=== PATIENT | male | born 1950 | race Caucasian/White ===

== ENCOUNTER → 2018-01-23 | Outpatient (CLI) | payer MEDICARE ==
--- NOTE | 2018-01-23 09:46 | XR ---
EXAMINATION TYPE: XR chest 2V DATE OF EXAM: 01/23/2018 COMPARISON: 06/23/2015 INDICATION: Asbestos exposure TECHNIQUE: Frontal and lateral views of the chest are obtained. FINDINGS: The heart size is normal. The pulmonary vasculature is normal. The lungs are clear. Right shoulder staple is evident. No suspicious pleural calcifications are evident. No pulmonary fibrosis is evident. IMPRESSION: 1. No acute pulmonary process.
== END | disposition home or self-care (01) ==
LOC: RADXRMAIN 07:56
PROVIDERS: ATTEND Family Medicine
DX: Z77.090 Contact with and (suspected) exposure to asbestos (principal)
CPT/HCPCS: 71046

== ENCOUNTER → 2019-09-15 | Outpatient (CLI) | payer MEDICARE ==
--- NOTE | 2019-09-15 16:24 | MR ---
EXAMINATION TYPE: MR brain wo/w con DATE OF EXAM: 09/15/2019 COMPARISON: NONE HISTORY: Tremors TECHNIQUE: Multiplanar, multisequence images of the brain and brainstem is performed without and with IV contras t, utilizing 13 mL intravenous Gadavist . FINDINGS: Diffusion weighted images demonstrate no evidence of a recent infarct or other diffusion ab normality. There is no worrisome extra-axial fluid collection. Mild ventricular and sulcal prominenc e. Occasional focus of T2 hyperintensity seen throughout the white matter bilaterally. Estimated 5-8 scattered lesions. Lesion is nonspecific in appearance. Basis of product of proximal vessel ischemic change in patient this age. Midline structures demonstrate normal morphology. The craniocervical junction appears within normal limits. Post contrast images demonstrate no abnormal enhancement. The dural venous sinuses appear pa tent. The visualized sinuses are clear and the globes are intact. IMPRESSION: Mild diffuse age-related cerebral atrophy and mild to minimal chronic small vessel ischem ic change. No suspicious enhancement or enhancing masses identified.
== END | disposition home or self-care (01) ==
LOC: RADMRIMAIN 14:11
PROVIDERS: ATTEND Family Medicine
DX: G31.1 Senile degeneration of brain, not elsewhere classified (principal); I67.82 Cerebral ischemia
CPT/HCPCS: 70553; A9585

== ENCOUNTER 2019-10-01 07:10 | Day surgery (SDC) | payer MEDICARE ==
[2019-09-26 14:05] VITALS: BMI 43.8
[~2019-10-01 07:10] MED LIST: LACTATED RINGERS 1,000 ML IV SCH
[2019-10-01] MEDS ORDERED: IV FLUID CONTINUATION 1,000 ML IV ONE (07:26)
[2019-10-01 07:37] VITALS: TEMP 98.3
[2019-10-01 07:52] LABS: Glucose,Whole Blood 121 mg/dL (75-99)
[2019-10-01] MEDS ORDERED: PROPOFOL 10 MG/ML 20 ML VIAL IV ONE (07:57)
--- NOTE | 2019-10-01 07:59 | P.GSHP ---
History of Present Illness H&P Date: 10/01/19 CHIEF COMPLAINT: Colon screen HISTORY OF PRESENT ILLNESS: The patient is a 69-year-old male who presents for colon screen. Lower endoscopy was offered for further evaluation and management. PAST MEDICAL HISTORY: Please see list. PAST SURGICAL HISTORY: Please see list. MEDICATIONS: Please see list. ALLERGIES: Please see list. SOCIAL HISTORY: No illicit drug use FAMILY HISTORY: No reports of Crohn disease or ulcerative colitis. REVIEW OF ORGAN SYSTEMS: CONSTITUTIONAL: No reports of fevers or chills. PHYSICAL EXAM: VITAL SIGNS: Stable GENERAL: Well-developed pleasant in no acute distress. HEENT: No scleral icterus. Extraocular movements grossly intact. Moist buccal mucosa. NECK: Supple without lymphadenopathy. CHEST: Unlabored respirations. Equal bilateral excursions. CARDIOVASCULAR: Regular rate and rhythm. Distal 2+ pulses. ABDOMEN: Soft, nontender, nondistended. MUSCULOSKELETAL: No clubbing, cyanosis, or edema. ASSESSMENT: 1. Colon screen. PLAN: 1. Recommend proceeding with a lower endoscopy Past Medical History Past Medical History: Asthma, Cancer, Diabetes Mellitus, GERD/Reflux, Hyperlipidemia, Hypertension, Prostate Disorder Additional Past Medical History / Comment(s): squamous cell cancer behind rt ear History of Any Multi-Drug Resistant Organisms: None Reported Past Surgical History: Heart Catheterization, Hernia Repair Additional Past Surgical History / Comment(s): rt shoulder x2 , lt knee torn meniscus, torn achilles lt Past Anesthesia/Blood Transfusion Reactions: Previous Problems w/ Anesthesia Additional Past Anesthesia/Blood Transfusion Reaction / Comment(s): during shoulder surgery "froze chest", during achilles surgery placed on abdomen had difficulty breathing Smoking Status: Never smoker - Past Family History Sister(s) Family Medical History: Cancer Additional Family Medical History / Comment(s): 1 sister cancer nose. 1 sister liver cancer Medications and Allergies Home Medications Medication Instructions Recorded Confirmed Type Albuterol Sulfate [Ventolin HFA] 1 - 2 puff INHALATION Q6H PRN 09/26/19 10/01/19 History Budesonide/Formoterol Fumarate 2 puff INHALATION DAILY 09/26/19 10/01/19 History [Symbicort 160-4.5 Mcg Inhaler] Cholecalciferol [Vitamin D3 (25 1,000 unit PO DAILY 09/26/19 10/01/19 History Mcg = 1000 Iu)] DULoxetine HCL [Cymbalta] 60 mg PO BID 09/26/19 10/01/19 History Diphenox-Atrop 2.5-0.025 mg 1 tab PO DAILY PRN 09/26/19 10/01/19 History [Lomotil] Enalapril [Vasotec] 10 mg PO BID 09/26/19 10/01/19 History HYDROcodone/APAP 5-325MG [[place] 1 tab PO TID 09/26/19 10/01/19 History 5-325] Hydrochlorothiazide 25 mg PO DAILY 09/26/19 10/01/19 History Pravastatin Sodium [Pravachol] 40 mg PO HS 09/26/19 10/01/19 History Sildenafil Citrate [Viagra] 25 mg PO ONCE PRN 09/26/19 10/01/19 History Tamsulosin [Flomax] 0.4 mg PO DAILY 09/26/19 10/01/19 History metFORMIN HCL [Glucophage] 500 mg PO DAILY 09/26/19 10/01/19 History Allergies Allergy/AdvReac Type Severity Reaction Status Date / Time No Known Allergies Allergy Verified 09/26/19 13:49 Surgical - Exam Vital Signs Temp Pulse Resp BP Pulse Ox 98.3 F 87 14 158/96 96 10/01/19 07:36 10/01/19 07:36 10/01/19 07:36 10/01/19 07:36 10/01/19 07:36 Results - Labs Abnormal Lab Results - Last 24 Hours (Table) 10/01/19 Range/Units 07:49 POC Glucose (mg/dL) 121 H (75-99) mg/dL
--- NOTE | 2019-10-01 08:28 | P.PCN ---
Date of Procedure: 10/01/19 Description of Procedure: PREOPERATIVE DIAGNOSIS: Family history colon cancer Colonoscopy screening POSTOPERATIVE DIAGNOSIS: Family history colon cancer Colonoscopy screening Multiple tubular adenomas throughout the colon. Diverticulosis, sigmoid colon OPERATION: Colonoscopy to the ileocecal valve and appendiceal orifice. Colonoscopy with cold forceps biopsies SURGEON: Beata Keating MD. ANESTHESIA: MAC. INDICATIONS: The patient is an 69-year-old male who presents with family history of colon cancer. Last colonoscopy 7 years ago. Benefits and risks were described and informed consent was obtained. DESCRIPTION OF PROCEDURE: The patient had undergone Suprep. He had been brought into the operating room and laid in the left lateral decubitus position. After adequate intravenous sedation, the rectum was examined with 2% lidocaine jelly. No external hemorrhoids were encountered. The prostatic fossa was unremarkable.The rectal tone was within normal limits. No lesions were palpated in the rectal vault. An Olympus colonoscope was advanced until the ileocecal valve and appendiceal kendall fice were clearly viewed. The prep was fair with residual liquid stool. Sigmoid diverticulosis was encountered. Multiple colonic polyps were found and removed using cold forceps biopsy. No evidence of focal colitis was found. Retroflexion of the scope demonstrated grade 1 internal hemorrhoids without active bleeding or inflammation. The colon was desufflated. The patient had tolerated the procedure well. Withdrawal time was over 6 minutes. FINDINGS: Aronchick preparation quality scale 2 (1-5) Internal hemorrhoids, grade 1 No external hemorrhoids, grade 4. No arteriovenous malformations. Sigmoid diverticulosis Removal of 5 polyps: - Cold forceps biopsy at 20 cm from the anal verge, 4 mm polyp. - Cold forceps biopsy at 25 cm from the anal verge, 5 mm polyp. - Cold forceps biopsy at distal transverse colon, 4 mm polyp. - Cold forceps biopsy at mid transverse colon 2, 3 x 2 mm polyps. No focal colitis. RECOMMENDATIONS: Given severity of tubular adenomas, recommend repeat colonoscopy 3 years, 2021. Plan - Discharge Summary Discharge Rx Participant: No New Discharge Prescriptions: No Action Cholecalciferol [Vitamin D3 (25 Mcg = 1000 Iu)] 1,000 unit PO DAILY Sildenafil Citrate [Viagra] 25 mg PO ONCE PRN PRN Reason: erectile dysfunction Diphenox-Atrop 2.5-0.025 mg [Lomotil] 1 tab PO DAILY PRN PRN Reason: Diarrhea Albuterol Sulfate [Ventolin HFA] 1 - 2 puff INHALATION Q6H PRN PRN Reason: Dyspnea Tamsulosin [Flomax] 0.4 mg PO DAILY Pravastatin Sodium [Pravachol] 40 mg PO HS Enalapril [Vasotec] 10 mg PO BID Budesonide/Formoterol Fumarate [Symbicort 160-4.5 Mcg Inhaler] 2 puff INHALATION DAILY Hydrochlorothiazide 25 mg PO DAILY HYDROcodone/APAP 5-325MG [[place] 5-325] 1 tab PO TID DULoxetine HCL [Cymbalta] 60 mg PO BID metFORMIN HCL [Glucophage] 500 mg PO DAILY Discharge Medication List Albuterol Sulfate [Ventolin HFA] 1 - 2 puff INHALATION Q6H PRN 09/26/19 [History] Budesonide/Formoterol Fumarate [Symbicort 160-4.5 Mcg Inhaler] 2 puff INHALATION DAILY 09/26/19 [History] Cholecalciferol [Vitamin D3 (25 Mcg = 1000 Iu)] 1,000 unit PO DAILY 09/26/19 [History] DULoxetine HCL [Cymbalta] 60 mg PO BID 09/26/19 [History] Diphenox-Atrop 2.5-0.025 mg [Lomotil] 1 tab PO DAILY PRN 09/26/19 [History] Enalapril [Vasotec] 10 mg PO BID 09/26/19 [History] HYDROcodone/APAP 5-325MG [[place] 5-325] 1 tab PO TID 09/26/19 [History] Hydrochlorothiazide 25 mg PO DAILY 09/26/19 [History] Pravastatin Sodium [Pravachol] 40 mg PO HS 09/26/19 [History] Sildenafil Citrate [Viagra] 25 mg PO ONCE PRN 09/26/19 [History] Tamsulosin [Flomax] 0.4 mg PO DAILY 09/26/19 [History] metFORMIN HCL [Glucophage] 500 mg PO DAILY 09/26/19 [History] Follow up Appointment(s)/Referral(s): Beata Keating MD [STAFF PHYSICIAN] - As Needed Patient Instructions/Handouts: Colorectal Polyps (IP), Diverticulosis Diet (GEN), Diverticulosis (DC) Activity/Diet/Wound Care/Special Instructions: Repeat colonoscopy in 3 years, 2021 Discharge Disposition: HOME SELF-CARE
[2019-10-01 08:30] VITALS: RESP 16
[2019-10-01 08:47] VITALS: BP 127/74; PULSE 73
== END 2019-10-01 08:59 | disposition home or self-care (01) ==
LOC: ORWHC2ENDO 07:10
PROVIDERS: ATTEND Surgery Plastic and Reconstructive Surgery
DX: Z12.11 Encounter for screening for malignant neoplasm of colon (principal); K57.30 Diverticulosis of large intestine without perforation or abscess without bleeding; Z80.0 Family history of malignant neoplasm of digestive organs; D12.3 Benign neoplasm of transverse colon; E11.9 Type 2 diabetes mellitus without complications; E78.5 Hyperlipidemia, unspecified; I10 Essential (primary) hypertension; J45.909 Unspecified asthma, uncomplicated; K21.9 Gastro-esophageal reflux disease without esophagitis; Z79.84 Long term (current) use of oral hypoglycemic drugs; Z79.899 Other long term (current) drug therapy; K64.8 Other hemorrhoids; Z79.51 Long term (current) use of inhaled steroids
CPT/HCPCS: 88305; 45380; J2704

== ENCOUNTER → 2020-01-29 | Outpatient (CLI) | payer MEDICARE ==
[2020-01-29 08:31] LABS: Basophils # (A) 0.1 k/uL (0-0.2); Basophils % (A) 1 %; Eosinophils # (A) 0.1 k/uL (0-0.7); Eosinophils % (A) 2 %; HGB 16.3 gm/dL (13.0-17.5); Lymphocytes # (A) 1.9 k/uL (1.0-4.8); Lymphocytes % (A) 23 %; MCH 28.5 pg (25.0-35.0); MCHC 31.9 g/dL (31.0-37.0); MCV 89.4 fL (80.0-100.0); Mean Platelet Volume 6.8; Monocytes # (A) 0.4 k/uL (0-1.0); Monocytes % (A) 5 %; Neutrophils # (A) 5.4 k/uL (1.3-7.7); Neutrophils % (A) 68 %; Platelet Count 179 k/uL (150-450); RBC 5.71 m/uL (4.30-5.90); RDW 13.1 % (11.5-15.5)
[2020-01-29 16:50] LABS: Hemoglobin A1C 5.8 % (4.0-6.0)
[2020-01-29 17:13] LABS: ALT <8 U/L (10-49); AST 21 U/L (14-35); African American GFR (CKD) 89.9 (60.0-200.0); Alkaline Phosphatase 73 U/L (41-126); Calcium 9.7 mg/dL (8.7-10.3); Carbon Dioxide 32.3 mmol/L (21.6-31.8); Chloride 100 mmol/L (96-109); Cholesterol 154 mg/dL (0-200); Globulin 2.1 g/dL (1.6-3.3); Glucose 127 mg/dL (70-110); LDL Cholesterol,Calculated 90.2 mg/dL (0.0-131.0); Non-African American GFR(CKD) 77.5 (60.0-200.0); Sodium 141 mmol/L (135-145); Total Bilirubin 0.5 mg/dL (0.3-1.2); Total Protein 6.5 g/dL (6.2-8.2)
== END | disposition home or self-care (01) ==
LOC: LABWHC1 08:05
PROVIDERS: ATTEND Family Medicine
DX: E11.51 Type 2 diabetes mellitus with diabetic peripheral angiopathy without gangrene (principal)
CPT/HCPCS: 36415; 80053; 80061; 83036; 85025

== ENCOUNTER → 2020-05-25 | Outpatient (CLI) | payer MEDICARE | END | disposition home or self-care (01) | LOC: LABWHC1 09:23 | PROVIDERS: ATTEND Psychiatry & Neurology Neurology | DX: D51.0 Vitamin B12 deficiency anemia due to intrinsic factor deficiency (principal) | CPT/HCPCS: 36415; 82607; 84207 ==

== ENCOUNTER → 2020-12-10 | Outpatient (CLI) | payer MEDICARE ==
--- NOTE | 2020-12-10 11:47 | MR ---
EXAMINATION TYPE: MR cervical spine wo con DATE OF EXAM: 12/10/2020 COMPARISON: None HISTORY: Neck pain, imbalance, myelopathy TECHNIQUE: Multiplanar, multisequence images of the cervical spine were acquired. C2-C3: No evidence for degenerative disc disease. No disc bulge/herniation or protrusion. No Canal stenosis. Foramina are patent bilaterally. C3-C4: Posterior extension of endplate disc complex causes anterior mass effect on the thecal sac and possibly contacting the anterior cervical cord, only mild spinal stenosis, uncovertebral joint hyper trophy results in right-sided foraminal encroachment greater than left. C4-C5: Posterior extension endplate disc complex causes mild anterior mass effect on the thecal sac, no significant stenosis, there is foraminal encroachment on the right greater than left due to uncove rtebral joint hypertrophy and facet arthropathy. C5-C6: There is some mild right-sided foraminal encroachment due to uncovertebral joint hypertrophy a nd facet arthropathy. Minimal posterior disc bulge causes only slight anterior mass effect on the the yenny sac, no significant central stenosis. C6-C7: There is some uncovertebral joint hypertrophy resulting in some right-sided foraminal encroach ment, posterior central disc protrusion causes only slight anterior mass effect on the thecal sac. C7-T1: No evidence for degenerative disc disease. No disc bulge/herniation or protrusion. No Canal stenosis. Foramina are patent bilaterally. Cervical segments are intact. There is near anatomic alignment, minimal retrolisthesis grade 1 C3-4. There is multilevel spondylosis, some endplate discogenic marrow signal changes noted, loss of disc height and signal is greatest at C3-4 but also present to lesser extent C6-7. Cervical spinal cord i s of normal signal. Craniovertebral junction relationships are within normal limits. IMPRESSION: Multilevel degenerative disc disease. Multilevel foraminal encroachment.
== END | disposition home or self-care (01) ==
LOC: RADMRIMAIN 10:20
PROVIDERS: ATTEND Psychiatry & Neurology Neurology
DX: M50.30 Other cervical disc degeneration, unspecified cervical region (principal)
CPT/HCPCS: 72141

== ENCOUNTER → 2021-04-11 | Outpatient (CLI) | payer MEDICARE ==
[~2021-04-11] MED LIST changes: -LACTATED RINGERS 1,000 ML IV SCH; +REGADENOSON 0.4 MG/5 ML SYRINGE IV PRN
--- NOTE | 2021-04-11 13:50 | P.STRESS ---
- Stress Test Note Stress Test Results/Findings: Exam Performed: NM stress lexiscan cardiolite Exam Date: 04/11/21 Reason for Exam: HTN Height: 5 ft 7 in Weight: 122 kg Protocol: LEXISCAN CARDIOLITE Stage: NA Duration of Exercise: NA Resting Heart Rate: 75 Resting Blood Pressure: 133/57 Maximum Achieved Heart Rate: 91 Maximum Achieved Blood Pressure: 169/53 85% PMHR: 129 100% PMHR: 152 METS: NA Technologist Comment: Stress Test Results/Findings: This is a 70-year-old gentleman with history of hypertension, diabetes, hypercholesterolemia and also asthma being evaluated for cardiac status and the symptoms of chest pain and shortness of breath. Stress data alert, baseline EKG showed a sinus rhythm with evidence of right bundle-branch block pattern. A standard dose of Lexiscan was infused. Blood pressure at rest is 133/57 with pulse rate is 75. Patient remained in sinus rhythm with a peak blood pressure 169/53, during and after infusion. EKGs continued to show right bundle-branch block without any significant change from the baseline. Final impression #1. Nondiagnostic Lexiscan stress test #2. Report on the nuclear portion of the test to be provided with the radiologist.
--- NOTE | 2021-04-12 13:26 | NM ---
EXAMINATION TYPE: NM stress lexiscan cardiolite DATE OF EXAM: 04/11/2021 COMPARISON: NONE HISTORY: Essential hypertension TECHNIQUE: After the intravenous administration of 10.3 mCi Tc 99m Sestamibi - Cardiolite resting SP ECT images acquired 45 minutes post injection. The patient received 0.4mg Lexiscan, 24.1 mCi Tc 99m Sestamibi - Stress images obtained [address] injection FINDINGS: Review of stress and rest SPECT images demonstrates no distinct perfusion abnormality. Gated analysi s shows normal wall motion with an estimated left ventricular ejection fraction of 70 %. IMPRESSION: No scintigraphic evidence for reversible ischemia.
== END | disposition home or self-care (01) ==
LOC: RADNMMAIN 08:08
PROVIDERS: ATTEND Family Medicine
DX: I10 Essential (primary) hypertension (principal); E78.00 Pure hypercholesterolemia, unspecified; J45.909 Unspecified asthma, uncomplicated; E11.9 Type 2 diabetes mellitus without complications
CPT/HCPCS: 93017; 78452; A9500; J2785

== ENCOUNTER 2023-01-08 11:36 | Day surgery (SDC) | payer MEDICARE ==
[2023-01-03 15:30] VITALS: BMI 38.7
[~2023-01-08 11:36] MED LIST changes: +ACETAMINOPHEN TAB 500 MG TAB PO PRN; +GABAPENTIN 300 MG CAP PO PRN; +HYDROmorphone 0.5 MG/0.5 ML SYRINGE IVP PRN; +LIDOCAINE 1% (10MG/ML) FOR IV START INTRADERMA PRN; +MELOXICAM 7.5 MG TAB PO PRN; +ONDANSETRON 4 MG/2 ML VIAL IVP PRN; -REGADENOSON 0.4 MG/5 ML SYRINGE IV PRN; +TRANEXAMIC ACID IN NACL,ISO-OS 1,000 MG in SALINE 1 100ML.BAG IVPB PRN
[2023-01-08] MEDS ORDERED: DEXAMETHASONE SOD PHOSPHATE 4 MG/ML 1 ML VIAL IVP ONE (12:13)
[2023-01-08 12:17] LABS: Glucose,Whole Blood 115 mg/dL (70-110)
[2023-01-08] MEDS: LACTATED RINGERS 1,000 ML IV SCH (12:26)
[2023-01-08] MEDS ORDERED: MIDAZOLAM 2 MG/2 ML VIAL IVP ONE (12:30)
--- NOTE | 2023-01-08 12:47 | P.ANPRN ---
Procedure Note - Anesthesia - Nerve Block Performed Left Interscalene Single Time Out Performed: Yes (1230) Date of Procedure: 01/08/23 Procedure Start Time: 12:30 Procedure Stop Time: 12:37 Location of Patient: PreOp Indication: Acute Post-Operative Pain, Requested by Surgeon Sedation Type: Sedate with meaningful contact maintained Preparation: Sterile Prep Position: Sitting Catheter: None Needle Types: Pajunk Needle Gauge: Other (see comment) (22) Ultrasound used to visualize needle placement: Yes Ultrasound used to observe medication spread: Yes Injectate: 0.5% Ropivacaine (see comment for volume) (21 mL of block solution containing 20 mL of 0.5% preservative free bupivacaine mixed with and 4 mg of dexamethasone) Blood Aspirated: No Pain Paresthesia on Injection Noted: No Resistance on Injection: Normal Image Stored and Saved: Yes Events: Uneventful and Well Tolerated
[2023-01-08] MEDS ORDERED: D5W PMX ONE (13:34)
[2023-01-08] MEDS ORDERED: TRANEXAMIC ACID IN NACL,ISO-OS 1,000 MG/100 ML BAG ONE (13:34)
[2023-01-08] MEDS ORDERED: DEXAMETHASONE SOD PHOSPHATE 4 MG/ML 1 ML VIAL ONE (13:34)
[2023-01-08] MEDS ORDERED: LIDOCAINE 2% INJ 20 MG/ML (2 ML VIAL) ONE (13:34)
[2023-01-08] MEDS ORDERED: GLYCOPYRROLATE 0.2 MG/ML 2 ML VIAL ONE (13:34)
[2023-01-08] MEDS ORDERED: PHENYLEPHRINE-0.9% NACL SYG 1,000 MCG/10 ML SYRINGE ONE (13:34)
[2023-01-08] MEDS ORDERED: SUCCINYLCHOLINE CHLORIDE 200 MG/10 ML VIAL IV ONE (13:34)
[2023-01-08] MEDS ORDERED: CALCIUM CHLORIDE 100 MG/ML 10 ML SYRINGE ONE (13:34)
[2023-01-08] MEDS ORDERED: VASOPRESSIN 20 UNIT/ML 1 ML VIAL ONE (13:34)
[2023-01-08] MEDS ORDERED: CLINDAMYCIN 600 MG/50 ML ONE (13:34)
[2023-01-08] MEDS ORDERED: ROCURONIUM 10 MG/ML (5 ML VIAL) IV ONE (13:34)
[2023-01-08] MEDS ORDERED: ePHEDrine 50 MG/ML 1 ML VIAL ONE (13:34)
[2023-01-08] MEDS ORDERED: PROPOFOL 10 MG/ML 20 ML VIAL IV ONE (13:34)
[2023-01-08] MEDS ORDERED: MIDAZOLAM 2 MG/2 ML VIAL ONE (13:34)
[2023-01-08] MEDS ORDERED: ROPIVACAINE 5 MG/ML 30 ML VIAL ONE (13:34)
[2023-01-08] MEDS ORDERED: fentaNYL (PF) 50 MCG/ML 2 ML AMP ONE (13:34)
[2023-01-08] MEDS ORDERED: NEOSTIGMINE 1 MG/ML 10 ML VIAL ONE (13:34)
[2023-01-08] MEDS ORDERED: LACTATED RINGERS 1,000 ML IV ONE ×2 (16:05→16:12)
[2023-01-08] MEDS ORDERED: ceFAZolin 1,000 MG in SODIUM CHLORIDE 0.9% 1,000 ML IRRIGATION ONE (16:12)
[2023-01-08] MEDS ORDERED: HYDROmorphone 0.5 MG/0.5 ML SYRINGE IVP PRN ×2 (16:34)
[2023-01-08] MEDS ORDERED: TEMAZEPAM 15 MG CAP PO PRN (16:34)
[2023-01-08] MEDS ORDERED: SENNOSIDES-DOCUSATE SODIUM 1 EACH TAB PO PRN (16:34)
[2023-01-08] MEDS ORDERED: hydrOXYzine pamoate 25 MG CAP PO PRN (16:34)
[2023-01-08] MEDS ORDERED: diphenhydrAMINE 25 MG CAP PO PRN (16:34)
[2023-01-08 16:44] LABS: Glucose,Whole Blood 144 mg/dL (70-110)
[2023-01-08] MEDS ORDERED: ONDANSETRON 4 MG/2 ML VIAL IVP ONE (17:03)
--- NOTE | 2023-01-08 17:19 | XR ---
EXAMINATION TYPE: XR shoulder limited LT DATE OF EXAM: 01/08/2023 COMPARISON: NONE HISTORY: Postop TECHNIQUE: Single view FINDINGS: There is left shoulder prosthesis. Components appear in anatomic position. IMPRESSION: No complicating process seen.
[2023-01-08 19:59] LABS: Glucose,Whole Blood 206 mg/dL (70-110)
[2023-01-08] MEDS ORDERED: [UNRECOGNIZED DRUG - OTHER] TOPICAL PRN (21:35)
[2023-01-08] MEDS ORDERED: DEXTROSE 50% SYRINGE 50 ML IVP PRN ×2 (21:36)
[2023-01-08] MEDS ORDERED: DIPHENOX-ATROP 2.5-0.025 MG 1 EACH TAB PO PRN (22:00)
[2023-01-08] MEDS: DULoxetine HCL 60 MG CAPSULE.DR PO SCH (22:58)
[2023-01-08] MEDS: CARBIDOPA-LEVODOPA 25-100 MG 1 EACH TAB PO SCH (22:58)
[2023-01-08] MEDS: INSULIN ASPART (NovoLOG) 100 UNIT/ML VIAL SQ SCH (23:03)
[2023-01-08] MEDS: HYDROcodone/APAP 10-325MG 1 EACH TAB PO PRN (23:08)
[2023-01-09] MEDS: LACTATED RINGERS 1,000 ML IV SCH (06:04)
[2023-01-09 06:06] LABS: Glucose,Whole Blood 135 mg/dL (70-110)
[2023-01-09] MEDS: HYDROcodone/APAP 10-325MG 1 EACH TAB PO PRN ×2 (06:53→16:54)
[2023-01-09] MEDS: SYMBICORT 160-4.5 MCG INHALER INHALATION SCH ×2 (07:58→20:41)
[2023-01-09] MEDS: CARBIDOPA-LEVODOPA 25-100 MG 1 EACH TAB PO SCH ×3 (08:53→21:48)
[2023-01-09] MEDS: TAMSULOSIN 0.4 MG CAP.ER.24H PO SCH (08:53)
[2023-01-09] MEDS: DULoxetine HCL 60 MG CAPSULE.DR PO SCH ×2 (08:53→21:49)
[2023-01-09] MEDS: HYDROmorphone 0.5 MG/0.5 ML SYRINGE IVP PRN ×3 (09:15→18:55)
[2023-01-09 09:33] LABS: HCT 41.3 % (39.6-50.0); HGB 13.3 g/dL (13.0-17.0); MCH 28.7 pg (27.0-32.0); MCHC 32.2 g/dL (32.0-37.0); Mean Platelet Volume 10.6 fL (9.5-12.2); NRBC Per 100 WBC 0 /100 WBCS (0.0-0.0); Platelet Count 200 X 10*3/uL (140-440); RBC 4.64 X 10*6/uL (4.40-5.60); RDW 13.7 % (11.5-14.5); WBC 21.98 X 10*3/uL (4.50-10.00)
[2023-01-09 11:07] LABS: Basophils # (A) 0.03 X 10*3/uL (0.00-0.10); Basophils % (A) 0.1 %; Eosinophils # (A) 0 X 10*3/uL (0.04-0.35); Eosinophils % (A) 0 %; Immature Grans, Automated 0.8 %; Lymphocytes % (A) 3.2 %; Monocytes # (A) 0.86 X 10*3/uL (0.20-1.00); Monocytes % (A) 3.9 %; Neutrophils # (A) 20.21 X 10*3/uL (1.80-7.70); RBC Morphology NORMAL
[2023-01-09] MEDS: ALBUTEROL HFA INHALER INHALATION PRN ×3 (11:45→20:41)
[2023-01-09 13:25] LABS: Glucose,Whole Blood 164 mg/dL (70-110)
--- NOTE | 2023-01-09 13:51 | P.PN ---
Subjective Progress Note Date: 01/09/23 This is a 72-year-old male who is status post left reverse total shoulder arthroplasty. This is postoperative day #1and patient is seen and evaluated at bedside today. Patient states that he continues to be in quite a bit of pain, but otherwise denies any new complaints. Objective - Vital Signs Vital signs: Vital Signs Temp 98.4 F 01/09/23 13:17 Pulse 108 H 01/09/23 13:17 Resp 16 01/09/23 13:17 BP 159/63 01/09/23 13:17 Pulse Ox 91 L 01/09/23 13:17 FiO2 Intake & Output 01/08/23 01/09/23 01/09/23 18:59 06:59 18:59 Intake Total 2831 240 Output Total 400 Balance 2431 240 Weight 114.1 kg Intake: IV 2351 Oral 480 240 Output: Urine 200 Estimated Blood Loss 200 Other: Voiding Method Toilet # Voids 0 1 - Exam Vital signs are stable. Patient is in no acute distress and is alert and oriented 3. Sling intact to left upper extremity. Dressing is clean, dry, and intact. Patient has full motion of the left hand and wrist. Sensation intact. Neurovascular status and circulatory status are intact. - Labs CBC & Chem 7: 01/09/23 06:06 Labs: Abnormal Lab Results - Last 24 Hours (Table) 01/08/23 01/08/23 01/09/23 Range/Units 16:42 19:57 06:04 WBC (4.50-10.00) X 10*3/uL Immature Gran # (0.00-0.04) X 10*3/uL Neutrophils # (1.80-7.70) X 10*3/uL Lymphocytes # (0.90-5.00) X 10*3/uL Eosinophils # (0.04-0.35) X 10*3/uL POC Glucose (mg/dL) 144 H 206 H 135 H (70-110) mg/dL Hemoglobin A1c (0.0-6.0) % 01/09/23 01/09/23 01/09/23 Range/Units 06:06 06:06 13:23 WBC 21.98 H (4.50-10.00) X 10*3/uL Immature Gran # 0.18 H (0.00-0.04) X 10*3/uL Neutrophils # 20.21 H (1.80-7.70) X 10*3/uL Lymphocytes # 0.70 L (0.90-5.00) X 10*3/uL Eosinophils # 0 L (0.04-0.35) X 10*3/uL POC Glucose (mg/dL) 164 H (70-110) mg/dL Hemoglobin A1c 6.1 H (0.0-6.0) % Assessment and Plan (1) S/p reverse total shoulder arthroplasty Current Visit: Yes Status: Acute Code(s): Z96.619 - PRESENCE OF UNSPECIFIED ARTIFICIAL SHOULDER JOINT SNOMED Code(s): 735151660 (2) Osteoarthritis of left shoulder Current Visit: Yes Status: Acute Code(s): M19.012 - PRIMARY OSTEOARTHRITIS, LEFT SHOULDER SNOMED Code(s): 958368764687924 Plan: Maintain sling to left upper extremity. Continue pain control. Maintain Prevena wound vac. Anticipate discharge home tomorrow.
[2023-01-09] MEDS ORDERED: KETOROLAC 15 MG/ML 1 ML VIAL IVP PRN (13:52)
[2023-01-09] MEDS: INSULIN ASPART (NovoLOG) 100 UNIT/ML VIAL SQ SCH ×3 (13:53→22:32)
--- NOTE | 2023-01-09 14:29 | P.CONS ---
History of Present Illness - Reason for Consult Consult date: 01/09/23 Medical management - History of Present Illness History of present illness; patient is a 72-year-old gentleman with past medical history significant for left shoulder osteoarthritis, hypertension, hyperlipidemia presented to the hospital for elective procedure with orthopedic. Patient was being seen outpatient by orthopedics for his left shoulder pain. Patient was complaining of stiffness and pain in left shoulder. Patient also complaining of numbness and tingling in the hand and fingers on the left is at rest. Patient underwent physical therapy and steroid injections but was of no benefit. After discussing with orthopedics patient was scheduled for left total shoulder arthroplasty. Postoperatively the medicine team was consulted for medical management REVIEW OF SYSTEMS: CONSTITUTIONAL: No fever, no malaise, no fatigue. HEENT: No recent visual problems or hearing problems. Denied any sore throat. CARDIOVASCULAR: No chest pain, orthopnea, PND, no palpitations, no syncope. PULMONARY: No shortness of breath, no cough, no hemoptysis. GASTROINTESTINAL: No diarrhea, no nausea, no vomiting, no abdominal pain. NEUROLOGICAL: No headaches, no weakness, no numbness. HEMATOLOGICAL: Denies any bleeding or petechiae. GENITOURINARY: Denies any burning micturition, frequency, or urgency. MUSCULOSKELETAL/RHEUMATOLOGICAL: Left shoulder pain ENDOCRINE: Denies any polyuria or polydipsia. The rest of the 14-point review of systems is negative. PHYSICAL EXAMINATION: GENERAL: The patient is alert and oriented x3, not in any acute distress. Well developed, well nourished. HEENT: Pupils are round and equally reacting to light. EOMI. No scleral icterus. No conjunctival pallor. Normocephalic, atraumatic. No pharyngeal erythema. No thyromegaly. CARDIOVASCULAR: S1 and S2 present. No murmurs, rubs, or gallops. PULMONARY: Chest is clear to auscultation, no wheezing or crackles. ABDOMEN: Soft, nontender, nondistended, normoactive bowel sounds. No palpable organomegaly. MUSCULOSKELETAL: Left shoulder bandage seen EXTREMITIES: No cyanosis, clubbing, or pedal edema. NEUROLOGICAL: Gross neurological examination did not reveal any focal deficits. SKIN: No rashes. Assessment and plan Left shoulder osteoarthritis status post left total shoulder arthroplasty Hypertension Hyperlipidemia Plan; Monitor vital signs Monitor CBC Monitor CMP Continue pain management per orthopedics PT and OT evaluation Resume home meds, at this time hold enalapril and HCTZ at blood pressure is normotensive, they can be resumed at a later time depending on blood pressure DVT prophylaxis: Past Medical History Past Medical History: Asthma, Cancer, Diabetes Mellitus, GERD/Reflux, Hearing Disorder / Deafness, Hyperlipidemia, Hypertension, Memory Impairment, Neurologic Disorder, Skin Disorder Additional Past Medical History / Comment(s): Hx skin cancer behind ear, removed. Parkinson's, with some memory impairment and confusion at times. Back issues. Psoriasis. Frequent urination. Hard of hearing, has hearing aids but does not use them. History of Any Multi-Drug Resistant Organisms: None Reported Past Surgical History: Hernia Repair, Orthopedic Surgery Additional Past Surgical History / Comment(s): Radiaoactive frequency pain pr ocedures on back, right shoulder surgery X2, belly button and left testicle hernia repairs, left knee arthroscopy, torn achilles tendon surgery left ankle X2. Past Anesthesia/Blood Transfusion Reactions: No Reported Reaction, Motion Sickness Past Psychological History: PTSD Additional Psychological History / Comment(s): Nightmares. Smoking Status: Former smoker Past Alcohol Use History: None Reported Additional Past Alcohol Use History / Comment(s): Smoked a pipe off and on, quit 40-50 yrs ago. Past Drug Use History: None Reported - Past Family History Sister(s) Family Medical History: Cancer Additional Family Medical History / Comment(s): Melanoma. Medications and Allergies Home Medications Medication Instructions Recorded Confirmed Type Albuterol Sulfate [Ventolin HFA] 1 - 2 puff INHALATION Q6H PRN 09/26/19 01/03/23 History Budesonide/Formoterol Fumarate 2 puff INHALATION BID 09/26/19 01/03/23 History [Symbicort 160-4.5 Mcg Inhaler] DULoxetine HCL [Cymbalta] 60 mg PO BID 09/26/19 01/03/23 History Diphenox-Atrop 2.5-0.025 mg 1 tab PO QID PRN 09/26/19 01/03/23 History [Lomotil] Enalapril [Vasotec] 10 mg PO BID 09/26/19 01/03/23 History Pravastatin Sodium [Pravachol] 40 mg PO HS 09/26/19 01/03/23 History hydroCHLOROthiazide 25 mg PO DAILY 09/26/19 01/03/23 History metFORMIN HCL [Glucophage] 500 mg PO DAILY 09/26/19 01/03/23 History Carbidopa-Levodopa 25-100 mg 3 each PO TID 01/03/23 01/03/23 History [Sinemet 25-100] HYDROcodone/APAP 7.5-325MG [[place] 1 tab PO BID 01/03/23 01/03/23 History 7.5-325] Metoprolol Tartrate 25 mg PO HS 01/03/23 01/03/23 History Psoriasis Cream 1 applic TOPICAL DIRECTED PRN 01/03/23 01/03/23 History Tamsulosin HCl [Flomax] 0.4 mg PO DAILY 01/03/23 01/03/23 History HYDROcodone/APAP 10-325MG [[place] 1 tab PO Q6HR PRN #28 tab 01/08/23 Rx 10-325] Ondansetron Odt [Zofran Odt] 4 mg PO Q8HR PRN #14 tab 01/08/23 Rx Sennosides-Docusate Sodium 1 tab PO BID #60 tablet 01/08/23 Rx [Senokot-S] Allergies Allergy/AdvReac Type Severity Reaction Status Date / Time No Known Allergies Allergy Verified 01/08/23 12:05 Physical Exam Vitals: Vital Signs Temp Pulse Pulse Resp BP Pulse Ox 01/09/23 08:39 99 18 01/09/23 07:58 94 L 01/09/23 06:53 98.4 F 99 18 107/64 92 L 01/09/23 02:00 98.8 F 100 18 109/68 92 L 01/08/23 20:44 98 113/67 92 L 01/08/23 20:00 18 01/08/23 19:45 98.1 F 89 18 93/62 94 L 01/08/23 19:29 88 93/61 94 L 01/08/23 19:14 86 89/58 94 L 01/08/23 19:00 89 79/55 93 L 01/08/23 18:44 89 82/51 94 L 01/08/23 18:29 87 88/57 89 L 01/08/23 18:15 87 72/41 89 L 01/08/23 18:01 94 72/41 93 L 01/08/23 17:45 98.1 F 92 20 88/56 92 L 01/08/23 17:15 95 16 96/55 92 L 01/08/23 17:00 95 15 103/53 91 L 01/08/23 16:45 85 17 97/76 93 L 01/08/23 16:31 97.4 F L 77 16 103/53 92 L 01/08/23 12:43 78 16 108/64 94 L 01/08/23 11:53 97.1 F L 88 16 141/70 97 Intake and Output 01/08/23 01/09/23 01/09/23 22:59 06:59 14:59 Intake Total 1781 240 Output Total 200 Balance 1581 240 Intake: IV 1301 Oral 480 240 Output: Estimated Blood Loss 200 Other: Voiding Method Toilet # Voids 0 1 Weight 114.1 kg Results CBC & Chem 7: 01/09/23 06:06 Labs: Abnormal Lab Results - Last 24 Hours (Table) 01/08/23 01/08/23 01/08/23 Range/Units 12:12 16:42 19:57 WBC (4.50-10.00) X 10*3/uL POC Glucose (mg/dL) 115 H 144 H 206 H (70-110) mg/dL Hemoglobin A1c (0.0-6.0) % 01/09/23 01/09/23 01/09/23 Range/Units 06:04 06:06 06:06 WBC 21.98 H (4.50-10.00) X 10*3/uL POC Glucose (mg/dL) 135 H (70-110) mg/dL Hemoglobin A1c 6.1 H (0.0-6.0) %
[2023-01-09 16:38] LABS: Glucose,Whole Blood 152 mg/dL (70-110)
[2023-01-09 20:37] LABS: Glucose,Whole Blood 123 mg/dL (70-110)
[2023-01-09] MEDS ORDERED: PRAVASTATIN SODIUM 40 MG TAB PO SCH (21:00)
[2023-01-09] MEDS ORDERED: METOPROLOL TARTRATE 25 MG TAB PO SCH (21:00)
[2023-01-09] MEDS ORDERED: NON FORMULARY DRUG (Enalapril 10 MG Tab) PO SCH (21:00)
[2023-01-10] MEDS: LACTATED RINGERS 1,000 ML IV SCH (00:57)
[2023-01-10] MEDS: HYDROcodone/APAP 10-325MG 1 EACH TAB PO PRN ×3 (01:47→13:52)
[2023-01-10 06:09] LABS: Glucose,Whole Blood 120 mg/dL (70-110)
[2023-01-10] MEDS: INSULIN ASPART (NovoLOG) 100 UNIT/ML VIAL SQ SCH ×2 (06:10→11:22)
[2023-01-10 07:37] VITALS: BP 98/63; PULSE 70; RESP 16; TEMP 98.7
[2023-01-10] MEDS: ALBUTEROL HFA INHALER INHALATION PRN (08:02)
[2023-01-10] MEDS: SYMBICORT 160-4.5 MCG INHALER INHALATION SCH (08:02)
[2023-01-10] MEDS: CARBIDOPA-LEVODOPA 25-100 MG 1 EACH TAB PO SCH (08:19)
[2023-01-10] MEDS: TAMSULOSIN 0.4 MG CAP.ER.24H PO SCH (08:19)
[2023-01-10] MEDS: DULoxetine HCL 60 MG CAPSULE.DR PO SCH (08:19)
[2023-01-10] MEDS ORDERED: metFORMIN 500 MG TAB PO SCH (09:00)
[2023-01-10] MEDS ORDERED: hydroCHLOROthiazide 25 MG TAB PO SCH (09:00)
[2023-01-10 11:10] LABS: Glucose,Whole Blood 102 mg/dL (70-110)
--- NOTE | 2023-01-10 11:25 | P.DS ---
Providers Date of admission: 01/08/2023 Expected date of discharge: 01/10/23 Attending physician: Brooke Shin DO Consults: 01/08/23 16:34 Consult Physician Routine Consulting Provider: Sarthak Wilcox Consult Reason/Comments: Medical management Do you want consulting provider notified?: Yes Primary care physician: Kwame Gray Alex - Discharge Diagnosis(es) (1) Osteoarthritis of left shoulder Current Visit: Yes Status: Acute (2) S/p reverse total shoulder arthroplasty Current Visit: Yes Status: Acute Hospital Course: This is a 72-year-old male who has history of severe degenerative arthritis of the left shoulder and presented to discuss surgical options. After discussion and consideration the patient elects to proceed with total reverse shoulder arthroplasty. The pt is seen preoperatively by their family physician and cleared for surgery. The patient is admitted to [facility] on 01/08/2023 for reverse total left shoulder arthroplasty. He is doing well postoperatively. Vital signs and hemoglobin are stable. The pt is able to get up out of bed independently and is ambulating without assistance. Pain is well controlled. Patient is discharged to home on postoperative day #2 in good condition. Please see med rec for accurate list of home medications. Patient Condition at Discharge: Stable Plan - Discharge Summary Discharge Rx Participant: No New Discharge Prescriptions: New HYDROcodone/APAP 10-325MG [[place] 10-325] 1 tab PO Q6HR PRN #28 tab PRN Reason: Pain Sennosides-Docusate Sodium [Senokot-S] 1 tab PO BID #60 tablet Ondansetron Odt [Zofran Odt] 4 mg PO Q8HR PRN #14 tab PRN Reason: Nausea No Action Diphenox-Atrop 2.5-0.025 mg [Lomotil] 1 tab PO QID PRN PRN Reason: Diarrhea Albuterol Sulfate [Ventolin HFA] 1 - 2 puff INHALATION Q6H PRN PRN Reason: Dyspnea Pravastatin Sodium [Pravachol] 40 mg PO HS Enalapril [Vasotec] 10 mg PO BID Budesonide/Formoterol Fumarate [Symbicort 160-4.5 Mcg Inhaler] 2 puff INHALATION BID hydroCHLOROthiazide 25 mg PO DAILY DULoxetine HCL [Cymbalta] 60 mg PO BID metFORMIN HCL [Glucophage] 500 mg PO DAILY Metoprolol Tartrate 25 mg PO HS Tamsulosin HCl [Flomax] 0.4 mg PO DAILY Psoriasis Cream 1 applic TOPICAL DIRECTED PRN PRN Reason: Psoriasis Carbidopa-Levodopa 25-100 mg [Sinemet 25-100] 3 each PO TID HYDROcodone/APAP 7.5-325MG [[place] 7.5-325] 1 tab PO BID Discharge Medication List Albuterol Sulfate [Ventolin HFA] 1 - 2 puff INHALATION Q6H PRN 09/26/19 [History] Budesonide/Formoterol Fumarate [Symbicort 160-4.5 Mcg Inhaler] 2 puff INHALATION BID 09/26/19 [History] DULoxetine HCL [Cymbalta] 60 mg PO BID 09/26/19 [History] Diphenox-Atrop 2.5-0.025 mg [Lomotil] 1 tab PO QID PRN 09/26/19 [History] Enalapril [Vasotec] 10 mg PO BID 09/26/19 [History] Pravastatin Sodium [Pravachol] 40 mg PO HS 09/26/19 [History] hydroCHLOROthiazide 25 mg PO DAILY 09/26/19 [History] metFORMIN HCL [Glucophage] 500 mg PO DAILY 09/26/19 [History] Carbidopa-Levodopa 25-100 mg [Sinemet 25-100] 3 each PO TID 01/03/23 [History] HYDROcodone/APAP 7.5-325MG [[place] 7.5-325] 1 tab PO BID 01/03/23 [History] Metoprolol Tartrate 25 mg PO HS 01/03/23 [History] Psoriasis Cream 1 applic TOPICAL DIRECTED PRN 01/03/23 [History] Tamsulosin HCl [Flomax] 0.4 mg PO DAILY 01/03/23 [History] HYDROcodone/APAP 10-325MG [[place] 10-325] 1 tab PO Q6HR PRN #28 tab 01/08/23 [Rx] Ondansetron Odt [Zofran Odt] 4 mg PO Q8HR PRN #14 tab 01/08/23 [Rx] Sennosides-Docusate Sodium [Senokot-S] 1 tab PO BID #60 tablet 01/08/23 [Rx] Follow up Appointment(s)/Referral(s): Alessandra Cosme, NPC [Nurse Practitioner] - 1 Week Activity/Diet/Wound Care/Special Instructions: Keep Prevena wound vac on for 1 week. To be removed in office in 1 week. Sling to left arm. May remove for sleeping if arm is supported. May move elbow, wrist, and hand as tolerated. No motion of the shoulder at this time. Follow up in the office in 1 week. The patient receives prescriptions for his chronic pain through his primary care physician, Dr. Kwame Johnson. He was prescribed [place] 10/325 by our office for a one-time prescription. Please contact Dr. Johnson for any further pain management issues. Call [facility] with any questions or concerns, . No physical therapy until follow up and told by Dr. Shin. Discharge Disposition: HOME SELF-CARE
--- NOTE | 2023-01-10 15:13 | P.PN ---
Subjective Progress Note Date: 01/10/23 patient is a 72-year-old gentleman with past medical history significant for left shoulder osteoarthritis, hypertension, hyperlipidemia presented to the hospital for elective procedure with orthopedic. Patient was being seen outpatient by orthopedics for his left shoulder pain. Patient was complaining of stiffness and pain in left shoulder. Patient also complaining of numbness and tingling in the hand and fingers on the left is at rest. Patient underwent physical therapy and steroid injections but was of no benefit. After discussing with orthopedics patient was scheduled for left total shoulder arthroplasty. Postoperatively the medicine team was consulted for medical management 01/10. Patient seen and examined. States left shoulder pain has improved. Patient very keen to go home today REVIEW OF SYSTEMS: CONSTITUTIONAL: No fever, no malaise,. CARDIOVASCULAR: No chest pain, no palpitations, no syncope. PULMONARY: No shortness of breath, no cough, GASTROINTESTINAL: No diarrhea, no nausea, no vomiting, no abdominal pain. NEUROLOGICAL: No headaches, no weakness, PHYSICAL EXAMINATION: GENERAL: The patient is alert and oriented x3, not in any acute distress. Well developed, well nourished. HEENT: Pupils are round and equally reacting to light. EOMI. No scleral icterus. No conjunctival pallor. Normocephalic, atraumatic. No pharyngeal erythema. No thyromegaly. CARDIOVASCULAR: S1 and S2 present. No murmurs, rubs, or gallops. PULMONARY: Chest is clear to auscultation, no wheezing or crackles. ABDOMEN: Soft, nontender, nondistended, normoactive bowel sounds. No palpable organomegaly. MUSCULOSKELETAL: Left shoulder bandage seen EXTREMITIES: No cyanosis, clubbing, or pedal edema. NEUROLOGICAL: Gross neurological examination did not reveal any focal deficits. SKIN: No rashes. Assessment and plan Left shoulder osteoarthritis status post left total shoulder arthroplasty Hypertension Hyperlipidemia Plan Monitor vital signs Monitor CBC Monitor CMP Continue home meds continue pain management medically stable for discharge from medicine perspective Objective - Vital Signs Vital signs: Vital Signs Temp 98.7 F 01/10/23 07:10 Pulse 70 01/10/23 07:10 Resp 16 01/10/23 07:10 BP 98/63 01/10/23 07:10 Pulse Ox 94 L 01/10/23 08:03 FiO2 21 01/10/23 08:03 Intake & Output 01/09/23 01/10/23 01/10/23 18:59 06:59 18:59 Other: Voiding Method Toilet Toilet # Voids 2 - Labs CBC & Chem 7: 01/09/23 06:06 Labs: Abnormal Lab Results - Last 24 Hours (Table) 01/09/23 01/09/23 01/10/23 Range/Units 16:36 20:34 06:07 POC Glucose (mg/dL) 152 H 123 H 120 H (70-110) mg/dL
--- NOTE | 2023-01-11 19:25 | P.OP ---
Date of Procedure: 01/08/23 Preoperative Diagnosis: left glenohumeral arthritis Postoperative Diagnosis: same Procedure(s) Performed: left reverse total shoulder arthroplasty Implants: Arthrex [employer] Revers - 24mm 20deg full augment baseplate, 30mm post, 40mm nonlocking, 20mm, 20mm, 36mm locking screws - 39mm +4 Glenosphere - 12 humeral stem, 39mm, +2 suture cup, 39mm +6 poly Anesthesia: regional Surgeon: Brooke Shin Paint Process Engineer #1: Fatou Larios Estimated Blood Loss (ml): 200 Condition: stable Disposition: PACU Indications for Procedure: Noel has had long standing OA of his shoulder. He has failed conservative management with oral medicine and injections. We had a long discussion about his treatment options and he would like to proceed with surgical intervention and replacement. Description of Procedure: The patient, operative extremity, and procedure were identified in the preop holding area. The patient, operative extremity, and procedure were confirmed. Anesthesia provided a regional block. The patient was then brought back to the OR and was moved the the table. General anesthesia was induced and the patient positioned in the beach chair position. The arm was prepped and draped in normal sterile fashion. A time out was perfor med. An oblique incision was made just lateral to the coracoid over the deltopectoral interval. Dissection was carried down to the fascia and the interval was identified and split bluntly. The cephalic vein was mobilized medially. The subacromial space was developed and about 5mm of the pectoralis insertion was released. The clavipectoral fascia was identified and split just lateral to the conjoined tendon. A cobell retractor was placed under the conjoined tendon and the deltoid muscle. The biceps tendon was identified in the groove. It was released from the groove and cut. A tenodesis was performed with 0 vycril with the soft tissue just above the pec insertion. The rotator interval was developed following the biceps tendon. The subscapularis tendon was identified and divided at an angle under tension. The three sisters were identified and cauterized. The humeral head was then dislocated. The capsule was released from the humeral head and neck with the Immunovaccinekour suction handle retracting the axillary nerve. The canal finder was inserted from just posterior to the bicepital groove. Serial reamers were instroduced. Osteophytes were removed from the neck to reveal the surgical neck. The cutting jig was assembled. I then made the humeral cut through the surgical neck with a saw. The humeral head was removed and replaced with a metal protector disc. The subscuparis tendon was from the anterior capsule. This was then excised. The remaining stump of the biceps was followed to the labrum. The labrum was removed with electrocautery. The guidewire insertion device was then calibrated per the patient specific plan. It was placed on the glenoid face and the guide wire inserted. Placement was confirmed visually. The wire was followed by a central reamer for the post. I then used the angled reamer on the face of the glenoid until a flat surface and bleeding bone was noted. The base plate was selected and malleted into place. The inferior locking screw was inserted and the remaining locking screws followed. The glenosphere was then inserted overtop. The central screw was tightened with the torque screwdriver. Attention was then turned to the humerus. The disc was removed. I used serial broaches to reach the appropriate fit. The reamer was used overtop. The trial suture cup and neutral cup were placed. The joint was reduced with good stability and range of motion. The trials were removed and the wound irrigated with irrecept. The final stem was impacted into place. The +6 cup was trialed and found to be a good fit. The final poly was impacted into place and the shoulder was reduced. Final tested showed a stable joint with good range of motion. The wound was irrigated with pulse lavage. The wound was then closed in a layered fashion with 3.0 vycril and 4.0 monocryl and skin glue. A provena was placed. Patient tolerated the procedure well and was brought to pacu in stable condition. Fatou's skilled assistance was necessary throughout the case to retract neurovascular structures and aid in reduction of the joint.
== END 2023-01-10 14:15 | disposition home or self-care (01) ==
LOC: OR 11:36 → 4SSUR 16:31 → OR 01-10 14:15
PROVIDERS: ATTEND Orthopaedic Surgery Hand Surgery
DX: M19.012 Primary osteoarthritis, left shoulder (principal); G89.18 Other acute postprocedural pain; E11.9 Type 2 diabetes mellitus without complications; E78.5 Hyperlipidemia, unspecified; I10 Essential (primary) hypertension; G20 Parkinson's disease; J45.909 Unspecified asthma, uncomplicated; Z79.51 Long term (current) use of inhaled steroids; Z79.84 Long term (current) use of oral hypoglycemic drugs; Z85.828 Personal history of other malignant neoplasm of skin; Z87.891 Personal history of nicotine dependence; Z96.612 Presence of left artificial shoulder joint
CPT/HCPCS: 94640 ×4; 94760 ×2; 64415; 76942; 85025; 88300; 83036; 73020; 23472; C1776; J2250; J0330; J1100; J2710; J0690 ×3; J2405; J3010; J2795; J1885; J2370; J2704; J1170; J2001

== ENCOUNTER 2023-03-07 07:55 | Day surgery (SDC) | payer MEDICARE ==
[2023-03-07 08:37] VITALS: TEMP 97
[2023-03-07] MEDS ORDERED: LACTATED RINGERS 1,000 ML IV ONE (08:37)
[2023-03-07 08:38] LABS: Glucose,Whole Blood 126 mg/dL (70-110)
--- NOTE | 2023-03-07 08:57 | P.GSHP ---
History of Present Illness H&P Date: 03/07/23 CHIEF COMPLAINT: Colon screen HISTORY OF PRESENT ILLNESS: The patient is a 72-year-old male who presents for colon screen. Lower endoscopy was offered for further evaluation and management. PAST MEDICAL HISTORY: Please see list. PAST SURGICAL HISTORY: Please see list. MEDICATIONS: Please see list. ALLERGIES: Please see list. SOCIAL HISTORY: No illicit drug use FAMILY HISTORY: No reports of Crohn disease or ulcerative colitis. REVIEW OF ORGAN SYSTEMS: CONSTITUTIONAL: No reports of fevers or chills. PHYSICAL EXAM: VITAL SIGNS: Stable GENERAL: Well-developed pleasant in no acute distress. HEENT: No scleral icterus. Extraocular movements grossly intact. Moist buccal mucosa. NECK: Supple without lymphadenopathy. CHEST: Unlabored respirations. Equal bilateral excursions. CARDIOVASCULAR: Regular rate and rhythm. Distal 2+ pulses. ABDOMEN: Soft, nontender, nondistended. MUSCULOSKELETAL: No clubbing, cyanosis, or edema. ASSESSMENT: 1. Colon screen. PLAN: 1. Recommend proceeding with a lower endoscopy Past Medical History Past Medical History: Asthma, Diabetes Mellitus, GERD/Reflux, Hypertension, Neurologic Disorder, Prostate Disorder, Skin Disorder Additional Past Medical History / Comment(s): PSORIASIS. NIDM. PARKINSON History of Any Multi-Drug Resistant Organisms: None Reported Past Surgical History: Orthopedic Surgery Additional Past Surgical History / Comment(s): LEFT SHOULDER 01/08/23. RIGHT SHOULDER X 2. UMB HERNIA. LEFT KNEE ARTHROSPY. LEFT SHOULDER ARTHROPLASTY. ACHILLES TENDON REPAIR X 2. Past Anesthesia/Blood Transfusion Reactions: No Reported Reaction Past Psychological History: Anxiety, Depression Smoking Status: Former smoker Past Alcohol Use History: None Reported Additional Past Alcohol Use History / Comment(s): PIPE IN PAST. Past Drug Use History: None Reported Medications and Allergies Home Medications Medication Instructions Recorded Confirmed Type Albuterol Sulfate [Ventolin HFA] 1 - 2 puff INHALATION Q6H PRN 09/26/19 03/07/23 History Budesonide/Formoterol Fumarate 2 puff INHALATION BID 09/26/19 03/07/23 History [Symbicort 160-4.5 Mcg Inhaler] DULoxetine HCL [Cymbalta] 60 mg PO BID 09/26/19 03/07/23 History Diphenox-Atrop 2.5-0.025 mg 1 tab PO QID PRN 09/26/19 03/07/23 History [Lomotil] Enalapril [Vasotec] 10 mg PO BID 09/26/19 03/07/23 History Pravastatin Sodium [Pravachol] 40 mg PO HS 09/26/19 03/07/23 History hydroCHLOROthiazide 25 mg PO QAM 09/26/19 03/07/23 History metFORMIN HCL [Glucophage] 500 mg PO QAM 09/26/19 03/07/23 History Carbidopa-Levodopa 25-100 mg 3 each PO TID 01/03/23 03/07/23 History [Sinemet 25-100] HYDROcodone/APAP 7.5-325MG [[place] 2 tab PO BID 01/03/23 03/07/23 History 7.5-325] Metoprolol Tartrate 25 mg PO PC-LUNCH 01/03/23 03/07/23 History Psoriasis Cream 1 applic TOPICAL DIRECTED PRN 01/03/23 03/07/23 History Tamsulosin HCl [Flomax] 0.8 mg PO HS 01/03/23 03/07/23 History Betamethasone Valerate [Luxiq 0.1%] 1 applic TOPICAL DAILY PRN 03/05/23 03/07/23 History Mometasone Furoate [Elocon Cream 1 applic TOPICAL DAILY PRN 03/05/23 03/07/23 History 0.1%] Allergies Allergy/AdvReac Type Severity Reaction Status Date / Time No Known Allergies Allergy Verified 03/07/23 08:24 Surgical - Exam Vital Signs Temp Pulse Resp BP Pulse Ox 97.0 F L 86 16 145/76 98 03/07/23 08:30 03/07/23 08:30 03/07/23 08:30 03/07/23 08:30 03/07/23 08:30 Results - Labs Abnormal Lab Results - Last 24 Hours (Table) 03/07/23 Range/Units 08:33 POC Glucose (mg/dL) 126 H (70-110) mg/dL
[2023-03-07] MEDS ORDERED: PROPOFOL 10 MG/ML 20 ML VIAL IV ONE (09:02)
[2023-03-07 09:44] VITALS: BP 133/76; PULSE 78; RESP 16
--- NOTE | 2023-03-07 10:05 | P.PCN ---
Date of Procedure: 03/07/23 Description of Procedure: PREOPERATIVE DIAGNOSIS: Personal history of colon polyps Colonoscopy screening POSTOPERATIVE DIAGNOSIS: Tubular adenoma ascending colon Tubular adenoma hepatic flexure Sigmoid diverticulosis Internal hemorrhoids, grade 2 OPERATION: Colonoscopy to the ileocecal valve and appendiceal orifice, cecum Colonoscopy with cold forceps biopsy SURGEON: Beata Keating MD. ANESTHESIA: MAC. INDICATIONS: The patient is an 72-year-old male who presents personal history of colon po lyps. Last colonoscopy 5 years. Benefits and risks were described and informed consent was obtained. DESCRIPTION OF PROCEDURE: The patient had undergone Sutab prep. The patient had been brought into the operating room and laid in the left lateral decubitus position. After adequate intravenous sedation, the rectum was examined with 2% lidocaine jelly. The prostate was unremarkable. External hemorrhoids were encountered. The rectal tone was within normal limits. No lesions were palpated in the rectal vault. An Olympus colonoscope was advanced until the cecum, ileocecal valve and appendicea l orifice were clearly viewed. The prep was good. Sigmoid diverticulosis was encountered. Colonic polyps were found and removed. No evidence of focal colitis was found. Retroflexion of the scope demonstrated grade 2 internal hemorrhoids without active bleeding or inflammation. The colon was desufflated. The patient had tolerated the procedure well. Withdrawal time was over 6 minutes. FINDINGS: Aronchick preparation quality scale 2 (1-5) Internal hemorrhoids, grade 2 External hemorrhoids, grade 2. No arteriovenous malformations. Sigmoid diverticulosis Removal of 2 polyps: - Cold forceps biopsy ascending colon, 4 mm polyp. - Cold forceps biopsy hepatic flexure, 5 mm polyp. No focal colitis. RECOMMENDATIONS: Repeat colonoscopy in 3 years, 2025 Plan - Discharge Summary Discharge Rx Participant: No New Discharge Prescriptions: Continue Diphenox-Atrop 2.5-0.025 mg [Lomotil] 1 tab PO QID PRN PRN Reason: Diarrhea Albuterol Sulfate [Ventolin HFA] 1 - 2 puff INHALATION Q6H PRN PRN Reason: Dyspnea Pravastatin Sodium [Pravachol] 40 mg PO HS Enalapril [Vasotec] 10 mg PO BID Budesonide/Formoterol Fumarate [Symbicort 160-4.5 Mcg Inhaler] 2 puff INHALATION BID hydroCHLOROthiazide 25 mg PO QAM DULoxetine HCL [Cymbalta] 60 mg PO BID metFORMIN HCL [Glucophage] 500 mg PO QAM Metoprolol Tartrate 25 mg PO PC-LUNCH Mometasone Furoate [Elocon Cream 0.1%] 1 applic TOPICAL DAILY PRN PRN Reason: PSORIASIS Tamsulosin HCl [Flomax] 0.8 mg PO HS Psoriasis Cream 1 applic TOPICAL DIRECTED PRN PRN Reason: Psoriasis Carbidopa-Levodopa 25-100 mg [Sinemet 25-100 mg] 3 each PO TID HYDROcodone/APAP 7.5-325MG [[place] 7.5-325] 2 tab PO BID Betamethasone Valerate [Luxiq 0.1%] 1 applic TOPICAL DAILY PRN PRN Reason: PSORIASIS Discharge Medication List Albuterol Sulfate [Ventolin HFA] 1 - 2 puff INHALATION Q6H PRN 09/26/19 [History] Budesonide/Formoterol Fumarate [Symbicort 160-4.5 Mcg Inhaler] 2 puff INHALATION BID 09/26/19 [History] DULoxetine HCL [Cymbalta] 60 mg PO BID 09/26/19 [History] Diphenox-Atrop 2.5-0.025 mg [Lomotil] 1 tab PO QID PRN 09/26/19 [History] Enalapril [Vasotec] 10 mg PO BID 09/26/19 [History] Pravastatin Sodium [Pravachol] 40 mg PO HS 09/26/19 [History] hydroCHLOROthiazide 25 mg PO QAM 09/26/19 [History] metFORMIN HCL [Glucophage] 500 mg PO QAM 09/26/19 [History] Carbidopa-Levodopa 25-100 mg [Sinemet 25-100 mg] 3 each PO TID 01/03/23 [History] HYDROcodone/APAP 7.5-325MG [[place] 7.5-325] 2 tab PO BID 01/03/23 [History] Metoprolol Tartrate 25 mg PO PC-LUNCH 01/03/23 [History] Psoriasis Cream 1 applic TOPICAL DIRECTED PRN 01/03/23 [History] Tamsulosin HCl [Flomax] 0.8 mg PO HS 01/03/23 [History] Betamethasone Valerate [Luxiq 0.1%] 1 applic TOPICAL DAILY PRN 03/05/23 [History] Mometasone Furoate [Elocon Cream 0.1%] 1 applic TOPICAL DAILY PRN 03/05/23 [History] Follow up Appointment(s)/Referral(s): Beata Keating MD [STAFF PHYSICIAN] - As Needed Patient Instructions/Handouts: *Surgery [facility] - (Anesthesia) Discharge Instructions Outpatient Surgery, Moderate Sedation (ED) Activity/Diet/Wound Care/Special Instructions: Repeat colonoscopy 3 years, 2025 Discharge Disposition: HOME SELF-CARE
== END 2023-03-07 10:35 | disposition home or self-care (01) ==
LOC: ORWHC2ENDO 07:55
PROVIDERS: ATTEND Surgery Plastic and Reconstructive Surgery
DX: Z12.11 Encounter for screening for malignant neoplasm of colon (principal); K57.30 Diverticulosis of large intestine without perforation or abscess without bleeding; K64.1 Second degree hemorrhoids; I10 Essential (primary) hypertension; J45.909 Unspecified asthma, uncomplicated; E11.9 Type 2 diabetes mellitus without complications; F41.8 Other specified anxiety disorders; K21.9 Gastro-esophageal reflux disease without esophagitis; L40.9 Psoriasis, unspecified; G20 Parkinson's disease; Z86.010 Personal history of colon polyps; Z79.51 Long term (current) use of inhaled steroids; Z79.899 Other long term (current) drug therapy; Z79.84 Long term (current) use of oral hypoglycemic drugs
CPT/HCPCS: 88305; 45380; J2704

== ENCOUNTER → 2023-04-05 | Outpatient (CLI) | payer MEDICARE ==
[2023-04-05 16:24] LABS: ALT <5 U/L (10-49); AST 14 U/L (14-35); Albumin 4.6 d/dL (3.8-4.9); Albumin/Globulin Ratio 2.19 Ratio (1.60-3.17); Alkaline Phosphatase 63 U/L (41-126); Blood Urea Nitrogen 19.8 mg/dL (9.0-27.0); Carbon Dioxide 26.6 mmol/L (21.6-31.8); Chloride 98 mmol/L (96-109); Chol/HDL Ratio 3.35 Ratio; Globulin 2.1 d/dL (1.6-3.3); Glucose 123 mg/dL (70-110); LDL Cholesterol,Calculated 71.3 mg/dL (0.0-131.0); Potassium 3.9 mmol/L (3.5-5.5); Sodium 139 mmol/L (135-145); T4, Free (Free Thyroxine) 1.38 ng/dL (0.80-1.80); Total Bilirubin 0.7 mg/dL (0.3-1.2); Total Protein 6.7 d/dL (6.2-8.2)
[2023-04-05 16:36] LABS: Basophils # (A) 0.04 X 10*3/uL (0.00-0.10); Basophils % (A) 0.5 %; Eosinophils # (A) 0.15 X 10*3/uL (0.04-0.35); Eosinophils % (A) 1.8 %; HCT 46.7 % (39.6-50.0); HGB 14.5 d/dL (12.0-15.0); Lymphocytes # (A) 1.83 X 10*3/uL (0.90-5.00); Lymphocytes % (A) 21.6 %; MCH 27.7 pg (27.0-32.0); MCV 89.3 FL (80.0-97.0); Mean Platelet Volume 10.8 FL (9.5-12.2); Monocytes # (A) 0.57 X 10*3/uL (0.20-1.00); Monocytes % (A) 6.7 %; NRBC Per 100 WBC 0 X 10*3/uL (0.00-0.01); Neutrophils # (A) 5.85 X 10*3/uL (1.80-7.70); Neutrophils % (A) 69.2 %; Platelet Count 201 X 10*3/uL (140-440); RBC 5.23 X 10*6/uL (4.40-5.60); RDW 13.6 % (11.5-14.5); WBC 8.46 X 10*3/uL (4.50-10.00)
== END | disposition home or self-care (01) ==
LOC: LABWHC1 09:41
PROVIDERS: ATTEND Family Medicine
DX: Z12.5 Encounter for screening for malignant neoplasm of prostate (principal); E11.9 Type 2 diabetes mellitus without complications; E29.1 Testicular hypofunction
CPT/HCPCS: 36415; 80053; 80061; 83036; 84153; 84403; 84439; 84443; 85025

== ENCOUNTER → 2023-06-13 | Outpatient (CLI) | payer MEDICARE ==
[2023-06-13 15:22] LABS: HCT 44.7 % (39.6-50.0); HGB 14.3 d/dL (13.0-17.0); MCH 28.1 pg (27.0-32.0); Mean Platelet Volume 10.5 FL (9.5-12.2); NRBC Per 100 WBC 0 X 10*3/uL (0.00-0.01); Platelet Count 194 X 10*3/uL (140-440); RBC 5.08 X 10*6/uL (4.40-5.60); RDW 13.6 % (11.5-14.5); WBC 8.48 X 10*3/uL (4.50-10.00)
[2023-06-13 15:23] LABS: Basophils # (A) 0.05 X 10*3/uL (0.00-0.10); Basophils % (A) 0.6 %; Eosinophils # (A) 0.31 X 10*3/uL (0.04-0.35); Eosinophils % (A) 3.7 %; Lymphocytes % (A) 21.2 %; Monocytes # (A) 0.49 X 10*3/uL (0.20-1.00); Monocytes % (A) 5.8 %; Neutrophils # (A) 5.79 X 10*3/uL (1.80-7.70); Neutrophils % (A) 68.2 %
[2023-06-13 15:40] LABS: ALT 6 U/L (10-49); AST 16 U/L (14-35); Albumin 4.4 d/dL (3.8-4.9); Albumin/Globulin Ratio 2.32 Ratio (1.60-3.17); Alkaline Phosphatase 66 U/L (41-126); Blood Urea Nitrogen 24.6 mg/dL (9.0-27.0); Calcium 9.7 mg/dL (8.7-10.3); Carbon Dioxide 25.2 mmol/L (21.6-31.8); Chloride 100 mmol/L (96-109); Chol/HDL Ratio 3.42 Ratio; Globulin 1.9 d/dL (1.6-3.3); Glucose 131 mg/dL (70-110); LDL Cholesterol,Calculated 78.8 mg/dL (0.0-131.0); Potassium 3.9 mmol/L (3.5-5.5); Sodium 139 mmol/L (135-145); T4, Free (Free Thyroxine) 1.38 ng/dL (0.80-1.80); Total Bilirubin 0.6 mg/dL (0.3-1.2); Total Protein 6.3 d/dL (6.2-8.2); VLDL Calculation 17.38 mg/dL (5.00-40.00)
== END | disposition home or self-care (01) ==
LOC: LABWHC1 10:17
DX: E11.51 Type 2 diabetes mellitus with diabetic peripheral angiopathy without gangrene (principal); E29.1 Testicular hypofunction
CPT/HCPCS: 36415; 80053; 80061; 83036; 84402; 84403; 84439; 84443; 85025

== ENCOUNTER → 2023-09-03 | Outpatient (CLI) | payer MEDICARE ==
--- NOTE | 2023-09-03 21:49 | MR ---
EXAMINATION TYPE: MR cervical spine wo con DATE OF EXAM: 09/03/2023 COMPARISON: HISTORY: Cervical pain, myelopathy CONTRAST: Performed utilizing mL intravenous gadolinium contrast. TECHNIQUE: Multiplanar multiecho imaging on a 3.0 Tamiko magnet is performed through the cervical spin e. FINDINGS: The craniovertebral junction is normal. Vertebral body alignment is normal. C7-T1: No focal disc herniation or significant disc bulge is evident. No spinal canal stenosis or n eural foraminal stenosis is present. T1 vertebral body hemangioma may be present. C6-7: Broad-based disc bulge is present. This may be slightly greater to the right paracentral region . This has mild anterior thecal sac compression. Some cord contact may be present. Cord flattening ma y be present along the right paracentral region. AP spinal canal stenosis is not evident. Moderate ri ght foraminal stenosis is present from uncovertebral joint hypertrophy C5-6: No focal disc herniation is evident. Minimal disc bulge may be present. Uncovertebral joint hyp ertrophy is moderate right foraminal stenosis.. C4-5: Broad-based disc bulge has mild anterior thecal sac compression. No cord contact is evident. No spinal canal stenosis is present. Moderate to severe bilateral foraminal stenosis is present from un covertebral joint hypertrophy.. C3-4: Broad-based disc bulge with mild anterior thecal sac compression. Some cord contact may be pres ent. No AP spinal canal stenosis present. No cord deformity is evident. Right foraminal stenosis is p resent. C2-3: No focal disc herniation or significant disc bulge is evident. No spinal canal stenosis or constantin ral foraminal stenosis is present. IMPRESSION: 1. Multilevel broad-based disc bulging with anterior thecal sac compression discussed above. Some cor d contact may be present C3-4. 2. The disc bulge at C6-7, greater to the right paracentral region, may have anterior thecal sac cont act and some mild cord flattening 3. Foraminal stenosis appears to be greatest at the C4-5 level bilaterally.
== END | disposition home or self-care (01) ==
LOC: RADMRIMAIN 06:51
PROVIDERS: ATTEND Psychiatry & Neurology Neurology
DX: M50.023 Cervical disc disorder at C6-C7 level with myelopathy (principal); M99.71 Connective tissue and disc stenosis of intervertebral foramina of cervical region
CPT/HCPCS: 72141

== ENCOUNTER → 2023-10-11 | Outpatient (CLI) | payer MEDICARE ==
[2023-10-11 15:22] LABS: BUN/Creat Ratio 28.44 Ratio (12.00-20.00); Blood Urea Nitrogen 25.6 mg/dL (9.0-27.0); Carbon Dioxide 24.7 mmol/L (21.6-31.8); Chloride 106 mmol/L (96-109); Glucose 125 mg/dL (70-110); Potassium 4.1 mmol/L (3.5-5.5); Sodium 143 mmol/L (135-145)
[2023-10-11 15:23] LABS: ALT <5 U/L (10-49); AST 15 U/L (14-35); Albumin 4.4 g/dL (3.8-4.9); Alkaline Phosphatase 65 U/L (41-126); Calcium 10.2 mg/dL (8.7-10.3); Globulin 2.1 g/dL (1.6-3.3); Total Bilirubin 0.6 mg/dL (0.3-1.2); Total Protein 6.5 g/dL (6.2-8.2)
== END | disposition home or self-care (01) ==
LOC: LABWHC1 09:35
PROVIDERS: ATTEND Family Medicine
DX: E11.51 Type 2 diabetes mellitus with diabetic peripheral angiopathy without gangrene (principal)
CPT/HCPCS: 36415; 80053; 83036

== ENCOUNTER → 2023-10-13 | Outpatient (CLI) | payer MEDICARE ==
--- NOTE | 2023-10-13 18:32 | MR ---
EXAMINATION TYPE: MR lumbar spine wo con DATE OF EXAM: 10/13/2023 10:12 AM CLINICAL INDICATION:Male, 73 years old with history of M48.062 SPINAL STENOSIS, LUMBAR REGION; PHH, L ow back pain that radiates down right leg, legs give out after walking short distances COMPARISON: None TECHNIQUE: Multi planar, multi sequence imaging was performed utilizing: T1-weighted, T2-weighted, a nd turbo inversion recovery imaging of the lumbar spine. IV Contrast: cc . (None if empty) FINDINGS: Alignment: The lumbar vertebral bodies have preserved heights and straightened alignment. Cord: The conus medullaris and the distal spinal cord appear unremarkable with regards to their signa l intensity and morphology. Bones/Discs: Multilevel disc degeneration changes with osteophyte formation, disc space narrowing, Sc hmorl's nodes, and facet joint arthropathy. Reactive bony edema seen at the adjoining endplates of L4 and L5 and L5-S1 secondary to severe degeneration. Multilevel disc desiccation is present. T12-L1: No evidence of significant spinal canal stenosis or neural foraminal stenosis. L1-L2: No evidence of significant spinal canal stenosis or neural foraminal stenosis. L2-L3: Disc bulge and facet joint arthropathy result in mild spinal canal and mild bilateral neural f oraminal stenosis. L3-L4: Disc bulge and facet joint arthropathy result in moderate spinal canal and moderate to severe bilateral neural foraminal stenosis. L4-L5: Disc bulge/osteophyte and facet joint arthropathy result in severe spinal canal and severe rig ht and moderate left neural foraminal stenosis. L5-S1: The disc is rounded posterior morphology without significant spinal canal stenosis. Facet join t arthropathy with severe left and moderate right neural foraminal stenosis. No significant spinal canal or neural foraminal stenosis in the remainder of the visualized levels. Other findings: None. IMPRESSION: 1. L4-L5 severe spinal canal stenosis secondary to disc bulge/osteophyte and facet joint arthropathy . 2. Moderate to severe degeneration changes with neural foraminal stenosis worse at L4-L5 since the r ight with severe, L5-S1 on the left with severe, and L3-L4 with moderate to severe bilateral.
== END | disposition home or self-care (01) ==
LOC: RADMRIMAIN 10-12 05:49
PROVIDERS: ATTEND Psychiatry & Neurology Neurology
DX: M48.062 Spinal stenosis, lumbar region with neurogenic claudication (principal); M25.78 Osteophyte, vertebrae; M47.816 Spondylosis without myelopathy or radiculopathy, lumbar region; M99.73 Connective tissue and disc stenosis of intervertebral foramina of lumbar region
CPT/HCPCS: 72148

== ENCOUNTER → 2023-12-10 | Outpatient (CLI) | payer MEDICARE ==
[2023-12-10 13:39] VITALS: BP 142/76; PULSE 100; RESP 15; TEMP 98.7
--- NOTE | 2023-12-10 14:09 | P.PAINPG ---
PQRS Measure Charge Sheet Comment: HISTORY OF PRESENT ILLNESS: A 73 yr old male as a referral from Dr Noriega presents today w severe and chronic LBP x 1 yr secondary to stenosis, spondylosis and facet arthropathy without myelopathy for evaluation. Pt states pain level is provoked at 7 /10 in intensity, constant, localized in the lumbar spine, predominantly axial, achy in character w occasional shooting pain towards the mid back and BLEs. Pain is provoked by standing/ sitting/ walking for periods > 15 min. Pain is alleviated by PT x 6 wks in Aug- Sep 2023, medications ([place] from Dr Johnson), topical, manual massage, repositioning and rest. Oswestry axial pain score at 36. PMH: OA, Asthma, NIDDM II, GERD, HTN, Parkinson's Disease, BPH, Psoriasis, MDD/ Anxiety PSH: L Shoulder Arthroplasty (2022), R Shoulder Repair x2, Umbilical Hernia Repair, L Knee Arthroscopy, Achilles Tendon Repair x2 SH: Former tobacco user, No ETOH use, No illicit drug use FH: Non contributory All: See list Meds: See list REVIEW OF ORGAN SYSTEMS: CONSTITUTIONAL: No fevers or chills. No recent weight loss. NEUROLOGICAL: + numbness and tingling along the distal extremities. No seizure disorders or headaches. MUSCULOSKELETAL: + pain PSYCHIATRIC: Denies current depression or suicidal thoughts. Physical Examinations : Constitutional : Cooperative , not in acute distress . Neurologic : Cranial nerve II to XII intact. No focal neurological deficits. Psychiatric : alert & oriented x 3. Matching mood & appropriate affect. Judgment & insight intact. Musculoskeletal : Cervical Spine Motor strength in the deltoid and biceps: Normal right side. Normal Left side Motor strength biceps and the wrist extensors: Normal right side . Normal left side Motor strength in the triceps muscle: Normal right side. Normal left side Deep tendon reflexes: Normal at the biceps. Normal at Brachioradialis. Normal at triceps Vertebral body tenderness to deep palpation over Cervical facet loading test: positive bilaterally Spurling test: positive bilaterally Neck distraction test: positive bilaterally Yobany sign: positive bilaterally Lumbar spine Motor strength lower extremities ,thigh and legs 5/5 Right side , 5/5 Left side Deep tendon reflexes : Normal Knee Jerk. Normal Ankle Jerk Vertebral body tenderness over L5 Medina Test positive Lumbar facet Loading Test: positive Right / positive Left Range of motion of the lumbar spine Flexion 30 degrees, extension 10 degrees Straight Leg Raise test: Left/ Right positive at < 30 degrees Amanda test: positive right / positive left. Severe tenderness over the Sacroiliac joint on the Right / Left sides Gaenslen test: positive bilaterally Seated flexion test: positive bilaterally. Sacral spine : Severe tenderness over the Sacroiliac joint: right side / left side Range of motion: Flexion of the lumbar spine <60 degrees Range of motion: Extension of the lumbar spine <20 degrees Gaenslen's Test positive Amanda test: positive right side / left side Thigh Thrust Test Sacral Thrust Test Imaging: MRI noncontrast of the lumbar spine from 10/13/2023 reviewed Assessment/ Plan : Lumbar stenosis, lumbar DDD Recommendation of RICHARD L5-S1 #1. PT script provided M51.36 May need a series of injections for optimal pain relief. Risks, benefits of procedure discussed and patient verbalized understanding. Admits to anti- coagulant use or medical history of diabetes. Protocol for discontinuation/ continuation of medications robin procedure discussed. All questions answered. I have spent greater than 30 minutes on patient care today. Dr Car was available by phone for the evaluation of this patient. The time was used to review the medical records including relevant urine studies and Prescription history (MAPs), review of the available imaging, evaluation and examination of the patient, coordination of care with the medical staff and if applicable referring physicians, as well as creation of the medical record Home Medications: Ambulatory Orders Albuterol Sulfate [Ventolin HFA] 1 - 2 puff INHALATION Q6H PRN 09/26/19 Budesonide/Formoterol Fumarate [Symbicort 160-4.5 Mcg Inhaler] 2 puff INHALATION BID 09/26/19 DULoxetine HCL [Cymbalta] 60 mg PO BID 09/26/19 Diphenox-Atrop 2.5-0.025 mg [Lomotil] 1 tab PO QID PRN 09/26/19 Enalapril [Vasotec] 10 mg PO BID 09/26/19 Pravastatin Sodium [Pravachol] 40 mg PO HS 09/26/19 hydroCHLOROthiazide 25 mg PO QAM 09/26/19 metFORMIN HCL [Glucophage] 500 mg PO QAM 09/26/19 Carbidopa-Levodopa 25-100 mg [Sinemet 25-100 mg] 3 each PO TID 01/03/23 HYDROcodone/APAP 7.5-325MG [[place] 7.5-325] 2 tab PO BID 01/03/23 Metoprolol Tartrate 25 mg PO PC-LUNCH 01/03/23 Psoriasis Cream 1 applic TOPICAL DIRECTED PRN 01/03/23 Tamsulosin HCl [Flomax] 0.8 mg PO HS 01/03/23 Betamethasone Valerate [Luxiq 0.1%] 1 applic TOPICAL DAILY PRN 03/05/23 Mometasone Furoate [Elocon Cream 0.1%] 1 applic TOPICAL DAILY PRN 03/05/23 Controlled Substance Measures - Controlled Substance Measures Is patient prescribed a controlled substance at discharge?: No
== END ==
LOC: PNWHC3 12:32
PROVIDERS: ATTEND Specialist
DX: M48.061 Spinal stenosis, lumbar region without neurogenic claudication (principal); M51.36 Other intervertebral disc degeneration, lumbar region
CPT/HCPCS: 99211

== ENCOUNTER 2023-12-18 05:52 | Day surgery (SDC) | payer MEDICARE ==
[2023-12-18] MEDS ORDERED: LACTATED RINGERS 1,000 ML IV SCH (06:18)
[2023-12-18 06:41] LABS: Glucose,Whole Blood 104 mg/dL (70-110)
[2023-12-18 06:48] VITALS: RESP 16; TEMP 97.2
[2023-12-18] MEDS ORDERED: IOPAMIDOL M200 10 ML VIAL ONE (07:06)
[2023-12-18] MEDS ORDERED: methylPREDNISolone ACETATE 40 MG/ML 1 ML VIAL ONE (07:06)
--- NOTE | 2023-12-18 07:14 | P.PCN ---
Date of Procedure: 12/18/23 Procedure(s) Performed: PREOPERATIVE DIAGNOSIS: 1- Lumbar Degenerative Disc Diseases 2-lumbar spinal stenosis POSTOPERATIVE DIAGNOSIS: 1-lumbar degenerative disc disease. 2-lumbar spinal stenosis. PROCEDURE 1. Lumbar epidural steroid injection under fluoroscopic guidance at the L5-S1 level. (Fluoroscopy imaging was available in radiology department) 2. Lumbar epidurogram. ANESTHESIA: Lidocaine 1% 3 and then only. EBL: Minimal PROCEDURE INDICATION: The patient with low back pain and radiculitis symptoms unresponsive to conservative treatment. Fluoroscopy was used to optimize visualization of the needle placement and to maximize safety. PROCEDURE DESCRIPTION / TECHNIQUE: The patient was seen and identified in the preoperative area. Risks, benefits, complications including but not limited to infections ,bleeding ,allergic reaction to the medications ,nerve damage and not complete pain releife , and alternatives were discussed with the patient. The patient agreed to proceed with the procedure and signed the consent, and vital signs were stable. Patient was taken to the OR and time out was completed. The patient was placed in the prone position on procedure table and a pillow was placed under the abdomen to reduce lumbar lordosis. The lumbosacral area was prepped and draped in the usual sterile fashion.ere closely monitored during the procedure. Vital signs was monitered during the entire procedure. Using anterior-posterior fluoroscopy, the L5-S1 interlaminar space was i dentified and the skin over this site was marked and then infiltrated with 1% lidocaine subcutaneously. Subsequently, a 20-gauge Tuohy epidural needle was inserted and advanced toward the epidural space using the ``Loss of resistance technique and guided by AP and lateral fluoroscopy. The correct needle position in the epidural space was verified with the injection of 2 mL of the water soluble contrast dye Isovue 200 contrast and observing an excellent epidurogram with the epidural spread of the dye, after negative aspiration for blood and CSF and in the absence of paresthesias. Again after negative aspiration, a 6 ml mixture containing 40 mg of Depo-medrol ( Preservetive Free ), and 2 ml of preservative free Normal Saline, and 2 ml of preservative free lidocaine 1% solution was injected and a washout of epidurogram was seen. Needle was withdrawn intact, skin was cleansed, and bandages were applied. COMPLICATIONS: None DISPOSITION / PLANS: The patient was placed in a supine position and transferred to the recovery area in a stable condition for observation. There was no evidence of lower extremity motor or sensory deficit after the procedure. Patient was discharged from the recovery room after meeting discharge criteria. Home discharge instructions were given to the patient by the staff. The patient was reexamined prior to discharge. The patient will schedule a follow up in the clinic in 2-4 weeks.
[2023-12-18 07:57] VITALS: BP 158/77; PULSE 64
--- NOTE | 2023-12-18 08:31 | FL ---
Fluoroscopy History: Lumbar Epid Inj LESI WITH PAIN SERVICS FL TIME 9 SECS, DAP 0.0616
== END 2023-12-18 07:50 | disposition home or self-care (01) ==
LOC: ORPAIN 05:52
PROVIDERS: ATTEND Specialist
DX: M48.061 Spinal stenosis, lumbar region without neurogenic claudication (principal); M51.36 Other intervertebral disc degeneration, lumbar region; M51.16 Intervertebral disc disorders with radiculopathy, lumbar region
CPT/HCPCS: 62323; J1030; Q9966

== ENCOUNTER → 2024-01-02 | Outpatient (CLI) | payer MEDICARE ==
[2024-01-02 13:24] VITALS: BP 155/77; PULSE 88; RESP 15; TEMP 97.5
--- NOTE | 2024-01-03 10:53 | P.PAINPG ---
PQRS Measure Charge Sheet Comment: HISTORY OF PRESENT ILLNESS: A 73 yr old male w at side presents today w severe and chronic LBP x 1 yr secondary to stenosis, spondylosis and facet arthropathy without myelopathy for evaluation s/p RICHARD L5-S1 #1. Pt states he experienced 80% pain relief x 5 d s/p procedure. Pt states pain level is provoked at 5 /10 in intensity, constant, localized in the lumbar spine, predominantly axial, achy in character w occasional shooting pain towards the mid back and BLEs. Pain is provoked by standing/ sitting/ walking for periods > 15 min. Pain is alleviated by PT x 6 wks which he is currently in, medications, topical, manual massage, repositioning and rest. Oswestry axial pain score at 36. Interventional procedures include RICHARD L5-S1 (Dec 2023) Medications include [place] from Dr Johnson REVIEW OF ORGAN SYSTEMS: CONSTITUTIONAL: No fevers or chills. No recent weight loss. NEUROLOGICAL: + numbness and tingling along the distal extremities. No seizure disorders or headaches. MUSCULOSKELETAL: + pain PSYCHIATRIC: Denies current depression or suicidal thoughts. Physical Examinations : Constitutional : Cooperative , not in acute distress . Neurologic : Cranial nerve II to XII intact. No focal neurological deficits. Psychiatric : alert & oriented x 3. Matching mood & appropriate affect. Judgment & insight intact. Musculoskeletal : Cervical Spine Motor strength in the deltoid and biceps: Normal right side. Normal Left side Motor strength biceps and the wrist extensors: Normal right side . Normal left side Motor strength in the triceps muscle: Normal right side. Normal left side Deep tendon reflexes: Normal at the biceps. Normal at Brachioradialis. Normal at triceps Vertebral body tenderness to deep palpation over Cervical facet loading test: positive bilaterally Spurling test: positive bilaterally Neck distraction test: positive bilaterally Yobany sign: positive bilaterally Lumbar spine Motor strength lower extremities ,thigh and legs 5/5 Right side , 5/5 Left side Deep tendon reflexes : Normal Knee Jerk. Normal Ankle Jerk Vertebral body tenderness Medina Test positive Lumbar facet Loading Test: positive Right / positive Left L4-L5, L5-S1 Range of motion of the lumbar spine Flexion 30 degrees, extension 10 degrees Straight Leg Raise test: Left/ Right positive at < 30 degrees Amanda test: positive right / positive left. Severe tenderness over the Sacroiliac joint on the Right / Left sides Gaenslen test: positive bilaterally Seated flexion test: positive bilaterally. Sacral spine : Severe tenderness over the Sacroiliac joint: right side / left side Range of motion: Flexion of the lumbar spine <60 degrees Range of motion: Extension of the lumbar spine <20 degrees Gaenslen's Test positive Amanda test: positive right side / left side Thigh Thrust Test Sacral Thrust Test Imaging: MRI noncontrast of the lumbar spine from 10/13/2023 reviewed Assessment/ Plan : Lumbar stenosis, lumbar DDD Recommendation of BL MBB L4-L5, L5-S1 #1. May need a series of injections, up until RFA, for optimal pain relief. Risks, benefits of procedure discussed and patient verbalized understanding. Admits to anti- coagulant use or medical history of diabetes. Minimal anesthesia including Versed and Fentanyl if clinically indicated. Protocol for discontinuation/ continuation of medications robin procedure discussed. All questions answered. I have spent greater than 30 minutes on patient care today. Dr Car was available by phone for the evaluation of this patient. The time was used to review the medical records including relevant urine studies and Prescription history (MAPs), review of the available imaging, evaluation and examination of the patient, coordination of care with the medical staff and if applicable referring physicians, as well as creation of the medical record PQRS Narrative: Hx Alcohol Use (MH) No Home Medications: Ambulatory Orders Albuterol Sulfate [Ventolin HFA] 1 - 2 puff INHALATION Q6H PRN 09/26/19 Budesonide/Formoterol Fumarate [Symbicort 160-4.5 Mcg Inhaler] 2 puff INHALATION BID 09/26/19 DULoxetine HCL [Cymbalta] 60 mg PO BID 09/26/19 Diphenox-Atrop 2.5-0.025 mg [Lomotil] 1 tab PO QID PRN 09/26/19 Enalapril [Vasotec] 10 mg PO BID 09/26/19 Pravastatin Sodium [Pravachol] 40 mg PO HS 09/26/19 metFORMIN HCL [Glucophage] 500 mg PO QAM 09/26/19 Carbidopa-Levodopa 25-100 mg [Sinemet 25-100 mg] 3 each PO TID 01/03/23 HYDROcodone/APAP 7.5-325MG [[place] 7.5-325] 1 tab PO BID 01/03/23 Metoprolol Tartrate 25 mg PO DAILY 01/03/23 Tamsulosin HCl [Flomax] 0.4 mg PO BID 01/03/23 Betamethasone Valerate [Luxiq 0.1%] 1 applic TOPICAL DAILY PRN 03/05/23 Mometasone Furoate [Elocon Cream 0.1%] 1 applic TOPICAL DAILY PRN 03/05/23 Controlled Substance Measures - Controlled Substance Measures Is patient prescribed a controlled substance at discharge?: No
== END | disposition home or self-care (01) ==
LOC: PNWHC3 12:47
PROVIDERS: ATTEND Specialist
DX: M51.37 Other intervertebral disc degeneration, lumbosacral region (principal); M48.061 Spinal stenosis, lumbar region without neurogenic claudication
CPT/HCPCS: 99211

== ENCOUNTER → 2024-01-09 | Outpatient (CLI) | payer MEDICARE ==
[2024-01-09 16:25] LABS: Basophils # (A) 0.04 X 10*3/uL (0.00-0.10); Basophils % (A) 0.6 %; Eosinophils % (A) 1.6 %; HCT 48.4 % (39.6-50.0); HGB 14.8 g/dL (13.0-17.0); Lymphocytes % (A) 24.9 %; MCH 27.7 pg (27.0-32.0); MCHC 30.6 g/dL (32.0-37.0); MCV 90.5 FL (80.0-97.0); Monocytes # (A) 0.38 X 10*3/uL (0.20-1.00); Monocytes % (A) 5.9 %; NRBC Per 100 WBC 0 X 10*3/uL (0.00-0.01); Neutrophils # (A) 4.29 X 10*3/uL (1.80-7.70); Neutrophils % (A) 66.8 %; Platelet Count 163 X 10*3/uL (140-440); RBC 5.35 X 10*6/uL (4.40-5.60); RDW 14.2 % (11.5-14.5); WBC 6.42 X 10*3/uL (4.50-10.00)
[2024-01-09 16:45] LABS: ALT 10 U/L (10-49); AST 14 U/L (14-35); Albumin 4.4 g/dL (3.8-4.9); Alkaline Phosphatase 77 U/L (41-126); BUN/Creat Ratio 19.22 Ratio (12.00-20.00); Blood Urea Nitrogen 17.3 mg/dL (9.0-27.0); Calcium 10.2 mg/dL (8.7-10.3); Carbon Dioxide 28.6 mmol/L (21.6-31.8); Chloride 104 mmol/L (96-109); Chol/HDL Ratio 2.46 Ratio; Globulin 2.1 g/dL (1.6-3.3); Glucose 111 mg/dL (70-110); LDL Cholesterol,Calculated 62.8 mg/dL (0.0-131.0); Sodium 144 mmol/L (135-145); Total Bilirubin 0.7 mg/dL (0.3-1.2); Total Protein 6.5 g/dL (6.2-8.2)
== END | disposition home or self-care (01) ==
LOC: LABWHC1 08:44
PROVIDERS: ATTEND Family Medicine
DX: E78.5 Hyperlipidemia, unspecified (principal); E11.51 Type 2 diabetes mellitus with diabetic peripheral angiopathy without gangrene
CPT/HCPCS: 36415; 80053; 80061; 83036; 84443; 85025

== ENCOUNTER → 2024-01-30 | Outpatient (CLI) | payer MEDICARE ==
--- NOTE | 2024-01-30 19:58 | MR ---
EXAMINATION TYPE: MR brain wo con DATE OF EXAM: 01/30/2024 7:47 PM CLINICAL INDICATION:Male, 73 years old with history of Balance issues, falling, confusion COMPARISON: MRI brain 09/15/2019. TECHNIQUE: Multi planar, multi sequence imaging was performed through the brain including: T1, T2, In version recovery, Diffusion weighted imaging, and gradient echo imaging. No gadolinium was given. FINDINGS: The stewart-white junctions, ventricular system, and cisterns appear unremarkable. Scattered foci of hi gh T2 signal intensity are seen within the periventricular white matter. Mild generalized parenchymal volume loss. Midline structures show no abnormality. Diffusion-weighted imaging shows no evidence of restricted diffusion. The susceptibility weighted images do not reveal any evidence for micro-hemorr iveth. The bone marrow signal is within normal limits. Paranasal sinuses and mastoid air cells: Right mastoid effusion. Visualized orbits: Orbital contents are intact. IMPRESSION: 1. No evidence of intracranial mass or acute/subacute infarct. 2. Nonspecific white matter changes, likely secondary to small vessel ischemic disease. 3. Small right mastoid effusion.
== END | disposition home or self-care (01) ==
LOC: RADMRIMAIN 18:48
PROVIDERS: ATTEND Neurological Surgery
DX: R26.89 Other abnormalities of gait and mobility (principal)
CPT/HCPCS: 70551

== ENCOUNTER 2024-02-01 05:40 | Day surgery (SDC) | payer MEDICARE ==
[2024-02-01] MEDS: LACTATED RINGERS 1,000 ML IV ONE (06:10)
[2024-02-01] MEDS ORDERED: LACTATED RINGERS 1,000 ML IV SCH (06:16)
[2024-02-01 06:39] LABS: Glucose,Whole Blood 126 mg/dL (70-110)
[2024-02-01 06:56] VITALS: TEMP 96.9
[2024-02-01] MEDS ORDERED: fentaNYL (PF) 50 MCG/ML 2 ML AMP ONE (07:09)
[2024-02-01] MEDS ORDERED: MIDAZOLAM 2 MG/2 ML VIAL ONE (07:09)
[2024-02-01] MEDS ORDERED: ROPIVACAINE 5MG/ML 20ML VIAL ONE (07:14)
[2024-02-01] MEDS: IV FLUID CONTINUATION 1,000 ML IV ONE (07:32)
--- NOTE | 2024-02-01 07:32 | P.PCN ---
Date of Procedure: 02/01/24 Surgeon: Dane Badillo Pathology: none sent Condition: stable Disposition: PACU Description of Procedure: PREOPERATIVE DIAGNOSIS : 1- Lumbar spondylosis with Facet Arthropathy without myelopathy . 2- Lumber degenerative disc disease POSTOPERATIVE DIAGNOSIS: 1- Lumbar spondylosis with Facet Arthropathy without myelopathy . 2- Lumber degenerative disc disease PROCEDURE: Diagnostic bilateral L4 -5 , and L5-S1 medial branch block under fluoroscopy Physician: Dane Badillo MD ANESTHESIA: Local with 1% lidocaine;and IV moderate conscious sedation by the anesthesia department EBL: Negligible COMPLICATION: None. PROCEDURE INDICATION: Chronic low back pain secondary to Facet arthropathy unresponsive to conservative treatment. PROCEDURE DESCRIPTION: the patient was seen and identified in the preop holding area , risks and benefits and possible complications of the procedure and alternatives were discussed with the patient, and the patient agreed to proceed with the procedure and signed the consent. IV was started and vital signs monitored during the procedure and fluoroscopy was used to maximize the benefit and accuracy of the needle placement, sedation was given to decrease patient anxiety, patient was taken to the procedure room and placed in prone position vital signs monitored. The patient was brought into the procedure room and placed in prone position. Skin was prepped with Chloraprep and draped in a sterile manner. Lidocaine 1% was used to numb the skin up at the target points that were chosen as follows: at the L5-S1 level which corresponds to the dorsal ramus of L5 the target points were at the superior medial aspect of the sacral ala on each side of the spine on the AP view of fluoroscopy, and for the L3 and L4 medial branches the target points were the connection between the transverse process and the superior articular process of L4 and L5 respectively on the oblique views of fluoroscopy. I used 22-gauge 3-1/2 inch Quincke spinal needles for this procedure and after contacting bone at the target points mentioned above I injected 1 mL of Ropivacaine 0.5% PF in each needle . Patient tolerated procedure well. At the end of the procedure the needles removed and a bandage applied after the skin was cleaned the cleaning solution. patient was then taken to the recovery room in stable condition and monitored in the recovery room for 20-30 minutes and discharged home in stable condition after discharge criteria met . A copy of the needle placement picture was saved to the C-arm machine.
[2024-02-01 07:41] VITALS: RESP 16
--- NOTE | 2024-02-01 08:20 | FL ---
Fluoroscopy INDICATION: Pain FINDINGS: Fluoroscopy time: 11.2 seconds. Total dose area product (DAP) in uGy*m?, mGy*cm? (or similar): 0.59786 Images obtained: 5. IMPRESSION: 1. Documentation of fluoroscopy.
[2024-02-01 08:28] VITALS: BP 139/74; PULSE 62
== END 2024-02-01 08:05 | disposition home or self-care (01) ==
LOC: ORPAIN 05:40
PROVIDERS: ATTEND Anesthesiology
DX: M47.816 Spondylosis without myelopathy or radiculopathy, lumbar region (principal); M51.36 Other intervertebral disc degeneration, lumbar region; G89.29 Other chronic pain; E11.9 Type 2 diabetes mellitus without complications
CPT/HCPCS: 64493; 64494 ×2; 99152; J2250; J3010; J2795

== ENCOUNTER → 2024-02-14 | Outpatient (CLI) | payer MEDICARE ==
[2024-02-14 13:51] VITALS: RESP 16
--- NOTE | 2024-02-14 14:05 | P.PAINPG ---
Subjective Progress Note Date: 02/14/24 Principal diagnosis: lumbar back pain Mr. Ortiz is a 73-year-old pleasant male came to the [facility] pain clinic for postprocedure evaluation of bilateral L4-L5, and L5-S1 medial branch block #1 patient had more than 80% pain relief for 5 days duration after the procedure. As per the patient is still helping.. Patient has ongoing pain for many years. Patient describes pain is aching, throbbing, constant type of pain. Pain is radiating tobilateral lower extremity sometimes. Patient rated pain levels are 5 out of 10 in severity. With the help of medications, intervention procedures pain levels are 4-5 out of 10 in severity.as per patient is pain levels where is from 4-10 out of 10 in severity. Activities making pain worse. Medications, resting, intervention procedures helping in relieving patient's pain. Patient pain some days better than others. Overall activities decreased secondary to pain. Because of the pain sometimes patient is feeling lack of sleep, interest, and energy. Denied any side effects with the medications. Denied any bowel or bladder problems at this time. Patient denies any suicidal or homicidal ideations intent or plan. Patient denies any auditory or visual hallucinations. Patient denied any red flag symptoms related to pain. Objective - Exam General: Well-developed, well-nourished, no acute distress HEENT: Normocephalic, and atraumatic Neck: Supple, no neck swelling Psychiatric: Appropriate mood, and affect VETERINARY RECEPTIONIST: No focal neurological deficits Musculoskeletal: Upper extremity: Normal strength, and range of motion. Sensation grossly intact Lower extremity: Normal strength, and decreased range of motion secondary to pain Lumbar spine: Paravertebral tenderness: positive, multiple lumbar trigger point positive Lumbar facet load test : positive Sacroiliac joint tenderness: Positive - Constitutional Constitutional Comment(s): 12 point review of symptoms negative except as mentioned in the history of present illness Assessment and Plan Assessment: lumbar spondylosis without myelopathy Lumbar radiculopathy Lumbar myofascial pain syndrome Plan: #1 Diagnoses, prognosis, and multiple treatment options including but not limited to physical therapy, interventional therapy, adjunct medication therapy, narcotic medication, and surgical options were discussed with the patient. And all questions were answered to the patient's satisfaction. #2 treatment plan agreement : Patient was thoroughly discussed regarding the treatment options, alternatives, and importance of exercises as tolerated. Patient clearly understood. #3 Patient was counseled on importance of regular exercise. Including walt chi, aerobic exercises as tolerated. Which helps for chronic pain, and overall well- being. #4 investigations: MAPS- reviewed , urine drug test- none #5 diagnostic tests: none #6 consultation continue home exercise program # 7 interventional procedures:bilateral lumbar L4-L5, and L5-S1 medial branch block #2. Procedure, complications, alternatives discussed with the patient. #8 medications none #9 morphine milligrams equivalents dose ( MME) per day: 0 from the pain clinic # 10 TENS unit's, and percussion massage device #11 disposition: scheduled to follow up with pain clinic in 8 weeks duration. Time with Patient: Less than 30 PQRS Measure Charge Sheet Measure #130: Documentation of Current Meds in Medical Chart: Patient's medications documented in chart Measure #226: Tobacco Use: Screen & Cessation Intervention: Pt screened for tobacco use AND intervention given Measure #111: Pneumonia Vaccination: Pneumococcal vaccine administered or previously received Measure #47: Advance Care Plan: Advance care planning discussed & documented, plan or surrogate given Measure #412: Opioid Treatment Agreement: No documentation of signed opioid treatment agreement Measure #408: Opioid Therapy Follow-up Evaluation: Patient had NO f/u eval minimum every 3 months during opioid therapy Measure #317: Preventitive Care & Scrn High Bld Press & F/U: Pre-hypertensive or hypertensive BP documented, pt will f/u with PCP Measure #128: Body Mass Index (BMI) Screening & Follow-up: BMI documented ABOVE normal parameters - f/u documented Measure #131: Pain Assessment & Follow-up: Pain positive & plan documented Measure #431: Unhealthy Alcohol Use Preventative Care & Scrn: Patient not identified as an unhealthy alcohol user - Pain Location Bilateral Lower Back Pharmacological Interventions: Block PQRS Narrative: Hx Alcohol Use (MH) No Home Medications: Ambulatory Orders Albuterol Sulfate [Ventolin HFA] 1 - 2 puff INHALATION Q6H PRN 09/26/19 Budesonide/Formoterol Fumarate [Symbicort 160-4.5 Mcg Inhaler] 2 puff INHALATION BID 09/26/19 DULoxetine HCL [Cymbalta] 60 mg PO BID 09/26/19 Diphenox-Atrop 2.5-0.025 mg [Lomotil] 1 tab PO QID PRN 09/26/19 Enalapril [Vasotec] 10 mg PO BID 09/26/19 Pravastatin Sodium [Pravachol] 40 mg PO HS 09/26/19 metFORMIN HCL [Glucophage] 500 mg PO QAM 09/26/19 Carbidopa-Levodopa 25-100 mg [Sinemet 25-100 mg] 3 each PO TID 01/03/23 HYDROcodone/APAP 7.5-325MG [[place] 7.5-325] 1 tab PO BID 01/03/23 Metoprolol Tartrate 25 mg PO DAILY 01/03/23 Tamsulosin HCl [Flomax] 0.4 mg PO BID 01/03/23 Betamethasone Valerate [Luxiq 0.1%] 1 applic TOPICAL DAILY PRN 03/05/23 Mometasone Furoate [Elocon Cream 0.1%] 1 applic TOPICAL DAILY PRN 03/05/23 Dutasteride 0.5 mg PO DAILY 02/01/24 Controlled Substance Measures - Controlled Substance Measures Is patient prescribed a controlled substance at discharge?: No
[2024-02-14 14:35] VITALS: BP 121/75; PULSE 65; TEMP 98
== END ==
LOC: PNWHC3 13:22
DX: M47.26 Other spondylosis with radiculopathy, lumbar region (principal); M79.18 Myalgia, other site; G89.18 Other acute postprocedural pain; G89.29 Other chronic pain; Z71.82 Exercise counseling
CPT/HCPCS: 99211

== ENCOUNTER → 2024-02-29 | Outpatient (CLI) | payer MEDICARE ==
[2024-02-29 15:36] LABS: Appearance,Urine Clear (Clear); Bilirubin,Urine Negative (Negative); Blood,Urine Negative (Negative); Color,Urine Yellow; Glucose,Urine (UA) Negative (Negative); Ketones,Urine Negative (Negative); Leukocyte Esterase,Urine Negative (Negative); Nitrite,Urine Negative (Negative); PH, Urine 5.5 (5.0-8.0); Protein,Urine Trace (Negative); Specific Gravity,Urine 1.021 (1.001-1.035)
[2024-02-29 18:29] LABS: Basophils # (A) 0.05 X 10*3/uL (0.00-0.10); Basophils % (A) 0.7 %; Eosinophils # (A) 0.18 X 10*3/uL (0.04-0.35); Eosinophils % (A) 2.5 %; HCT 44.4 % (39.6-50.0); HGB 13.8 g/dL (13.0-17.0); Lymphocytes # (A) 1.41 X 10*3/uL (0.90-5.00); Lymphocytes % (A) 19.5 %; MCHC 31.1 g/dL (32.0-37.0); MCV 90.2 FL (80.0-97.0); Mean Platelet Volume 10.3 FL (9.5-12.2); Monocytes # (A) 0.41 X 10*3/uL (0.20-1.00); Monocytes % (A) 5.7 %; NRBC Per 100 WBC 0 X 10*3/uL (0.00-0.01); Neutrophils # (A) 5.14 X 10*3/uL (1.80-7.70); Platelet Count 200 X 10*3/uL (140-440); RBC 4.92 X 10*6/uL (4.40-5.60); WBC 7.23 X 10*3/uL (4.50-10.00)
[2024-02-29 18:51] LABS: Erythrocyte Sedimentation Rate 9 mm/Hr (0-20)
[2024-02-29 19:55] LABS: ALT <5 U/L (10-49); AST 15 U/L (14-35); Albumin 4.3 g/dL (3.8-4.9); Albumin/Globulin Ratio 2.39 Ratio (1.60-3.17); Alkaline Phosphatase 71 U/L (41-126); BUN/Creat Ratio 19.11 Ratio (12.00-20.00); Blood Urea Nitrogen 17.2 mg/dL (9.0-27.0); Calcium 9.6 mg/dL (8.7-10.3); Carbon Dioxide 25.6 mmol/L (21.6-31.8); Chloride 102 mmol/L (96-109); Globulin 1.8 g/dL (1.6-3.3); Glucose 185 mg/dL (70-110); Sodium 141 mmol/L (135-145); Total Bilirubin 0.6 mg/dL (0.3-1.2); Total Protein 6.1 g/dL (6.2-8.2)
== END | disposition home or self-care (01) ==
LOC: LABWHC1 13:53
PROVIDERS: ATTEND Psychiatry & Neurology Neurology
DX: G20.A1 Parkinson's disease without dyskinesia, without mention of fluctuations (principal); R41.3 Other amnesia
CPT/HCPCS: 36415; 80053; 81003; 82607; 84207; 85025; 85652; 86140

== ENCOUNTER 2024-03-13 10:05 | Emergency (ER) | payer OTHER, MEDICARE ==
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
[2024-03-13 11:22] LABS: Basophils # (A) 0.1 k/uL (0-0.2); Basophils % (A) 1 %; Eosinophils # (A) 0.1 k/uL (0-0.7); Eosinophils % (A) 1 %; HCT 42.9 % (39.0-53.0); HGB 13.4 gm/dL (13.0-17.5); Lymphocytes % (A) 16 %; MCH 28.2 pg (25.0-35.0); MCHC 31.2 g/dL (31.0-37.0); MCV 90.3 fL (80.0-100.0); Mean Platelet Volume 7.6; Monocytes # (A) 0.4 k/uL (0-1.0); Monocytes % (A) 6 %; Neutrophils # (A) 4.8 k/uL (1.3-7.7); Neutrophils % (A) 75 %; Platelet Count 171 k/uL (150-450); RBC 4.74 m/uL (4.30-5.90); RDW 15.1 % (11.5-15.5); WBC 6.4 k/uL (3.8-10.6)
[2024-03-13 11:42] LABS: ALT 6 U/L (4-49); AST 19 U/L (17-59); African American GFR (CKD) >90 (>60 ml/min/1.73 sqM); Albumin 3.7 g/dL (3.5-5.0); Alkaline Phosphatase 60 U/L (38-126); Anion Gap 6 mmol/L; Blood Urea Nitrogen 24 mg/dL (9-20); Calcium 9.2 mg/dL (8.4-10.2); Carbon Dioxide 26 mmol/L (22-30); Chloride 104 mmol/L (98-107); Glucose 102 mg/dL (74-99); Non-African American GFR(CKD) >90 (>60 ml/min/1.73 sqM); Potassium 4.2 mmol/L (3.5-5.1); Sodium 136 mmol/L (137-145); Total Bilirubin 0.9 mg/dL (0.2-1.3); Total Protein 5.9 g/dL (6.3-8.2)
[2024-03-13 11:43] LABS: Partial Thromboplastin Time 26.8 sec (22.0-30.0); Prothrombin Time 10.9 sec (10.0-12.5)
--- NOTE | 2024-03-13 12:02 | CT ---
EXAMINATION TYPE: CT brain jon wo con DATE OF EXAM: 03/13/2024 COMPARISON: HISTORY: fall/ parkinsons CT DLP: 1682.7 mGycm, Automated exposure control for dose reduction was used. CONTRAST: Patient injected with mL of . CT of the brain is performed utilizing 3 mm thick sections through the posterior fossa and 3 mm thick sections through the remaining calvarium. Study is performed within 24 hours of arrival to the hospital. No abnormal hyperdensity is present to suggest an acute intracranial hemorrhage. No mass lesion is evident. No acute infarcts are evident. Ventricles and sulci are appropriate for the patient age. Small retention cyst within the anterior right sphenoid sinus Paranasal sinuses and mastoid air cells within the [id number] are clear. Right septal deviation is present IMPRESSIONS: 1. No acute intracranial process. Follow-up MRI can be performed as clinically indicated. CT cervical spine. COMPARISON: None CT of the cervical spine is performed in the axial plane at 2 mm thick sections. Reconstructed image s in the coronal, and sagittal plane are reviewed on the computer. No acute fractures are evident. There may be some mild side bending towards the right. Views narrowing of disc height is present. Vertebral body heights are preserved. No spinal canal stenosis is evident. There is some endplate spurring in the right paracentral and right lateral direction at C3-4 could worrell ve some foraminal stenosis. No neural foraminal stenosis is otherwise evident. IMPRESSION: 1. Degenerative disc changes throughout the cervical spine. 2. Correlate for right C3 radicular symptoms with foraminal stenosis at C3-4
[2024-03-13 12:18] VITALS: TEMP 98.3
[2024-03-13 14:01] VITALS: BP 168/89; PULSE 82; RESP 18
== END 2024-03-13 13:36 | disposition home or self-care (01) ==
LOC: EC 10:05
DX: R41.82 Altered mental status, unspecified (principal); Z87.891 Personal history of nicotine dependence; V40.5XXA Car driver injured in collision with pedestrian or animal in traffic accident, initial encounter; Y92.410 Unspecified street and highway as the place of occurrence of the external cause
CPT/HCPCS: 36415; 70450; 72125; 80053; 84484; 85025; 85610; 85730; 93005; 99285

== ENCOUNTER → 2024-03-24 | Outpatient (CLI) | payer MEDICARE ==
[2024-03-24 13:14] VITALS: BP 148/65; PULSE 62; RESP 16
--- NOTE | 2024-03-24 15:06 | P.PAINPG ---
PQRS Measure Charge Sheet Comment: HISTORY OF PRESENT ILLNESS: A 73 yr old male w at side presents today w severe and chronic LBP x 1 yr secondary to stenosis, spondylosis and facet arthropathy without myelopathy for evaluation s/p RICHARD L5-S1 #2. Pt states he experienced 100 % pain relief x 6 hrs s/p procedure. Pt states pain level is provoked at 6 /10 in intensity, constant, localized in the lumbar spine, predominantly axial, achy in character w occasional shooting pain towards the mid back and BLEs. Pain is provoked by standing/ sitting/ walking for periods > 15 min. Pain is alleviated by PT x 6 wks which he is currently in, medications, topical, manual massage, repositioning and rest. Oswestry axial pain score at 35. Interventional procedures include RICHARD L5-S1 (Dec 2023), BL MBB L3-L5 x2 Medications include High[place] from Dr Johnson REVIEW OF ORGAN SYSTEMS: CONSTITUTIONAL: No fevers or chills. No recent weight loss. NEUROLOGICAL: + numbness and tingling along the distal extremities. No seizure disorders or headaches. MUSCULOSKELETAL: + pain PSYCHIATRIC: Denies current depression or suicidal thoughts. Physical Examinations : Constitutional : Cooperative , not in acute distress . Neurologic : Cranial nerve II to XII intact. No focal neurological deficits. Psychiatric : alert & oriented x 3. Matching mood & appropriate affect. Judgment & insight intact. Musculoskeletal : Cervical Spine Motor strength in the deltoid and biceps: Normal right side. Normal Left side Motor strength biceps and the wrist extensors: Normal right side . Normal left side Motor strength in the triceps muscle: Normal right side. Normal left side Deep tendon reflexes: Normal at the biceps. Normal at Brachioradialis. Normal at triceps Vertebral body tenderness to deep palpation over Cervical facet loading test: positive bilaterally Spurling test: positive bilaterally Neck distraction test: positive bilaterally Yobany sign: positive bilaterally Lumbar spine Motor strength lower extremities ,thigh and legs 5/5 Right side , 5/5 Left side Deep tendon reflexes : Normal Knee Jerk. Normal Ankle Jerk Vertebral body tenderness Medina Test positive Lumbar facet Loading Test: positive Right / positive Left L4-L5, L5-S1 Range of motion of the lumbar spine Flexion 30 degrees, extension 10 degrees Straight Leg Raise test: Left/ Right positive at < 30 degrees Amanda test: positive right / positive left. Severe tenderness over the Sacroiliac joint on the Right / Left sides Gaenslen test: positive bilaterally Seated flexion test: positive bilaterally. Sacral spine : Severe tenderness over the Sacroiliac joint: right side / left side Range of motion: Flexion of the lumbar spine <60 degrees Range of motion: Extension of the lumbar spine <20 degrees Gaenslen's Test positive Amanda test: positive right side / left side Thigh Thrust Test Sacral Thrust Test Imaging: MRI noncontrast of the lumbar spine from 10/13/2023 reviewed Assessment/ Plan : Lumbar stenosis, lumbar DDD Recommendation of BL RFA L4-L5, L5-S1. Pt exhibited optimal pain relief w prior BL MBB procedures. Risks, benefits of procedure discussed and patient verbalized understanding. Admits to anti- coagulant use or medical history of diabetes. Minimal anesthesia including Versed and Fentanyl if clinically indicated. Protocol for discontinuation/ continuation of medications robin proce dure discussed. All questions answered. I have spent greater than 30 minutes on patient care today. Dr Car was available by phone for the evaluation of this patient. The time was used to review the medical records including relevant urine studies and Prescription history (MAPs), review of the available imaging, evaluation and examination of the patient, coordination of care with the medical staff and if applicable referring physicians, as well as creation of the medical record PQRS Narrative: Hx Alcohol Use (MH) No Home Medications: Ambulatory Orders Albuterol Sulfate [Ventolin HFA] 1 - 2 puff INHALATION Q6H PRN 09/26/19 Budesonide/Formoterol Fumarate [Symbicort 160-4.5 Mcg Inhaler] 2 puff INHALATION BID 09/26/19 DULoxetine HCL [Cymbalta] 60 mg PO BID 09/26/19 Diphenox-Atrop 2.5-0.025 mg [Lomotil] 1 tab PO QID PRN 09/26/19 Enalapril [Vasotec] 10 mg PO BID 09/26/19 Pravastatin Sodium [Pravachol] 40 mg PO HS 09/26/19 metFORMIN HCL [Glucophage] 500 mg PO QAM 09/26/19 Carbidopa-Levodopa 25-100 mg [Sinemet 25-100 mg] 3 each PO TID 01/03/23 HYDROcodone/APAP 7.5-325MG [[place]land 7.5-325] 1 tab PO BID 03/22/23 Metoprolol Tartrate 25 mg PO DAILY 01/03/23 Tamsulosin HCl [Flomax] 0.4 mg PO BID 01/03/23 Betamethasone Valerate [Luxiq 0.1%] 1 applic TOPICAL DAILY PRN 03/05/23 Mometasone Furoate [Elocon Cream 0.1%] 1 applic TOPICAL DAILY PRN 03/05/23 Dutasteride 0.5 mg PO DAILY 02/01/24 Controlled Substance Measures - Controlled Substance Measures Is patient prescribed a controlled substance at discharge?: No
== END ==
LOC: PNWHC3 12:32
PROVIDERS: ATTEND Specialist
DX: M51.37 Other intervertebral disc degeneration, lumbosacral region (principal); M48.061 Spinal stenosis, lumbar region without neurogenic claudication
CPT/HCPCS: 99211

== ENCOUNTER → 2024-03-27 | Outpatient (CLI) | payer MEDICARE | END | disposition home or self-care (01) | LOC: LABWHC1 11:42 | PROVIDERS: ATTEND Psychiatry & Neurology Neurology | DX: E53.9 Vitamin B deficiency, unspecified (principal) | CPT/HCPCS: 36415; 82607; 82746; 84207 ==

== ENCOUNTER → 2024-04-02 | Outpatient (CLI) | payer MEDICARE ==
[2024-04-02 10:12] LABS: Basophils # (A) 0.04 X 10*3/uL (0.00-0.10); Basophils % (A) 0.6 %; Eosinophils # (A) 0.14 X 10*3/uL (0.04-0.35); HCT 45.9 % (39.6-50.0); HGB 14.4 g/dL (13.0-17.0); Lymphocytes # (A) 1.65 X 10*3/uL (0.90-5.00); Lymphocytes % (A) 23.3 %; MCHC 31.4 g/dL (32.0-37.0); MCV 92.4 FL (80.0-97.0); Mean Platelet Volume 10.8 FL (9.5-12.2); Monocytes # (A) 0.47 X 10*3/uL (0.20-1.00); Monocytes % (A) 6.6 %; NRBC Per 100 WBC 0 X 10*3/uL (0.00-0.01); Neutrophils # (A) 4.75 X 10*3/uL (1.80-7.70); Neutrophils % (A) 67.2 %; Platelet Count 177 X 10*3/uL (140-440); RBC 4.97 X 10*6/uL (4.40-5.60); RDW 14.7 % (11.5-14.5); WBC 7.07 X 10*3/uL (4.50-10.00)
[2024-04-02 10:30] LABS: Microalbumin Creatinine Ratio <12 mg/g Cr (0-30)
[2024-04-02 10:31] LABS: ALT 7 U/L (10-49); AST 17 U/L (14-35); Albumin 4.5 g/dL (3.8-4.9); Albumin/Globulin Ratio 2.37 Ratio (1.60-3.17); Alkaline Phosphatase 65 U/L (41-126); BUN/Creat Ratio 22.88 Ratio (12.00-20.00); Blood Urea Nitrogen 18.3 mg/dL (9.0-27.0); Calcium 10.1 mg/dL (8.7-10.3); Carbon Dioxide 26.2 mmol/L (21.6-31.8); Chloride 103 mmol/L (96-109); Chol/HDL Ratio 2.48 Ratio; Globulin 1.9 g/dL (1.6-3.3); Glucose 118 mg/dL (70-110); LDL Cholesterol,Calculated 71.9 mg/dL (0.0-131.0); Potassium 4.3 mmol/L (3.5-5.5); Prostate Specific Antigen 0.32 ng/mL (0.000-6.500); Sodium 140 mmol/L (135-145); Total Bilirubin 0.7 mg/dL (0.3-1.2); Total Protein 6.4 g/dL (6.2-8.2)
== END | disposition home or self-care (01) ==
LOC: LABWHC1 07:07
PROVIDERS: ATTEND Family Medicine
DX: Z12.5 Encounter for screening for malignant neoplasm of prostate (principal); E11.65 Type 2 diabetes mellitus with hyperglycemia
CPT/HCPCS: 36415; 80053; 80061; 82043; 82570; 83036; 84153; 85025

== ENCOUNTER → 2024-05-29 | Outpatient (CLI) | payer MEDICARE ==
--- NOTE | 2024-07-01 11:22 | XR ---
Patient Noel Ortiz ID [id number] Order # EXAMINATION TYPE: XR lumbar spine 2 or 3V DATE OF EXAM: 05/29/2024 COMPARISON: No comparison available on downtime PACS. HISTORY: Outpatient fusion TECHNIQUE: 3 view lumbar spine FINDINGS: Scoliosis is present with convexity to the left centered at L3-4. Pedicle screws have been placed L4-S1. Disc spaces are present L4-5 and L5-S1. There may be a grade 1 spondylolisthesis of L5 anteriorly on S1. Other may be some diffuse disc space narrowing through the remaining upper lumbar spine. Vertebral chelly dy heights are preserved. L1-L3 pedicles are intact. IMPRESSION: 1. Postsurgical changes L4-S1. 2. A grade 1 spondylolisthesis of L5 anteriorly on S1 is not excluded.
== END | disposition home or self-care (01) ==
LOC: RADXRMAIN 11:19
PROVIDERS: ATTEND Neurological Surgery
DX: M43.16 Spondylolisthesis, lumbar region (principal); M43.26 Fusion of spine, lumbar region
CPT/HCPCS: 72100

== ENCOUNTER 2024-06-26 16:47 | Inpatient (IN) | payer MEDICARE ==
--- NOTE | 2024-06-26 17:27 | ED ---
General Adult HPI - General Chief complaint: Fall Stated complaint: fall Time Seen by Provider: 06/26/24 16:55 Source: patient, RN notes reviewed, old records reviewed Mode of arrival: EMS - History of Present Illness Initial comments: This is a 73-year-old male with a past medical history significant for lower back surgery this year, he just recently was treated for urinary tract infection had a catheter removed a few days ago. Patient also has a history of Parkinson. Patient states on Sunday he fell hit his head and ever since then he has been much weaker in the legs and has fallen at least 6-7 more times and hit his head at least 3 more times. Patient denies any headache now patient denies numbness weakness. Patient has any neck pain. Patient [place] any chest pain difficulty breathing shortness of breath. Patient has any fever chills or cough. Patient denies any abdominal pain patient has nausea vomiting diarrhea. Patient denies any dysuria hematuria urinary frequency. - Related Data Home Medications Medication Instructions Recorded Confirmed Albuterol Sulfate [Ventolin HFA] 1 - 2 puff INHALATION Q6H PRN 09/26/19 03/07/24 Budesonide/Formoterol Fumarate 2 puff INHALATION BID 09/26/19 03/07/24 [Symbicort 160-4.5 Mcg Inhaler] DULoxetine HCL [Cymbalta] 60 mg PO BID 09/26/19 03/07/24 Diphenox-Atrop 2.5-0.025 mg 1 tab PO QID PRN 09/26/19 03/07/24 [Lomotil] Enalapril [Vasotec] 10 mg PO BID 09/26/19 03/07/24 Pravastatin Sodium [Pravachol] 40 mg PO HS 09/26/19 03/07/24 metFORMIN HCL [Glucophage] 500 mg PO QAM 09/26/19 03/07/24 Carbidopa-Levodopa 25-100 mg 3 each PO TID 01/03/23 03/07/24 [Sinemet 25-100 mg] HYDROcodone/APAP 7.5-325MG [Prentiss 1 tab PO BID 01/03/23 03/07/24 7.5-325] Metoprolol Tartrate 25 mg PO DAILY 01/03/23 03/07/24 Tamsulosin HCl [Flomax] 0.4 mg PO BID 01/03/23 03/07/24 Betamethasone Valerate [Luxiq 0.1%] 1 applic TOPICAL DAILY PRN 03/05/23 03/07/24 Mometasone Furoate [Elocon Cream 1 applic TOPICAL DAILY PRN 03/05/23 03/07/24 0.1%] Dutasteride 0.5 mg PO DAILY 02/01/24 03/07/24 Allergies Allergy/AdvReac Type Severity Reaction Status Date / Time No Known Allergies Allergy Verified 06/26/24 17:02 Review of Systems ROS Statement: Those systems with pertinent positive or pertinent negative responses have been documented in the HPI. ROS Other: All systems not noted in ROS Statement are negative. Past Medical History Past Medical History: Asthma, Diabetes Mellitus, GERD/Reflux, Hyperlipidemia, Hypertension, Neurologic Disorder, Prostate Disorder, Skin Disorder Additional Past Medical History / Comment(s): PSORIASIS,NIDDM,PARKINSONS, BPH, increased confusion recently History of Any Multi-Drug Resistant Organisms: None Reported Past Surgical History: Hernia Repair, Orthopedic Surgery Additional Past Surgical History / Comment(s): LEFT SHOULDER 01/08/23. RIGHT SHOULDER X 2., LT. INGUINAL HERNIA, UMB HERNIA. LEFT KNEE ARTHROSCOPY. LEFT SHOULDER ARTHROPLASTY. ACHILLES TENDON REPAIR X 2, Radio Frequency treatments on back Past Anesthesia/Blood Transfusion Reactions: No Reported Reaction Past Psychological History: Anxiety, Depression Smoking Status: Former smoker General Exam - General Exam Comments Initial Comments: GENERAL: Patient is well-developed and well-nourished. Patient is nontoxic and well- hydrated and is in no acute distress. ENT: Neck is soft and supple. No significant lymphadenopathy is noted. Oropharynx is clear. Moist mucous membranes. Neck has full range of motion without eliciting any pain. EYES: The sclera were anicteric and conjunctiva were pink and moist. Extraocular movements were intact and pupils were equal round and reactive to light. Eyelids were unremarkable. PULMONARY: Unlabored respirations. Good breath sounds bilaterally. No audible rales rhonchi or wheezing was noted. CARDIOVASCULAR: There is a regular rate and rhythm without any murmurs gallops or rubs. ABDOMEN: Soft and nontender with normal bowel sounds. SKIN: Skin is clear with no lesions or rashes and otherwise unremarkable. NEUROLOGIC: Patient is alert and oriented x3. Cranial nerves II through XII are grossly intact. Motor and sensory are also intact. Normal speech, volume and content. Symmetrical smile. Patient's leg strength tested in bed seems to be normal MUSCULOSKELETAL: Normal extremities with adequate strength and full range of motion. LYMPHATICS: No significant lymphadenopathy is noted PSYCHIATRIC: Normal psychiatric evaluation. Course Vital Signs 06/26/24 06/26/24 16:51 18:42 Temperature 98.2 F Pulse Rate 70 74 Respiratory 18 18 Rate Blood Pressure 113/75 113/67 O2 Sat by Pulse 97 97 Oximetry Medical Decision Making - Medical Decision Making EKG was interpreted by myself. EKG shows a sinus rhythm with occasional PAC at a rate of 64 bpm [place] interval 240 QRS is 136 QT interval is 428 QTc is 438. Patient's EKG shows no ST segment elevation or depression. Patient does have a right bundle branch block. Was pt. sent in by a medical professional or institution ([facility], [employer], urgent care, hospital, or fdc...) When possible be specific @ -No Did you speak to anyone other than the patient for history (EMS, parent, family, police, friend...)? What history was obtained from this source @ -Patient's gives quite a bit of history Did you review nursing and triage notes (agree or disagree)? Why? @ -I reviewed and agree with nursing and triage notes Were old charts reviewed (outside hosp., previous admission, EMS record, old EKG, old radiological studies, urgent care reports/EKG's, fdc records)? Report findings @ -No old charts were reviewed Differential Diagnosis? @ -Differential Weakness: Hypoglycemia, shock, sepsis, hyponatremia, anemia, infection, ND, ETOH, adverse medicine reaction, overdose, stroke, this is not meant to be an all-inclusive list. EKG interpreted by me (3pts min.). @ -As above X-rays interpreted by me (1pt min.). @ -None done CT interpreted by me (1pt min.). @ -CT of the brain and C-spine showed no acute abnormality U/S interpreted by me (1pt. min.). @ -None done What testing was considered but not performed or refused? (CT, X-rays, U/S, labs)? Why? @ -None What meds were considered but not given or refused? Why? @ -None Did you discuss the management of the patient with other professionals (lisset farooq i.e. , PA, [employer], lab, RT, psych nurse, social security assessor, corporate driver, teacher, chief digital officer, senior case manager)? Give summary @ -I spoke with [facility] hospitalist they agreed to admit the patient admit the patient I consult cardiology Was smoking cessation discussed for >3mins.? @ -No Was critical care preformed (if so, how long)? @ -No Were there social determinants of health that impacted care today? How? (Homelessness, low income, unemployed, alcoholism, drug addiction, transportation, low edu. Level, literacy, decrease access to med. care, senior care, rehab)? @ -No Was there de-escalation of care discussed even if they declined (Discuss DNR or withdrawal of care, Hospice)? DNR status @ -No What co-morbidities impacted this encounter? (DM, HTN, Smoking, COPD, CAD, Cancer, CVA, ARF, Chemo, Hep., AIDS, mental health diagnosis, sleep apnea, morbid obesity)? @ -None Was patient admitted / discharged? Hospital course, mention meds given and route, prescriptions, significant lab abnormalities, going to OR and other pertinent info. @ -Patient was asymptomatic while lying in bed but he had difficulty standing stable he so patient will be admitted for multiple falls Undiagnosed new problem with uncertain prognosis? @ -No Drug Therapy requiring intensive monitoring for toxicity (Heparin, Nitro, Insulin, Cardizem)? @ -No Were any procedures done? @ -No Diagnosis/symptom? @ -Multiple falls Acute, or Chronic, or Acute on Chronic? @ -Acute Uncomplicated (without systemic symptoms) or Complicated (systemic symptoms)? @ -Comp Side effects of treatment? @ -No Exacerbation, Progression, or Severe Exacerbation? @ -No Poses a threat to life or bodily function? How? (Chest pain, USA, ND, pneumonia, PE, COPD, DKA, ARF, appy, cholecystitis, CVA, Diverticulitis, Homicidal, Suicidal, threat to staff... and all critical care pts) @ -Yes I am concerned that the patient will fall and cause an intracranial hemorrhage or hip fracture. Diagnosis/symptom? @ -Leg weakness Acute, or Chronic, or Acute on Chronic? @ -Acute Uncomplicated (without systemic symptoms) or Complicated (systemic symptoms)? @ -Complicated Side effects of treatment? @ -None Exacerbation, Progression, or Severe Exacerbation] @ -No Poses a threat to life or bodily function? @ -No - Lab Data Result diagrams: 06/26/24 17:52 06/26/24 17:52 Lab Results 06/26/24 06/26/24 06/26/24 Range/Units 17:52 17:52 17:52 WBC 9.8 (3.8-10.6) k/uL RBC 4.00 L (4.30-5.90) m/uL Hgb 11.9 L (13.0-17.5) gm/dL Hct 35.9 L (39.0-53.0) % MCV 89.5 (80.0-100.0) fL MCH 29.7 (25.0-35.0) pg MCHC 33.2 (31.0-37.0) g/dL RDW 14.5 (11.5-15.5) % Plt Count 201 (150-450) k/uL MPV 8.0 Neutrophils % 81 % Lymphocytes % 11 % Monocytes % 5 % Eosinophils % 1 % Basophils % 0 % Neutrophils # 8.0 H (1.3-7.7) k/uL Lymphocytes # 1.1 (1.0-4.8) k/uL Monocytes # 0.5 (0-1.0) k/uL Eosinophils # 0.1 (0-0.7) k/uL Basophils # 0.0 (0-0.2) k/uL PT 10.9 (10.0-12.5) sec INR 1.0 (<1.2) APTT 26.0 (22.0-30.0) sec Sodium 137 (137-145) mmol/L Potassium 4.8 (3.5-5.1) mmol/L Chloride 103 (98-107) mmol/L Carbon Dioxide 30 (22-30) mmol/L Anion Gap 4 mmol/L BUN 34 H (9-20) mg/dL Creatinine 0.68 (0.66-1.25) mg/dL Est GFR (CKD-EPI)AfAm >90 (>60 ml/min/1.73 sqM) Est GFR (CKD-EPI)NonAf >90 (>60 ml/min/1.73 sqM) Glucose 119 H (74-99) mg/dL Plasma Lactic Acid Parker (0.7-2.0) mmol/L Calcium 9.4 (8.4-10.2) mg/dL Magnesium 2.2 (1.6-2.3) mg/dL Total Bilirubin 0.7 (0.2-1.3) mg/dL AST 45 (17-59) U/L ALT 7 (4-49) U/L Alkaline Phosphatase 65 (38-126) U/L Troponin I (0.000-0.034) ng/mL Total Protein 5.8 L (6.3-8.2) g/dL Albumin 3.6 (3.5-5.0) g/dL Urine Color Urine Appearance (Clear) Urine pH (5.0-8.0) Ur Specific [place] (1.001-1.035) Urine Protein (Negative) Urine Glucose (UA) (Negative) Urine Ketones (Negative) Urine Blood (Negative) Urine Nitrite (Negative) Urine Bilirubin (Negative) Urine Urobilinogen (<2.0) mg/dL Ur Leukocyte Esterase (Negative) 06/26/24 06/26/24 06/26/24 Range/Units 17:52 17:52 18:11 WBC (3.8-10.6) k/uL RBC (4.30-5.90) m/uL Hgb (13.0-17.5) gm/dL Hct (39.0-53.0) % MCV (80.0-100.0) fL MCH (25.0-35.0) pg MCHC (31.0-37.0) g/dL RDW (11.5-15.5) % Plt Count (150-450) k/uL MPV Neutrophils % % Lymphocytes % % Monocytes % % Eosinophils % % Basophils % % Neutrophils # (1.3-7.7) k/uL Lymphocytes # (1.0-4.8) k/uL Monocytes # (0-1.0) k/uL Eosinophils # (0-0.7) k/uL Basophils # (0-0.2) k/uL PT (10.0-12.5) sec INR (<1.2) APTT (22.0-30.0) sec Sodium (137-145) mmol/L Potassium (3.5-5.1) mmol/L Chloride (98-107) mmol/L Carbon Dioxide (22-30) mmol/L Anion Gap mmol/L BUN (9-20) mg/dL Creatinine (0.66-1.25) mg/dL Est GFR (CKD-EPI)AfAm (>60 ml/min/1.73 sqM) Est GFR (CKD-EPI)NonAf (>60 ml/min/1.73 sqM) Glucose (74-99) mg/dL Plasma Lactic Acid Parker 0.9 (0.7-2.0) mmol/L Calcium (8.4-10.2) mg/dL Magnesium (1.6-2.3) mg/dL Total Bilirubin (0.2-1.3) mg/dL AST (17-59) U/L ALT (4-49) U/L Alkaline Phosphatase (38-126) U/L Troponin I <0.012 (0.000-0.034) ng/mL Total Protein (6.3-8.2) g/dL Albumin (3.5-5.0) g/dL Urine Color Yellow Urine Appearance Clear (Clear) Urine pH 6.0 (5.0-8.0) Ur Specific [place] 1.028 (1.001-1.035) Urine Protein Trace H (Negative) Urine Glucose (UA) Negative (Negative) Urine Ketones Trace H (Negative) Urine Blood Negative (Negative) Urine Nitrite Negative (Negative) Urine Bilirubin Negative (Negative) Urine Urobilinogen 3.0 (<2.0) mg/dL Ur Leukocyte Esterase Negative (Negative) Disposition Clinical Impression: Fall, Leg weakness Disposition: ADMITTED IP TO THIS HOSP Referrals: Kwame Johnson MD [Primary Care Provider] - 1-2 days Time of Disposition: 19:33
[2024-06-26 18:09] LABS: Basophils % (A) 0 %; Eosinophils # (A) 0.1 k/uL (0-0.7); Eosinophils % (A) 1 %; HCT 35.9 % (39.0-53.0); HGB 11.9 gm/dL (13.0-17.5); Lymphocytes # (A) 1.1 k/uL (1.0-4.8); Lymphocytes % (A) 11 %; MCH 29.7 pg (25.0-35.0); MCHC 33.2 g/dL (31.0-37.0); MCV 89.5 fL (80.0-100.0); Monocytes # (A) 0.5 k/uL (0-1.0); Monocytes % (A) 5 %; Neutrophils % (A) 81 %; Platelet Count 201 k/uL (150-450); RDW 14.5 % (11.5-15.5); WBC 9.8 k/uL (3.8-10.6)
[2024-06-26 18:22] LABS: Prothrombin Time 10.9 sec (10.0-12.5)
[2024-06-26 18:24] LABS: ALT 7 U/L (4-49); AST 45 U/L (17-59); African American GFR (CKD) >90 (>60 ml/min/1.73 sqM); Albumin 3.6 g/dL (3.5-5.0); Alkaline Phosphatase 65 U/L (38-126); Anion Gap 4 mmol/L; Blood Urea Nitrogen 34 mg/dL (9-20); Calcium 9.4 mg/dL (8.4-10.2); Carbon Dioxide 30 mmol/L (22-30); Chloride 103 mmol/L (98-107); Glucose 119 mg/dL (74-99); Magnesium 2.2 mg/dL (1.6-2.3); Non-African American GFR(CKD) >90 (>60 ml/min/1.73 sqM); Potassium 4.8 mmol/L (3.5-5.1); Sodium 137 mmol/L (137-145); Total Bilirubin 0.7 mg/dL (0.2-1.3); Total Protein 5.8 g/dL (6.3-8.2)
--- NOTE | 2024-06-26 18:29 | CT ---
EXAMINATION TYPE: CT brain cspine wo con CT DLP: 1422.9 mGycm, Automated exposure control for dose reduction was used. DATE OF EXAM: 06/26/2024 6:20 PM COMPARISON: 03/13/2024 CLINICAL INDICATION: Male, 73 years old with history of Trauma; Frequent falls. Pt fell 7 times in t he last 4 days. Pt did fall and hit his head on the cement floor 3 days ago. TECHNIQUE: Brain: Multiple axial CT images of the brain were obtained without IV contrast. Cspine: Axial CT images from the skull base to the inferior aspect of T2 we obtained without intraven ous contrast. Coronal and sagittal reformatted images were also reviewed. . FINDINGS: Brain: Extra-axial spaces: No abnormal extra-axial fluid collections. Ventricular system: Within normal limits Cerebral parenchyma: No acute intraparenchymal hemorrhage or mass effect. The stewart-white junction is well differentiated. Cerebellum: Unremarkable. Mass effect: No evidence of midline shift. Intracranial vasculature: Atherosclerotic calcifications of the intracranial vessels. Soft tissues: Normal. Calvarium/osseous structures: No depressed skull fracture. Paranasal sinuses and mastoid air cells: Clear. Visualized orbits: Orbital contents are intact. Cervical spine: Fracture: None. Osseous structures: Multilevel degenerative disc disease changes with endplate spurring and disc oste ophyte complex's. Vertebral alignment: Within normal limits. Spinal canal/Neural Foramina: No evidence of significant spinal canal narrowing. No evidence for sign ificant neural foraminal stenosis. Neck soft tissues: Prevertebral soft tissues are within normal limits. Other: The airway is patlent. Atherosclerosis of the carotid bifurcations. IMPRESSION: 1. No acute intracranial process. 2. No evidence of cervical spine fracture. 3. Moderate multilevel degenerative disc disease.
--- NOTE | 2024-06-26 19:00 | XR ---
EXAMINATION TYPE: XR chest 2V DATE OF EXAM: 06/26/2024 COMPARISON: 01/23/2018 HISTORY: Shortness of breath TECHNIQUE: Frontal and lateral views of the chest are obtained. FINDINGS: Scattered senescent parenchymal changes noted. No evidence for infiltrate. No evidence for atelectasis. Heart size is stable. Mediastinal structures are stable and grossly unremarkable. No evidence for hilar prominence. Degenerative changes dorsal spine. IMPRESSION: 1. No evidence for acute pulmonary disease.
[2024-06-26 19:02] LABS: Appearance,Urine Clear (Clear); Bilirubin,Urine Negative (Negative); Blood,Urine Negative (Negative); Color,Urine Yellow; Glucose,Urine (UA) Negative (Negative); Ketones,Urine Trace (Negative); Leukocyte Esterase,Urine Negative (Negative); Nitrite,Urine Negative (Negative); Protein,Urine Trace (Negative); Specific Gravity,Urine 1.028 (1.001-1.035)
[2024-06-26] MEDS: SODIUM CHLORIDE 0.9% 1,000 ML IV ONE (20:37)
[2024-06-27] MEDS: CARBIDOPA-LEVODOPA 25-100 MG 1 EACH TAB PO SCH ×2 (10:05→15:15)
[2024-06-27] MEDS: CARBIDOPA-LEVODOPA 25-100 MG 1 EACH TAB PO STA (11:25)
[2024-06-27] MEDS: CYANOCOBALAMIN 500 MCG TAB PO SCH (11:25)
--- NOTE | 2024-06-27 12:40 | P.CNNES ---
History of Present Illness Consult date: 06/27/24 Requesting physician: Salvador Riley Reason for Consult: weakness, multiple falls History of Present Illness: This is a 73-year-old gentleman with history of Parkinson disease, lumbosacral fusion in April 2024, recent diagnosis of dementia the emergency department because of worsening visual hallucination, confusion generalized weakness and falls. Is at bedside who provides a history. According to the patient has history of Parkinson disease and he was doing doing well but he had a recent lumbosacral fusion in April 28, 2024 at [facility]. She stated after the surgery patient had severe visual hallucination confusion. She also stated the patient had 2 episodes of stiffening of his extremities predominantly uppers with confusion and was unresponsive and had his eyes closed and was evaluated there at the outside hospital and it was notified that those were not seizures complete was provoked due to urinary tract infection. Per the surgery patient had generalized weakness and required a walker which she did not require walker prior to the surgery so he resulted in getting inpatient rehab for 2 weeks then he had rehab at home and eventually his strength improved drastically and did not require walker. But he continued to have visual hallucination. And in the last 3 days his visual hallucination as worsened and him having falls with head trauma and felt he is again weak walking. He states that he does not have any history of seizures is being diagnosed. He had 2 EEGs prior to the recent surgery in the past by his neurologist as an outpatient Dr. Lawrence and no seizures. Patient followed up with his neurologist Dr. Lawrence this Sunday and he notified his that his condition is due once Parkinson's. According to the patient did have some subtle confusion prior to the recent surgery and some visual hallucination but not to this extent. Patient is on Sinemet 44272, 2 tablets 3 times daily and he has been on it October 2023 and he has been doing well. Some of the workup during this hospital visit consisted of: White Blood cell is within normal limits Serum glucose is 119, plasma lactic acid vein is 0.9, calcium, magnesium AST ALT as well as sodium are within normal limits Creatinine is within normal limits Urinalysis is negative for any underlying urinary tract infection CT of the head is reported as no acute intracranial process. I personally reviewed the CT and agree with the report CT cervical spine is reported as no evidence cervical spine fracture. Moderate multilevel degenerative disc disease. Review of Systems The positive and negative as per HPI. Past Medical History Past Medical History: Asthma, Diabetes Mellitus, GERD/Reflux, Hyperlipidemia, Hypertension, Neurologic Disorder, Prostate Disorder, Skin Disorder Additional Past Medical History / Comment(s): PSORIASIS,NIDDM,PARKINSONS, BPH, increased confusion recently History of Any Multi-Drug Resistant Organisms: None Reported Past Surgical History: Hernia Repair, Orthopedic Surgery Additional Past Surgical History / Comment(s): LEFT SHOULDER 01/08/23. RIGHT SHOULDER X 2., LT. INGUINAL HERNIA, UMB HERNIA. LEFT KNEE ARTHROSCOPY. LEFT SHOULDER ARTHROPLASTY. ACHILLES TENDON REPAIR X 2, Radio Frequency treatments on back Past Anesthesia/Blood Transfusion Reactions: No Reported Reaction Past Psychological History: Anxiety, Depression Smoking Status: Former smoker Past Alcohol Use History: None Reported Additional Past Alcohol Use History / Comment(s): PIPE IN PAST x 1 yr. Past Drug Use History: None Reported Medications and Allergies Home Medications Medication Instructions Recorded Confirmed Type Albuterol Sulfate [Ventolin HFA] 2 puff INHALATION RT-Q6H PRN 09/26/19 06/27/24 History DULoxetine HCL [Cymbalta] 60 mg PO BID 09/26/19 06/27/24 History Diphenox-Atrop 2.5-0.025 mg 2 tab PO QID PRN 09/26/19 06/27/24 History [Lomotil] Enalapril [Vasotec] 10 mg PO BID 09/26/19 06/27/24 History Pravastatin Sodium [Pravachol] 40 mg PO HS 09/26/19 06/27/24 History metFORMIN HCL [Glucophage] 500 mg PO DAILY 09/26/19 06/27/24 History Carbidopa-Levodopa 25-100 mg 1 tab PO TID 01/03/23 06/27/24 History [Sinemet 25-100 mg] HYDROcodone/APAP 7.5-325MG [[place] 1 tab PO BID PRN 01/03/23 06/26/24 History 7.5-325] Metoprolol Tartrate 25 mg PO DAILY 01/03/23 06/27/24 History Tamsulosin HCl [Flomax] 0.4 mg PO BID 01/03/23 06/26/24 History Mometasone Furoate [Elocon Cream 1 applic TOPICAL BID PRN 03/05/23 06/27/24 History 0.1%] Dutasteride 0.5 mg PO DAILY 02/01/24 06/26/24 History Albuterol Nebulized [Ventolin 2.5 mg INHALATION RT-QID PRN 06/26/24 06/27/24 History Nebulized] Cyanocobalamin (Vitamin B-12) 5,000 mcg PO DAILY 06/26/24 06/26/24 History [Vitamin B-12] Melatonin/L-Theanine 10/100 Mg 3 tab PO HS 06/26/24 06/26/24 History Super B Complex With Vitamin C 1 tab PO DAILY 06/26/24 06/26/24 History Thiamine [Vitamin B-1] 100 mg PO DAILY 06/26/24 06/26/24 History Vitamin C/Biotin [Hair, Skin and 1 tab PO DAILY 06/26/24 06/26/24 History Nails Chew] cefaDROXiL [Duricef] 500 mg PO Q12HR 06/26/24 06/26/24 History diphenhydrAMINE [Benadryl] 25 mg PO HS PRN 06/26/24 06/26/24 History methocarbamoL [Robaxin-750] 750 mg PO Q8H PRN 06/26/24 06/26/24 History oxyCODONE-APAP 10-325MG [Percocet 1 tab PO Q4H PRN 06/26/24 06/26/24 History 10-325 mg] Fluticasone Propion/Salmeterol 1 puff INHALATION RT-BID 06/27/24 06/27/24 History [Advair 250-50 Diskus] Allergies Allergy/AdvReac Type Severity Reaction Status Date / Time No Known Allergies Allergy Verified 06/26/24 20:30 Physical Examination - Vital Signs Vital Signs: Vital Signs Temp Pulse Pulse Resp BP BP Pulse Ox 06/27/24 02:10 98.0 F 69 18 112/66 97 06/26/24 22:20 71 18 119/67 97 06/26/24 21:20 75 18 104/78 95 06/26/24 20:10 98.2 F 71 18 117/65 96 06/26/24 18:42 74 18 113/67 97 06/26/24 16:51 98.2 F 70 18 113/75 97 Intake and Output 06/26/24 06/27/24 06/27/24 22:59 06:59 14:59 Intake Total 120 570 Output Total 400 300 Balance -280 270 Intake: Intake, IV Titration 450 Amount Sodium Chloride 0.9% 1, 450 000 ml @ 75 mls/hr IV . [id number] ONE Rx#:[id number] Oral 120 120 Output: Urine 400 300 Other: # Bowel Movements 1 1 Weight 100.698 kg GENERAL: The patient is lying in bed and is not in acute distress. NEUROLOGICAL: Higher mental function: The patient is awake, alert, oriented to self, place and time. Patient correctly named his 's name and his 2 children's name. He correctly stated the current state as well as the capital [facility]. He is able to name objects correctly such as pen watch glasses. Upon examining patient's stated that he is doing much better today compared to yesterday. Patient is following commands. No aphasia and no neglect. Cranial nerves: The pupils are round, equal and reactive to light and accommodation. Visual amado are full to confrontation throughout. Extraocular movement is intact no nystagmus is noted. Facial sensation is normal to touch throughout. The facial strength is normal throughout. Hearing is mild to moderately decreased to hand rub. Tongue is midline and moved [id number] without any difficulty. No dysarthria is noted. Shoulder shrug is normal bilaterally. Motor: Gait was attempted with assistance of nurse but patient is unsteady and tremulous. The strength is appears 5 over 5 throughout but is tremolous (he did not get his night Sinemet and today did not get full dose). Normal tone and bulk. Cerebellum: Normal finger to nose heel to chin bilaterally. Sensation: Sensation is normal to touch throughout. Reflexes (right/left): 2+ in uppers. Lowers are 1+. Plantars are downgoing bilaterally. Results - Laboratory Findings CBC and BMP: 06/26/24 17:52 06/26/24 17:52 Abnormal Lab Findings: Abnormal Labs 06/26/24 06/26/24 06/26/24 17:52 17:52 18:11 RBC 4.00 L Hgb 11.9 L Hct 35.9 L Neutrophils # 8.0 H BUN 34 H Glucose 119 H Total Protein 5.8 L Urine Protein Trace H Urine Ketones Trace H Assessment and Plan Assessment: This is a 73-year-old gentleman with history of Parkinson disease who had a recent lumbosacral fusion in April 2024 at outside facility surgery had severe visual hallucination with confusion and generalized weakness. Also during the outside hospital visit he had 2 episodes of stiffening and according to was told that the episodes were not seizures and were more provoked due to acute UTI. His condition has improved strength arnold but stated that the visual hallucination continued and in last 3 days he had worsening of visual hallucination with generalized weakness confusion. He was evaluated by his outpatient neurologist Dr. Lawrence this past Sunday and he notified patient and her that his condition is likely due to his progressive Parkinson's. Worsening visual hallucination, confusion with generalized weakness: I do agree its likely due to his progressive Parkinson but I think it was triggered by recent surgery inducing delirium--a he is doing much better History of Parkinson's and had minimal/mild dementia with visual hallucination prior to the recent surgery in the past Recent lumbosacral fusion in April 2024 over at [facility] ([place], [place]) Low normal vitamin B12 of 364 in March 2024 History of Vitamin B6 deficiency Plan: I resumed his home dose of sentiment 68993 3 tablets 3 times daily and he has been on that same dose since October 2023 and he has been doing well I ordered a routine EEG. EEG is normal but patient continues to have stiffening of extremities I would recommend a repeat EEG and consider outpatient EEG by his neurologist or long-term EEG to capture seizures. I ordered CT lumbar spine Patient has low normal vitamin B12 in March 2024 and he is on vitamin B12 sup plement I started the patient on pyridoxine for his vitamin B6 deficiency 50 mg daily. He had a recent TSH, folate so no need to repeat those tests. Recommend the patient to follow low up with his neurologist within 3 weeks. Will defer the rest of medical management to primary team. The plan is discussed with patient, his who is at bedside and his nurse. Thank you for the consultation. Dr. Guardado will resume neurology service tomorrow A.M. Time with Patient: Greater than 30
--- NOTE | 2024-06-27 14:12 | CT ---
EXAMINATION TYPE: CT lumbar spine wo con CT DLP: 1689.6 mGycm, Automated exposure control for dose reduction was used. DATE OF EXAM: 06/27/2024 1:59 PM COMPARISON: 05/29/2024.. CLINICAL INDICATION: Male, 73 years old with history of low back pain with falls, recent surgery; PHH , Low back pain, falls, recent surgery. TECHNIQUE: Multiple axial images were obtained from the midportion of T11 through the sacroiliac bradley nts. Soft tissue and bone windows in coronal and sagittal planes were obtained and reviewed. Contrast used: mL of , (None, if empty). Oral contrast used: (None, if empty). FINDINGS: Alignment: There are 5 lumbar type vertebral bodies within normal alignment. Bone: Postsurgical changes to the spine with hardware at L4-L5 and S1. Discectomy at L4-5 and L5-S1. Hardware appears intact. Multilevel degeneration changes throughout the spine with osteophyte formati on disc space. No evidence for fracture. No organizing fluid collections in the surgical bed. Laminec hermelidno changes are seen in the lower spine. Discs: T12-L1: No spinal canal or neural foraminal stenosis is identified. L1-L2: No spinal canal or neural foraminal stenosis is identified. L2-L3: No spinal canal or neural foraminal stenosis is identified. L3-L4: No spinal canal or neural foraminal stenosis is identified. L4-L5: Streak artifact limits evaluation at this level there is mild to moderate right bilateral neur al foraminal stenosis. The spinal canal appears patent. L5-S1: Streak artifact at this level with limits evaluation. There is moderate to severe bilateral ne ural foraminal stenosis. Other: None IMPRESSION: 1. No evidence for spinal fracture. 2. Postsurgical changes with hardware intact. 3. Degeneration changes of the spine with limited evaluation L4-L5 and L5-S1 due to streak artifact. Moderate to severe bilateral neural foraminal stenosis worse at L5-S1. 4. No evidence of fracture or organizing fluid collection.
[2024-06-27] MEDS: PYRIDOXINE 50 MG TAB PO SCH (15:15)
[2024-06-27] MEDS ORDERED: DIPHENOX-ATROP 2.5-0.025 MG 1 EACH TAB PO PRN (21:33)
[2024-06-27] MEDS ORDERED: ALBUTEROL NEBULIZED 2.5 MG/3 ML INHALATION PRN (21:33)
[2024-06-27] MEDS ORDERED: DEXTROSE 50% SYRINGE 50 ML IVP PRN ×2 (21:39)
[2024-06-27 21:56] LABS: Glucose,Whole Blood 173 mg/dL (70-110)
[2024-06-27] MEDS ORDERED: TRIAMCINOLONE 0.1% CREAM 80 GM TUBE TOPICAL PRN (22:00)
[2024-06-27] MEDS: THEANINE PO SCH (22:08)
[2024-06-27] MEDS: MELATONIN PO SCH (22:08)
[2024-06-27] MEDS: DULoxetine HCL 60 MG CAPSULE.DR PO SCH (22:13)
[2024-06-27] MEDS: INSULIN ASPART (NovoLOG) 100 UNIT/ML VIAL SQ SCH (22:13)
[2024-06-27] MEDS: PRAVASTATIN SODIUM 40 MG TAB PO SCH (22:13)
[2024-06-27] MEDS: TAMSULOSIN 0.4 MG CAP.ER.24H PO SCH (22:13)
[2024-06-27] MEDS: NYSTATIN 100,000 UNIT/GM POWD 15 GM TOPICAL SCH (23:31)
--- NOTE | 2024-06-27 23:31 | EEG ---
ELECTROENCEPHALOGRAM REPORT CLINICAL HISTORY: This is a 73-year-old gentleman with history of Parkinson disease with confusion and visual hallucination. The video EEG is obtained to evaluate for seizure epileptiform activity. RELEVANT MEDICATIONS: 1. Cymbalta. 2. Robaxin. EEG TYPE: This is a routine 21-channel EEG with video using the 10/20 electrode placement system. DESCRIPTION: Wakefulness and drowsiness are obtained. During awake state, the posterior- dominant rhythm consists of [id number]-up-[id number] voltage of 7.5 to 8 Hz activity. There is no physiological stage 2 sleep architecture. There is no focal slowing. INTERICTAL AND ICTAL: There is a sharply contoured activity over the left more than right central and bilateral temporal intermixed with that is 6 Hz activity lasting probably 10 to 12 seconds, but intermixed with significant myogenic artifact and there is no evolution and this does not appear as seizure. There is no clear epileptiform discharge or seizure on the EEG. ACTIVATION PROCEDURE: Photic stimulation did not evoke a posterior driving response. There is no abnormality during the photic stimulation. Hyperventilation is not performed. CLINICAL INTERPRETATION: This is an abnormal routine EEG. The background slowing is suggestive of mild encephalopathy. There is no focal slowing, clear epileptiform discharge, or seizure on the EEG. There is sharply contoured activity more on the left more than the right central and bilateral temporal which can increase risk of focal cortical irritability. Clinical correlation is recommended. LEIGH / KATLINN: [id number] / MTDD
[2024-06-28] MEDS: CEPHALEXIN 250 MG CAP PO SCH (00:31)
[2024-06-28 05:50] LABS: Glucose,Whole Blood 136 mg/dL (70-110)
--- NOTE | 2024-06-28 08:13 | CT ---
EXAMINATION TYPE: CT brain wo con CT DLP: 1019.90 mGycm, Automated exposure control for dose reduction was used. DATE OF EXAM: 06/28/2024 7:59 AM COMPARISON: 06/26/2024. CLINICAL INDICATION: Male, 73 years old with history of Increased confusion, Increased confusion TECHNIQUE: Brain: Axial CT images of the brain were obtained with coronal and sagittal reformats created and rev iewed. Contrast used: None. Oral contrast used: None. FINDINGS: Brain: Extra-axial spaces: No abnormal extra-axial fluid collections. Ventricular system: Dilatation in proportion to cerebral atrophy. Cerebral parenchyma: Cerebral atrophy. No acute intraparenchymal hemorrhage or mass effect. The stewart -white junction is well differentiated. Scattered hypoattenuating areas are seen within the white mat ter. Cerebellum: Unremarkable. Mass effect: No evidence of midline shift. Intracranial vasculature: Atherosclerotic calcifications of the intracranial vessels. Soft tissues: Normal. Calvarium/osseous structures: No depressed skull fracture. Paranasal sinuses and mastoid air cells: Mild scattered paranasal sinus disease. Visualized orbits: Orbital contents are intact. IMPRESSION: 1. No acute intracranial process. 2. Nonspecific white matter changes, likely secondary to chronic small vessel ischemic disease.
[2024-06-28] MEDS: SYMBICORT 80-4.5 MCG INHALER INHALATION SCH (08:14)
[2024-06-28] MEDS: FOLIC ACID-VIT B COMPLEX-VIT C 1 CAP PO SCH (08:28)
[2024-06-28] MEDS: FINASTERIDE 5 MG TAB PO SCH (08:28)
[2024-06-28] MEDS: THIAMINE 100 MG TAB PO SCH (08:28)
[2024-06-28] MEDS: METOPROLOL TARTRATE 25 MG TAB PO SCH (08:29)
[2024-06-28 09:32] LABS: Basophils # (A) 0.03 X 10*3/uL (0.00-0.10); Basophils % (A) 0.3 %; Eosinophils # (A) 0.01 X 10*3/uL (0.04-0.35); Eosinophils % (A) 0.1 %; HCT 37.3 % (39.6-50.0); Lymphocytes % (A) 6.2 %; MCH 28.7 pg (27.0-32.0); MCHC 32.2 g/dL (32.0-37.0); MCV 89.2 FL (80.0-97.0); Mean Platelet Volume 10.7 FL (9.5-12.2); Monocytes # (A) 0.53 X 10*3/uL (0.20-1.00); Monocytes % (A) 4.7 %; NRBC Per 100 WBC 0 X 10*3/uL (0.00-0.01); Neutrophils # (A) 10.04 X 10*3/uL (1.80-7.70); Neutrophils % (A) 88.3 %; Platelet Count 223 X 10*3/uL (140-440); RBC 4.18 X 10*6/uL (4.40-5.60); RDW 14.4 % (11.5-14.5); WBC 11.36 X 10*3/uL (4.50-10.00)
[2024-06-28 10:35] LABS: BUN/Creat Ratio 31.71 Ratio (12.00-20.00); Blood Urea Nitrogen 22.2 mg/dL (9.0-27.0); Calcium 9.6 mg/dL (8.7-10.3); Carbon Dioxide 24.9 mmol/L (21.6-31.8); Chloride 102 mmol/L (96-109); Glucose 155 mg/dL (70-110); Potassium 3.7 mmol/L (3.5-5.5); Sodium 139 mmol/L (135-145)
[2024-06-28 11:57] LABS: Glucose,Whole Blood 151 mg/dL (70-110)
[2024-06-28] MEDS: SODIUM CHLORIDE 0.45% 1,000 ML IV SCH (13:22)
--- NOTE | 2024-06-28 14:39 | P.HPIM ---
History of Present Illness H&P Date: 06/27/24 Chief Complaint: Recurrent falls 73-year-old male with a past medical history significant for lower back surgery this year, he just recently was treated for urinary tract infection had a catheter removed a few days ago. Patient also has a history of Parkinson. Patient states on Sunday he fell hit his head and ever since then he has been much weaker in the legs and has fallen at least 6-7 more times and hit his head at least 3 more times. Patient denies any headache now patient denies numbness weakness. Patient has any neck pain. Patient [place] any chest pain difficulty breathing shortness of breath. Patient has any fever chills or cough. Patient denies any abdominal pain patient has nausea vomiting diarrhea. Patient denies any dysuria hematuria urinary frequency. White Blood cell is within normal limits Serum glucose is 119, plasma lactic acid vein is 0.9, calcium, magnesium AST ALT as well as sodium are within normal limits Creatinine is within normal limits Urinalysis is negative for any underlying urinary tract infection CT of the head is reported as no acute intracranial process. I personally reviewed the CT and agree with the report CT cervical spine is reported as no evidence cervical spine fracture. Moderate multilevel degenerative disc disease. Review of Systems REVIEW OF SYSTEMS: CONSTITUTIONAL: No fever, no malaise, no fatigue. HEENT: No recent visual problems or hearing problems. Denied any sore throat. CARDIOVASCULAR: No chest pain, orthopnea, PND, no palpitations, no syncope. PULMONARY: No shortness of breath, no cough, no hemoptysis. GASTROINTESTINAL: No diarrhea, no nausea, no vomiting, no abdominal pain. NEUROLOGICAL: No headaches, no weakness, no numbness. HEMATOLOGICAL: Denies any bleeding or petechiae. GENITOURINARY: Denies any burning micturition, frequency, or urgency. MUSCULOSKELETAL/RHEUMATOLOGICAL: Denies any joint pain, swelling, or any muscle pain. ENDOCRINE: Denies any polyuria or polydipsia. The rest of the 14-point review of systems is negative. Past Medical History Past Medical History: Asthma, Diabetes Mellitus, GERD/Reflux, Hyperlipidemia, Hypertension, Neurologic Disorder, Prostate Disorder, Skin Disorder Additional Past Medical History / Comment(s): PSORIASIS,NIDDM,PARKINSONS, BPH, increased confusion recently History of Any Multi-Drug Resistant Organisms: None Reported Past Surgical History: Hernia Repair, Orthopedic Surgery Additional Past Surgical History / Comment(s): LEFT SHOULDER 01/08/23. RIGHT SHOULDER X 2., LT. INGUINAL HERNIA, UMB HERNIA. LEFT KNEE ARTHROSCOPY. LEFT SHOULDER ARTHROPLASTY. ACHILLES TENDON REPAIR X 2, Radio Frequency treatments on back Past Anesthesia/Blood Transfusion Reactions: No Reported Reaction Past Psychological History: Anxiety, Depression Smoking Status: Former smoker Past Alcohol Use History: None Reported Additional Past Alcohol Use History / Comment(s): PIPE IN PAST x 1 yr. Past Drug Use History: None Reported Medications and Allergies Home Medications Medication Instructions Recorded Confirmed Type Albuterol Sulfate [Ventolin HFA] 2 puff INHALATION RT-Q6H PRN 09/26/19 06/27/24 History DULoxetine HCL [Cymbalta] 60 mg PO BID 09/26/19 06/27/24 History Diphenox-Atrop 2.5-0.025 mg 2 tab PO QID PRN 09/26/19 06/27/24 History [Lomotil] Enalapril [Vasotec] 10 mg PO BID 09/26/19 06/27/24 History Pravastatin Sodium [Pravachol] 40 mg PO HS 09/26/19 06/27/24 History metFORMIN HCL [Glucophage] 500 mg PO DAILY 09/26/19 06/27/24 History Carbidopa-Levodopa 25-100 mg 1 tab PO TID 01/03/23 06/27/24 History [Sinemet 25-100 mg] HYDROcodone/APAP 7.5-325MG [[place] 1 tab PO BID PRN 01/03/23 06/26/24 History 7.5-325] Metoprolol Tartrate 25 mg PO DAILY 01/03/23 06/27/24 History Tamsulosin HCl [Flomax] 0.4 mg PO BID 01/03/23 06/26/24 History Mometasone Furoate [Elocon Cream 1 applic TOPICAL BID PRN 03/05/23 06/27/24 History 0.1%] Dutasteride 0.5 mg PO DAILY 02/01/24 06/26/24 History Albuterol Nebulized [Ventolin 2.5 mg INHALATION RT-QID PRN 06/26/24 06/27/24 History Nebulized] Cyanocobalamin (Vitamin B-12) 5,000 mcg PO DAILY 06/26/24 06/26/24 History [Vitamin B-12] Melatonin/L-Theanine 10/100 Mg 3 tab PO HS 06/26/24 06/26/24 History Super B Complex With Vitamin C 1 tab PO DAILY 06/26/24 06/26/24 History Thiamine [Vitamin B-1] 100 mg PO DAILY 06/26/24 06/26/24 History Vitamin C/Biotin [Hair, Skin and 1 tab PO DAILY 06/26/24 06/26/24 History Nails Chew] cefaDROXiL [Duricef] 500 mg PO Q12HR 06/26/24 06/26/24 History diphenhydrAMINE [Benadryl] 25 mg PO HS PRN 06/26/24 06/26/24 History methocarbamoL [Robaxin-750] 750 mg PO Q8H PRN 06/26/24 06/26/24 History oxyCODONE-APAP 10-325MG [Percocet 1 tab PO Q4H PRN 06/26/24 06/26/24 History 10-325 mg] Fluticasone Propion/Salmeterol 1 puff INHALATION RT-BID 06/27/24 06/27/24 History [Advair 250-50 Diskus] Allergies Allergy/AdvReac Type Severity Reaction Status Date / Time No Known Allergies Allergy Verified 06/26/24 20:30 Physical Exam Vitals: Vital Signs Temp Pulse Pulse Resp BP BP Pulse Ox 06/27/24 02:10 98.0 F 69 18 112/66 97 06/26/24 22:20 71 18 119/67 97 06/26/24 21:20 75 18 104/78 95 06/26/24 20:10 98.2 F 71 18 117/65 96 06/26/24 18:42 74 18 113/67 97 06/26/24 16:51 98.2 F 70 18 113/75 97 Intake and Output 06/26/24 06/27/24 06/27/24 22:59 06:59 14:59 Intake Total 120 570 Output Total 400 300 Balance -280 270 Intake: Intake, IV Titration 450 Amount Sodium Chloride 0.9% 1, 450 000 ml @ 75 mls/hr IV . [id number] ONE Rx#:[id number] Oral 120 120 Output: Urine 400 300 Other: # Bowel Movements 1 1 Weight 100.698 kg GENERAL: Patient is well-developed and well-nourished. Patient is nontoxic and well-hydrated and is in no acute distress. ENT: Neck is soft and supple. No significant lymphadenopathy is noted. Oropharynx is clear. Moist mucous membranes. Neck has full range of motion without eliciting any pain. EYES: The sclera were anicteric and conjunctiva were pink and moist. Extraocular movements were intact and pupils were equal round and reactive to light. Eyelids were unremarkable. PULMONARY: Unlabored respirations. Good breath sounds bilaterally. No audible rales rhonchi or wheezing was noted. CARDIOVASCULAR: There is a regular rate and rhythm without any murmurs gallops or rubs. ABDOMEN: Soft and nontender with normal bowel sounds. SKIN: Skin is clear with no lesions or rashes and otherwise unremarkable. NEUROLOGIC: Patient is alert and oriented x3. Cranial nerves II through XII are grossly intact. Motor and sensory are also intact. Normal speech, volume and content. Symmetrical smile. Patient's leg strength tested in bed seems to be normal MUSCULOSKELETAL: Normal extremities with adequate strength and full range of motion. PSYCHIATRIC: Normal psychiatric evaluation. Results CBC & Chem 7: 06/28/24 02:35 06/28/24 02:35 Labs: Abnormal Lab Results - Last 24 Hours (Table) 06/26/24 06/26/24 06/26/24 Range/Units 17:52 17:52 18:11 RBC 4.00 L (4.30-5.90) m/uL Hgb 11.9 L (13.0-17.5) gm/dL Hct 35.9 L (39.0-53.0) % Neutrophils # 8.0 H (1.3-7.7) k/uL BUN 34 H (9-20) mg/dL Glucose 119 H (74-99) mg/dL Total Protein 5.8 L (6.3-8.2) g/dL Urine Protein Trace H (Negative) Urine Ketones Trace H (Negative) Assessment and Plan Assessment: 1. Altered mental status; family reporting worsening visual loss hallucinations, confusion and generalized weakness -Patient has been evaluated by neurology and symptom complex is deemed related to progressive Parkinson's disease triggered by recent surgery induced delirium -- Patient to continue with current dose of Sinemet 25-103 tablets 3 times a day -EEG has been ordered -- CT of the lumbar spine is ordered and pending -Neurology recommending to obtain vitamin B12, B6 and folic acid level 2. Vitamin B6 deficiency; patient has been placed on pyridoxine 50 mg daily 3. Multiple falls; likely related to progressive Parkinson's disease; PT/OT consulted 4. Hypertension; patient takes enalapril 10 mg twice daily which has been placed on hold due to softer blood pressures; patient remains on metoprolol 25 mg daily 5. Hyperlipidemia; pravastatin 40 mg nightly 6. Asthma/COPD; not in exacerbation; continue with home inhaler therapy; Singulair 10 mg daily 7. Chronic back pain; patient takes Cymbalta and Robaxin 8. Diabetes mellitus type 2; monitor Accu-Cheks before every meal and at bedtime with insulin sliding scale DVT prophylaxis; SCDs CODE STATUS; full code
--- NOTE | 2024-06-28 14:44 | P.PN ---
Subjective Progress Note Date: 06/28/24 73-year-old male with a past medical history significant for lower back surgery this year, he just recently was treated for urinary tract infection had a catheter removed a few days ago. Patient also has a history of Parkinson. Patient states on Sunday he fell hit his head and ever since then he has been much weaker in the legs and has fallen at least 6-7 more times and hit his head at least 3 more times. Patient denies any headache now patient denies numbness weakness. Patient has any neck pain. Patient Nuys any chest pain difficulty breathing shortness of breath. Patient has any fever chills or cough. Patient denies any abdominal pain patient has nausea vomiting diarrhea. Patient denies any dysuria hematuria urinary frequency. White Blood cell is within normal limits Serum glucose is 119, plasma lactic acid vein is 0.9, calcium, magnesium AST ALT as well as sodium are within normal limits Creatinine is within normal limits Urinalysis is negative for any underlying urinary tract infection CT of the head is reported as no acute intracranial process. I personally reviewed the CT and agree with the report CT cervical spine is reported as no evidence cervical spine fracture. Moderate multilevel degenerative disc disease. Objective - Vital Signs Vital signs: Vital Signs Temp 99.0 F 06/28/24 06:55 Pulse 80 06/28/24 06:55 Resp 19 06/28/24 08:00 BP 127/76 06/28/24 06:55 Pulse Ox 95 06/28/24 06:55 FiO2 Intake & Output 06/27/24 06/28/24 06/28/24 18:59 06:59 18:59 Output Total 200 Balance -200 Output: Urine 200 Other: Voiding Method External Catheter External Catheter # Voids 1 - Exam GENERAL: Patient is well-developed and well-nourished. Patient is nontoxic and well-hydrated and is in no acute distress. ENT: Neck is soft and supple. No significant lymphadenopathy is noted. Oropharynx is clear. Moist mucous membranes. Neck has full range of motion without eliciting any pain. EYES: The sclera were anicteric and conjunctiva were pink and moist. Extraocular movements were intact and pupils were equal round and reactive to light. Eyelids were unremarkable. PULMONARY: Unlabored respirations. Good breath sounds bilaterally. No audible rales rhonchi or wheezing was noted. CARDIOVASCULAR: There is a regular rate and rhythm without any murmurs gallops or rubs. ABDOMEN: Soft and nontender with normal bowel sounds. SKIN: Skin is clear with no lesions or rashes and otherwise unremarkable. NEUROLOGIC: Patient is alert and oriented x3. Cranial nerves II through XII are grossly intact. Motor and sensory are also intact. Normal speech, volume and content. Symmetrical smile. Patient's leg strength tested in bed seems to be normal MUSCULOSKELETAL: Normal extremities with adequate strength and full range of motion. PSYCHIATRIC: Normal psychiatric evaluation. - Labs CBC & Chem 7: 06/28/24 02:35 06/28/24 02:35 Labs: Abnormal Lab Results - Last 24 Hours (Table) 06/27/24 06/28/24 06/28/24 Range/Units 21:55 02:35 02:35 WBC 11.36 H (4.50-10.00) X 10*3/uL RBC 4.18 L (4.40-5.60) X 10*6/uL Hgb 12.0 L (13.0-17.0) g/dL Hct 37.3 L (39.6-50.0) % Immature Gran # 0.05 H (0.00-0.04) X 10*3/uL Neutrophils # 10.04 H (1.80-7.70) X 10*3/uL Lymphocytes # 0.70 L (0.90-5.00) X 10*3/uL Eosinophils # 0.01 L (0.04-0.35) X 10*3/uL Anion Gap 12.10 H (4.00-12.00) mmol/L BUN/Creatinine Ratio 31.71 H (12.00-20.00) Ratio Glucose 155 H (70-110) mg/dL POC Glucose (mg/dL) 173 H (70-110) mg/dL 06/28/24 Range/Units 05:48 WBC (4.50-10.00) X 10*3/uL RBC (4.40-5.60) X 10*6/uL Hgb (13.0-17.0) g/dL Hct (39.6-50.0) % Immature Gran # (0.00-0.04) X 10*3/uL Neutrophils # (1.80-7.70) X 10*3/uL Lymphocytes # (0.90-5.00) X 10*3/uL Eosinophils # (0.04-0.35) X 10*3/uL Anion Gap (4.00-12.00) mmol/L BUN/Creatinine Ratio (12.00-20.00) Ratio Glucose (70-110) mg/dL POC Glucose (mg/dL) 136 H (70-110) mg/dL Assessment and Plan Assessment: 1. Altered mental status; family reporting worsening visual loss hallucinations, confusion and generalized weakness -Patient has been evaluated by neurology and symptom complex is deemed related to progressive Parkinson's disease triggered by recent surgery induced delirium -- Patient to continue with current dose of Sinemet 25-103 tablets 3 times a day -EEG has been ordered -- CT of the lumbar spine is ordered and pending -Neurology recommending to obtain vitamin B12, B6 and folic acid level 2. Vitamin B6 deficiency; patient has been placed on pyridoxine 50 mg daily 3. Multiple falls; likely related to progressive Parkinson's disease; PT/OT consulted 4. Hypertension; patient takes enalapril 10 mg twice daily which has been placed on hold due to softer blood pressures; patient remains on metoprolol 25 mg daily 5. Hyperlipidemia; pravastatin 40 mg nightly 6. Asthma/COPD; not in exacerbation; continue with home inhaler therapy; Singulair 10 mg daily 7. Chronic back pain; patient takes Cymbalta and Robaxin 8. Diabetes mellitus type 2; monitor Accu-Cheks before every meal and at bedtime with insulin sliding scale DVT prophylaxis; SCDs CODE STATUS; full code
[2024-06-28 16:35] LABS: Amorphous Sediment,Urine Moderate /hpf; Appearance,Urine Turbid (Clear); Bilirubin,Urine Negative (Negative); Blood,Urine Negative (Negative); Calcium Oxalate Crystals,Urine Rare /hpf; Color,Urine Yellow; Glucose,Urine (UA) Negative (Negative); Ketones,Urine 1+ (Negative); Leukocyte Esterase,Urine Negative (Negative); Mucus,Urine Occasional /hpf; Nitrite,Urine Negative (Negative); PH, Urine 5.5 (5.0-8.0); Protein,Urine Trace (Negative); RBC,Urine 3 /hpf (0-5); Specific Gravity,Urine 1.034 (1.001-1.035); Squamous Epithelial Cell,Urine 1 /hpf (0-4); WBC,Urine 2 /hpf (0-5)
[2024-06-28 17:23] LABS: Glucose,Whole Blood 124 mg/dL (70-110)
--- NOTE | 2024-06-28 17:49 | P.PN ---
Subjective Progress Note Date: 06/28/24 Patient initially seen by Dr. Geronimo Diaz. Please refer to his note for details. Patient is a 73-year-old male with history of Parkinson's disease, who had a recent surgery of lumbar sacral fusion on 04/28/2024 and ever since he has been having visual hallucinations, confusion and weakness. His symptoms have got worse in the last 3 days. Routine EEG is negative for seizures. I spoke to patient's , who was present by the bedside. She mentions that patient has been having hallucinations for about 1 year. It would occur "now and then", but since his lumbar surgery, it has been more frequent. Lately it has got worse, occurring almost every hour. Patient's mentions that prior to his back surgery, he used to walk without any assistive device. He was able to vacuum and take the trash out like normal. After his back surgery, he required help with walking, and was discharged to the inpatient rehab with a walker. He has been doing very well, and last 06/23/2024, he was able to jump off the chair and walk. Just for 3 days prior to arrival, he fell 7 times. Therefore he was brought to the hospital. He did not pass out, but he did hit his head couple times. He did not pass out. Patient denies any headache. No abdominal pain. He has developed some fever, and threw up last night. Patient follows up with Dr. Lawrence. He was recommended melatonin for difficulty sleeping, but is not helping. His neurologist feels that his Parkinson's may have got worse after he had anesthesia for the surgery. Patient's states that he had a bad UTI after his surgery. He was catheterized for about 2-1/2 months, which was just taken off last Sunday. He had 2 UA, which both have been negative. Some of the workup during this hospital visit consisted of: White Blood cell is within normal limits Serum glucose is 119, plasma lactic acid vein is 0.9, calcium, magnesium AST ALT as well as sodium are within normal limits Creatinine is within normal limits Urinalysis is negative for any underlying urinary tract infection CT of the head is reported as no acute intracranial process. I personally reviewed the CT and agree with the report CT cervical spine is reported as no evidence cervical spine fracture. Moderate multilevel degenerative disc disease. Objective - Vital Signs Vital signs: Vital Signs Temp 99.3 F 06/28/24 14:16 Pulse 79 06/28/24 14:16 Resp 16 06/28/24 14:16 BP 124/78 06/28/24 14:16 Pulse Ox 96 06/28/24 14:16 FiO2 Intake & Output 06/27/24 06/28/24 06/28/24 18:59 06:59 18:59 Output Total 200 197 Balance -200 -197 Output: Urine 200 Post Void Residual 197 Other: Voiding Method External Catheter External Catheter # Voids 1 0 # Bowel Movements 1 - Exam On examination patient is an alert and awake, in no distress. He appears slightly delirious, face is slightly flushed, and his skin is warm. Patient states he is 66 years old. He knows his date of 1950. He states current month is . Then he said current year is "pain in the butt". He states that he is in [place] in [place]. He believes Mr. Trujillo is the pres ident. Speech and language functions are normal. Attention span, concentration and fund of knowledge are quite limited. His pupils are equal, round and reacting, visual amado are full, face is symmetric. Muscle strength is normal in the arms and legs. Tone is moderately increased. Patient is slightly tremulous. He appears delirious. - Labs CBC & Chem 7: 06/28/24 02:35 06/28/24 02:35 Labs: Abnormal Lab Results - Last 24 Hours (Table) 06/27/24 06/28/24 06/28/24 Range/Units 21:55 02:35 02:35 WBC 11.36 H (4.50-10.00) X 10*3/uL RBC 4.18 L (4.40-5.60) X 10*6/uL Hgb 12.0 L (13.0-17.0) g/dL Hct 37.3 L (39.6-50.0) % Immature Gran # 0.05 H (0.00-0.04) X 10*3/uL Neutrophils # 10.04 H (1.80-7.70) X 10*3/uL Lymphocytes # 0.70 L (0.90-5.00) X 10*3/uL Eosinophils # 0.01 L (0.04-0.35) X 10*3/uL Anion Gap 12.10 H (4.00-12.00) mmol/L BUN/Creatinine Ratio 31.71 H (12.00-20.00) Ratio Glucose 155 H (70-110) mg/dL POC Glucose (mg/dL) 173 H (70-110) mg/dL 06/28/24 06/28/24 Range/Units 05:48 11:55 WBC (4.50-10.00) X 10*3/uL RBC (4.40-5.60) X 10*6/uL Hgb (13.0-17.0) g/dL Hct (39.6-50.0) % Immature Gran # (0.00-0.04) X 10*3/uL Neutrophils # (1.80-7.70) X 10*3/uL Lymphocytes # (0.90-5.00) X 10*3/uL Eosinophils # (0.04-0.35) X 10*3/uL Anion Gap (4.00-12.00) mmol/L BUN/Creatinine Ratio (12.00-20.00) Ratio Glucose (70-110) mg/dL POC Glucose (mg/dL) 136 H 151 H (70-110) mg/dL Assessment and Plan Assessment: * Altered mental status, likely due to delirium. Patient has low-grade fever. * Longstanding history of hallucinations for last 1 year, progressively getting worse, particularly since his recent back surgery. * Parkinson's disease, follows up with Dr. Lawrence. 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 Patient's states that he keeps on moving his legs all night long. * Status post lumbosacral surgery on 04/28/2024. * Low normal vitamin B12 of 364 in March 2024 * History of Vitamin B6 deficiency Plan: Continue home dose of sentiment 14565, 3 tablets 3 times daily and he has been on that same dose since October 2023 and he has been doing well. I am not sure if his hallucinations are related to his Sinemet. Recommended he can talk to his primary neurologist regarding considering Nuplazid to help with hallucinations. Patient has developed low-grade fever. Need to rule out any infectious process. Consider blood cultures, if patient spikes. UA is negative. Chest x-ray negative on 06/26/2024. May need ID consult, if patient continues to have low- grade fever. EEG is reported as normal. CT of the lumbar spine revealed no evidence for spinal fracture. Postsurgical changes with hardware intact. Degenerative changes of the spine with limited evaluation L4-L5 and L5-S1 due to streak artifact. Moderate to severe bilateral neural foraminal stenosis, worse at L5-S1. Repeat CT head performed today showed no acute process. I personally reviewed CT head, agree with the findings. Patient has low normal vitamin B12 in March 2024 and he is on vitamin B12 s upplement Dr. Diaz started the patient on pyridoxine for his vitamin B6 deficiency 50 mg daily. He had a recent TSH, folate so no need to repeat those tests. Recommend the patient to follow low up with his neurologist within 3 weeks. Will defer the rest of medical management to primary team.
[2024-06-28] MEDS: ACETAMINOPHEN TAB 325 MG TAB PO PRN (17:51)
[2024-06-28 20:32] LABS: Glucose,Whole Blood 110 mg/dL (70-110)
[2024-06-29 06:05] LABS: Glucose,Whole Blood 109 mg/dL (70-110)
[2024-06-29 09:28] LABS: BUN/Creat Ratio 27.57 Ratio (12.00-20.00); Blood Urea Nitrogen 19.3 mg/dL (9.0-27.0); Calcium 9.2 mg/dL (8.7-10.3); Carbon Dioxide 22.6 mmol/L (21.6-31.8); Chloride 104 mmol/L (96-109); Glucose 116 mg/dL (70-110); Potassium 3.9 mmol/L (3.5-5.5); Sodium 138 mmol/L (135-145)
[2024-06-29 11:21] LABS: Basophils % (A) 0 %; Eosinophils # (A) 0.1 k/uL (0-0.7); Eosinophils % (A) 1 %; HCT 37.7 % (39.0-53.0); Hypochromasia Slight; Lymphocytes # (A) 1.1 k/uL (1.0-4.8); Lymphocytes % (A) 14 %; MCH 28.8 pg (25.0-35.0); MCHC 31.9 g/dL (31.0-37.0); MCV 90.2 fL (80.0-100.0); Mean Platelet Volume 7.4; Monocytes # (A) 0.4 k/uL (0-1.0); Monocytes % (A) 5 %; Neutrophils # (A) 6.5 k/uL (1.3-7.7); Neutrophils % (A) 78 %; Platelet Count 222 k/uL (150-450); RBC 4.19 m/uL (4.30-5.90); RDW 14.3 % (11.5-15.5); WBC 8.2 k/uL (3.8-10.6)
[2024-06-29 11:44] LABS: Glucose,Whole Blood 112 mg/dL (70-110)
--- NOTE | 2024-06-29 12:57 | P.PN ---
Subjective Progress Note Date: 06/29/24 73-year-old male with a past medical history significant for lower back surgery this year, he just recently was treated for urinary tract infection had a catheter removed a few days ago. Patient also has a history of Parkinson. Patient states on Sunday he fell hit his head and ever since then he has been much weaker in the legs and has fallen at least 6-7 more times and hit his head at least 3 more times. Patient denies any headache now patient denies numbness weakness. Patient has any neck pain. Patient Nuys any chest pain difficulty breathing shortness of breath. Patient has any fever chills or cough. Patient denies any abdominal pain patient has nausea vomiting diarrhea. Patient denies any dysuria hematuria urinary frequency. White Blood cell is within normal limits Serum glucose is 119, plasma lactic acid vein is 0.9, calcium, magnesium AST ALT as well as sodium are within normal limits Creatinine is within normal limits Urinalysis is negative for any underlying urinary tract infection CT of the head is reported as no acute intracranial process. I personally reviewed the CT and agree with the report CT cervical spine is reported as no evidence cervical spine fracture. Moderate multilevel degenerative disc disease. 06/29/2024 Patient is seen and evaluated in room with nursing staff at bedside; nursing reporting episode of some stiffening both lower extremities and some jerking movements of both arms; all spontaneously; neurology has been notified Vital signs are reviewed and remained stable Lab review shows a WBC of 8.2, hemoglobin of 12 and platelet count of 222, sodium 138, potassium 3.9, BUNs/creatinine of 19.3/0.7; blood cultures and p rocalcitonin ordered and pending Patient has been reevaluated by neuro and recommended ID evaluation given episodes of low-grade temperature --Hold off on any antibiotic therapy; will consult ID Objective - Vital Signs Vital signs: Vital Signs Temp 99.2 F 06/29/24 07:00 Pulse 80 06/29/24 07:00 Resp 18 06/29/24 07:00 BP 145/87 06/29/24 07:00 Pulse Ox 96 06/29/24 07:00 FiO2 Intake & Output 06/28/24 06/29/24 06/29/24 18:59 06:59 18:59 Intake Total 118 Output Total 847 400 Balance -847 -400 118 Intake: Oral 118 Output: Urine 500 400 Post Void Residual 347 Other: Voiding Method External Catheter External Catheter # Voids 0 # Bowel Movements 1 2 - Exam GENERAL: Patient is well-developed and well-nourished. Patient is nontoxic and well-hydrated and is in no acute distress. ENT: Neck is soft and supple. No significant lymphadenopathy is noted. Oropharynx is clear. Moist mucous membranes. Neck has full range of motion without eliciting any pain. EYES: The sclera were anicteric and conjunctiva were pink and moist. Extraocular movements were intact and pupils were equal round and reactive to light. Eyelids were unremarkable. PULMONARY: Unlabored respirations. Good breath sounds bilaterally. No audible rales rhonchi or wheezing was noted. CARDIOVASCULAR: There is a regular rate and rhythm without any murmurs gallops or rubs. ABDOMEN: Soft and nontender with normal bowel sounds. SKIN: Skin is clear with no lesions or rashes and otherwise unremarkable. NEUROLOGIC: Patient is alert and oriented x3. Cranial nerves II through XII are grossly intact. Motor and sensory are also intact. Normal speech, volume and content. Symmetrical smile. Patient's leg strength tested in bed seems to be normal MUSCULOSKELETAL: Normal extremities with adequate strength and full range of motion. PSYCHIATRIC: Normal psychiatric evaluation. - Labs CBC & Chem 7: 06/29/24 11:03 06/29/24 03:25 Labs: Abnormal Lab Results - Last 24 Hours (Table) 06/28/24 06/28/24 06/28/24 Range/Units 11:55 16:00 17:17 BUN/Creatinine Ratio (12.00-20.00) Ratio Glucose (70-110) mg/dL POC Glucose (mg/dL) 151 H 124 H (70-110) mg/dL Urine Protein Trace H (Negative) Urine Ketones 1+ H (Negative) Calcium Oxalate Crystal Rare H (None) /hpf Amorphous Sediment Moderate H (None) /hpf Urine Mucus Occasional H (None) /hpf 06/29/24 Range/Units 03:25 BUN/Creatinine Ratio 27.57 H (12.00-20.00) Ratio Glucose 116 H (70-110) mg/dL POC Glucose (mg/dL) (70-110) mg/dL Urine Protein (Negative) Urine Ketones (Negative) Calcium Oxalate Crystal (None) /hpf Amorphous Sediment (None) /hpf Urine Mucus (None) /hpf Assessment and Plan Assessment: 1. Altered mental status; family reporting worsening visual loss hallucinations, confusion and generalized weakness -Patient has been evaluated by neurology and symptom complex is deemed related to progressive Parkinson's disease triggered by recent surgery induced delirium -- Patient to continue with current dose of Sinemet 25-103 tablets 3 times a day -EEG has been ordered -- CT of the lumbar spine is ordered and pending -Neurology recommending to obtain vitamin B12, B6 and folic acid level 2. Vitamin B6 deficiency; patient has been placed on pyridoxine 50 mg daily 3. Multiple falls; likely related to progressive Parkinson's disease; PT/OT consulted 4. Hypertension; patient takes enalapril 10 mg twice daily which has been p laced on hold due to softer blood pressures; patient remains on metoprolol 25 mg daily 5. Hyperlipidemia; pravastatin 40 mg nightly 6. Asthma/COPD; not in exacerbation; continue with home inhaler therapy; Singulair 10 mg daily 7. Chronic back pain; patient takes Cymbalta and Robaxin 8. Diabetes mellitus type 2; monitor Accu-Cheks before every meal and at bedtime with insulin sliding scale DVT prophylaxis; SCDs CODE STATUS; full code
[2024-06-29 17:16] LABS: Glucose,Whole Blood 160 mg/dL (70-110)
[2024-06-29 20:25] LABS: Glucose,Whole Blood 134 mg/dL (70-110)
[2024-06-30 05:19] LABS: Glucose,Whole Blood 112 mg/dL (70-110)
--- NOTE | 2024-06-30 08:14 | P.CONS ---
History of Present Illness - Reason for Consult Consult date: 06/29/24 AMS, low-grade fever Requesting physician: Tobi Pittman - Chief Complaint Weakness and fall X few days - History of Present Illness Patient is a 73-year-old male with a past medical history significant for hypertension hyperlipidemia prostate disorder diabetes mellitus in this patient who recently did have lumbar spine surgery done at [facility] patient subsequently did have a prolonged hospital stay subsequently at rehab patient has been brought to the hospital 3 days ago after apparently patient fell 80s had and ever since then the patient has been weak in the leg and the patient apparently did have multiple falls before his hospital presentation patient on presentation to the hospital has been afebrile he has been running low-grade fever of 99.3 F but not persistently patient is not tachycardic hypotensive or hypoxic and no need for supplemental oxygen patient did have a normal white count except a white count of 11.36 on 06/28/2024 that has prompted this consultation creatinine has been normal electrolytes normal liver enzymes are normal UA 10 2 has been negative patient did have a chest x- ray no evidence for acute pulmonary disease patient did have a lumbar CT no evidence for spine fracture postsurgical changes with hardware intact no evidence for organizing fluid collection, patient at the time of evaluation is awake but not specifically he denies any headache or URI symptoms no chest pain shortness of breath cough no vomiting choking with food abdominal pain or diarrhea has been reported Review of Systems Positive point and negatives has been mentioned in the HPI, complete review of systems was performed and all other systems are negative Past Medical History Past Medical History: Asthma, Diabetes Mellitus, GERD/Reflux, Hyperlipidemia, Hypertension, Neurologic Disorder, Prostate Disorder, Skin Disorder Additional Past Medical History / Comment(s): PSORIASIS,NIDDM,PARKINSONS, BPH, increased confusion recently History of Any Multi-Drug Resistant Organisms: None Reported Past Surgical History: Hernia Repair, Orthopedic Surgery Additional Past Surgical History / Comment(s): LEFT SHOULDER 01/08/23. RIGHT SHOULDER X 2., LT. INGUINAL HERNIA, UMB HERNIA. LEFT KNEE ARTHROSCOPY. LEFT SHOULDER ARTHROPLASTY. ACHILLES TENDON REPAIR X 2, Radio Frequency treatments on back Past Anesthesia/Blood Transfusion Reactions: No Reported Reaction Past Psychological History: Anxiety, Depression Smoking Status: Former smoker Past Alcohol Use History: None Reported Additional Past Alcohol Use History / Comment(s): PIPE IN PAST x 1 yr. Past Drug Use History: None Reported Medications and Allergies Home Medications Medication Instructions Recorded Confirmed Type Albuterol Sulfate [Ventolin HFA] 2 puff INHALATION RT-Q6H PRN 09/26/19 06/27/24 History DULoxetine HCL [Cymbalta] 60 mg PO BID 09/26/19 06/27/24 History Diphenox-Atrop 2.5-0.025 mg 2 tab PO QID PRN 09/26/19 06/27/24 History [Lomotil] Enalapril [Vasotec] 10 mg PO BID 09/26/19 06/27/24 History Pravastatin Sodium [Pravachol] 40 mg PO HS 09/26/19 06/27/24 History metFORMIN HCL [Glucophage] 500 mg PO DAILY 09/26/19 06/27/24 History Carbidopa-Levodopa 25-100 mg 1 tab PO TID 01/03/23 06/27/24 History [Sinemet 25-100 mg] HYDROcodone/APAP 7.5-325MG [[place] 1 tab PO BID PRN 01/03/23 06/26/24 History 7.5-325] Metoprolol Tartrate 25 mg PO DAILY 01/03/23 06/27/24 History Tamsulosin HCl [Flomax] 0.4 mg PO BID 01/03/23 06/26/24 History Mometasone Furoate [Elocon Cream 1 applic TOPICAL BID PRN 03/05/23 06/27/24 History 0.1%] Dutasteride 0.5 mg PO DAILY 02/01/24 06/26/24 History Albuterol Nebulized [Ventolin 2.5 mg INHALATION RT-QID PRN 06/26/24 06/27/24 History Nebulized] Cyanocobalamin (Vitamin B-12) 5,000 mcg PO DAILY 06/26/24 06/26/24 History [Vitamin B-12] Melatonin/L-Theanine 10/100 Mg 3 tab PO HS 06/26/24 06/26/24 History Super B Complex With Vitamin C 1 tab PO DAILY 06/26/24 06/26/24 History Thiamine [Vitamin B-1] 100 mg PO DAILY 06/26/24 06/26/24 History Vitamin C/Biotin [Hair, Skin and 1 tab PO DAILY 06/26/24 06/26/24 History Nails Chew] cefaDROXiL [Duricef] 500 mg PO Q12HR 06/26/24 06/26/24 History diphenhydrAMINE [Benadryl] 25 mg PO HS PRN 06/26/24 06/26/24 History methocarbamoL [Robaxin-750] 750 mg PO Q8H PRN 06/26/24 06/26/24 History oxyCODONE-APAP 10-325MG [Percocet 1 tab PO Q4H PRN 06/26/24 06/26/24 History 10-325 mg] Fluticasone Propion/Salmeterol 1 puff INHALATION RT-BID 06/27/24 06/27/24 History [Advair 250-50 Diskus] Allergies Allergy/AdvReac Type Severity Reaction Status Date / Time No Known Allergies Allergy Verified 06/26/24 20:30 Physical Exam Vitals: Vital Signs Temp Pulse Resp BP Pulse Ox 06/29/24 14:24 99.5 F 88 18 136/82 96 06/29/24 07:00 99.2 F 80 18 145/87 96 06/29/24 01:58 99.1 F 86 18 154/76 96 06/28/24 20:43 82 06/28/24 18:53 98.6 F 82 16 138/72 96 Intake and Output 06/28/24 06/29/24 06/29/24 22:59 06:59 14:59 Intake Total 118 Output Total 650 400 800 Balance -650 -400 -682 Intake: Oral 118 Output: Urine 500 400 800 Post Void Residual 150 Other: Voiding Method External Catheter External Catheter # Bowel Movements 1 2 1 GENERAL DESCRIPTION: Elderly male lying in bed, no distress. No tachypnea or accessory muscle of respiration use. HEENT: Shows Pallor , no scleral icterus. Oral mucous membrane is dry. No pharyngeal erythema or thrush NECK: Trachea central, no thyromegaly. LUNGS: Unlabored breathing. Clear to auscultation anteriorly. No wheeze or crackle. HEART: S1, S2, regular rate and rhythm. No loud murmur ABDOMEN: Soft, no tenderness , guarding or rigidity, no organomegaly EXTREMITIES: No edema of feet. SKIN: No rash, no masses palpable. NEUROLOGICAL: The patient is lethargic but arousable, mood and affect normal. Results CBC & Chem 7: 06/29/24 11:03 06/29/24 03:25 Labs: Abnormal Lab Results - Last 24 Hours (Table) 06/28/24 06/28/24 06/29/24 Range/Units 16:00 17:17 03:25 RBC (4.30-5.90) m/uL Hgb (13.0-17.5) gm/dL Hct (39.0-53.0) % BUN/Creatinine Ratio 27.57 H (12.00-20.00) Ratio Glucose 116 H (70-110) mg/dL POC Glucose (mg/dL) 124 H (70-110) mg/dL Urine Protein Trace H (Negative) Urine Ketones 1+ H (Negative) Calcium Oxalate Crystal Rare H (None) /hpf Amorphous Sediment Moderate H (None) /hpf Urine Mucus Occasional H (None) /hpf 06/29/24 06/29/24 Range/Units 11:03 11:41 RBC 4.19 L (4.30-5.90) m/uL Hgb 12.0 L (13.0-17.5) gm/dL Hct 37.7 L (39.0-53.0) % BUN/Creatinine Ratio (12.00-20.00) Ratio Glucose (70-110) mg/dL POC Glucose (mg/dL) 112 H (70-110) mg/dL Urine Protein (Negative) Urine Ketones (Negative) Calcium Oxalate Crystal (None) /hpf Amorphous Sediment (None) /hpf Urine Mucus (None) /hpf Assessment and Plan (1) Leukocytosis Current Visit: Yes Status: Acute Code(s): D72.829 - ELEVATED WHITE BLOOD CELL COUNT, UNSPECIFIED SNOMED Code(s): 980712968 (2) Fever Current Visit: Yes Status: Acute Code(s): R50.9 - FEVER, UNSPECIFIED SNOMED Code(s): 869093771 Plan: 1patient did have a low-grade fever and only 1 elevated white count with a subsequent normalized and this patient presented to the hospital with weakness and fall currently did not have any active focus of infection, initial workup including UA chest x-ray negative for any pneumonia abdominal soft on clinical examination CT of the lumbar spine did not show any fluid collection and incision is healed, some of the low-grade fever may be related to pulmonary atelectasis specially the patient on taking deep deep breath 2we will wait for the inflammatory markers especially CRP and procalcitonin to finalize 3no need for systemic antibiotic therapy at this point any further workup as well as infectious disease at the bedside questions answered We will follow on clinical condition and cultures to further adjust medication if needed Thank you for this consultation we will follow the patient along with you Dictation was produced using [employer] dictation software. please excuse any gra mmatical, word or spelling errors.
[2024-06-30 08:42] LABS: Basophils # (A) 0.05 X 10*3/uL (0.00-0.10); Basophils % (A) 0.5 %; Eosinophils # (A) 0.23 X 10*3/uL (0.04-0.35); Eosinophils % (A) 2.1 %; HCT 37.2 % (39.6-50.0); HGB 11.9 g/dL (13.0-17.0); Lymphocytes # (A) 1.94 X 10*3/uL (0.90-5.00); MCV 90.7 FL (80.0-97.0); Monocytes % (A) 7.4 %; NRBC Per 100 WBC 0 X 10*3/uL (0.00-0.01); Neutrophils # (A) 7.68 X 10*3/uL (1.80-7.70); Neutrophils % (A) 71.5 %; Platelet Count 228 X 10*3/uL (140-440); RDW 14.4 % (11.5-14.5); WBC 10.75 X 10*3/uL (4.50-10.00)
[2024-06-30] MEDS: methocarbamoL 750 MG TAB PO PRN (09:34)
[2024-06-30 12:21] LABS: Glucose,Whole Blood 119 mg/dL (70-110)
--- NOTE | 2024-06-30 12:28 | P.PN ---
Subjective Progress Note Date: 06/29/24 06/29/2024: Patient was seen for a follow-up. Patient's was present, and a sitter was also present. Patient had an episode in which his arms were shaking, legs were stiff like a board, and he was sucking his bottom lip and this episode lasted for about 5 minutes. He could not talk at the time of this episode. There was no tongue bite. The sitter mentioned that it occurred off and on for about 5 to 10 minutes. Patient's mentions that he did not sleep well last night. Patient denies any headache at this time. Patient continues to have hallucinations. Yesterday he was talking about a bird sitting by his side. He is also somewhat paranoid, thinking his food is being p oisoned and 2 men trying to attack him. He thinks those men are trying to throw him out of the window. 06/28/2024: Patient initially seen by Dr. Geronimo Diaz. Please refer to his note for details. Patient is a 73-year-old male with history of Parkinson's disease, who had a recent surgery of lumbar sacral fusion on 04/28/2024 and ever since he has been having visual hallucinations, confusion and weakness. His symptoms have got worse in the last 3 days. Routine EEG is negative for seizures. I spoke to patient's , who was present by the bedside. She mentions that patient has been having hallucinations for about 1 year. It would occur "now and then", but since his lumbar surgery, it has been more frequent. Lately it has got worse, occurring almost every hour. Patient's mentions that prior to his back surgery, he used to walk without any assistive device. He was able to vacuum and take the trash out like normal. After his back surgery, he required help with walking, and was discharged to the inpatient rehab with a walker. He has been doing very well, and last 06/23/2024, he was able to jump off the chair and walk. Just for 3 days prior to arrival, he fell 7 times. Therefore he was brought to the hospital. He did not pass out, but he did hit his head couple times. He did not pass out. Patient denies any headache. No abdominal pain. He has developed some fever, and threw up last night. Patient follows up with Dr. Lawrence. He was recommended melatonin for difficulty sleeping, but is not helping. His neurologist feels that his Parkinson's may have got worse after he had anesthesia for the surgery. Patient's states that he had a bad UTI after his surgery. He was catheterized for about 2-1/2 months, which was just taken off last Sunday. He had 2 UA, which both have been negative. Some of the workup during this hospital visit consisted of: White Blood cell is within normal limits Serum glucose is 119, plasma lactic acid vein is 0.9, calcium, magnesium AST ALT as well as sodium are within normal limits Creatinine is within normal limits Urinalysis is negative for any underlying urinary tract infection CT of the head is reported as no acute intracranial process. I personally reviewed the CT and agree with the report CT cervical spine is reported as no evidence cervical spine fracture. Moderate multilevel degenerative disc disease. Objective - Vital Signs Vital signs: Vital Signs Temp 99.2 F 06/29/24 07:00 Pulse 80 06/29/24 07:00 Resp 18 06/29/24 07:00 BP 145/87 06/29/24 07:00 Pulse Ox 96 06/29/24 07:00 FiO2 Intake & Output 06/28/24 06/29/24 06/29/24 18:59 06:59 18:59 Intake Total 118 Output Total 847 400 Balance -847 -400 118 Intake: Oral 118 Output: Urine 500 400 Post Void Residual 347 Other: Voiding Method External Catheter External Catheter # Voids 0 # Bowel Movements 1 2 - Exam On examination patient is an alert and awake, in no distress. He appears slightly delirious, face is slightly flushed, and his skin is warm. Patient states he is 66 years old. He knows his date of 1950. Speech and language functions are normal. Attention span, concentration and fund of knowledge are quite limited. His pupils are equal, round and reacting, visual amado are full, face is symmetric. Muscle strength is normal in the arms and legs. Tone is moderately increased. Patient is slightly tremulous. He appears delirious. - Labs CBC & Chem 7: 06/30/24 03:36 06/29/24 03:25 Labs: Abnormal Lab Results - Last 24 Hours (Table) 06/28/24 06/28/24 06/29/24 Range/Units 16:00 17:17 03:25 RBC (4.30-5.90) m/uL Hgb (13.0-17.5) gm/dL Hct (39.0-53.0) % BUN/Creatinine Ratio 27.57 H (12.00-20.00) Ratio Glucose 116 H (70-110) mg/dL POC Glucose (mg/dL) 124 H (70-110) mg/dL Urine Protein Trace H (Negative) Urine Ketones 1+ H (Negative) Calcium Oxalate Crystal Rare H (None) /hpf Amorphous Sediment Moderate H (None) /hpf Urine Mucus Occasional H (None) /hpf 06/29/24 06/29/24 Range/Units 11:03 11:41 RBC 4.19 L (4.30-5.90) m/uL Hgb 12.0 L (13.0-17.5) gm/dL Hct 37.7 L (39.0-53.0) % BUN/Creatinine Ratio (12.00-20.00) Ratio Glucose (70-110) mg/dL POC Glucose (mg/dL) 112 H (70-110) mg/dL Urine Protein (Negative) Urine Ketones (Negative) Calcium Oxalate Crystal (None) /hpf Amorphous Sediment (None) /hpf Urine Mucus (None) /hpf Assessment and Plan Assessment: * Altered mental status, likely due to delirium. Patient has low-grade fever. * Longstanding history of hallucinations for last 1 year, progressively getting worse, particularly since his recent back surgery. * Parkinson's disease, follows up with Dr. Lawrence. 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 Patient's states that he keeps on moving his legs all night long. * Status post lumbosacral surgery on 04/28/2024. * Low normal vitamin B12 of 364 in March 2024 * History of Vitamin B6 deficiency Plan: Patient is having repeated episodes of tremoring of the arms, and stiffness of the legs lasting for about 5 to 10 minutes. We will perform prolonged EEG to rule out any epileptiform activity. Continue home dose of sentiment [id number], 3 tablets 3 times daily and he has been on that same dose since October 2023 and he has been doing well. I am not sure if his hallucinations are related to his Sinemet. Recommended he can talk to his primary neurologist regarding considering Nuplazid to help with hallucinations. Patient also has significant paranoia, and hallucinations. Will consult psychiatry. Patient has developed low-grade fever. Need to rule out any infectious process. Consider blood cultures, if patient spikes. UA is negative. Chest x-ray negative on 06/26/2024. May need ID consult, if patient continues to have low- grade fever. Initial EEG is reported as normal. CT of the lumbar spine revealed no evidence for spinal fracture. Postsurgical changes with hardware intact. Degenerative changes of the spine with limited evaluation L4-L5 and L5-S1 due to streak artifact. Moderate to severe bilateral neural foraminal stenosis, worse at L5-S1. Repeat CT head performed today showed no acute process. I personally reviewed CT head, agree with the findings. Patient has low normal vitamin B12 in March 2024 and he is on vitamin B12 supplement Dr. Diaz started the patient on pyridoxine for his vitamin B6 deficiency 50 mg daily. He had a recent TSH, folate so no need to repeat those tests. Recommend the patient to follow low up with his neurologist within 3 weeks. Will defer the rest of medical management to primary team.
[2024-06-30 15:03] VITALS: BMI 34.7
--- NOTE | 2024-06-30 15:36 | P.CN ---
Psychiatric Consult - . Consult date: 06/30/24 Consult:: 06/30/24 15:34 CONSULTATION Reason for consult: AMS and a/v hallucinations Identifying Data: The patient is a 73-year-old, , white male, who lives in [place] in [place] with his . History of present illness: The patient was unable to give any history. Most of the history was obtained from EMR, nursing staff and patients . The patients was on the bedside. The patient has shown cognitive deficits and a/v hallucinations for past 1 year. The noted that the patient has been forget full and see things, which are not there. These objects appear and disappear. She indicated these symptoms were infrequent but have progressively declined after he had back surgery in April. She noted that his forgetfulness and hallucinations worsened and increased in frequency after the surgery. He has had multiple falls with head injury. The patient has history of Parkinsons disease for past 6-7 years. He has been on Sinemet. He is unable to hold meaningful conversation and oriented x 1. The patient has h/o of PTSD. He was in [place]. He is on 100% disability from [employer] for being exposed to Agent [place]. The patient is on Cymbalta for chronic pain, as per . History of past psychiatric illness: No other than stated in HPI. No history of suicidal or homicidal ideations or behavior. MSE: Could not be performed. Past medical history: Asthma, DM, GERD, HTN, Parkinsons Disease. Diagnosis: Hallucinations secondary to Sinemet. 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 REC: The patient to have 1:1 sitter for fall/safety precautions. Medication recommendations: Consider titrating the dose of Sinemet to optimal dose. Add Nupalzid 34mg daily. The patients is willing to get it from outside if given the prescription Will Sign off the case.. 06/30/24 15:35
[2024-06-30 17:07] LABS: Glucose,Whole Blood 155 mg/dL (70-110)
[2024-06-30] MEDS: HEPARIN SODIUM,PORCINE 5,000 UNIT/ML 1 ML VIAL SQ SCH (17:27)
[2024-06-30] MEDS: PANTOPRAZOLE 40 MG/10 ML VIAL IVP SCH (17:27)
[2024-06-30 20:11] LABS: Glucose,Whole Blood 107 mg/dL (70-110)
--- NOTE | 2024-07-01 04:34 | PN ---
PROGRESS NOTE DATE OF SERVICE: 06/30/2024 SUBJECTIVE: This 73-year-old gentleman who was admitted with change in mental status, also had Parkinson's. The patient also had repeated falls and coarse tremors also. Multiple consultants are following the patient including Infectious Disease and Urology. The patient also possibly has a delirium also per Neurology. The patient also had mild leukocytosis and fever. The chest x-ray did not show any acute abnormality. The patient is confused. PAST MEDICAL HISTORY: Could not be taken. CURRENT MEDICATIONS: Reviewed include sinemet. PHYSICAL EXAMINATION: VITAL SIGNS: Pulse is 98, blood pressure 116/80 and respirations 18. HEENT: Conjunctivae normal. CARDIOVASCULAR: S1, S2. CHEST: A few scattered rhonchi. ABDOMEN: Soft. NERVOUS SYSTEM: Nonfocal. Course tremors present. LABORATORY DATA: Reviewed. ASSESSMENT: 1. Change in mental status, possible acute delirium. 2. Parkinsonian acute exacerbation with falls. 3. Vitamin B deficiency. 4. Hypertension. 5. Hyperlipidemia. 6. Asthma, chronic obstructive pulmonary disease. 7. Mild fever. 8. Mild leukocytosis. RECOMMENDATIONS AND DISCUSSION: This 73-year-old gentleman who presented with multiple complex medical issues. We will monitor the patient closely. Continue the current management and continue symptomatic treatment. Continue with bronchodilators. The patient has no oral reflex at this time. I would recommend follow with Neurology and cut down the IV fluids, PT/OT evaluation, possible rehab, guarded prognosis. Further recommendations to follow. MMODL / IJN: [id number] /
[2024-07-01 06:10] LABS: Glucose,Whole Blood 105 mg/dL (70-110)
--- NOTE | 2024-07-01 08:55 | P.PN ---
Subjective Progress Note Date: 06/30/24 Principal diagnosis: Reason for follow-up is possible infection Patient is a 73-year-old male with a past medical history significant for hypertension hyperlipidemia prostate disorder diabetes mellitus in this patient who recently did have lumbar spine surgery done at [facility] patient subsequently did have a prolonged hospital stay, patient will be brought to the hospital apparently patient did have a fall at home and weakness did have a low-grade fever and 1 elevated white count prompted this consultation. On today's evaluation that is 06/30/2024, patient is more awake and alert today, has been afebrile, patient is breathing comfortably and is currently on room air, patient denies having any significant cough no chest pain shortness of breath, patient denies nausea vomiting or diarrhea and no abdominal pain. Patient white count is 10.75 no left shift creatinine is normal tested negative for influenza RSV COVID CRP is 2.30 procalcitonin normal Objective - Vital Signs Vital signs: Vital Signs Temp 98.3 F 06/30/24 06:55 Pulse 98 06/30/24 06:55 Resp 18 06/30/24 06:55 BP 116/80 06/30/24 06:55 Pulse Ox 95 06/30/24 06:55 FiO2 Intake & Output 06/29/24 06/30/24 06/30/24 18:59 06:59 18:59 Intake Total 118 0 Output Total 800 1550 Balance -682 -1550 0 Intake: Oral 118 0 Output: Urine 800 1550 Other: Voiding Method External Catheter External Catheter External Catheter # Bowel Movements 1 1 - Exam GENERAL DESCRIPTION: An elderly male lying in bed in no distress RESPIRATORY SYSTEM: Unlabored breathing , decreased breath sounds at bases HEART: S1 S2 regular rate and rhythm , ABDOMEN: Soft , no tenderness EXTREMITIES: No edema feet - Labs CBC & Chem 7: 06/30/24 03:36 06/29/24 03:25 Labs: Abnormal Lab Results - Last 24 Hours (Table) 06/29/24 06/29/24 06/29/24 Range/Units 11:03 17:13 20:19 WBC (4.50-10.00) X 10*3/uL RBC (4.40-5.60) X 10*6/uL Hgb (13.0-17.0) g/dL Hct (39.6-50.0) % Immature Gran # (0.00-0.04) X 10*3/uL POC Glucose (mg/dL) 160 H 134 H (70-110) mg/dL C-Reactive Protein 2.30 H (0.00-0.80) mg/dL 06/30/24 06/30/24 06/30/24 Range/Units 03:36 05:17 12:19 WBC 10.75 H (4.50-10.00) X 10*3/uL RBC 4.10 L (4.40-5.60) X 10*6/uL Hgb 11.9 L (13.0-17.0) g/dL Hct 37.2 L (39.6-50.0) % Immature Gran # 0.05 H (0.00-0.04) X 10*3/uL POC Glucose (mg/dL) 112 H 119 H (70-110) mg/dL C-Reactive Protein (0.00-0.80) mg/dL Microbiology - Last 24 Hours (Table) 06/28/24 16:00 Urine Culture - Final Urine,Voided Assessment and Plan (1) Leukocytosis Current Visit: Yes Status: Acute Code(s): D72.829 - ELEVATED WHITE BLOOD CELL COUNT, UNSPECIFIED SNOMED Code(s): 298417468 (2) Fever Current Visit: Yes Status: Acute Code(s): R50.9 - FEVER, UNSPECIFIED SNOMED Code(s): 820236277 Plan: 1patient did have a low-grade fever and only 1 elevated white count with a subsequent normalized and this patient presented to the hospital with weakness and fall currently did not have any active focus of infection, initial workup including UA chest x-ray negative for any pneumonia abdominal soft on clinical examination CT of the lumbar spine did not show any fluid collection and incision is healed, some of the low-grade fever may be related to pulmonary atelectasis specially the patient on taking deep deep breath 2patient did have mildly elevated CRP and normal procalcitonin, white count is normal no fever clinic suspicious low for infection this has been discussed in detail with the at the bedside will monitor closely off antibiotics Dictation was produced using [employer] dictation software. please excuse any grammatical, word or spelling errors. Time with Patient: Less than 30
[2024-07-01] MEDS: LORazepam 2 MG/ML INJ IV STA (12:00)
--- NOTE | 2024-07-01 13:06 | P.PN ---
Subjective Progress Note Date: 07/01/24 Principal diagnosis: Reason for follow-up is possible infection Patient is a 73-year-old male with a past medical history significant for hypertension hyperlipidemia prostate disorder diabetes mellitus in this patient who recently did have lumbar spine surgery done at [facility] patient subsequently did have a prolonged hospital stay, patient will be brought to the hospital apparently patient did have a fall at home and weakness did have a low-grade fever and 1 elevated white count prompted this consultation. On today's evaluation that is 07/01/2024, Patient is more awake alert and afebrile this morning patient denies having any chest pain shortness of breath or cough, the patient is breathing comfortably on room air, patient denies any abdominal pain no diarrhea no nausea no vomiting. Patient did have negative influenza RSV and COVID testing blood cultures so far negative Objective - Vital Signs Vital signs: Vital Signs Temp 98.3 F 07/01/24 07:00 Pulse 68 07/01/24 07:00 Resp 20 07/01/24 07:00 BP 151/73 07/01/24 07:00 Pulse Ox 94 L 07/01/24 07:00 FiO2 Intake & Output 06/30/24 07/01/24 07/01/24 18:59 06:59 18:59 Intake Total 118 355 Output Total 1350 Balance 118 -1350 355 Weight 100.698 kg Intake: Oral 118 355 Output: Urine 1350 Other: Voiding Method External Catheter External Catheter External Catheter # Voids 2 # Bowel Movements 1 - Exam GENERAL DESCRIPTION: An elderly male lying in bed in no distress RESPIRATORY SYSTEM: Unlabored breathing , decreased breath sounds at bases HEART: S1 S2 regular rate and rhythm , ABDOMEN: Soft , no tenderness EXTREMITIES: No edema feet - Labs CBC & Chem 7: 06/30/24 03:36 06/29/24 03:25 Labs: Abnormal Lab Results - Last 24 Hours (Table) 06/30/24 Range/Units 17:05 POC Glucose (mg/dL) 155 H (70-110) mg/dL Microbiology - Last 24 Hours (Table) 06/29/24 11:03 Blood Culture - Preliminary Blood Assessment and Plan (1) Leukocytosis Current Visit: Yes Status: Acute Code(s): D72.829 - ELEVATED WHITE BLOOD CELL COUNT, UNSPECIFIED SNOMED Code(s): 500836563 (2) Fever Current Visit: Yes Status: Acute Code(s): R50.9 - FEVER, UNSPECIFIED SNOMED Code(s): 909841896 Plan: 1patient did have a low-grade fever and only 1 elevated white count with a subsequent normalized and this patient presented to the hospital with weakness and fall currently did not have any active focus of infection, initial workup including UA chest x-ray negative for any pneumonia abdominal soft on clinical e xamination CT of the lumbar spine did not show any fluid collection and incision is healed, some of the low-grade fever may be related to pulmonary atelectasis specially the patient on taking deep deep breath 2patient did have mildly elevated CRP and normal procalcitonin, white count is normal no fever and blood culture have so far negative will monitor closely off antibiotic therapy Dictation was produced using [employer] dictation software. please excuse any grammatical, word or spelling errors. Time with Patient: Less than 30
[2024-07-01 13:09] LABS: Glucose,Whole Blood 137 mg/dL (70-110)
--- NOTE | 2024-07-01 14:22 | PN ---
PROGRESS NOTE DATE OF SERVICE: 07/01/2024 SUBJECTIVE: This is a 73-year-old gentleman, who was admitted with acute mental status and delirium, is improving significantly. No chest pain. No palpitation. No fever. OBJECTIVE: VITAL SIGNS: Pulse is 68, blood pressure 151/70, respirations 20. CHEST: Clear to auscultation. CARDIOVASCULAR: S1, S2. ABDOMEN: Soft. NERVOUS SYSTEM: Diffusely weak. LABORATORY DATA: Reviewed. ASSESSMENT: 1. Change in mental status, possible acute delirium. 2. Parkinsonian with acute exacerbation with falls. 3. Gait dysfunction. 4. Vitamin B deficiency. 5. Hypertension. 6. Hyperlipidemia. 7. Multiple medical issues. RECOMMENDATIONS: Recommend to continue current management and continue symptomatic treatment. Repeat labs. Otherwise, PT, OT evaluation. Either home with family versus ECF rehab. The patient had Dr. Lawrence as a neurologist as an outpatient. Further recommendations to follow. MMODL / IJN: [id number] /
--- NOTE | 2024-07-01 16:07 | P.PN ---
Subjective Progress Note Date: 06/30/24 06/30/2024: Patient was seen for a follow-up. Patient is laying in the bed. He continues to be very confused. EEG could not be completed as patient would not cooperate. 06/29/2024: Patient was seen for a follow-up. Patient's was present, and a sitter was also present. Patient had an episode in which his arms were shaking, legs were stiff like a board, and he was sucking his bottom lip and this episode lasted for about 5 minutes. He could not talk at the time of this episode. There was no tongue bite. The sitter mentioned that it occurred off and on for about 5 to 10 minutes. Patient's mentions that he did not sleep well last night. Patient denies any headache at this time. Patient continues to have hallucinations. Yesterday he was talking about a bird sitting by his side. He is also somewhat paranoid, thinking his food is being poisoned and 2 men trying to attack him. He thinks those men are trying to throw him out of the window. 06/28/2024: Patient initially seen by Dr. Geronimo Diaz. Please refer to his note for details. Patient is a 73-year-old male with history of Parkinson's disease, who had a recent surgery of lumbar sacral fusion on 04/28/2024 and ever since he has been having visual hallucinations, confusion and weakness. His symptoms have got worse in the last 3 days. Routine EEG is negative for seizures. I spoke to patient's , who was present by the bedside. She mentions that patient has been having hallucinations for about 1 year. It would occur "now and then", but since his lumbar surgery, it has been more frequent. Lately it has got worse, occurring almost every hour. Patient's mentions that prior to his back surgery, he used to walk without any assistive device. He was able to vacuum and take the trash out like normal. After his back surgery, he required help with walking, and was discharged to the inpatient rehab with a walker. He has been doing very well, and last 06/23/2024, he was able to jump off the chair and walk. Just for 3 days prior to arrival, he fell 7 times. Therefore he was brought to the hospital. He did not pass out, but he did hit his head couple times. He did not pass out. Patient denies any headache. No abdominal pain. He has developed some fever, and threw up last night. Patient follows up with Dr. Lawrence. He was recommended melatonin for difficulty sleeping, but is not helping. His neurologist feels that his Parkinson's may have got worse after he had anesthesia for the surgery. Patient's states that he had a bad UTI after his surgery. He was catheterized for about 2-1/2 months, which was just taken off last Sunday. He had 2 UA, which both have been negative. Some of the workup during this hospital visit consisted of: White Blood cell is within normal limits Serum glucose is 119, plasma lactic acid vein is 0.9, calcium, magnesium AST ALT as well as sodium are within normal limits Creatinine is within normal limits Urinalysis is negative for any underlying urinary tract infection CT of the head is reported as no acute intracranial process. I personally reviewed the CT and agree with the report CT cervical spine is reported as no evidence cervical spine fracture. Moderate multilevel degenerative disc disease. Objective - Vital Signs Vital signs: Vital Signs Temp 98.5 F 06/30/24 13:35 Pulse 64 06/30/24 13:35 Resp 18 06/30/24 13:35 BP 130/69 06/30/24 13:35 Pulse Ox 95 06/30/24 13:35 FiO2 Intake & Output 06/30/24 06/30/24 07/01/24 06:59 18:59 06:59 Intake Total 118 Output Total 1550 Balance -1550 118 Weight 100.698 kg Intake: Oral 118 Output: Urine 1550 Other: Voiding Method External Catheter External Catheter # Voids 2 # Bowel Movements 1 - Exam On examination patient is an alert and awake, in no distress. He appears slightly delirious, face is slightly flushed, and his skin is warm. Patient states he is 48 years old. He could not tell the month of the year, or the city or state that he is in. Patient sometimes mumbles. Speech and language functions are normal. Attention span, concentration and fund of knowledge are very limited. His pupils are equ al, round and reacting, visual amado are full, face is symmetric. Muscle strength is normal in the arms and legs. Tone is moderately increased. Patient is slightly tremulous. He appears delirious. - Labs CBC & Chem 7: 06/30/24 03:36 06/29/24 03:25 Labs: Abnormal Lab Results - Last 24 Hours (Table) 06/29/24 06/30/24 06/30/24 Range/Units 11:03 03:36 05:17 WBC 10.75 H (4.50-10.00) X 10*3/uL RBC 4.10 L (4.40-5.60) X 10*6/uL Hgb 11.9 L (13.0-17.0) g/dL Hct 37.2 L (39.6-50.0) % Immature Gran # 0.05 H (0.00-0.04) X 10*3/uL POC Glucose (mg/dL) 112 H (70-110) mg/dL C-Reactive Protein 2.30 H (0.00-0.80) mg/dL 06/30/24 06/30/24 Range/Units 12:19 17:05 WBC (4.50-10.00) X 10*3/uL RBC (4.40-5.60) X 10*6/uL Hgb (13.0-17.0) g/dL Hct (39.6-50.0) % Immature Gran # (0.00-0.04) X 10*3/uL POC Glucose (mg/dL) 119 H 155 H (70-110) mg/dL C-Reactive Protein (0.00-0.80) mg/dL Microbiology - Last 24 Hours (Table) 06/28/24 16:00 Urine Culture - Final Urine,Voided Assessment and Plan Assessment: * Altered mental status, likely due to delirium. Patient has low-grade fever. * Longstanding history of hallucinations for last 1 year, progressively getting worse, particularly since his recent back surgery. * Parkinson's disease, follows up with Dr. Lawrence. 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 Patient's states that he keeps on moving his legs all night long. * Status post lumbosacral surgery on 04/28/2024. * Low normal vitamin B12 of 364 in March 2024 * History of Vitamin B6 deficiency Plan: Patient is having repeated episodes of tremoring of the arms, and stiffness of the legs lasting for about 5 to 10 minutes. Patient did not cooperate with EEG testing today. Patient will have EEG testing tomorrow, when his is present, so she could mellow him out for the procedure. Continue home dose of sentiment [id number], 3 tablets 3 times daily and he has been on that same dose since October 2023 and he has been doing well. I am not sure if his hallucinations are related to his Sinemet. Recommended he can talk to his primary neurologist regarding considering Nuplazid to help with hallucinations. Patient also has significant paranoia, and hallucinations. Psychiatry has seen the patient, who believe that hallucination is secondary to Sinemet. 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 Recommending titrating the dose of Sinemet to optimal dose. They also recommended to add Nuplazid 34 mg daily. They have signed off. Patient has developed low-grade fever. Need to rule out any infectious process. Consider blood cultures, if patient spikes. UA is negative. Chest x-ray negative on 06/26/2024. May need ID consult, if patient continues to have low- grade fever. Initial EEG is reported as normal. CT of the lumbar spine revealed no evidence for spinal fracture. Postsurgical changes with hardware intact. Degenerative changes of the spine with limited evaluation L4-L5 and L5-S1 due to streak artifact. Moderate to severe bilateral neural foraminal stenosis, worse at L5-S1. Repeat CT head performed today showed no acute process. I personally reviewed CT head, agree with the findings. Patient has low normal vitamin B12 in March 2024 and he is on vitamin B12 supplement Dr. Diaz started the patient on pyridoxine for his vitamin B6 deficiency 50 mg daily. He had a recent TSH, folate so no need to repeat those tests. Recommend the patient to follow low up with his neurologist within 3 weeks. Will defer the rest of medical management to primary team.
[2024-07-01 17:08] LABS: Glucose,Whole Blood 142 mg/dL (70-110)
[2024-07-01 22:22] LABS: Glucose,Whole Blood 182 mg/dL (70-110)
--- NOTE | 2024-07-02 00:28 | EEG ---
ELECTROENCEPHALOGRAM REPORT PREAMBLE: This is a 73-year-old male with abnormal mental status, and also having some seizure- type spells. CURRENT MEDICATIONS: 1. Tylenol. 2. Sinemet. 3. Cymbalta. 4. Robaxin. 5. Melatonin. 6. Proscar. 7. Flomax. 8. Kenalog. EEG FINDINGS: This is a 21-channel digital EEG recorded with video component, utilizing 10/20 international system with referential and bipolar montages. This is a prolonged EEG performed for 1 hour. The recording start time is 11:17 a.m. on 07/01/2024 and recording end time is 12:21 p.m. on 07/01/2024. Background consists of well-developed, moderately well regulated, predominantly moderate amplitude 6 to 7 hertz theta activity seen in bihemispheric region. Background is posterior dominant, seems to be slightly reactive to eye opening and closing. Photic driving response was not seen. A lot of moderate amount of myogenic activity was seen intermittently during the study. The patient was given Ativan 1 mg at 11:57 a.m. No significant change in the background was seen thereafter. No focal or generalized epileptiform activity was seen. Different stages of sleep were not seen. IMPRESSION: This is an abnormal EEG due to background slowing of mild to moderate degree. This is suggestive of generalized cerebral dysfunction as can be seen with encephalopathy due to metabolic, vascular, or degenerative causes. No focal, lateralized, or epileptiform activity was seen. No electrographic seizure was recorded. MMODL / IJN: [id number] /
[2024-07-02 04:13] VITALS: RESP 18
[2024-07-02 06:21] LABS: Glucose,Whole Blood 105 mg/dL (70-110)
[2024-07-02 08:43] LABS: Basophils # (A) 0.04 X 10*3/uL (0.00-0.10); Basophils % (A) 0.6 %; Eosinophils # (A) 0.27 X 10*3/uL (0.04-0.35); Eosinophils % (A) 3.7 %; HCT 35.1 % (39.6-50.0); HGB 11.1 g/dL (13.0-17.0); Lymphocytes # (A) 1.46 X 10*3/uL (0.90-5.00); Lymphocytes % (A) 20.1 %; MCH 28.9 pg (27.0-32.0); MCHC 31.6 g/dL (32.0-37.0); MCV 91.4 FL (80.0-97.0); Mean Platelet Volume 11.1 FL (9.5-12.2); Monocytes % (A) 6.9 %; NRBC Per 100 WBC 0 X 10*3/uL (0.00-0.01); Neutrophils # (A) 4.98 X 10*3/uL (1.80-7.70); Neutrophils % (A) 68.4 %; Platelet Count 204 X 10*3/uL (140-440); RBC 3.84 X 10*6/uL (4.40-5.60); RDW 14.3 % (11.5-14.5); WBC 7.27 X 10*3/uL (4.50-10.00)
[2024-07-02 08:49] VITALS: BP 153/68; PULSE 76; TEMP 98.5
[2024-07-02 08:57] LABS: BUN/Creat Ratio 17.71 Ratio (12.00-20.00); Blood Urea Nitrogen 12.4 mg/dL (9.0-27.0); Calcium 8.9 mg/dL (8.7-10.3); Carbon Dioxide 22.3 mmol/L (21.6-31.8); Chloride 106 mmol/L (96-109); Glucose 100 mg/dL (70-110); Potassium 3.9 mmol/L (3.5-5.5); Sodium 138 mmol/L (135-145)
[2024-07-02 12:59] LABS: Glucose,Whole Blood 103 mg/dL (70-110)
--- NOTE | 2024-07-02 13:53 | P.PN ---
Subjective Progress Note Date: 07/01/24 07/01/2024: Patient was seen for a follow-up. Patient's was also present today. Patient was quite up and awake this morning, but with his EEG, he received Ativan, therefore he is slightly tired. He is still having some hallucinations off and on. Patient's mentions that he was perfectly fine before his back surgery. He has been evaluated by Dr. Lawrence, and had no evidence of dementia prior to his back surgery. However since his back surgery she has been continued to be disoriented, confused, delirious. His hallucinations has been present for 1 year, but has got worse since then. 06/30/2024: Patient was seen for a follow-up. Patient is laying in the bed. He continues to be very confused. EEG could not be completed as patient would not cooperate. 06/29/2024: Patient was seen for a follow-up. Patient's was present, and a sitter was also present. Patient had an episode in which his arms were shaking, legs were stiff like a board, and he was sucking his bottom lip and this episode lasted for about 5 minutes. He could not talk at the time of this episode. There was no tongue bite. The sitter mentioned that it occurred off and on for about 5 to 10 minutes. Patient's mentions that he did not sleep well last night. Patient denies any headache at this time. Patient continues to have hallucinations. Yesterday he was talking about a bird sitting by his side. He is also somewhat paranoid, thinking his food is being poisoned and 2 men trying to attack him. He thinks those men are trying to throw him out of the window. 06/28/2024: Patient initially seen by Dr. Geronimo Diaz. Please refer to his note for details. Patient is a 73-year-old male with history of Parkinson's disease, who had a recent surgery of lumbar sacral fusion on 04/28/2024 and ever since he has been having visual hallucinations, confusion and weakness. His symptoms have got worse in the last 3 days. Routine EEG is negative for seizures. I spoke to patient's , who was present by the bedside. She mentions that patient has been having hallucinations for about 1 year. It would occur "now and then", but since his lumbar surgery, it has been more frequent. Lately it has got worse, occurring almost every hour. Patient's mentions that prior to his back surgery, he used to walk without any assistive device. He was able to vacuum and take the trash out like normal. After his back surgery, he required help with walking, and was discharged to the inpatient rehab with a walker. He has been doing very well, and last 06/23/2024, he was able to jump off the chair and walk. Just for 3 days prior to arrival, he fell 7 times. Therefore he was brought to the hospital. He did not pass out, but he did hit his head couple times. He did not pass out. Patient denies any headache. No abdominal pain. He has developed some fever, and threw up last night. Patient follows up with Dr. Lawrence. He was recommended melatonin for difficulty sleeping, but is not helping. His neurologist feels that his Parkinson's may have got worse after he had anesthesia for the surgery. Patient's states that he had a bad UTI after his surgery. He was catheterized for about 2-1/2 months, which was just taken off last Sunday. He had 2 UA, which both have been negative. Some of the workup during this hospital visit consisted of: White Blood cell is within normal limits Serum glucose is 119, plasma lactic acid vein is 0.9, calcium, magnesium AST ALT as well as sodium are within normal limits Creatinine is within normal limits Urinalysis is negative for any underlying urinary tract infection CT of the head is reported as no acute intracranial process. I personally reviewed the CT and agree with the report CT cervical spine is reported as no evidence cervical spine fracture. Moderate multilevel degenerative disc disease. Objective - Vital Signs Vital signs: Vital Signs Temp 98.5 F 07/02/24 07:00 Pulse 76 07/02/24 07:00 Resp 18 07/02/24 07:00 BP 153/68 07/02/24 07:00 Pulse Ox 95 07/02/24 07:00 FiO2 Intake & Output 07/01/24 07/02/24 07/02/24 18:59 06:59 18:59 Intake Total 1307 Output Total 2600 Balance 1307 -2600 Intake: Oral 1307 Output: Urine 2600 Other: Voiding Method External Catheter External Catheter Incontinent # Bowel Movements 0 1 1 - Exam On examination patient is an alert and awake, in no distress. Patient's orientation is much improved. He knows that he is in [facility] in [place], but could not tell the state. He believes that he is 58 years old. He states the month is 10 and the year is 4. Patient's states that he always has been bad with orientation related to the year. Patient denies headache. Speech and language functions are normal. Attention span, concentration and fund of knowledge are very limited. His pupils are equal, round and reacting, visual amado are full, face is symmetric. Muscle strength is normal in the arms and legs. Tone is moderately increased. Patient is slightly tremulous. He appears delirious. - Labs CBC & Chem 7: 07/02/24 02:52 07/02/24 02:52 Labs: Abnormal Lab Results - Last 24 Hours (Table) 07/01/24 07/01/24 07/02/24 Range/Units 17:06 22:20 02:52 RBC 3.84 L (4.40-5.60) X 10*6/uL Hgb 11.1 L (13.0-17.0) g/dL Hct 35.1 L (39.6-50.0) % MCHC 31.6 L (32.0-37.0) g/dL POC Glucose (mg/dL) 142 H 182 H (70-110) mg/dL Microbiology - Last 24 Hours (Table) 06/29/24 11:03 Blood Culture - Preliminary Blood Assessment and Plan Assessment: * Altered mental status, likely due to delirium. Patient has low-grade fever. * Longstanding history of hallucinations for last 1 year, progressively getting worse, particularly since his recent back surgery. * Parkinson's disease, follows up with Dr. Lawrence. 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 Patient's states that he keeps on moving his legs all night long. * Status post lumbosacral surgery on 04/28/2024. * Low normal vitamin B12 of 364 in March 2024 * History of Vitamin B6 deficiency Plan: Patient is having repeated episodes of tremoring of the arms, and stiffness of the legs lasting for about 5 to 10 minutes. Prolonged EEG for 1 hour was abnormal due to background slowing, suggestive of mild to moderate encephalopathy. No focal, generalized or epileptiform activity was seen. No indication for antiepileptic medication. Continue home dose of sentiment [id number], 3 tablets 3 times daily and he has been on that same dose since October 2023 and he has been doing well. I am not sure if his hallucinations are related to his Sinemet. Recommended he can talk to his primary neurologist regarding considering Nuplazid to help with hallucinations. Patient also has significant paranoia, and hallucinations. Psychiatry has seen the patient, who believe that hallucination is secondary to Sinemet. 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 Recommending titrating the dose of Sinemet to optimal dose. They also recommended to add Nuplazid 34 mg daily. They have signed off. Patient has developed low-grade fever. Blood cultures, urine cultures and UA are negative. Chest x-ray negative on 06/26/2024. Patient currently on Keflex. Initial EEG is reported as normal. CT of the lumbar spine revealed no evidence for spinal fracture. Postsurgical changes with hardware intact. Degenerative changes of the spine with limited evaluation L4-L5 and L5-S1 due to streak artifact. Moderate to severe bilateral neural foraminal stenosis, worse at L5-S1. Repeat CT head 06/28/2024 showed no acute process. I personally reviewed CT head, agree with the findings. Patient has low normal vitamin B12 in March 2024 and he is on vitamin B12 supplement Dr. Diaz started the patient on pyridoxine for his vitamin B6 deficiency 50 mg daily. He had a recent TSH, folate so no need to repeat those tests. Recommend the patient to follow low up with his neurologist within 3 weeks. Will defer the rest of medical management to primary team.
--- NOTE | 2024-07-03 10:04 | P.DS ---
Providers Date of admission: 06/30/24 09:17 Expected date of discharge: 07/02/24 Attending physician: Sarthak Wilcox Consults: 06/26/24 19:44 Consult Physician Urgent Consulting Provider: Geronimo Diaz Consult Reason/Comments: Weakness, multiple falls Do you want consulting provider notified?: Yes 06/29/24 10:51 Consult Physician Routine Consulting Provider: Ariana Izquierdo Consult Reason/Comments: AMS/ low grade fever Do you want consulting provider notified?: Yes 06/29/24 13:35 Consult Physician Routine Consulting Provider: Dilshad Jiménez Consult Reason/Comments: Chronic hallucinations, getting worse, also with paranoia, Do you want consulting provider notified?: Yes Primary care physician: Kwame Johnson Hospital Course: Final diagnosis -Altered mental status; family reporting worsening visual loss hallucinations, confusion and generalized weakness, likely progressive Parkinson's disease -Patient has been evaluated by neurology and symptom complex is deemed related to progressive Parkinson's disease triggered by recent surgery induced delirium -Vitamin B6 deficiency -Multiple falls; likely related to progressive Parkinson's disease -Hypertension -Hyperlipidemia -Asthma/COPD; not in exacerbation -Chronic back pain -Diabetes mellitus type 2 Discharge disposition Patient is being discharged in a stable condition with guarded prognosis to home with continued home care through [facility]. Patient will follow-up with Dr. Kwame Johnson in the outpatient setting upon discharge. Patient is to continue with current medications as prescribed and close outpatient follow-up with Dr. Lawrence his primary neurologist to discuss medication changes. Total time taken is greater than 35 minutes. Hospital course This is a 73-year-old male who was recently admitted with altered mentation with hallucinations and confusion and generalized weakness being closely monitored. Patient evaluated and being followed by psychiatry, neurology, and infectious disease. Per patient was acting as if he had a urinary tract infection from previous instances and urinalysis was negative and patient was maintained on antibiotics and will not require antibiotics on discharge per ID recommendations. Adjustments to medications of the Sinemet per neurology and psychiatry and recommend close outpatient follow-up with his primary neurologist Dr. Lawrence in the outpatient setting regarding initiating a new medication. Patient has been cleared by consultations for discharge home. Please refer to other consultation notes for further HPI. Patient's mentation is improved and at baseline per at the bedside. Currently no reports of chest pain, shortness of breath, or palpitations. Patient is afebrile. No reports of nausea or vomiting and patient is tolerating diet. Patient will be discharged home today. Guarded prognosis and high risk for readmissions given patient's significant comorbidities. Physical exam: Gen: This is a 73-year-old male who is awake, alert and oriented x 1-2, baseline, elderly appearing, well-developed, obese HEENT: Head is atraumatic, normocephalic. Pupils equal, round. Sclerae is anicteric. NECK: Supple. No JVD. No lymphadenopathy. No thyromegaly. LUNGS: Clear to auscultation. No wheezes or rhonchi. No intercostal retractions. HEART: Regular rate and rhythm. No murmur. ABDOMEN: Soft. Bowel sounds are present. No masses. No tenderness. EXTREMITIES: No pedal edema. No calf tenderness. NEUROLOGICAL: Patient is awake, alert and oriented x 1-2. Cranial nerves 2 through 12 are grossly intact. Diffusely weak with tremors noted, somewhat improved from admission Please refer to medication reconciliation sheet for a list of medications. The impression and plan of care has been dictated by Chantal Madera, Nurse Practitioner as directed. Dr. Brenden MD I have performed a history and examination and MDM of this patient, discussed the same with the dictator, and agree with the dictator's assessment and plan as written ,documented as a scribe. Based on total visit time, I have performed more than 50% of the visit. Patient Condition at Discharge: Good Plan - Discharge Summary Discharge Rx Participant: No New Discharge Prescriptions: New Nystatin 100,000 Unit/gm Powd [Mycostatin Powder] 1 applic TOPICAL BID each Acetaminophen Tab [Tylenol] 650 mg PO Q6HR PRN tab PRN Reason: Fever And/ Or Pain Carbidopa-Levodopa 25-100 mg [Sinemet 25-100 mg] 3 each PO TID@0900,1400,1900 30 Days #270 tab Pyridoxine [Vitamin B-6] 50 mg PO DAILY #30 tab Continue Diphenox-Atrop 2.5-0.025 mg [Lomotil] 2 tab PO QID PRN PRN Reason: Diarrhea Albuterol Sulfate [Ventolin HFA] 2 puff INHALATION RT-Q6H PRN PRN Reason: Shortness Of Breath Pravastatin Sodium [Pravachol] 40 mg PO HS Enalapril [Vasotec] 10 mg PO BID DULoxetine HCL [Cymbalta] 60 mg PO BID metFORMIN HCL [Glucophage] 500 mg PO DAILY Metoprolol Tartrate 25 mg PO DAILY Mometasone Furoate [Elocon Cream 0.1%] 1 applic TOPICAL BID PRN PRN Reason: psoriasis Dutasteride 0.5 mg PO DAILY Thiamine [Vitamin B-1] 100 mg PO DAILY methocarbamoL [Robaxin-750] 750 mg PO Q8H PRN PRN Reason: BACK SPASMS diphenhydrAMINE [Benadryl] 25 mg PO HS PRN PRN Reason: IF NOT ASLEEP BY MIDNIGHT Cyanocobalamin (Vitamin B-12) [Vitamin B-12] 5,000 mcg PO DAILY Albuterol Nebulized [Ventolin Nebulized] 2.5 mg INHALATION RT-QID PRN PRN Reason: Shortness Of Breath Tamsulosin HCl [Flomax] 0.4 mg PO BID HYDROcodone/APAP 7.5-325MG [[place] 7.5-325] 1 tab PO BID PRN PRN Reason: Pain Vitamin C/Biotin [Hair, Skin and Nails Chew] 1 tab PO DAILY Super B Complex With Vitamin C 1 tab PO DAILY Melatonin/L-Theanine 10/100 Mg 3 tab PO HS Fluticasone Propion/Salmeterol [Advair 250-50 Diskus] 1 puff INHALATION RT- BID Discontinued cefaDROXiL [Duricef] 500 mg PO Q12HR Carbidopa-Levodopa 25-100 mg [Sinemet 25-100 mg] 1 tab PO TID oxyCODONE-APAP 10-325MG [Percocet 10-325 mg] 1 tab PO Q4H PRN PRN Reason: Pain Discharge Medication List Albuterol Sulfate [Ventolin HFA] 2 puff INHALATION RT-Q6H PRN 09/26/19 [History] DULoxetine HCL [Cymbalta] 60 mg PO BID 09/26/19 [History] Diphenox-Atrop 2.5-0.025 mg [Lomotil] 2 tab PO QID PRN 09/26/19 [History] Enalapril [Vasotec] 10 mg PO BID 09/26/19 [History] Pravastatin Sodium [Pravachol] 40 mg PO HS 09/26/19 [History] metFORMIN HCL [Glucophage] 500 mg PO DAILY 09/26/19 [History] HYDROcodone/APAP 7.5-325MG [[place] 7.5-325] 1 tab PO BID PRN 01/03/23 [History] Metoprolol Tartrate 25 mg PO DAILY 01/03/23 [History] Tamsulosin HCl [Flomax] 0.4 mg PO BID 01/03/23 [History] Mometasone Furoate [Elocon Cream 0.1%] 1 applic TOPICAL BID PRN 03/05/23 [History] Dutasteride 0.5 mg PO DAILY 02/01/24 [History] Albuterol Nebulized [Ventolin Nebulized] 2.5 mg INHALATION RT-QID PRN 06/26/24 [History] Cyanocobalamin (Vitamin B-12) [Vitamin B-12] 5,000 mcg PO DAILY 06/26/24 [History] Melatonin/L-Theanine 10/100 Mg 3 tab PO HS 06/26/24 [History] Super B Complex With Vitamin C 1 tab PO DAILY 06/26/24 [History] Thiamine [Vitamin B-1] 100 mg PO DAILY 06/26/24 [History] Vitamin C/Biotin [Hair, Skin and Nails Chew] 1 tab PO DAILY 06/26/24 [History] diphenhydrAMINE [Benadryl] 25 mg PO HS PRN 06/26/24 [History] methocarbamoL [Robaxin-750] 750 mg PO Q8H PRN 06/26/24 [History] Fluticasone Propion/Salmeterol [Advair 250-50 Diskus] 1 puff INHALATION RT-BID 06/27/24 [History] Acetaminophen Tab [Tylenol] 650 mg PO Q6HR PRN tab 07/02/24 [Rx] Carbidopa-Levodopa 25-100 mg [Sinemet 25-100 mg] 3 each PO TID@0900,1400,1900 30 Days #270 tab 07/02/24 [Rx] Nystatin 100,000 Unit/gm Powd [Mycostatin Powder] 1 applic TOPICAL BID each 07/02/24 [Rx] Pyridoxine [Vitamin B-6] 50 mg PO DAILY #30 tab 07/02/24 [Rx] Follow up Appointment(s)/Referral(s): Kwame Johnson MD [Primary Care Provider] - 1-2 days Home,[facility] At [NON-STAFF] - As Needed Eb Lawrence DO [STAFF PHYSICIAN] - 07/17/24 3:45 pm (added to cancellation list ) Activity/Diet/Wound Care/Special Instructions: Activity limited until follow-up Follow-up with primary neurologist in the outpatient setting as scheduled Continue taking medications as prescribed Per ID recommendations, patient has completed adequate antibiotics and will not need antibiotics on discharge Patient to follow-up with Dr. Lawrence neurologist to discuss initiating Nuplazid which was recommended by psychiatrist to help with hallucinations Follow-up primary care provider on discharge Discharge Disposition: HOME WITH HOME HEALTH SERVICES
--- NOTE | 2024-07-04 08:43 | P.PN ---
Subjective Progress Note Date: 07/02/24 Principal diagnosis: Reason for follow-up is possible infection Patient is a 73-year-old male with a past medical history significant for hypertension hyperlipidemia prostate disorder diabetes mellitus in this patient who recently did have lumbar spine surgery done at [facility] patient subsequently did have a prolonged hospital stay, patient will be brought to the hospital apparently patient did have a fall at home and weakness did have a low-grade fever and 1 elevated white count prompted this consultation. On today's evaluation that is 07/02/2024,the patient is more awake and alert today denies any fever or any chills, patient is breathing comfortably on room air, the patient denies chest pain shortness of breath and no significant c ough, patient denies abdominal pain, no nausea vomiting or diarrhea. Mention feeling better. Patient did have a white count of 7.27, creatinine 0.7 blood urine culture have been negative Objective - Vital Signs Vital signs: Vital Signs Temp 98.5 F 07/02/24 07:00 Pulse 76 07/02/24 07:00 Resp 18 07/02/24 07:00 BP 153/68 07/02/24 07:00 Pulse Ox 95 07/02/24 07:00 FiO2 Intake & Output 07/01/24 07/02/24 07/02/24 18:59 06:59 18:59 Intake Total 1307 Output Total 2600 Balance 1307 -2600 Intake: Oral 1307 Output: Urine 2600 Other: Voiding Method External Catheter External Catheter Incontinent # Bowel Movements 0 1 1 - Labs CBC & Chem 7: 07/02/24 02:52 07/02/24 02:52 Labs: Abnormal Lab Results - Last 24 Hours (Table) 07/01/24 07/01/24 07/01/24 Range/Units 13:07 17:06 22:20 RBC (4.40-5.60) X 10*6/uL Hgb (13.0-17.0) g/dL Hct (39.6-50.0) % MCHC (32.0-37.0) g/dL POC Glucose (mg/dL) 137 H 142 H 182 H (70-110) mg/dL 07/02/24 Range/Units 02:52 RBC 3.84 L (4.40-5.60) X 10*6/uL Hgb 11.1 L (13.0-17.0) g/dL Hct 35.1 L (39.6-50.0) % MCHC 31.6 L (32.0-37.0) g/dL POC Glucose (mg/dL) (70-110) mg/dL Microbiology - Last 24 Hours (Table) 06/29/24 11:03 Blood Culture - Preliminary Blood Assessment and Plan (1) Leukocytosis Status: Acute Code(s): D72.829 - ELEVATED WHITE BLOOD CELL COUNT, UNSPECIFIED SNOMED Code(s): 200274561 (2) Fever Status: Acute Code(s): R50.9 - FEVER, UNSPECIFIED SNOMED Code(s): 944561998 Plan: 1patient did have a low-grade fever and only 1 elevated white count with a subsequent normalized and this patient presented to the hospital with weakness and fall currently did not have any active focus of infection, initial workup including UA chest x-ray negative for any pneumonia abdominal soft on clinical examination CT of the lumbar spine did not show any fluid collection and incision is healed, some of the low-grade fever may be related to pulmonary atelectasis specially the patient on taking deep deep breath 2patient did have mildly elevated CRP and normal procalcitonin, white count is normal no fever and blood culture has been negative as well recommend no antibiotics on discharge. at the bedside questions were answered Dictation was produced using [employer] dictation software. please excuse any grammatical, word or spelling errors. Time with Patient: Less than 30
== END 2024-07-02 15:03 | disposition home health service (06) | DRG 57 ==
LOC: EC 16:47 → 6NMEDSUR 19:46 → OBSVTOIN 06-30 09:17 → 6NMEDSUR 06-30 21:24
PROVIDERS: ADMIT Hospitalist; ATTEND Hospitalist
DX: G20.A1 Parkinson's disease without dyskinesia, without mention of fluctuations (principal); F02.84 Dementia in other diseases classified elsewhere, unspecified severity, with anxiety; F03.94 Unspecified dementia, unspecified severity, with anxiety; F03.93 Unspecified dementia, unspecified severity, with mood disturbance; N39.0 Urinary tract infection, site not specified; R44.3 Hallucinations, unspecified; E53.1 Pyridoxine deficiency; E11.9 Type 2 diabetes mellitus without complications; E78.5 Hyperlipidemia, unspecified; F43.10 Post-traumatic stress disorder, unspecified; G89.29 Other chronic pain; T42.8X5A Adverse effect of antiparkinsonism drugs and other central muscle-tone depressants, initial encounter; G25.2 Other specified forms of tremor; L40.9 Psoriasis, unspecified; H54.7 Unspecified visual loss; I10 Essential (primary) hypertension; J44.89 Other specified chronic obstructive pulmonary disease; N40.0 Benign prostatic hyperplasia without lower urinary tract symptoms; R29.6 Repeated falls; S09.90XA Unspecified injury of head, initial encounter; Z79.51 Long term (current) use of inhaled steroids; Z79.84 Long term (current) use of oral hypoglycemic drugs; Z79.899 Other long term (current) drug therapy; Z87.891 Personal history of nicotine dependence; Z96.612 Presence of left artificial shoulder joint; Z98.1 Arthrodesis status; Z57.4 Occupational exposure to toxic agents in agriculture; Z11.52 Encounter for screening for COVID-19; Z28.21 Immunization not carried out because of patient refusal
CPT/HCPCS: 70450; 72131; 80048; 81001; 83036; 84145; 85025; 86140; 87040; 87086; 87636; 93005; 94640; 95813; 95816; 96360; 96361; 99285

== ENCOUNTER → 2024-07-07 | Outpatient (CLI) | payer MEDICARE | END | disposition home or self-care (01) | LOC: LABWHC1 11:36 | PROVIDERS: ATTEND Psychiatry & Neurology Neurology | DX: D51.1 Vitamin B12 deficiency anemia due to selective vitamin B12 malabsorption with proteinuria (principal) | CPT/HCPCS: 36415; 82607; 82746 ==

== ENCOUNTER → 2024-07-23 | Outpatient (CLI) | payer MEDICARE ==
--- NOTE | 2024-07-23 12:41 | XR ---
EXAMINATION TYPE: XR lumbar spine 2 or 3V DATE OF EXAM: 07/23/2024 CLINICAL HISTORY: pain TECHNIQUE: Three views of the lumbar spine are submitted. COMPARISON: None. FINDINGS: There are 5 lumbar type vertebral bodies identified. The lumbar spine shows satisfactory alignment w ithout evidence of acute fracture or dislocation. Vertebral body heights are within normal limits. Po stoperative changes at L4-5 and L5-S1 with lumbar laminectomy. Pedicular screws and intervertebral chelly dy spacers. Disc spaces are within normal limits. The overlying soft tissue appears unremarkable. IMPRESSION: No acute fracture or dislocation is seen in the lumbar spine. ICD 10 NO FRACTURE, INITIAL EVALUATION [facility], , 07/23/2024 12:39 PM
== END | disposition home or self-care (01) ==
LOC: RADXRMAIN 10:55
PROVIDERS: ATTEND Neurological Surgery
DX: M48.061 Spinal stenosis, lumbar region without neurogenic claudication (principal)
CPT/HCPCS: 72100

== ENCOUNTER → 2024-07-25 | Outpatient (CLI) | payer MEDICARE ==
[2024-07-25 10:36] LABS: Basophils # (A) 0.04 X 10*3/uL (0.00-0.10); Basophils % (A) 0.6 %; Eosinophils # (A) 0.15 X 10*3/uL (0.04-0.35); Eosinophils % (A) 2.1 %; HCT 41.2 % (39.6-50.0); HGB 12.8 g/dL (13.0-17.0); Lymphocytes # (A) 1.56 X 10*3/uL (0.90-5.00); MCH 28.5 pg (27.0-32.0); MCHC 31.1 g/dL (32.0-37.0); MCV 91.8 FL (80.0-97.0); Mean Platelet Volume 10.4 FL (9.5-12.2); Monocytes # (A) 0.48 X 10*3/uL (0.20-1.00); Monocytes % (A) 6.8 %; NRBC Per 100 WBC 0 X 10*3/uL (0.00-0.01); Neutrophils # (A) 4.85 X 10*3/uL (1.80-7.70); Neutrophils % (A) 68.2 %; Platelet Count 195 X 10*3/uL (140-440); RBC 4.49 X 10*6/uL (4.40-5.60); RDW 14.6 % (11.5-14.5)
[2024-07-25 10:56] LABS: ALT 8 U/L (10-49); AST 22 U/L (14-35); Albumin 4.2 g/dL (3.8-4.9); Albumin/Globulin Ratio 2.21 Ratio (1.60-3.17); Alkaline Phosphatase 78 U/L (41-126); BUN/Creat Ratio 29.86 Ratio (12.00-20.00); Blood Urea Nitrogen 20.9 mg/dL (9.0-27.0); Calcium 9.8 mg/dL (8.7-10.3); Carbon Dioxide 27.3 mmol/L (21.6-31.8); Chloride 103 mmol/L (96-109); Globulin 1.9 g/dL (1.6-3.3); Glucose 99 mg/dL (70-110); LDL Cholesterol,Calculated 63.5 mg/dL (0.0-131.0); Potassium 4.1 mmol/L (3.5-5.5); Sodium 140 mmol/L (135-145); Total Bilirubin 0.5 mg/dL (0.3-1.2); Total Protein 6.1 g/dL (6.2-8.2); VLDL Calculation 16.98 mg/dL (5.00-40.00)
== END | disposition home or self-care (01) ==
LOC: LABWHC1 07:01
PROVIDERS: ATTEND Family Medicine
CPT/HCPCS: 36415; 80053; 80061; 83036; 84153; 85025

== ENCOUNTER → 2024-08-04 | Outpatient (CLI) | payer MEDICARE ==
--- NOTE | 2024-08-04 15:00 | MR ---
EXAMINATION TYPE: MR cervical spine wo con DATE OF EXAM: 08/04/2024 COMPARISON: None HISTORY: 73-year-old male R29.6, repeated falls and neck pain TECHNIQUE: Multiplanar, multisequence images of the cervical spine were acquired without contrast. FINDINGS: Levoconvex curvature cervical spine. No craniocervical junction anomaly, predental space widening, or prevertebral soft tissue swelling. Moderate degenerative disc disease C3-C4 weight desiccated and narrowed discs along with mild disc bu lging. Mild degenerative disc disease characterized by disc desiccation throughout the remainder of t he cervical spine. Hypertrophic facet and uncovertebral joint arthropathy right greater than left. Alignment maintained. No suspicious bone marrow replacement. Fatty matrix hemangioma within the C7 s pinous process. Changes result in focal moderate spinal canal stenosis at C3-C4 with AP canal dimension narrowed to 6 mm and with abutment and slight flattening of both the dorsal and ventral cord. Mild to moderate spi nal canal narrowing at C4-C5 with AP canal dimension narrowed to 7.5 mm. On sagittal sequence, possible right cord signal change opposite C4 and C5 levels not clearly depicte d on sagittal T2 or axial sequences. At C3-C4, facet and uncovertebral joint arthropathy contributes to severe right and mild left neurofo raminal stenosis. At C4-C5, facet and uncovertebral joint arthropathy contributes to severe right and mild left neural foraminal stenosis. At C5-C6, facet and uncovertebral joint arthropathy contributes to mild right neural foraminal stenos is. At C6/C7, facet and uncovertebral joint arthropathy contributes to mild right neural foraminal stenos is. IMPRESSION: 1. Moderate degenerative disc disease C3-C4 and mild elsewhere throughout the cervical spine. There i s levoconvex scoliosis of the cervical spine with facet and uncovertebral joint arthropathy especiall y towards the right side of concavity. 2. Overall moderate focal spinal canal stenosis at C3-C4 and mild to moderate C4-C5. There is abutmen t and slight flattening of both the dorsal and ventral cord at C3-C4. 3. On sagittal STIR sequence, unable to exclude subtle cord edema. Correlate for any myelopathic symp toms. The signal changes are not corroborated on sagittal T2 or axial images. 4. Variable neuroforaminal stenoses as outlined above, severe on the right at C3-C4 and C4-C5. [facility], , 08/04/2024 2:57 PM
== END | disposition home or self-care (01) ==
LOC: RADMRIMAIN 11:19
PROVIDERS: ATTEND Neurological Surgery
CPT/HCPCS: 72141

== ENCOUNTER → 2024-10-23 | Outpatient (CLI) | payer MEDICARE ==
[2024-10-23 15:07] LABS: Basophils # (A) 0.05 X 10*3/uL (0.00-0.10); Basophils % (A) 0.7 %; Eosinophils # (A) 0.18 X 10*3/uL (0.04-0.35); Eosinophils % (A) 2.4 %; HCT 39.1 % (39.6-50.0); HGB 12.1 g/dL (13.0-17.0); Lymphocytes # (A) 1.83 X 10*3/uL (0.90-5.00); Lymphocytes % (A) 23.9 %; MCH 27.2 pg (27.0-32.0); MCHC 30.9 g/dL (32.0-37.0); MCV 87.9 FL (80.0-97.0); Mean Platelet Volume 11.4 FL (9.5-12.2); Monocytes # (A) 0.48 X 10*3/uL (0.20-1.00); Monocytes % (A) 6.3 %; NRBC Per 100 WBC 0 X 10*3/uL (0.00-0.01); Neutrophils # (A) 5.07 X 10*3/uL (1.80-7.70); Neutrophils % (A) 66.2 %; Platelet Count 196 X 10*3/uL (140-440); RBC 4.45 X 10*6/uL (4.40-5.60); RDW 15.5 % (11.5-14.5); WBC 7.65 X 10*3/uL (4.50-10.00)
[2024-10-23 15:25] LABS: Blood Urea Nitrogen 42.8 mg/dL (9.0-27.0); Carbon Dioxide 27.7 mmol/L (21.6-31.8); Chloride 102 mmol/L (96-109); Chol/HDL Ratio 3.02 Ratio; Glucose 96 mg/dL (70-110); Potassium 4.4 mmol/L (3.5-5.5); Sodium 141 mmol/L (135-145)
[2024-10-23 15:26] LABS: ALT 7 U/L (10-49); AST 35 U/L (14-35); Albumin 4.2 g/dL (3.8-4.9); Albumin/Globulin Ratio 1.75 Ratio (1.60-3.17); Alkaline Phosphatase 79 U/L (41-126); Calcium 9.9 mg/dL (8.7-10.3); Globulin 2.4 g/dL (1.6-3.3); Total Bilirubin 0.6 mg/dL (0.3-1.2); Total Protein 6.6 g/dL (6.2-8.2)
== END | disposition home or self-care (01) ==
LOC: LABWHC1 08:56
PROVIDERS: ATTEND Family Medicine
DX: Z12.5 Encounter for screening for malignant neoplasm of prostate (principal); E78.5 Hyperlipidemia, unspecified; E11.65 Type 2 diabetes mellitus with hyperglycemia
CPT/HCPCS: 36415; 80053; 80061; 83036; 84153; 84443; 85025

== ENCOUNTER 2024-12-01 04:36 | Emergency (ER) | payer MEDICARE ==
[2024-12-01 04:50] VITALS: TEMP 97.7
--- NOTE | 2024-12-01 04:52 | ED ---
Fall HPI - General Chief Complaint: Fall Stated Complaint: Fall, L Arm & Hip Injury Time Seen by Provider: 12/01/24 04:41 Source: patient, RN notes reviewed, old records reviewed Mode of arrival: wheelchair Limitations: no limitations - History of Present Illness Initial Comments: This is a 74-year-old male after a fall mechanical fall prior to arrival. Patient here in the ER complaining of left shoulder pain left hip pain no shortness of breath no abdominal pain denied his head no loss of consciousness no headache patient has history of asthma diabetes hypertension high cholesterol. 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, by family Place Fall Occurred: home Loss of Consciousness: none Prolonged Down Time?: no Symptoms Prior to Fall: none Location: chest Location - Extremities: Left: Shoulder, Leg Severity: moderate Severity scale (1-10): 4 Context: tripped/slipped Associated Symptoms: denies - Related Data Home Medications Medication Instructions Recorded Confirmed Albuterol Sulfate [Ventolin HFA] 2 puff INHALATION RT-Q6H PRN 09/26/19 06/27/24 DULoxetine HCL [Cymbalta] 60 mg PO BID 09/26/19 06/27/24 Diphenox-Atrop 2.5-0.025 mg 2 tab PO QID PRN 09/26/19 06/27/24 [Lomotil] Enalapril [Vasotec] 10 mg PO BID 09/26/19 06/27/24 Pravastatin Sodium [Pravachol] 40 mg PO HS 09/26/19 06/27/24 metFORMIN HCL [Glucophage] 500 mg PO DAILY 09/26/19 06/27/24 HYDROcodone/APAP 7.5-325MG [Belt 1 tab PO BID PRN 01/03/23 06/26/24 7.5-325] Metoprolol Tartrate 25 mg PO DAILY 01/03/23 06/27/24 Tamsulosin HCl [Flomax] 0.4 mg PO BID 01/03/23 06/26/24 Mometasone Furoate [Elocon Cream 1 applic TOPICAL BID PRN 03/05/23 06/27/24 0.1%] Dutasteride 0.5 mg PO DAILY 02/01/24 06/26/24 Albuterol Nebulized [Ventolin 2.5 mg INHALATION RT-QID PRN 06/26/24 06/27/24 Nebulized] Cyanocobalamin (Vitamin B-12) 5,000 mcg PO DAILY 06/26/24 06/26/24 [Vitamin B-12] Melatonin/L-Theanine 10/100 Mg 3 tab PO HS 06/26/24 06/26/24 Super B Complex With Vitamin C 1 tab PO DAILY 06/26/24 06/26/24 Thiamine [Vitamin B-1] 100 mg PO DAILY 06/26/24 06/26/24 Vitamin C/Biotin [Hair, Skin and 1 tab PO DAILY 06/26/24 06/26/24 Nails Chew] diphenhydrAMINE [Benadryl] 25 mg PO HS PRN 06/26/24 06/26/24 methocarbamoL [Robaxin-750] 750 mg PO Q8H PRN 06/26/24 06/26/24 Fluticasone Propion/Salmeterol 1 puff INHALATION RT-BID 06/27/24 06/27/24 [Advair 250-50 Diskus] Previous Rx's Medication Instructions Recorded Acetaminophen Tab [Tylenol] 650 mg PO Q6HR PRN tab 07/02/24 Carbidopa-Levodopa 25-100 mg 3 each PO TID@0900,1400,1900 30 07/02/24 [Sinemet 25-100 mg] Days #270 tab Nystatin 100,000 Unit/gm Powd 1 applic TOPICAL BID each 07/02/24 [Mycostatin Powder] Pyridoxine [Vitamin B-6] 50 mg PO DAILY #30 tab 07/02/24 Allergies Allergy/AdvReac Type Severity Reaction Status Date / Time No Known Allergies Allergy Verified 12/01/24 04:49 Review of Systems ROS Statement: Those systems with pertinent positive or pertinent negative responses have been documented in the HPI. ROS Other: All systems not noted in ROS Statement are negative. Past Medical History Past Medical History: Asthma, Diabetes Mellitus, GERD/Reflux, Hyperlipidemia, Hypertension, Neurologic Disorder, Prostate Disorder, Skin Disorder Additional Past Medical History / Comment(s): PSORIASIS,NIDDM,PARKINSONS, BPH, increased confusion recently History of Any Multi-Drug Resistant Organisms: None Reported Past Surgical History: Hernia Repair, Orthopedic Surgery Additional Past Surgical History / Comment(s): LEFT SHOULDER 01/08/23. RIGHT SHOULDER X 2., LT. INGUINAL HERNIA, UMB HERNIA. LEFT KNEE ARTHROSCOPY. LEFT SHOULDER ARTHROPLASTY. ACHILLES TENDON REPAIR X 2, Radio Frequency treatments on back, 04/28/2024 lumbar fusion. Past Anesthesia/Blood Transfusion Reactions: No Reported Reaction Past Psychological History: Anxiety, Depression Smoking Status: Former smoker Past Alcohol Use History: None Reported Past Drug Use History: None Reported General Exam Limitations: no limitations General appearance: alert, in no apparent distress Head exam: Present: atraumatic, normocephalic, normal inspection Eye exam: Present: normal appearance, PERRL, EOMI. Absent: scleral icterus, conjunctival injection, periorbital swelling ENT exam: Present: normal exam, mucous membranes moist Neck exam: Present: normal inspection. Absent: tenderness, meningismus, lymphadenopathy Respiratory exam: Present: normal lung sounds bilaterally. Absent: respiratory distress, wheezes, rales, rhonchi, stridor Cardiovascular Exam: Present: regular rate, normal rhythm, normal heart sounds, other (Left shoulder tenderness chest wall tenderness). Absent: systolic murmur, diastolic murmur, rubs, gallop, clicks GI/Abdominal exam: Present: soft, normal bowel sounds. Absent: distended, tenderness, guarding, rebound, rigid Extremities exam: Present: normal inspection, full ROM, tenderness, normal capillary refill, other (Left shoulder tenderness left hip tenderness). Absent: pedal edema, joint swelling, calf tenderness Back exam: Present: normal inspection Neurological exam: Present: alert, oriented X3, CN II-XII intact Psychiatric exam: Present: normal affect, normal mood Skin exam: Present: warm, dry, intact, normal color. Absent: rash Course Vital Signs 12/01/24 12/01/24 04:40 06:21 Temperature 97.7 F Pulse Rate 73 80 Respiratory 17 16 Rate Blood Pressure 135/90 117/63 O2 Sat by Pulse 96 96 Oximetry - Reevaluation(s) Reevaluation #1: Medical records reviewed Reevaluation #2: Patient symptoms improved Reevaluation #3: Patient informed of results questions answered Reevaluation #4: Was pt. sent in by a medical professional or institution (, PA, MANAGER INTENSIVE CARE UNIT, urgent care, hospital, or shelter...) When possible be specific @ -no Did you speak to anyone other than the patient for history (EMS, parent, family, police, friend...)? What history was obtained from this source @ -no Did you review nursing and triage notes (agree or disagree)? Why? @ -agree Are old charts reviewed (outside hosp., previous admission, EMS record, old EKG, old radiological studies, urgent care reports/EKG's, shelter records)? Report findings @ -yes Differential Diagnosis (chest pain, altered mental status, abdominal pain women, abdominal pain men, vaginal bleeding, weakness, fever, dyspnea, syncope, headache, dizziness, GI bleed, back pain, seizure, CVA, palpatations, mental health, musculoskeletal)? @ -prior EKG interpreted by me (3pts min.). @ -no X-rays interpreted by me (1pt min.). @ -yes negative for acute disease CT interpreted by me (1pt min.). @ -no U/S interpreted by me (1pt. min.). @ -no What testing was considered but not performed or refused? (CT, X-rays, U/S, labs)? Why? @ -none What meds were considered but not given or refused? Why? @ -none Did you discuss the management of the patient with other professionals ( professionals i.e. , PA, [facility]GER INT[facility]IVE [facility]ARE UNIT, lab, RT, psych nurse, social studies department chair, crm dynamics developer, teacher, parole or probation officer, adult protective caseworker)? Give summary @ -no Was smoking cessation discussed for >3mins.? @ -no Was critical care preformed (if so, how long)? @ -no Were there social determinants of health that impacted care today? How? (Homelessness, low income, unemployed, alcoholism, drug addiction, transportation, low edu. Level, literacy, decrease access to med. care, alf, rehab)? @ -none Was there de-escalation of care discussed even if they declined (Discuss DNR or withdrawal of care, Hospice)? DNR status @ -no What co-morbidities impacted this encounter? (DM, HTN, Smoking, COPD, CAD, Cancer, CVA, ARF, Chemo, Hep., AIDS, mental health diagnosis, sleep apnea, morbid obesity)? @ -none Was patient admitted / discharged? Hospital course, mention meds given and route, prescriptions, significant lab abnormalities, going to OR and other pertinent info. @ - 74-year-old male presents with fall, left hip pain and left shoulder pain did not hit his head. Patient has no acute traumatic injury noted on imaging and can be discharged home, able to ambulate Discharge Undiagnosed new problem with uncertain prognosis? @ -no Drug Therapy requiring intensive monitoring for toxicity (Heparin, Nitro, Insulin, Cardizem)? @ -no Were any procedures done? @ -no Diagnosis/symptom? @ -Left hip pain left shoulder pain fall Acute, or Chronic, or Acute on Chronic? @ -Acute Uncomplicated (without systemic symptoms) or Complicated (systemic symptoms)? @ -Complicated Side effects of treatment? @ -no Exacerbation, Progression, or Severe Exacerbation? @ -exacerbation Poses a threat to life or bodily function? How? (Chest pain, [place], [place], pneumonia, PE, COPD, DKA, ARF, appy, cholecystitis, CVA, Diverticulitis, Homicidal, Suicidal, threat to staff... and all critical care pts) @ -yes extremes of age Reevaluation #5: Differential Weakness: Hypoglycemia, shock, sepsis, hyponatremia, anemia, infection, [place], ETOH, adverse medicine reaction, overdose, stroke, this is not meant to be an all-inclusive list. Medical Decision Making - Medical Decision Making 74-year-old male presents with fall, left hip pain and left shoulder pain did not hit his head. Patient has no acute traumatic injury noted on imaging and can be discharged home, able to ambulate - Radiology Data Radiology results: report reviewed (X-ray of the chest left hip left shoulder negative for traumatic injury), image reviewed Disposition Clinical Impression: Fall Disposition: HOME SELF-CARE Condition: Fair Instructions (If sedation given, give patient instructions): Fall Prevention for Older Adults (ED) Is patient prescribed a controlled substance at d/c from ED?: No Referrals: Kwame Johnson MD [Primary Care Provider] - 1-2 days Time of Disposition: 06:00
--- NOTE | 2024-12-01 05:43 | XR ---
EXAM: XR Chest, 1 View CLINICAL HISTORY: ITS.REASON XR Reason: fall TECHNIQUE: Frontal view of the chest. COMPARISON: X-ray dated 06/26/2024. FINDINGS: Lungs: Increased density is seen in the right lung base. The left lung is clear. No consolidation. Pleural space: Small right-sided pleural effusion. No pneumothorax. Heart: Unremarkable. No cardiomegaly. Mediastinum: Mild thickening of the distal right paratracheal stripe. Bones/joints: Postsurgical changes are seen to the left shoulder. No acute fracture. IMPRESSION: Right-sided pleural effusion with adjacent atelectasis and/or pneumonia not excluded.
--- NOTE | 2024-12-01 05:44 | XR ---
EXAM: XR Left Hip With Pelvis When Performed, 2 or 3 Views CLINICAL HISTORY: ITS.REASON XR Reason: fall TECHNIQUE: Two or three views of the left hip with pelvis when performed. COMPARISON: No relevant prior studies available. FINDINGS: Bones/joints: Partial characterization of lumbosacral spinal fusion hardware. Degenerative changes are seen within the spine and hips. No acute fracture. No dislocation. Soft tissues: Unremarkable. IMPRESSION: Degenerative change with no acute osseous abnormalities.
--- NOTE | 2024-12-01 05:45 | XR ---
EXAM: XR Left Shoulder Complete, 2 or More Views CLINICAL HISTORY: ITS.REASON XR Reason: fall TECHNIQUE: Two or more views of the left shoulder. COMPARISON: No relevant prior studies available. FINDINGS: Bones/joints: Left shoulder arthroplasty is in place. Degenerative changes are seen at the acromioclavicular joint. No acute fracture. No dislocation. Soft tissues: Unremarkable. IMPRESSION: Postsurgical and degenerative change with no acute findings.
[2024-12-01 06:28] VITALS: BP 117/63; PULSE 80; RESP 16
== END 2024-12-01 06:22 | disposition home or self-care (01) ==
LOC: EC 04:36
DX: M25.552 Pain in left hip (principal); M25.512 Pain in left shoulder; Z87.891 Personal history of nicotine dependence; W01.0XXA Fall on same level from slipping, tripping and stumbling without subsequent striking against object, initial encounter; Y92.049 Unspecified place in boarding-house as the place of occurrence of the external cause
CPT/HCPCS: 71045; 73502; 99283

== ENCOUNTER → 2025-01-14 | Outpatient (CLI) | payer MEDICARE ==
[2025-01-14 10:40] LABS: Basophils # (A) 0.04 X 10*3/uL (0.00-0.10); Basophils % (A) 0.5 %; Eosinophils # (A) 0.23 X 10*3/uL (0.04-0.35); HCT 43.7 % (39.6-50.0); HGB 13.6 g/dL (13.0-17.0); Lymphocytes # (A) 2.28 X 10*3/uL (0.90-5.00); Lymphocytes % (A) 29.8 %; MCH 29.3 pg (27.0-32.0); MCHC 31.1 g/dL (32.0-37.0); MCV 94.2 FL (80.0-97.0); Mean Platelet Volume 9.9 FL (9.5-12.2); Monocytes # (A) 0.42 X 10*3/uL (0.20-1.00); Monocytes % (A) 5.5 %; NRBC Per 100 WBC 0 X 10*3/uL (0.00-0.01); Neutrophils # (A) 4.64 X 10*3/uL (1.80-7.70); Neutrophils % (A) 60.8 %; Platelet Count 188 X 10*3/uL (140-440); RBC 4.64 X 10*6/uL (4.40-5.60); WBC 7.64 X 10*3/uL (4.50-10.00)
[2025-01-14 10:54] LABS: ALT 29 U/L (10-49); AST 23 U/L (14-35); Albumin 4.3 g/dL (3.8-4.9); Albumin/Globulin Ratio 2.05 Ratio (1.60-3.17); Alkaline Phosphatase 73 U/L (41-126); Blood Urea Nitrogen 37.9 mg/dL (9.0-27.0); Calcium 9.9 mg/dL (8.7-10.3); Carbon Dioxide 30.3 mmol/L (21.6-31.8); Chloride 99 mmol/L (96-109); Chol/HDL Ratio 2.69 Ratio; Globulin 2.1 g/dL (1.6-3.3); Glucose 103 mg/dL (70-110); LDL Cholesterol,Calculated 75.4 mg/dL (0.0-131.0); Potassium 4.2 mmol/L (3.5-5.5); Sodium 139 mmol/L (135-145); Total Bilirubin 0.4 mg/dL (0.3-1.2); Total Protein 6.4 g/dL (6.2-8.2)
== END | disposition home or self-care (01) ==
LOC: LABWHC1 07:16
PROVIDERS: ATTEND Family Medicine
DX: E11.42 Type 2 diabetes mellitus with diabetic polyneuropathy (principal); E11.69 Type 2 diabetes mellitus with other specified complication
CPT/HCPCS: 36415; 80053; 80061; 83036; 85025

== ENCOUNTER → 2025-02-13 | Outpatient (CLI) | payer MEDICARE ==
--- NOTE | 2025-02-13 15:29 | XR ---
EXAMINATION TYPE: XR lumbar spine 3V DATE OF EXAM: 02/13/2025 1:38 PM COMPARISON: 07/23/2024 CLINICAL INDICATION: Male, 74 years old with history of Z98.1 ARTHRODESIS STATUS; PHH, pain TECHNIQUE: 3 views FINDINGS: Levoconvex scoliosis lumbar spine. Post surgical change L4-S1 posterior and interbody lumbar fusion. Mild degenerative disc disease is present throughout. There is facet arthropathy above the fusion wit h grade 1 retrolisthesis L3-L4. Additional trace grade 1 retrolisthesis L1-L2 and L2-L3. Fixed grade 1 anterolisthesis L4-L5. Thecal body heights are preserved. Similar positioning of the orthopedic [facility]. IMPRESSION: 1. Fixed grade 1 anterolisthesis L4-L5 with postsurgical change L4-S1 posterior and interbody fusion demonstrated. 2. Some facet arthropathy above the fusion with degenerative grade 1 retrolisthesis L1-L2, L2-L3, and L3-L4. 3. Mild degenerative disc disease throughout the nonfused levels. [facility], , 02/13/2025 3:27 PM
== END | disposition home or self-care (01) ==
LOC: RADXRMAIN 13:20
PROVIDERS: ATTEND Neurological Surgery
DX: M51.360 Other intervertebral disc degeneration, lumbar region with discogenic back pain only (principal); M43.16 Spondylolisthesis, lumbar region; Z98.1 Arthrodesis status
CPT/HCPCS: 72100

== ENCOUNTER 2025-02-16 11:29 | Emergency (ER) | payer MEDICARE ==
[2025-02-16 11:44] VITALS: TEMP 98
--- NOTE | 2025-02-16 12:06 | ED ---
Weakness HPI - General Chief complaint: Fall Stated complaint: Fall-Dizziness Time Seen by Provider: 02/16/25 11:44 Source: patient, family, RN notes reviewed Mode of arrival: wheelchair Limitations: no limitations - History of Present Illness Initial comments: This is a 74-year-old male who presents to the emergency department for weakness, confusion, and frequent falls. Patient has a history of Parkinson's disease, which seems to be getting worse. He follows with Dr. Lawrence, neurology. Over the last few days in particular, he has been falling almost every day. He did have 2 episodes over the weekend where he hit his head. He is not on any blood thinners and there was no loss of consciousness. He is complaining of some pain to the left shoulder and elbow. Family states that his balance is getting much worse, which they believe is contributing to these falls. Additionally, he has been much more confused and paranoid than normal. He oc casionally forgets who his family and is not making much sense when he speaks. He also has multiple skin tears on his arms that he keeps picking at. He is able to tell me his name, location, and the year. - Related Data Home Medications Medication Instructions Recorded Confirmed Albuterol Sulfate [Ventolin HFA] 2 puff INHALATION RT-Q6H PRN 09/26/19 02/16/25 DULoxetine HCL [Cymbalta] 60 mg PO BID 09/26/19 02/16/25 Enalapril [Vasotec] 10 mg PO BID 09/26/19 02/16/25 Pravastatin Sodium [Pravachol] 40 mg PO HS 09/26/19 02/16/25 metFORMIN HCL [Glucophage] 500 mg PO DAILY 09/26/19 02/16/25 HYDROcodone/APAP 7.5-325MG [[place] 1 tab PO BID 01/03/23 02/16/25 7.5-325] Metoprolol Tartrate 25 mg PO DAILY 01/03/23 02/16/25 Tamsulosin HCl [Flomax] 0.4 mg PO BID 01/03/23 02/16/25 Albuterol Nebulized [Ventolin 2.5 mg INHALATION RT-QID PRN 06/26/24 02/16/25 Nebulized] diphenhydrAMINE [Benadryl] 25 mg PO HS 06/26/24 02/16/25 Boost High Protein 1 can PO TID-W/MEALS 02/16/25 02/16/25 Carbidopa-Levodopa 25-100 mg 2 tab PO BID@0600,1800 02/16/25 02/16/25 [Sinemet 25-100 mg] Carbidopa-Levodopa 25-100 mg 3 tab PO DAILY@1200 02/16/25 02/16/25 [Sinemet 25-100] Cholecalciferol [Vitamin D3 (25 50 mcg PO DAILY 02/16/25 02/16/25 Mcg = 1000 Iu)] Clobetasol Propionate [Temovate 1 applic TOPICAL DIRECTED 02/16/25 02/16/25 0.05% Oint] Cyanocobalamin (Vitamin B-12) 1,000 mcg PO SELLERS 02/16/25 02/16/25 [Vitamin B-12] Fluocinonide 0.05% Topical Solution 1 applic TOPICAL BID PRN 02/16/25 02/16/25 Galantamine HBr [Razadyne ER] 16 mg PO DAILY 02/16/25 02/16/25 Hydrocortisone Cream 1 applic TOPICAL BID PRN 02/16/25 02/16/25 [Hydrocortisone 2.5% Cream] Ketoconazole 2% Cream [Nizoral 2%] 1 applic TOPICAL DAILY PRN 02/16/25 02/16/25 QUEtiapine [SEROquel] 100 mg PO HS 02/16/25 02/16/25 Vitamin B Complex 1 cap PO SELLERS 02/16/25 02/16/25 amantadine HCL [Amantadine] 100 mg PO BID 02/16/25 02/16/25 hydroCHLOROthiazide [Hydrodiuril] 50 mg PO DAILY 02/16/25 02/16/25 Allergies Allergy/AdvReac Type Severity Reaction Status Date / Time No Known Allergies Allergy Verified 02/16/25 15:35 Review of Systems ROS Statement: Those systems with pertinent positive or pertinent negative responses have been documented in the HPI. ROS Other: All systems not noted in ROS Statement are negative. Past Medical History Past Medical History: Asthma, Diabetes Mellitus, GERD/Reflux, Hyperlipidemia, Hypertension, Neurologic Disorder, Prostate Disorder, Skin Disorder Additional Past Medical History / Comment(s): PSORIASIS,NIDDM,PARKINSONS, BPH, increased confusion recently History of Any Multi-Drug Resistant Organisms: None Reported Past Surgical History: Hernia Repair, Orthopedic Surgery Additional Past Surgical History / Comment(s): LEFT SHOULDER 01/08/23. RIGHT SHOULDER X 2., LT. INGUINAL HERNIA, UMB HERNIA. LEFT KNEE ARTHROSCOPY. LEFT SHOULDER ARTHROPLASTY. ACHILLES TENDON REPAIR X 2, Radio Frequency treatments on back, 04/28/2024 lumbar fusion. Past Anesthesia/Blood Transfusion Reactions: No Reported Reaction Past Psychological History: Anxiety, Depression Smoking Status: Former smoker Past Alcohol Use History: None Reported Past Drug Use History: None Reported General Exam Limitations: no limitations General appearance: alert, in no apparent distress Head exam: Present: atraumatic, normocephalic, normal inspection Eye exam: Present: PERRL, EOMI Respiratory exam: Present: normal lung sounds bilaterally. Absent: respiratory distress, wheezes, rales, rhonchi, stridor Cardiovascular Exam: Present: regular rate, normal rhythm GI/Abdominal exam: Present: soft. Absent: distended, tenderness Extremities exam: Present: other (Minor tenderness to palpation of the left shoulder. Full range of motion. 2+ radial pulses) Neurological exam: Present: alert, oriented X3, CN II-XII intact Skin exam: Present: other (Multiple skin tears and areas of ecchymosis to the bilateral upper extremities) Course Vital Signs 02/16/25 02/16/25 02/16/25 11:35 13:07 16:07 Temperature 98.0 F Pulse Rate 88 57 L 56 L Respiratory 17 18 16 Rate Blood Pressure 93/52 117/57 135/73 O2 Sat by Pulse 98 95 95 Oximetry Medical Decision Making - Medical Decision Making This is a 74-year-old male who presents to the emergency department for weakness and frequent falls. Was pt. sent in by a medical professional or institution? @ -No Did you speak to anyone other than the patient for history? @ -His family provided the majority of the history. Did you review nursing and triage notes? @ -Yes, and I agree, it is accurate with regards to the patient's symptoms. Were old charts reviewed? @ -No Differential Diagnosis? @ -Differential Weakness: Hypoglycemia, shock, sepsis, hyponatremia, anemia, infection, [place], ETOH, adverse medicine reaction, overdose, stroke, this is not meant to be an all-inclusive list. EKG interpreted by me (3pts min.)? @ -EKG interpreted by me demonstrating the following: Sinus bradycardia. Ventricular rate 53 bpm, CA interval 233 ms, QRS duration 134 ms, QTc 417 ms. R epeat EKG: Atrial fibrillation with slow ventricular response. Ventricular rate 59 bpm, QRS duration 134 ms, QTc 439 ms. X-rays interpreted by me (1pt min.)? @ -Chest x-ray obtained, my interpretation identifies no localized consolidations or infiltrates. X-ray of the left shoulder and elbow obtained. My interpretation identifies no acute fractures. CT interpreted by me (1pt min.)? @ -Computed tomography scan of the brain and c-spine obtained. My interpretation identifies no evidence of an acute intracranial hemorrhage, skull fracture, or cervical spine fracture. U/S interpreted by me (1pt. min.)? @ -Not obtained What testing was considered but not performed? (CT, X-rays, U/S, labs)? Why? @ -None What meds were considered but not given? Why? @ -None Did you discuss the management of the patient with other professionals? @ -No Did you reconcile home meds? @ -No Was smoking cessation discussed for >3mins.? @ -No Was critical care preformed (if so, how long)? @ -No Were there social determinants of health that impacted care today? How? (Homelessness, low income, unemployed, alcoholism, drug addiction, transportation, low edu. Level, literacy, decrease access to med. care, [facility], rehab)? @ -No Was there de-escalation of care discussed even if they declined? (Discuss DNR or withdrawal of care, Hospice)? @ -No What co-morbidities impacted this encounter? (DM, HTN, Smoking, COPD, CAD, Cancer, CVA, Hep., AIDS, mental health diagnosis, sleep apnea, morbid obesity)? @ -Parkinson's disease Was patient admitted / discharged? @ -Discharged. Lab work unremarkable. Urinalysis negative for signs of infection. X-ray of the chest, left shoulder, and left elbow obtained revealing no acute findings. CT scan of the brain obtained revealing no acute process. When I went to reevaluate the patient I noticed that his laboratory monitor was going in and out of atrial fibrillation. He has no history of A-fib. We did repeat the EKG several times, confirming this finding. Given his age and risk factors, I advised admission for cardiology consultation. However, patient refused. Case management was able to make the patient an appointment with ca rdiology for tomorrow and his primary care provider the following day. Given the frequent falls and head injuries the patient has been experiencing, he was not started on blood thinners and we will defer that decision to cardiology. He is also already on metoprolol. Patient discharged home in stable condition with strict return parameters. Case discussed with ED attending Dr. Briggs. Return precautions reviewed in depth, the patient is instructed to return to the emergency department with any new, worsening, or concerning symptoms. Patient and his family verbalized understanding. Undiagnosed new problem with uncertain prognosis? @ -None Drug Therapy requiring intensive monitoring for toxicity (Heparin, Nitro, Insulin, Cardizem)? @ -None Were any procedures done? @ -None Diagnosis/symptom? @ -Frequent falls, confusion, new onset A-fib Acute, or Chronic, or Acute on Chronic? @ -Acute Uncomplicated (without systemic symptoms) or Complicated (systemic symptoms)? @ -Complicated Side effects of treatment? @ -None Exacerbation, Progression, or Severe Exacerbation] @ -Not applicable Poses a threat to life or bodily function? @ -This will depend on how he progresses - Lab Data Result diagrams: 02/16/25 13:06 02/16/25 13:06 Lab Results 02/16/25 02/16/25 02/16/25 Range/Units 13:06 13:06 13:06 WBC 7.17 (4.50-10.00) 10*3/uL RBC 4.19 L (4.40-5.60) 10*6/uL Hgb 12.7 L (13.0-17.0) g/dL Hct 37.9 L (39.6-50.0) % MCV 90.5 (80.0-97.0) fL MCH 30.3 (27.0-32.0) pg MCHC 33.5 (32.0-37.0) g/dL Plt Count 146 (140-440) 10*3/uL MPV 10.4 (9.5-12.2) fL Immature Gran % (Auto) 1.0 % Neutrophils % 63.5 % Lymphocytes % 24.7 % Monocytes % 7.3 % Eosinophils % 2.9 % Basophils % 0.6 % Immature Gran # 0.07 H (0.00-0.04) 10*3/uL Neutrophils # 4.56 (1.80-7.70) 10*3/uL Lymphocytes # 1.77 (0.90-5.00) 10*3/uL Monocytes # 0.52 (0.20-1.00) 10*3/uL Eosinophils # 0.21 (0.04-0.35) 10*3/uL Basophils # 0.04 (0.00-0.10) 10*3/uL PT 11.2 (10.0-12.5) sec INR 1.0 (<1.2) APTT 24.4 (22.0-30.0) sec Sodium 138 (137-145) mmol/L Potassium 4.0 (3.5-5.1) mmol/L Chloride 99 (98-107) mmol/L Carbon Dioxide 31 H (22-30) mmol/L Anion Gap 8 mmol/L BUN 44 H (9-20) mg/dL Creatinine 0.81 (0.66-1.25) mg/dL Est GFR (CKD-EPI)AfAm >90 (>60 ml/min/1.73 sqM) Est GFR (CKD-EPI)NonAf 89 (>60 ml/min/1.73 sqM) Glucose 104 H (74-99) mg/dL Plasma Lactic Acid Parker (0.7-2.0) mmol/L Calcium 10.0 (8.4-10.2) mg/dL Magnesium 2.3 (1.6-2.3) mg/dL Total Bilirubin 0.7 (0.2-1.3) mg/dL AST 30 (17-59) U/L ALT 8 (4-49) U/L Alkaline Phosphatase 74 (38-126) U/L Troponin I (0.000-0.034) ng/mL Total Protein 6.2 L (6.3-8.2) g/dL Albumin 4.0 (3.5-5.0) g/dL Urine Color Urine Appearance (Clear) Urine pH (5.0-8.0) Ur Specific [place] (1.001-1.035) Urine Protein (Negative) Urine Glucose (UA) (Negative) Urine Ketones (Negative) Urine Blood (Negative) Urine Nitrite (Negative) Urine Bilirubin (Negative) Urine Urobilinogen (<2.0) mg/dL Ur Leukocyte Esterase (Negative) 02/16/25 02/16/25 02/16/25 Range/Units 13:06 13:06 13:17 WBC (4.50-10.00) 10*3/uL RBC (4.40-5.60) 10*6/uL Hgb (13.0-17.0) g/dL Hct (39.6-50.0) % MCV (80.0-97.0) fL MCH (27.0-32.0) pg MCHC (32.0-37.0) g/dL Plt Count (140-440) 10*3/uL MPV (9.5-12.2) fL Immature Gran % (Auto) % Neutrophils % % Lymphocytes % % Monocytes % % Eosinophils % % Basophils % % Immature Gran # (0.00-0.04) 10*3/uL Neutrophils # (1.80-7.70) 10*3/uL Lymphocytes # (0.90-5.00) 10*3/uL Monocytes # (0.20-1.00) 10*3/uL Eosinophils # (0.04-0.35) 10*3/uL Basophils # (0.00-0.10) 10*3/uL PT (10.0-12.5) sec INR (<1.2) APTT (22.0-30.0) sec Sodium (137-145) mmol/L Potassium (3.5-5.1) mmol/L Chloride (98-107) mmol/L Carbon Dioxide (22-30) mmol/L Anion Gap mmol/L BUN (9-20) mg/dL Creatinine (0.66-1.25) mg/dL Est GFR (CKD-EPI)AfAm (>60 ml/min/1.73 sqM) Est GFR (CKD-EPI)NonAf (>60 ml/min/1.73 sqM) Glucose (74-99) mg/dL Plasma Lactic Acid Parker 1.0 (0.7-2.0) mmol/L Calcium (8.4-10.2) mg/dL Magnesium (1.6-2.3) mg/dL Total Bilirubin (0.2-1.3) mg/dL AST (17-59) U/L ALT (4-49) U/L Alkaline Phosphatase (38-126) U/L Troponin I <0.012 (0.000-0.034) ng/mL Total Protein (6.3-8.2) g/dL Albumin (3.5-5.0) g/dL Urine Color Yellow Urine Appearance Clear (Clear) Urine pH 6.0 (5.0-8.0) Ur Specific [place] 1.025 (1.001-1.035) Urine Protein Negative (Negative) Urine Glucose (UA) Negative (Negative) Urine Ketones Negative (Negative) Urine Blood Negative (Negative) Urine Nitrite Negative (Negative) Urine Bilirubin Negative (Negative) Urine Urobilinogen 3.0 (<2.0) mg/dL Ur Leukocyte Esterase Negative (Negative) - Radiology Data Radiology results: report reviewed, image reviewed Disposition Clinical Impression: New onset atrial fibrillation, Frequent falls Disposition: HOME SELF-CARE Instructions (If sedation given, give patient instructions): A-fib (Atrial Fibrillation) (ED), Fall Prevention for Older Adults (ED) Additional Instructions: Return to the emergency department with any new, worsening, or concerning symptoms. You have an appointment with cardiology scheduled for tomorrow at 2:30 PM. We also made you an appointment with your primary care provider for the following day at 10:35 AM. Please call to cancel if you are unable to att end any of these. Is patient prescribed a controlled substance at d/c from ED?: No Referrals: Kwame Johnson MD [Primary Care Provider] - 02/18/25 10:35 am (ER follow up) Jose Juan Camp MD [Medical Doctor] - 02/17/25 2:30 pm (Please bring insurance c ards, photo ID and a list of your current medications.) Time of Disposition: 15:24
[2025-02-16] MEDS: SODIUM CHLORIDE 0.9% 1,000 ML IV ONE (12:59)
[2025-02-16 13:17] LABS: Basophils # (A) 0.04 10*3/uL (0.00-0.10); Basophils % (A) 0.6 %; Eosinophils # (A) 0.21 10*3/uL (0.04-0.35); Eosinophils % (A) 2.9 %; HCT 37.9 % (39.6-50.0); HGB 12.7 g/dL (13.0-17.0); Lymphocytes # (A) 1.77 10*3/uL (0.90-5.00); Lymphocytes % (A) 24.7 %; MCH 30.3 pg (27.0-32.0); MCHC 33.5 g/dL (32.0-37.0); MCV 90.5 fL (80.0-97.0); Mean Platelet Volume 10.4 fL (9.5-12.2); Monocytes # (A) 0.52 10*3/uL (0.20-1.00); Monocytes % (A) 7.3 %; Neutrophils # (A) 4.56 10*3/uL (1.80-7.70); Neutrophils % (A) 63.5 %; Platelet Count 146 10*3/uL (140-440); RBC 4.19 10*6/uL (4.40-5.60); RDW 13.5 % (11.5-14.5); WBC 7.17 10*3/uL (4.50-10.00)
[2025-02-16 13:26] LABS: ALT 8 U/L (4-49); AST 30 U/L (17-59); African American GFR (CKD) >90 (>60 ml/min/1.73 sqM); Alkaline Phosphatase 74 U/L (38-126); Anion Gap 8 mmol/L; Blood Urea Nitrogen 44 mg/dL (9-20); Carbon Dioxide 31 mmol/L (22-30); Chloride 99 mmol/L (98-107); Glucose 104 mg/dL (74-99); Magnesium 2.3 mg/dL (1.6-2.3); Non-African American GFR(CKD) 89 (>60 ml/min/1.73 sqM); Sodium 138 mmol/L (137-145); Total Bilirubin 0.7 mg/dL (0.2-1.3); Total Protein 6.2 g/dL (6.3-8.2)
[2025-02-16 13:27] LABS: Appearance,Urine Clear (Clear); Bilirubin,Urine Negative (Negative); Blood,Urine Negative (Negative); Color,Urine Yellow; Glucose,Urine (UA) Negative (Negative); Ketones,Urine Negative (Negative); Leukocyte Esterase,Urine Negative (Negative); Nitrite,Urine Negative (Negative); Protein,Urine Negative (Negative); Specific Gravity,Urine 1.025 (1.001-1.035)
[2025-02-16 13:32] LABS: Partial Thromboplastin Time 24.4 sec (22.0-30.0); Prothrombin Time 11.2 sec (10.0-12.5)
--- NOTE | 2025-02-16 13:40 | XR ---
EXAMINATION TYPE: XR chest 2V DATE OF EXAM: 02/16/2025 1:36 PM COMPARISON: Chest radiographs from 06/26/2024 TECHNIQUE: XR chest 2V Frontal and lateral views of the chest. CLINICAL INDICATION:Male, 74 years old with history of Fall; pain FINDINGS: Lungs/Pleura: There is no evidence of pleural effusion, focal consolidation, or pneumothorax. Chroni c elevation of the right hemidiaphragm. Pulmonary vascularity: Unremarkable. Heart/mediastinum: Cardiomediastinal silhouette is unremarkable. Musculoskeletal: No acute osseous pathology. Surgical fixation within the right glenohumeral joint. R ight shoulder arthropathy changes. Postsurgical changes from a left shoulder arthroplasty. IMPRESSION: No acute cardiopulmonary disease/process. [facility], , 02/16/2025 1:38 PM
--- NOTE | 2025-02-16 13:43 | XR ---
EXAMINATION TYPE: XR shoulder complete LT DATE OF EXAM: 02/16/2025 1:38 PM INDICATION: Patient age:Male; 74 years old; Reason for study: Fall; pain COMPARISON: Left shoulder radiograph 12/01/2024 TECHNIQUE: The left shoulder was examined in AP, internally rotated and scapular Y projections. . FINDINGS: Surgical changes from reversed total left shoulder arthroplasty. Hardware appears intact with appropr iate alignment. Moderate AC joint arthropathy with joint space narrowing and superior spurring. No ev idence of acute osseous pathology, joint dislocation, or soft tissue swelling. The remaining portions of the visualized chest are unremarkable. IMPRESSION: 1. No acute osseous pathology. 2. Surgical changes from left total arthroplasty. Hardware appears intact with appropriate alignment . 3. Moderate AC joint arthropathy. [facility], , 02/16/2025 1:41 PM
--- NOTE | 2025-02-16 13:46 | XR ---
EXAMINATION TYPE: XR elbow complete LT DATE OF EXAM: 02/16/2025 1:43 PM INDICATION: Patient age:Male; 74 years old; Reason for study: Fall; PHH. pain COMPARISON: None TECHNIQUE: The left elbow was examined in AP, lateral, and oblique projections. FINDINGS: No evidence of any acute osseous pathology, joint dislocation, or soft tissue swelling is n oted. No evidence of joint effusion is present. IMPRESSION: No evidence of acute fracture. [facility], , 02/16/2025 1:44 PM
--- NOTE | 2025-02-16 14:10 | CT ---
EXAMINATION TYPE: CT brain cspine wo con DATE OF EXAM: 02/16/2025 1:32 PM COMPARISON: 06/28/2024 CLINICAL INDICATION: Male, 74 years old with history of Fall, pain after fall, pain TECHNIQUE: CT of the brain is performed utilizing 3 mm thick sections through the posterior fossa and 3 mm thick sections through the remaining calvarium. Study is performed within 24 hours of arrival to the hospital. Contrast used: mL of , (none if empty) CT DLP: 1320.9 mGycm, Automated exposure control for dose reduction was used. FINDINGS: No abnormal hyperdensity is present to suggest an acute intracranial hemorrhage. No mass lesion is evident. No acute infarcts are evident. Some minimal hypodensity may be within the periventricular white lula er likely on the basis of chronic white matter ischemic change. No significant comparison. Ventricles and sulci are appropriate for the patient age. There is a tiny retention cyst within the anterior right sphenoid sinus. Paranasal sinuses and mastoi d air cells within the [id number] are otherwise clear. IMPRESSIONS: 1. No acute intracranial process. Follow-up MRI can be performed as clinically indicated. 2. Minimal chronic appearing periventricular white matter ischemic changes. CT cervical spine. COMPARISON: None TECHNIQUE: CT of the cervical spine is performed in the axial plane at 2 mm thick sections. Reconstr ucted images in the coronal, and sagittal plane are reviewed on the computer. FINDINGS: No acute fractures are evident. There may be some minimal retrolisthesis of C3 on C4. Mild diffuse loss of disc height is present within the cervical spine. Vertebral body heights are preserved. No spinal canal stenosis is evident. Uncovertebral joint hypertrophy is contributing to foraminal narrowing at C3-4 C4-5 IMPRESSION: 1. No acute osseous abnormality cervical spine. 2. Mild foraminal narrowing upper cervical spine secondary to uncovertebral joint hypertrophy [facility], Workstation: [email or web address], 02/16/2025 2:07 PM
[2025-02-16 16:14] VITALS: BP 135/73; PULSE 56; RESP 16
== END 2025-02-16 16:14 | disposition home or self-care (01) ==
LOC: EC 11:29
DX: I11.9 Hypertensive heart disease without heart failure (principal); I48.91 Unspecified atrial fibrillation; R29.6 Repeated falls; G20.A1 Parkinson's disease without dyskinesia, without mention of fluctuations; Z87.891 Personal history of nicotine dependence; W19.XXXA Unspecified fall, initial encounter
CPT/HCPCS: 36415; 70450; 71046; 72125; 80053; 81003; 83605; 83735; 84484; 85025; 85610; 85730; 93005; 96360; 99284

== ENCOUNTER 2025-04-15 11:31 | Emergency (ER) | payer MEDICARE ==
[2025-04-15 11:37] VITALS: RESP 20; TEMP 98.1
--- NOTE | 2025-04-15 12:35 | ED ---
Fall HPI - General Chief Complaint: Fall Stated Complaint: fall Time Seen by Provider: 04/15/25 12:16 Source: patient, family, EMS, RN notes reviewed Mode of arrival: EMS - History of Present Illness Initial Comments: This is a 74-year-old male with a history of Parkinson's presenting to the emergency department via EMS after a fall. at bedside aids in history. states that patient falls frequently due to his history of Parkinson's and earlier today he fell while he was trying to put on his shoes. Patient fell backwards onto his back and hit the back of his head on the metal trash can. states that patient did not lose consciousness however was complaining of back pain after the fall. is concerned that patient had back surgery approximately 1 year ago. Patient is also complaining of left shoulder pain. Denies chest pain or difficulty breathing, headaches or neck pain. denies blood thinner use. - Related Data Home Medications Medication Instructions Recorded Confirmed Albuterol Sulfate [Ventolin HFA] 2 puff INHALATION RT-Q6H PRN 09/26/19 02/16/25 DULoxetine HCL [Cymbalta] 60 mg PO BID 09/26/19 02/16/25 Enalapril [Vasotec] 10 mg PO BID 09/26/19 02/16/25 Pravastatin Sodium [Pravachol] 40 mg PO HS 09/26/19 02/16/25 metFORMIN HCL [Glucophage] 500 mg PO DAILY 09/26/19 02/16/25 HYDROcodone/APAP 7.5-325MG [Tibbie 1 tab PO BID 01/03/23 02/16/25 7.5-325] Metoprolol Tartrate 25 mg PO DAILY 01/03/23 02/16/25 Tamsulosin HCl [Flomax] 0.4 mg PO BID 01/03/23 02/16/25 Albuterol Nebulized [Ventolin 2.5 mg INHALATION RT-QID PRN 06/26/24 02/16/25 Nebulized] diphenhydrAMINE [Benadryl] 25 mg PO HS 06/26/24 02/16/25 Boost High Protein 1 can PO TID-W/MEALS 02/16/25 02/16/25 Carbidopa-Levodopa 25-100 mg 2 tab PO BID@0600,1800 02/16/25 02/16/25 [Sinemet 25-100 mg] Carbidopa-Levodopa 25-100 mg 3 tab PO DAILY@1200 02/16/25 02/16/25 [Sinemet 25-100] Cholecalciferol [Vitamin D3 (25 50 mcg PO DAILY 02/16/25 02/16/25 Mcg = 1000 Iu)] Clobetasol Propionate [Temovate 1 applic TOPICAL DIRECTED 02/16/25 02/16/25 0.05% Oint] Cyanocobalamin (Vitamin B-12) 1,000 mcg PO SELLERS 02/16/25 02/16/25 [Vitamin B-12] Fluocinonide 0.05% Topical Solution 1 applic TOPICAL BID PRN 02/16/25 02/16/25 Galantamine HBr [Razadyne ER] 16 mg PO DAILY 02/16/25 02/16/25 Hydrocortisone Cream 1 applic TOPICAL BID PRN 02/16/25 02/16/25 [Hydrocortisone 2.5% Cream] Ketoconazole 2% Cream [Nizoral 2%] 1 applic TOPICAL DAILY PRN 02/16/25 02/16/25 QUEtiapine [SEROquel] 100 mg PO HS 02/16/25 02/16/25 Vitamin B Complex 1 cap PO SELLERS 02/16/25 02/16/25 amantadine HCL [Amantadine] 100 mg PO BID 02/16/25 02/16/25 hydroCHLOROthiazide [Hydrodiuril] 50 mg PO DAILY 02/16/25 02/16/25 Allergies Allergy/AdvReac Type Severity Reaction Status Date / Time No Known Allergies Allergy Verified 04/15/25 11:37 Review of Systems ROS Statement: Those systems with pertinent positive or pertinent negative responses have been documented in the HPI. ROS Other: All systems not noted in ROS Statement are negative. Past Medical History Past Medical History: Asthma, Diabetes Mellitus, GERD/Reflux, Hyperlipidemia, Hypertension, Neurologic Disorder, Prostate Disorder, Skin Disorder Additional Past Medical History / Comment(s): PSORIASIS,NIDDM,PARKINSONS, BPH, increased confusion recently History of Any Multi-Drug Resistant Organisms: None Reported Past Surgical History: Hernia Repair, Orthopedic Surgery Additional Past Surgical History / Comment(s): LEFT SHOULDER 01/08/23. RIGHT SHOULDER X 2., LT. INGUINAL HERNIA, UMB HERNIA. LEFT KNEE ARTHROSCOPY. LEFT SHOULDER ARTHROPLASTY. ACHILLES TENDON REPAIR X 2, Radio Frequency treatments on back, 04/28/2024 lumbar fusion. Past Anesthesia/Blood Transfusion Reactions: No Reported Reaction Past Psychological History: Anxiety, Depression Smoking Status: Former smoker Past Alcohol Use History: None Reported Past Drug Use History: None Reported General Exam Limitations: no limitations Neck exam: Present: normal inspection. Absent: tenderness, meningismus, lymphadenopathy Respiratory exam: Present: normal lung sounds bilaterally. Absent: respiratory distress, wheezes, rales, rhonchi, stridor Cardiovascular Exam: Present: regular rate, normal rhythm, normal heart sounds. Absent: systolic murmur, diastolic murmur, rubs, gallop, clicks GI/Abdominal exam: Present: soft, normal bowel sounds. Absent: distended, t enderness, guarding, rebound, rigid Extremities exam: Present: normal inspection, full ROM, tenderness (left shoulder), normal capillary refill. Absent: pedal edema, joint swelling, calf tenderness Left Shoulder Exam: Present: full ROM, tenderness. Absent: swelling, deformity, crepitus Vascular: Absent: vascular compromise Back exam: Present: normal inspection, tenderness (lumbar ). Absent: CVA tenderness (R), CVA tenderness (L) Course Vital Signs 04/15/25 04/15/25 11:34 14:34 Temperature 98.1 F 98.1 F Pulse Rate 73 76 Respiratory 20 20 Rate Blood Pressure 126/66 136/68 O2 Sat by Pulse 97 98 Oximetry Medical Decision Making - Medical Decision Making Was pt. sent in by a medical professional or institution (, PA, [employer], urgent care, hospital, or long term...) When possible be specific @ -No Did you speak to anyone other than the patient for history (EMS, parent, family, police, friend...)? What history was obtained from this source @ -No Did you review nursing and triage notes (agree or disagree)? Why? @ -I reviewed and agree with nursing and triage notes Were old charts reviewed (outside hosp., previous admission, EMS record, old EKG, old radiological studies, urgent care reports/EKG's, long term records)? Report findings @ -No old charts were reviewed Differential Diagnosis (chest pain, altered mental status, abdominal pain women, abdominal pain men, vaginal bleeding, weakness, fever, dyspnea, syncope, headache, dizziness, GI bleed, back pain, seizure, CVA, palpatations, mental health, musculoskeletal)? @ -Lumbar spine strain, lumbar spine fracture, hardware malalignment, cervical spine strain, right shoulder fracture, this list is not all inclusive EKG interpreted by me (3pts min.). @ -none X-rays interpreted by me (1pt min.). @ -X-ray of the lumbar spine reveals no acute fracture or dislocation with normal postoperative alignment and screws/body spacers well-seated. X-ray of the left shoulder reveals no acute fracture or dislocation CT interpreted by me (1pt min.). @ -[CT (C-spine no acute or clear cervical spine process. U/S interpreted by me (1pt. min.). @ -None done What testing was considered but not performed or refused? (CT, X-rays, U/S, labs)? Why? @ -None What meds were considered but not given or refused? Why? @ -None Did you discuss the management of the patient with other professionals (professionals i.e. , PA, [employer], lab, RT, psych nurse, social work lecturer, bag making machine operator, teacher, chief wellness officer, disability case manager)? Give summary @ -No Was smoking cessation discussed for >3mins.? @ -No Was critical care preformed (if so, how long)? @ -No Were there social determinants of health that impacted care today? How? (Homelessness, low income, unemployed, alcoholism, drug addiction, transportation, low edu. Level, literacy, decrease access to med. care, [facility], rehab)? @ -No Was there de-escalation of care discussed even if they declined (Discuss DNR or withdrawal of care, Hospice)? DNR status @ -No What co-morbidities impacted this encounter? (DM, HTN, Smoking, COPD, CAD, Cancer, CVA, ARF, Chemo, Hep., AIDS, mental health diagnosis, sleep apnea, morbid obesity)? @ -None Was patient admitted / discharged? Hospital course, mention meds given and route, prescriptions, significant lab abnormalities, going to OR and other pertinent info. @ -Discharge. 74 male presented to emergency room via EMS after a fall. Patient has a c-collar in place overall is well-appearing on examination bed. Patient has pain with range of motion of the right shoulder however range of motion is intact. Patient has pain to the lumbar spine with no red flag findings concerning for cauda equina. CT of the brain C-spine is unremarkable. X-ray imaging of the shoulder and lumbar spine is unremarkable. He is provided with dose of morphine for pain control. There are minor skin tears noted over the left arm that are cleansed with sterile water. Steri-Strips were applied. Patient is stable for discharge. Case discussed with my attending Dr. Camarena. Undiagnosed new problem with uncertain prognosis? @ -No Drug Therapy requiring intensive monitoring for toxicity (Heparin, Nitro, Insulin, Cardizem)? @ -No Were any procedures done? @ -No Diagnosis/symptom? @ -Fall, shoulder sprain Acute, or Chronic, or Acute on Chronic? @ -Acute Uncomplicated (without systemic symptoms) or Complicated (systemic symptoms)? @ -uncomplicated Side effects of treatment? @ -No Exacerbation, Progression, or Severe Exacerbation? @ -No Poses a threat to life or bodily function? How? (Chest pain, [place], [place], pneumonia, PE, COPD, DKA, ARF, appy, cholecystitis, CVA, Diverticulitis, Homicidal, Suicidal, threat to staff... and all critical care pts) @ -No Disposition Clinical Impression: Back sprain Disposition: HOME SELF-CARE Condition: Stable Instructions (If sedation given, give patient instructions): Fall Prevention for Older Adults (ED) Additional Instructions: Please return to the Emergency Department if symptoms worsen or any other concerns. Is patient prescribed a controlled substance at d/c from ED?: No Referrals: Kwame Johnson MD [Primary Care Provider] - 1-2 days Time of Disposition: 14:04
[2025-04-15] MEDS: MORPHINE SULFATE 4 MG/ML SYRINGE IM STA (12:44)
[2025-04-15] MEDS: MORPHINE SULFATE 4 MG/ML SYRINGE IVP STA (12:46)
--- NOTE | 2025-04-15 13:25 | CT ---
EXAMINATION TYPE: CT brain jon wo con DATE OF EXAM: 04/15/2025 COMPARISON: 02/16/2025 CLINICAL INDICATION: Male, 74 years old with history of fall, WATSON; PHH, Fall, Headache TECHNIQUE: CT scan of the head and cervical spine are performed without contrast. CT DLP: 1820.[address] CTDI: mGy Automated exposure control for dose reduction was used. Findings: Head CT: Ventricles, basal cisterns and sulci over convexities are mildly enlarged consistent with mild atroph y appropriate for the patient's age. No abnormal density is seen throughout the brain parenchyma and there is no acute intra or extra-axial hemorrhage. Posterior fossa including the brainstem, fourth ventricle and cerebellar pontine angles are grossly n ormal. The intraorbital contents appear normal and symmetric. Visualized paranasal sinuses are well aerated. CT cervical spine: Craniovertebral junction relationships and prevertebral soft tissues are normal. The cervical vertebral segments are normal in height and alignment and there is no fracture subluxati on. There is loss of the normal cervical lordosis. There is mild degenerative disease at the C3-4 and C6-7 levels where there is mild disc space narrowi ng and spondylosis. The bony cervical canal is widely patent. There is moderate bony neural foraminal encroachment at the C3-4 and C4-5 levels on the right. The paraspinal soft tissues unremarkable. IMPRESSION: 1. Head CT: No acute bleed or mass effect. Mild age-appropriate atrophy. 2. CT cervical spine: No acute trauma. Mild degenerative disc disease as described above. [facility], , 04/15/2025 1:23 PM
--- NOTE | 2025-04-15 13:50 | XR ---
EXAMINATION TYPE: XR shoulder complete LT DATE OF EXAM: 04/15/2025 1:46 PM COMPARISON: 02/16/2025 CLINICAL INDICATION: Male, 74 years old with history of fall, pain, previous surgery, pain TECHNIQUE: XR shoulder complete LT views were obtained FINDINGS: There is no acute fracture/dislocation evident. Left-sided glenohumeral prosthesis appears to be well seated. No evidence for loosening or malalignment. Correlate clinically. The visualized ribs are int act and unremarkable. IMPRESSION: There is no acute fracture or dislocation. [facility], , 04/15/2025 1:47 PM
--- NOTE | 2025-04-15 13:51 | XR ---
EXAMINATION TYPE: XR lumbar spine 2 or 3V DATE OF EXAM: 04/15/2025 1:46 PM COMPARISON: None. CLINICAL INDICATION: Male, 74 years old with history of fall, pain, previous surgery, TECHNIQUE: 3 views of the lumbar spine submitted FINDINGS: Postoperative changes of lumbar laminectomy at L4-L5 to L5-S1. There is normal postoperati ve alignment. Pedicular screws and intervertebral body spacers are well seated. Mild curvature noted convex to the left. No fracture or malalignment. IMPRESSION: No acute fracture or dislocation is seen in the lumbar spine.ICD 10 NO FRACTURE, INITIAL EVALUATION [facility], , 04/15/2025 1:48 PM
[2025-04-15 14:42] VITALS: BP 136/68; PULSE 76
== END 2025-04-15 14:45 | disposition home or self-care (01) ==
LOC: EC 11:31 → SUPCPDRO 11:31 → EC 14:45
DX: S33.5XXA Sprain of ligaments of lumbar spine, initial encounter (principal); Z87.891 Personal history of nicotine dependence; W21.31XA Struck by shoe cleats, initial encounter
CPT/HCPCS: 72100; 73030; 72125; 70450; 99284; 96372; J2270

== ENCOUNTER → 2025-04-15 | Outpatient (CLI) | payer MEDICARE ==
[2025-04-15 15:03] LABS: Basophils # (A) 0.04 X 10*3/uL (0.00-0.10); Basophils % (A) 0.4 %; Eosinophils # (A) 0.18 X 10*3/uL (0.04-0.35); Eosinophils % (A) 1.9 %; HCT 41.1 % (39.6-50.0); HGB 13.1 g/dL (13.0-17.0); Immature Grans, Automated 0.40 %; Lymphocytes # (A) 1.76 X 10*3/uL (0.90-5.00); Lymphocytes % (A) 18.3 %; MCH 29.4 pg (27.0-32.0); MCHC 31.9 g/dL (32.0-37.0); MCV 92.2 FL (80.0-97.0); Monocytes # (A) 0.66 X 10*3/uL (0.20-1.00); Monocytes % (A) 6.9 %; NRBC Per 100 WBC 0 X 10*3/uL (0.00-0.01); Neutrophils # (A) 6.93 X 10*3/uL (1.80-7.70); Neutrophils % (A) 72.1 %; Platelet Count 181 X 10*3/uL (140-440); RBC 4.46 X 10*6/uL (4.40-5.60); RDW 13.9 % (11.5-14.5); WBC 9.61 X 10*3/uL (4.50-10.00)
[2025-04-15 15:28] LABS: ALT 10 U/L (10-49); AST 20 U/L (14-35); Albumin 4.4 g/dL (3.8-4.9); Albumin/Globulin Ratio 2.59 Ratio (1.60-3.17); Alkaline Phosphatase 80 U/L (41-126); Anion Gap 11.80 mmol/L (4.00-12.00); BUN/Creat Ratio 36.25 Ratio (12.00-20.00); Blood Urea Nitrogen 43.5 mg/dL (9.0-27.0); Calcium 9.7 mg/dL (8.7-10.3); Carbon Dioxide 26.2 mmol/L (21.6-31.8); Chloride 101 mmol/L (96-109); Cholesterol 136.00 mg/dL (0.00-200.00); Globulin 1.7 g/dL (1.6-3.3); Glucose 113 mg/dL (70-110); HDL Cholesterol 48.00 mg/dL (40.00-60.00); LDL Cholesterol,Calculated 69.6 mg/dL (0.0-131.0); Potassium 3.8 mmol/L (3.5-5.5); Sodium 139 mmol/L (135-145); Total Protein 6.1 g/dL (6.2-8.2); Triglycerides 92.00 mg/dL (0.00-149.00); VLDL Calculation 18.40 mg/dL (5.00-40.00)
== END | disposition home or self-care (01) ==
LOC: LABWHC1 08:39
PROVIDERS: ATTEND Family Medicine
DX: E11.51 Type 2 diabetes mellitus with diabetic peripheral angiopathy without gangrene (principal)
CPT/HCPCS: 36415; 80053; 80061; 83036; 85025

== ENCOUNTER 2025-04-20 13:43 | Inpatient (IN) | payer MEDICARE ==
[2025-04-20 15:33] LABS: Basophils # (A) 0.02 10*3/uL (0.00-0.10); Basophils % (A) 0.2 %; Eosinophils # (A) 0.05 10*3/uL (0.04-0.35); Eosinophils % (A) 0.5 %; HCT 40.5 % (39.6-50.0); HGB 13.5 g/dL (13.0-17.0); Lymphocytes # (A) 0.90 10*3/uL (0.90-5.00); Lymphocytes % (A) 9.5 %; MCH 30.3 pg (27.0-32.0); MCHC 33.3 g/dL (32.0-37.0); MCV 91.0 fL (80.0-97.0); Monocytes # (A) 0.53 10*3/uL (0.20-1.00); Monocytes % (A) 5.6 %; Neutrophils # (A) 7.97 10*3/uL (1.80-7.70); Neutrophils % (A) 83.9 %; Platelet Count 175 10*3/uL (140-440); RBC 4.45 10*6/uL (4.40-5.60); RDW 13.4 % (11.5-14.5); WBC 9.50 10*3/uL (4.50-10.00)
--- NOTE | 2025-04-20 15:39 | ED ---
Seizure HPI - General Chief Complaint: Seizure Stated Complaint: Seizure Time Seen by Provider: 04/20/25 13:46 Source: patient, EMS Mode of arrival: EMS Limitations: altered mental status, physical limitation - History of Present Illness Initial Comments: 74-year-old male with past medical history of Parkinson's who presents to the emergency department for possible seizure-like activity. states that the patient has fallen 6 times in the past 2 weeks. He was seen on the second for this complaint and a CT of his head was performed which was negative. states that since he has been home he has had incomprehensible speech and spa stic movements of his extremities. is concerned that he is seizing. She also felt like the left side of his face has been drooped. Patient is a poor historian and cannot provide much history. She reports that his dose of prazosin has recently been increased. He sees Dr. Lawrence. Patient is currently on 4 mg/day. was to increase this dose every 4 days up to 10 mg until the patient stops having nightmares. Denies any other changes in his medication. Patient has no history of stroke. No fevers. No other alleviating, precipitating modifying factors - Related Data Home Medications Medication Instructions Recorded Confirmed Albuterol Sulfate [Ventolin HFA] 2 puff INHALATION RT-Q6H PRN 09/26/19 04/20/25 DULoxetine HCL [Cymbalta] 60 mg PO BID 09/26/19 04/20/25 Enalapril [Vasotec] 10 mg PO BID 09/26/19 04/20/25 Pravastatin Sodium [Pravachol] 40 mg PO HS 09/26/19 04/20/25 metFORMIN HCL [Glucophage] 500 mg PO W/LUNCH 09/26/19 04/20/25 HYDROcodone/APAP 7.5-325MG [Olalla 1 tab PO BID 01/03/23 04/20/25 7.5-325] Tamsulosin HCl [Flomax] 0.4 mg PO DAILY@1600 01/03/23 04/20/25 Albuterol Nebulized [Ventolin 2.5 mg INHALATION RT-QID PRN 06/26/24 04/20/25 Nebulized] diphenhydrAMINE [Benadryl] 25 mg PO BID 06/26/24 04/20/25 Boost High Protein 1 can PO TID-W/MEALS 02/16/25 04/20/25 Carbidopa-Levodopa 25-100 mg 2 tab PO BID@0600,1800 02/16/25 04/20/25 [Sinemet 25-100 mg] Carbidopa-Levodopa 25-100 mg 3 tab PO DAILY@1200 02/16/25 04/20/25 [Sinemet 25-100] Cholecalciferol [Vitamin D3 (25 25 mcg PO DAILY 02/16/25 04/20/25 Mcg = 1000 Iu)] Clobetasol Propionate [Temovate 1 applic TOPICAL DIRECTED 02/16/25 04/20/25 0.05% Oint] Cyanocobalamin (Vitamin B-12) 1,000 mcg PO SELLERS 02/16/25 04/20/25 [Vitamin B-12] Fluocinonide 0.05% Topical Solution 1 applic TOPICAL BID PRN 02/16/25 04/20/25 Galantamine HBr [Razadyne ER] 16 mg PO W/LUNCH 02/16/25 04/20/25 Hydrocortisone Cream 1 applic TOPICAL BID PRN 02/16/25 04/20/25 [Hydrocortisone 2.5% Cream] Ketoconazole 2% Cream [Nizoral 2%] 1 applic TOPICAL DAILY PRN 02/16/25 04/20/25 QUEtiapine [SEROquel] 100 mg PO HS 02/16/25 04/20/25 Vitamin B Complex 1 cap PO SELLERS 02/16/25 04/20/25 amantadine HCL [Amantadine] 100 mg PO BID 02/16/25 04/20/25 Budesonide/Formoterol Fumarate 2 puff INHALATION RT-BID 04/20/25 04/20/25 [Symbicort 160-4.5 Mcg Inhaler] Diphenox-Atrop 2.5-0.025 mg 2 tab PO QID PRN 04/20/25 04/20/25 [Lomotil] Liquid Iv 1 packet PO W/LUNCH 04/20/25 04/20/25 Prazosin [Minipress] 4 mg PO HS 04/20/25 04/20/25 bisacodyL [Dulcolax] 5 mg PO BID 04/20/25 04/20/25 Allergies Allergy/AdvReac Type Severity Reaction Status Date / Time No Known Allergies Allergy Verified 04/20/25 16:23 Review of Systems ROS Statement: Those systems with pertinent positive or pertinent negative responses have been documented in the HPI. ROS Other: All systems not noted in ROS Statement are negative. Past Medical History Past Medical History: Asthma, Diabetes Mellitus, GERD/Reflux, Hyperlipidemia, Hypertension, Neurologic Disorder, Prostate Disorder, Skin Disorder Additional Past Medical History / Comment(s): PSORIASIS,NIDDM,PARKINSONS, BPH, increased confusion recently History of Any Multi-Drug Resistant Organisms: None Reported Past Surgical History: Hernia Repair, Orthopedic Surgery Additional Past Surgical History / Comment(s): LEFT SHOULDER 01/08/23. RIGHT SHOULDER X 2., LT. INGUINAL HERNIA, UMB HERNIA. LEFT KNEE ARTHROSCOPY. LEFT SHOULDER ARTHROPLASTY. ACHILLES TENDON REPAIR X 2, Radio Frequency treatments on back, 04/28/2024 lumbar fusion. Past Anesthesia/Blood Transfusion Reactions: No Reported Reaction Past Psychological History: Anxiety, Depression Smoking Status: Former smoker Past Alcohol Use History: None Reported Past Drug Use History: None Reported General Exam Limitations: altered mental status, physical limitation General appearance: alert Head exam: Present: atraumatic, normocephalic, normal inspection Eye exam: Present: normal appearance, PERRL, EOMI. Absent: scleral icterus, conjunctival injection, periorbital swelling ENT exam: Present: normal exam, mucous membranes moist Neck exam: Present: normal inspection. Absent: tenderness, meningismus, lymphadenopathy Respiratory exam: Present: normal lung sounds bilaterally. Absent: respiratory distress, wheezes, rales, rhonchi, stridor Cardiovascular Exam: Present: regular rate, normal rhythm, normal heart sounds. Absent: systolic murmur, diastolic murmur, rubs, gallop, clicks Neurological exam: Present: other (Speech is incomprehensible. He has spastic movements of his upper extremities. He is able to respond well spastic movements are happening) Course Vital Signs 04/20/25 04/20/25 04/20/25 13:46 21:23 22:14 Temperature 98.3 F 98.9 F Pulse Rate 84 83 89 Respiratory 18 18 18 Rate Blood Pressure 129/71 132/78 145/75 O2 Sat by Pulse 98 93 L Oximetry 04/21/25 04/21/25 04/21/25 01:48 05:04 05:55 Temperature 98.3 F 100.8 F H Pulse Rate 89 98 90 Respiratory 19 20 30 H Rate Blood Pressure 149/96 103/89 137/96 O2 Sat by Pulse 95 94 L 95 Oximetry 04/21/25 04/21/25 04/21/25 07:29 07:53 08:10 Temperature 101.1 F H 100.8 F H 100.8 F H Pulse Rate 105 H 92 95 Respiratory 30 H 28 H 28 H Rate Blood Pressure 104/77 133/61 108/86 O2 Sat by Pulse 95 93 L 94 L Oximetry 04/21/25 04/21/25 04/21/25 09:32 13:20 15:15 Temperature 100.5 F H 100.3 F H 99.3 F Pulse Rate 96 89 Respiratory 28 H 30 H Rate Blood Pressure 108/73 139/68 O2 Sat by Pulse 94 L 93 L Oximetry 04/21/25 04/21/25 18:00 23:07 Temperature 99.4 F 99.2 F Pulse Rate 100 88 Respiratory 32 H 22 Rate Blood Pressure 107/88 125/89 O2 Sat by Pulse 95 95 Oximetry Medical Decision Making - Medical Decision Making Was pt. sent in by a medical professional or institution (, PA, WELL DIGGER, urgent care, hospital, or [facility]...) When possible be specific @ -No Did you speak to anyone other than the patient for history (EMS, parent, family, police, friend...)? What history was obtained from this source @ -Spoke with for history Did you review nursing and triage notes (agree or disagree)? Why? @ -I reviewed and agree with nursing and triage notes Were old charts reviewed (outside hosp., previous admission, EMS record, old EKG, old radiological studies, urgent care reports/EKG's, [facility] records)? Report findings @ -No old charts were reviewed Differential Diagnosis (chest pain, altered mental status, abdominal pain women, abdominal pain men, vaginal bleeding, weakness, fever, dyspnea, syncope, headache, dizziness, GI bleed, back pain, seizure, CVA, palpatations, mental health, musculoskeletal)? @ -Differential Altered Mental Status: Hypoglycemia, DKA, hypercapnia, ETOH, overdose, CO poisoning, trauma, myxedema coma, HTN encephalopathy, infection, encephalitis, psychosis, intercranial hemorrhage, hepatic encephalopathy, meningitis, CVA, this is not meant to be an all-inclusive list EKG interpreted by me (3pts min.). @ -Yes and demonstrates possible A-fib with a rate of 80. QRS 134. QTc of 427. No acute ST segment elevations or depressions X-rays interpreted by me (1pt min.). @ -yes which demonstrates low lung volumes CT interpreted by me (1pt min.). @ -yes which demonstrates no acute process U/S interpreted by me (1pt. min.). @ -None done What testing was considered but not performed or refused? (CT, X-rays, U/S, labs)? Why? @ -None What meds were considered but not given or refused? Why? @ -None Did you discuss the management of the patient with other professionals (professionals i.e. , PA, WELL DIGGER, lab, RT, psych nurse, social problems specialist, engineering laboratory technician, teacher, third officer, case work aide)? Give summary @ -Spoke with Sheet for the admission Was smoking cessation discussed for >3mins.? @ -No Was critical care preformed (if so, how long)? @ -No Were there social determinants of health that impacted care today? How? (Homelessness, low income, unemployed, alcoholism, drug addiction, transportation, low edu. Level, literacy, decrease access to med. care, long term, rehab)? @ -No Was there de-escalation of care discussed even if they declined (Discuss DNR or withdrawal of care, Hospice)? DNR status @ -No What co-morbidities impacted this encounter? (DM, HTN, Smoking, COPD, CAD, Cancer, CVA, ARF, Chemo, Hep., AIDS, mental health diagnosis, sleep apnea, morbid obesity)? @ -Parkinson's Was patient admitted / discharged? Hospital course, mention meds given and route, prescriptions, significant lab abnormalities, going to OR and other pertinent info. @ -Upon arrival patient seen and evaluated in room 7. Thorough history and physical exam was performed. Laboratory studies are conducted. CT of the brain was performed. Results are discussed with the patient and his . Recommended admission for neurology consultation. Patient admitted in stable condition Undiagnosed new problem with uncertain prognosis? @ -No Drug Therapy requiring intensive monitoring for toxicity (Heparin, Nitro, Insulin, Cardizem)? @ -No Were any procedures done? @ -No Diagnosis/symptom? @ -Acute new onset seizure-like activity, history of Parkinson's Acute, or Chronic, or Acute on Chronic? @ -Acute Uncomplicated (without systemic symptoms) or Complicated (systemic symptoms)? @ -Complicated Side effects of treatment? @ -No Exacerbation, Progression, or Severe Exacerbation? @ -No Poses a threat to life or bodily function? How? (Chest pain, USA, VT, pneumonia, PE, COPD, DKA, ARF, appy, cholecystitis, CVA, Diverticulitis, Homicidal, Suicidal, threat to staff... and all critical care pts) @ -No - Lab Data Result diagrams: 04/25/25 06:17 04/25/25 06:17 Lab Results 04/20/25 04/20/25 04/20/25 Range/Units 15:13 15:13 15:13 WBC 9.50 (4.50-10.00) 10*3/uL RBC 4.45 (4.40-5.60) 10*6/uL Hgb 13.5 (13.0-17.0) g/dL Hct 40.5 (39.6-50.0) % MCV 91.0 (80.0-97.0) fL MCH 30.3 (27.0-32.0) pg MCHC 33.3 (32.0-37.0) g/dL RDW (11.5-14.5) % Plt Count 175 (140-440) 10*3/uL MPV 9.8 (9.5-12.2) fL Immature Gran % (Auto) 0.3 % Neutrophils % 83.9 % Lymphocytes % 9.5 % Monocytes % 5.6 % Eosinophils % 0.5 % Basophils % 0.2 % Immature Gran # 0.03 (0.00-0.04) 10*3/uL Neutrophils # 7.97 H (1.80-7.70) 10*3/uL Lymphocytes # 0.90 (0.90-5.00) 10*3/uL Monocytes # 0.53 (0.20-1.00) 10*3/uL Eosinophils # 0.05 (0.04-0.35) 10*3/uL Basophils # 0.02 (0.00-0.10) 10*3/uL PT (10.0-12.5) sec INR (<1.2) APTT (22.0-30.0) sec Sodium 140 (137-145) mmol/L Potassium 3.7 (3.5-5.1) mmol/L Chloride 99 (98-107) mmol/L Carbon Dioxide 29 (22-30) mmol/L Anion Gap 12 mmol/L BUN 27 H (9-20) mg/dL Creatinine 0.69 (0.66-1.25) mg/dL Est GFR (CKD-EPI)AfAm >90 (>60 ml/min/1.73 sqM) Est GFR (CKD-EPI)NonAf >90 (>60 ml/min/1.73 sqM) Glucose 136 H (74-99) mg/dL POC Glucose (mg/dL) (70-110) mg/dL POC Glu Glass Worker ID Plasma Lactic Acid Parker 0.8 (0.7-2.0) mmol/L Calcium 10.4 H (8.4-10.2) mg/dL Magnesium 1.9 (1.6-2.3) mg/dL Total Bilirubin 0.9 (0.2-1.3) mg/dL AST 21 (17-59) U/L ALT 7 (4-49) U/L Alkaline Phosphatase 82 (38-126) U/L Creatine Kinase 102 (55-170) U/L Troponin I (0.000-0.034) ng/mL Total Protein 6.3 (6.3-8.2) g/dL Albumin 4.1 (3.5-5.0) g/dL Globulin g/dL Albumin/Globulin Ratio Urine Color Urine Appearance (Clear) Urine pH (5.0-8.0) Ur Specific Concepcion (1.001-1.035) Urine Protein (Negative) Urine Glucose (UA) (Negative) Urine Ketones (Negative) Urine Blood (Negative) Urine Nitrite (Negative) Urine Bilirubin (Negative) Urine Urobilinogen (<2.0) mg/dL Ur Leukocyte Esterase (Negative) 04/20/25 04/21/25 04/21/25 Range/Units 15:13 01:50 02:39 WBC (4.50-10.00) 10*3/uL RBC (4.40-5.60) 10*6/uL Hgb (13.0-17.0) g/dL Hct (39.6-50.0) % MCV (80.0-97.0) fL MCH (27.0-32.0) pg MCHC (32.0-37.0) g/dL RDW (11.5-14.5) % Plt Count (140-440) 10*3/uL MPV (9.5-12.2) fL Immature Gran % (Auto) % Neutrophils % % Lymphocytes % % Monocytes % % Eosinophils % % Basophils % % Immature Gran # (0.00-0.04) 10*3/uL Neutrophils # (1.80-7.70) 10*3/uL Lymphocytes # (0.90-5.00) 10*3/uL Monocytes # (0.20-1.00) 10*3/uL Eosinophils # (0.04-0.35) 10*3/uL Basophils # (0.00-0.10) 10*3/uL PT (10.0-12.5) sec INR (<1.2) APTT (22.0-30.0) sec Sodium (137-145) mmol/L Potassium (3.5-5.1) mmol/L Chloride (98-107) mmol/L Carbon Dioxide (22-30) mmol/L Anion Gap mmol/L BUN (9-20) mg/dL Creatinine (0.66-1.25) mg/dL Est GFR (CKD-EPI)AfAm (>60 ml/min/1.73 sqM) Est GFR (CKD-EPI)NonAf (>60 ml/min/1.73 sqM) Glucose (74-99) mg/dL POC Glucose (mg/dL) 156 H (70-110) mg/dL POC Glu Glass Worker ID Stacyekaterina TurnerManju Plasma Lactic Acid Parker (0.7-2.0) mmol/L Calcium (8.4-10.2) mg/dL Magnesium (1.6-2.3) mg/dL Total Bilirubin (0.2-1.3) mg/dL AST (17-59) U/L ALT (4-49) U/L Alkaline Phosphatase (38-126) U/L Creatine Kinase (55-170) U/L Troponin I <0.012 (0.000-0.034) ng/mL Total Protein (6.3-8.2) g/dL Albumin (3.5-5.0) g/dL Globulin g/dL Albumin/Globulin Ratio Urine Color Yellow Urine Appearance Clear (Clear) Urine pH 6.0 (5.0-8.0) Ur Specific Concepcion 1.030 (1.001-1.035) Urine Protein Trace H (Negative) Urine Glucose (UA) Negative (Negative) Urine Ketones 1+ H (Negative) Urine Blood Negative (Negative) Urine Nitrite Negative (Negative) Urine Bilirubin Negative (Negative) Urine Urobilinogen 3.0 (<2.0) mg/dL Ur Leukocyte Esterase Negative (Negative) 04/21/25 04/21/25 04/21/25 Range/Units 02:49 02:49 05:45 WBC 14.84 H 15.75 H (4.50-10.00) 10*3/uL RBC 4.52 4.43 (4.40-5.60) 10*6/uL Hgb 13.7 13.3 (13.0-17.0) g/dL Hct 42.3 40.2 (39.6-50.0) % MCV 93.6 90.7 (80.0-97.0) fL MCH 30.3 30.0 (27.0-32.0) pg MCHC 32.4 33.1 (32.0-37.0) g/dL RDW 13.7 13.5 (11.5-14.5) % Plt Count 199 218 (140-440) 10*3/uL MPV 10.4 9.8 (9.5-12.2) fL Immature Gran % (Auto) % Neutrophils % 90.7 90.8 % Lymphocytes % 5.2 5.1 % Monocytes % 3.4 3.4 % Eosinophils % 0.0 0.0 % Basophils % 0.2 0.2 % Immature Gran # 0.07 H 0.08 H (0.00-0.04) 10*3/uL Neutrophils # 13.47 H 14.30 H (1.80-7.70) 10*3/uL Lymphocytes # 0.77 L 0.80 L (0.90-5.00) 10*3/uL Monocytes # 0.50 0.54 (0.20-1.00) 10*3/uL Eosinophils # 0.00 L 0.00 L (0.04-0.35) 10*3/uL Basophils # 0.03 0.03 (0.00-0.10) 10*3/uL PT (10.0-12.5) sec INR (<1.2) APTT (22.0-30.0) sec Sodium 139 (137-145) mmol/L Potassium 3.5 (3.5-5.1) mmol/L Chloride 100 (98-107) mmol/L Carbon Dioxide 24 (22-30) mmol/L Anion Gap 15 mmol/L BUN 37 H (9-20) mg/dL Creatinine 0.67 (0.66-1.25) mg/dL Est GFR (CKD-EPI)AfAm >90 (>60 ml/min/1.73 sqM) Est GFR (CKD-EPI)NonAf >90 (>60 ml/min/1.73 sqM) Glucose 164 H (74-99) mg/dL POC Glucose (mg/dL) (70-110) mg/dL POC Glu Glass Worker ID Plasma Lactic Acid Parker (0.7-2.0) mmol/L Calcium 10.3 H (8.4-10.2) mg/dL Magnesium (1.6-2.3) mg/dL Total Bilirubin (0.2-1.3) mg/dL AST (17-59) U/L ALT (4-49) U/L Alkaline Phosphatase (38-126) U/L Creatine Kinase (55-170) U/L Troponin I (0.000-0.034) ng/mL Total Protein (6.3-8.2) g/dL Albumin (3.5-5.0) g/dL Globulin g/dL Albumin/Globulin Ratio Urine Color Urine Appearance (Clear) Urine pH (5.0-8.0) Ur Specific Concepcion (1.001-1.035) Urine Protein (Negative) Urine Glucose (UA) (Negative) Urine Ketones (Negative) Urine Blood (Negative) Urine Nitrite (Negative) Urine Bilirubin (Negative) Urine Urobilinogen (<2.0) mg/dL Ur Leukocyte Esterase (Negative) 04/21/25 04/21/25 04/21/25 Range/Units 05:45 05:45 05:46 WBC (4.50-10.00) 10*3/uL RBC (4.40-5.60) 10*6/uL Hgb (13.0-17.0) g/dL Hct (39.6-50.0) % MCV (80.0-97.0) fL MCH (27.0-32.0) pg MCHC (32.0-37.0) g/dL RDW (11.5-14.5) % Plt Count (140-440) 10*3/uL MPV (9.5-12.2) fL Immature Gran % (Auto) % Neutrophils % % Lymphocytes % % Monocytes % % Eosinophils % % Basophils % % Immature Gran # (0.00-0.04) 10*3/uL Neutrophils # (1.80-7.70) 10*3/uL Lymphocytes # (0.90-5.00) 10*3/uL Monocytes # (0.20-1.00) 10*3/uL Eosinophils # (0.04-0.35) 10*3/uL Basophils # (0.00-0.10) 10*3/uL PT 11.7 (10.0-12.5) sec INR 1.1 (<1.2) APTT 23.9 (22.0-30.0) sec Sodium 141 (137-145) mmol/L Potassium 3.5 (3.5-5.1) mmol/L Chloride 103 (98-107) mmol/L Carbon Dioxide 27 (22-30) mmol/L Anion Gap 11 mmol/L BUN 38 H (9-20) mg/dL Creatinine 0.79 (0.66-1.25) mg/dL Est GFR (CKD-EPI)AfAm >90 (>60 ml/min/1.73 sqM) Est GFR (CKD-EPI)NonAf >90 (>60 ml/min/1.73 sqM) Glucose 162 H (74-99) mg/dL POC Glucose (mg/dL) (70-110) mg/dL POC Glu Glass Worker ID Plasma Lactic Acid Parker 2.0 (0.7-2.0) mmol/L Calcium 10.2 (8.4-10.2) mg/dL Magnesium (1.6-2.3) mg/dL Total Bilirubin 1.2 (0.2-1.3) mg/dL AST 23 (17-59) U/L ALT 14 (4-49) U/L Alkaline Phosphatase 78 (38-126) U/L Creatine Kinase (55-170) U/L Troponin I (0.000-0.034) ng/mL Total Protein 6.7 (6.3-8.2) g/dL Albumin 4.4 (3.5-5.0) g/dL Globulin 2.3 g/dL Albumin/Globulin Ratio 1.9 Urine Color Urine Appearance (Clear) Urine pH (5.0-8.0) Ur Specific Concepcion (1.001-1.035) Urine Protein (Negative) Urine Glucose (UA) (Negative) Urine Ketones (Negative) Urine Blood (Negative) Urine Nitrite (Negative) Urine Bilirubin (Negative) Urine Urobilinogen (<2.0) mg/dL Ur Leukocyte Esterase (Negative) 04/21/25 Range/Units 05:46 WBC (4.50-10.00) 10*3/uL RBC (4.40-5.60) 10*6/uL Hgb (13.0-17.0) g/dL Hct (39.6-50.0) % MCV (80.0-97.0) fL MCH (27.0-32.0) pg MCHC (32.0-37.0) g/dL RDW (11.5-14.5) % Plt Count (140-440) 10*3/uL MPV (9.5-12.2) fL Immature Gran % (Auto) % Neutrophils % % Lymphocytes % % Monocytes % % Eosinophils % % Basophils % % Immature Gran # (0.00-0.04) 10*3/uL Neutrophils # (1.80-7.70) 10*3/uL Lymphocytes # (0.90-5.00) 10*3/uL Monocytes # (0.20-1.00) 10*3/uL Eosinophils # (0.04-0.35) 10*3/uL Basophils # (0.00-0.10) 10*3/uL PT (10.0-12.5) sec INR (<1.2) APTT (22.0-30.0) sec Sodium (137-145) mmol/L Potassium (3.5-5.1) mmol/L Chloride (98-107) mmol/L Carbon Dioxide (22-30) mmol/L Anion Gap mmol/L BUN (9-20) mg/dL Creatinine (0.66-1.25) mg/dL Est GFR (CKD-EPI)AfAm (>60 ml/min/1.73 sqM) Est GFR (CKD-EPI)NonAf (>60 ml/min/1.73 sqM) Glucose (74-99) mg/dL POC Glucose (mg/dL) (70-110) mg/dL POC Glu Glass Worker ID Plasma Lactic Acid Parker (0.7-2.0) mmol/L Calcium (8.4-10.2) mg/dL Magnesium (1.6-2.3) mg/dL Total Bilirubin (0.2-1.3) mg/dL AST (17-59) U/L ALT (4-49) U/L Alkaline Phosphatase (38-126) U/L Creatine Kinase (55-170) U/L Troponin I 0.051 H* (0.000-0.034) ng/mL Total Protein (6.3-8.2) g/dL Albumin (3.5-5.0) g/dL Globulin g/dL Albumin/Globulin Ratio Urine Color Urine Appearance (Clear) Urine pH (5.0-8.0) Ur Specific Concepcion (1.001-1.035) Urine Protein (Negative) Urine Glucose (UA) (Negative) Urine Ketones (Negative) Urine Blood (Negative) Urine Nitrite (Negative) Urine Bilirubin (Negative) Urine Urobilinogen (<2.0) mg/dL Ur Leukocyte Esterase (Negative) Disposition Clinical Impression: Tremors of nervous system, Dysarthria Disposition: ADMITTED IP TO THIS [facility] Condition: Serious Is patient prescribed a controlled substance at d/c from ED?: No Time of Disposition: 16:08 Decision to Admit Reason: Admit from EC Decision Date: 04/20/25 Decision Time: 16:08
[2025-04-20 15:50] LABS: Anion Gap 12 mmol/L; Blood Urea Nitrogen 27 mg/dL (9-20); Carbon Dioxide 29 mmol/L (22-30); Chloride 99 mmol/L (98-107); Glucose 136 mg/dL (74-99); Potassium 3.7 mmol/L (3.5-5.1); Sodium 140 mmol/L (137-145)
[2025-04-20 15:51] LABS: ALT 7 U/L (4-49); AST 21 U/L (17-59); African American GFR (CKD) >90 (>60 ml/min/1.73 sqM); Albumin 4.1 g/dL (3.5-5.0); Alkaline Phosphatase 82 U/L (38-126); Calcium 10.4 mg/dL (8.4-10.2); Creatine Kinase 102 U/L (55-170); Magnesium 1.9 mg/dL (1.6-2.3); Non-African American GFR(CKD) >90 (>60 ml/min/1.73 sqM); Total Protein 6.3 g/dL (6.3-8.2)
[2025-04-20] MEDS ORDERED: NALOXONE 0.4 MG/ML 1 ML VIAL IV PRN (16:08)
--- NOTE | 2025-04-20 16:19 | CT ---
EXAMINATION TYPE: CT brain wo con DATE OF EXAM: 04/20/2025 3:52 PM COMPARISON: 04/15/2025 CLINICAL INDICATION: Male, 74 years old with history of seizure activity, Hx of parkinsons, Recent fa ll, seizure activity. TECHNIQUE: CT of the brain is performed utilizing 3 mm thick sections through the posterior fossa and 3 mm thick sections through the remaining calvarium. Study is performed within 24 hours of arrival to the hospital. Contrast used: mL of , (none if empty) CT DLP: 1200.4 mGycm, Automated exposure control for dose reduction was used. FINDINGS: No abnormal hyperdensity is present to suggest an acute intracranial hemorrhage. No mass lesion is evident. No acute infarcts are evident. Mild periventricular white matter hypodensity is present, likely on th e basis of chronic white matter ischemic changes. Ventricles and sulci are prominent for the patient age. Paranasal sinuses and mastoid air cells within the [id number] are clear. IMPRESSION: 1. No acute intracranial process. Follow up MRI can be performed as clinically indicated. 2. [facility], , 04/20/2025 4:17 PM
--- NOTE | 2025-04-20 18:28 | XR ---
EXAMINATION TYPE: XR chest 2V DATE OF EXAM: 04/20/2025 6:16 PM COMPARISON: Chest radiographs from 02/16/2025. CLINICAL INDICATION: Male, 74 years old with history of altered mental status; [facility] TECHNIQUE: XR chest 2V Frontal and lateral views of the chest. FINDINGS: Lungs/Pleura: Low lung volumes are present. There is no evidence of pleural effusion, focal consolida tion, or pneumothorax. Pulmonary vascularity: Unremarkable. Heart/mediastinum: Cardiomediastinal silhouette is unremarkable. Musculoskeletal: No acute osseous pathology. Left shoulder arthroplasty appears intact. Right rotator cuff repair anchor thought to be present. IMPRESSION: Low lung volumes with a generalized hazy appearance which could represent atelectasis versus pulmonar y edema correlate with serum BNP. [facility], , 04/20/2025 6:26 PM
[2025-04-20] MEDS: PANTOPRAZOLE 40 MG/10 ML VIAL IVP SCH (19:22)
[2025-04-20] MEDS: SODIUM CHLORIDE 0.9% 1,000 ML IV SCH (19:22)
--- NOTE | 2025-04-20 20:52 | P.HPIM ---
History of Present Illness This is a pleasant 74 years old male with past medical history of multiple medical problems including history of Parkinson disease and he follows with Dr. Lawrence in the outpatient setting presents because been confused when he talks he forgets and he falls asleep a lot through the day also he has worsening jerking movements of both upper extremities. He has more pain on the left side he feels dizzy all the time. Information obtained with the help of family and at bedside He is on Sinemet 25-100 mg 2 tablets, 2 times, +3 tablets in the morning with a total of 7 tablets daily Patient denies smoking alcohol or illicit drugs Vital stable no fever. CBC BMP LFT were unremarkable Chest x-ray showing low lung volume with generalized haziness could be atelectasis versus CHF EKG showing A-fib with rate controlled at [address] of the brain negative for acute process but showing atrophy Review of Systems Review of systems CONSTITUTIONAL: No fever, no malaise, no fatigue. HEENT: No recent visual problems or hearing problems. Denied any sore throat. CARDIOVASCULAR: No orthopnea, PND, no palpitations, no syncope. PULMONARY: No shortness of breath, no cough, no hemoptysis. GASTROINTESTINAL: No diarrhea, no nausea, no vomiting, no abdominal pain. Normoactive bowel sounds. NEUROLOGICAL: No headaches, no weakness, no numbness. HEMATOLOGICAL: Denies any bleeding or petechiae. GENITOURINARY: Denies any burning micturition, frequency, or urgency. MUSCULOSKELETAL/RHEUMATOLOGICAL: Denies any joint pain, swelling, or any muscle pain. ENDOCRINE: Denies any polyuria or polydipsia. Past Medical History Past Medical History: Asthma, Diabetes Mellitus, GERD/Reflux, Hyperlipidemia, Hypertension, Neurologic Disorder, Prostate Disorder, Skin Disorder Additional Past Medical History / Comment(s): PSORIASIS,NIDDM,PARKINSONS, BPH, increased confusion recently History of Any Multi-Drug Resistant Organisms: None Reported Past Surgical History: Hernia Repair, Orthopedic Surgery Additional Past Surgical History / Comment(s): LEFT SHOULDER 01/08/23. RIGHT SHOULDER X 2., LT. INGUINAL HERNIA, UMB HERNIA. LEFT KNEE ARTHROSCOPY. LEFT SHOULDER ARTHROPLASTY. ACHILLES TENDON REPAIR X 2, Radio Frequency treatments on back, 04/28/2024 lumbar fusion. Past Anesthesia/Blood Transfusion Reactions: No Reported Reaction Past Psychological History: Anxiety, Depression Smoking Status: Former smoker Past Alcohol Use History: None Reported Past Drug Use History: None Reported Medications and Allergies Home Medications Medication Instructions Recorded Confirmed Type Albuterol Sulfate [Ventolin HFA] 2 puff INHALATION RT-Q6H PRN 09/26/19 04/20/25 History DULoxetine HCL [Cymbalta] 60 mg PO BID 09/26/19 04/20/25 History Enalapril [Vasotec] 10 mg PO BID 09/26/19 04/20/25 History Pravastatin Sodium [Pravachol] 40 mg PO HS 09/26/19 04/20/25 History metFORMIN HCL [Glucophage] 500 mg PO W/LUNCH 09/26/19 04/20/25 History HYDROcodone/APAP 7.5-325MG [[place] 1 tab PO BID 01/03/23 04/20/25 History 7.5-325] Tamsulosin HCl [Flomax] 0.4 mg PO DAILY@1600 01/03/23 04/20/25 History Albuterol Nebulized [Ventolin 2.5 mg INHALATION RT-QID PRN 06/26/24 04/20/25 History Nebulized] diphenhydrAMINE [Benadryl] 25 mg PO BID 06/26/24 04/20/25 History Boost High Protein 1 can PO TID-W/MEALS 02/16/25 04/20/25 History Carbidopa-Levodopa 25-100 mg 2 tab PO BID@0600,1800 02/16/25 04/20/25 History [Sinemet 25-100 mg] Carbidopa-Levodopa 25-100 mg 3 tab PO DAILY@1200 02/16/25 04/20/25 History [Sinemet 25-100] Cholecalciferol [Vitamin D3 (25 25 mcg PO DAILY 02/16/25 04/20/25 History Mcg = 1000 Iu)] Clobetasol Propionate [Temovate 1 applic TOPICAL DIRECTED 02/16/25 04/20/25 History 0.05% Oint] Cyanocobalamin (Vitamin B-12) 1,000 mcg PO SELLERS 02/16/25 04/20/25 History [Vitamin B-12] Fluocinonide 0.05% Topical Solution 1 applic TOPICAL BID PRN 02/16/25 04/20/25 History Galantamine HBr [Razadyne ER] 16 mg PO W/LUNCH 02/16/25 04/20/25 History Hydrocortisone Cream 1 applic TOPICAL BID PRN 02/16/25 04/20/25 History [Hydrocortisone 2.5% Cream] Ketoconazole 2% Cream [Nizoral 2%] 1 applic TOPICAL DAILY PRN 02/16/25 04/20/25 History QUEtiapine [SEROquel] 100 mg PO HS 02/16/25 04/20/25 History Vitamin B Complex 1 cap PO SELLERS 02/16/25 04/20/25 History amantadine HCL [Amantadine] 100 mg PO BID 02/16/25 04/20/25 History Budesonide/Formoterol Fumarate 2 puff INHALATION RT-BID 04/20/25 04/20/25 History [Symbicort 160-4.5 Mcg Inhaler] Diphenox-Atrop 2.5-0.025 mg 2 tab PO QID PRN 04/20/25 04/20/25 History [Lomotil] Liquid Iv 1 packet PO W/LUNCH 04/20/25 04/20/25 History Prazosin [Minipress] 4 mg PO HS 04/20/25 04/20/25 History bisacodyL [Dulcolax] 5 mg PO BID 04/20/25 04/20/25 History Allergies Allergy/AdvReac Type Severity Reaction Status Date / Time No Known Allergies Allergy Verified 04/20/25 16:23 Physical Exam Vitals: Vital Signs Temp Pulse Resp BP Pulse Ox 04/20/25 13:46 98.3 F 84 18 129/71 98 Intake and Output 04/20/25 04/20/25 04/20/25 06:59 14:59 22:59 Other: Weight 104.78 kg GENERAL: The patient is alert and oriented x3, not in any acute distress. Well developed, well nourished. HEENT: Pupils are round and equally reacting to light. EOMI. No scleral icterus. No conjunctival pallor. Normocephalic, atraumatic. No pharyngeal erythema. No thyromegaly. CARDIOVASCULAR: S1 and S2 present. No murmurs, rubs, or gallops. PULMONARY: Chest is clear to auscultation, no wheezing , no crackles. ABDOMEN: Soft, nontender, nondistended, normoactive bowel sounds. No palpable organomegaly. MUSCULOSKELETAL: No joint swelling or deformity. EXTREMITIES: No cyanosis, clubbing, or pedal edema. -NEUROLOGICAL: Gross neurological examination did not reveal any focal deficits. Patient has white drainage rhythmic movements of both upper extremities and to lesser extent of the both lower extremities, patient movement is restricted because of these involuntary movements SKIN: No rashes. no petechiae. Results CBC & Chem 7: 04/20/25 15:13 04/20/25 15:13 Labs: Abnormal Lab Results - Last 24 Hours (Table) 04/20/25 04/20/25 Range/Units 15:13 15:13 Neutrophils # 7.97 H (1.80-7.70) 10*3/uL BUN 27 H (9-20) mg/dL Glucose 136 H (74-99) mg/dL Calcium 10.4 H (8.4-10.2) mg/dL Assessment and Plan Assessment: Dyskinesia of both upper extremity, rule out worsening Parkinson disease versus (levodopa-induced dyskinesia) Parkinson disease Metabolic encephalopathy secondary to above A-fib with rate controlled Hypertension Hyperlipidemia Diabetes mellitus BPH Obesity with BMI of 36.2 Plan: Patient on Sinemet at home, high dose Neurology team consult for further recommendation regarding this involuntary movements Patient may benefit from amantadine however will defer this to neurology service Labs and medication were reviewed.. Continue same treatment. Continue with symptomatic treatment. Resume home medication. Monitor labs and vitals. DVT and GI prophylaxis. Further recommendations as per clinical course of the patient DVT prophylaxis: Subcutaneous heparin GI Prophylaxis: Pepcid PT/OT: Pending Prognosis is guarded
[2025-04-21 02:46] LABS: Glucose,Whole Blood 156 mg/dL (70-110)
[2025-04-21 03:07] LABS: Bilirubin,Urine Negative (Negative); Blood,Urine Negative (Negative); Color,Urine Yellow; Glucose,Urine (UA) Negative (Negative); Ketones,Urine 1+ (Negative); Leukocyte Esterase,Urine Negative (Negative); Nitrite,Urine Negative (Negative); PH, Urine 6.0 (5.0-8.0); Protein,Urine Trace (Negative); Specific Gravity,Urine 1.030 (1.001-1.035); Urobilinogen,Urine 3.0 mg/dL (<2.0)
[2025-04-21] MEDS: LORazepam 1 MG/0.5 ML VIAL IV PRN ×2 (03:56→04:33)
[2025-04-21 05:44] LABS: Basophils # (A) 0.03 10*3/uL (0.00-0.10); Basophils % (A) 0.2 %; Eosinophils # (A) 0.00 10*3/uL (0.04-0.35); Eosinophils % (A) 0.0 %; HCT 42.3 % (39.6-50.0); HGB 13.7 g/dL (13.0-17.0); Lymphocytes # (A) 0.77 10*3/uL (0.90-5.00); Lymphocytes % (A) 5.2 %; MCH 30.3 pg (27.0-32.0); MCHC 32.4 g/dL (32.0-37.0); MCV 93.6 fL (80.0-97.0); Monocytes # (A) 0.50 10*3/uL (0.20-1.00); Monocytes % (A) 3.4 %; Neutrophils # (A) 13.47 10*3/uL (1.80-7.70); Neutrophils % (A) 90.7 %; Platelet Count 199 10*3/uL (140-440); RBC 4.52 10*6/uL (4.40-5.60); RDW 13.7 % (11.5-14.5); WBC 14.84 10*3/uL (4.50-10.00)
[2025-04-21 05:51] LABS: African American GFR (CKD) >90 (>60 ml/min/1.73 sqM); Anion Gap 15 mmol/L; Blood Urea Nitrogen 37 mg/dL (9-20); Calcium 10.3 mg/dL (8.4-10.2); Carbon Dioxide 24 mmol/L (22-30); Chloride 100 mmol/L (98-107); Glucose 164 mg/dL (74-99); Non-African American GFR(CKD) >90 (>60 ml/min/1.73 sqM); Potassium 3.5 mmol/L (3.5-5.1); Sodium 139 mmol/L (137-145)
[2025-04-21 06:00] LABS: Basophils # (A) 0.03 10*3/uL (0.00-0.10); Basophils % (A) 0.2 %; Eosinophils # (A) 0.00 10*3/uL (0.04-0.35); Eosinophils % (A) 0.0 %; HCT 40.2 % (39.6-50.0); HGB 13.3 g/dL (13.0-17.0); Lymphocytes # (A) 0.80 10*3/uL (0.90-5.00); Lymphocytes % (A) 5.1 %; MCH 30.0 pg (27.0-32.0); MCHC 33.1 g/dL (32.0-37.0); MCV 90.7 fL (80.0-97.0); Monocytes # (A) 0.54 10*3/uL (0.20-1.00); Monocytes % (A) 3.4 %; Neutrophils # (A) 14.30 10*3/uL (1.80-7.70); Neutrophils % (A) 90.8 %; Platelet Count 218 10*3/uL (140-440); RBC 4.43 10*6/uL (4.40-5.60); RDW 13.5 % (11.5-14.5); WBC 15.75 10*3/uL (4.50-10.00)
[2025-04-21 06:16] LABS: ALT 14 U/L (4-49); AST 23 U/L (17-59); African American GFR (CKD) >90 (>60 ml/min/1.73 sqM); Albumin 4.4 g/dL (3.5-5.0); Albumin/Globulin Ratio 1.9; Alkaline Phosphatase 78 U/L (38-126); Anion Gap 11 mmol/L; Blood Urea Nitrogen 38 mg/dL (9-20); Calcium 10.2 mg/dL (8.4-10.2); Carbon Dioxide 27 mmol/L (22-30); Chloride 103 mmol/L (98-107); Globulin 2.3 g/dL; Glucose 162 mg/dL (74-99); Non-African American GFR(CKD) >90 (>60 ml/min/1.73 sqM); Potassium 3.5 mmol/L (3.5-5.1); Sodium 141 mmol/L (137-145); Total Protein 6.7 g/dL (6.3-8.2)
[2025-04-21] MEDS: ACETAMINOPHEN IV (For NPO) 1,000 MG in EMPTY BAG 1 BAG IVPB PRN (06:36)
[2025-04-21 07:08] LABS: INR 1.1 (<1.2); Partial Thromboplastin Time 23.9 sec (22.0-30.0); Prothrombin Time 11.7 sec (10.0-12.5)
[2025-04-21 07:42] LABS: Glucose,Whole Blood 145 mg/dL (70-110)
[2025-04-21] MEDS ORDERED: VANCOMYCIN IV PER PHARMACY 1 EACH MISC MISCELLANE PRN (08:11)
--- NOTE | 2025-04-21 09:13 | XR ---
EXAMINATION TYPE: XR chest 1V portable DATE OF EXAM: 04/21/2025 9:03 AM COMPARISON: Chest radiographs from 04/20/2025. CLINICAL INDICATION: Male, 74 years old with history of fever; [facility] TECHNIQUE: XR chest 1V portable Frontal view of the chest. FINDINGS: Lungs/Pleura: There is no evidence of pleural effusion, focal consolidation, or pneumothorax. Pulmonary vascularity: Pulmonary vascular congestion. Heart/mediastinum: Cardiomediastinal silhouette is enlarged. Musculoskeletal: No acute osseous pathology. Left shoulder arthroplasty appears intact. IMPRESSION: Cardiomegaly and mild pulmonary vascular congestion. Correlate with BNP for congestive heart failure. [facility], , 04/21/2025 9:11 AM
[2025-04-21] MEDS: DULoxetine HCL 60 MG CAPSULE.DR PO SCH (09:35)
[2025-04-21] MEDS: VANCOMYCIN 1,750 MG in SODIUM CHLORIDE 0.9% 500 ML 500 ML IVPB ONE (09:41)
--- NOTE | 2025-04-21 09:42 | P.PN ---
Subjective This is a pleasant 74 years old male with past medical history of multiple medical problems including history of Parkinson disease and he follows with Dr. Lawrence in the outpatient setting presents because been confused when he talks he forgets and he falls asleep a lot through the day also he has worsening jerking movements of both upper extremities. He has more pain on the left side he feels dizzy all the time. Information obtained with the help of family and at bedside He is on Sinemet 25-100 mg 2 tablets, 2 times, +3 tablets in the morning with a total of 7 tablets daily Patient denies smoking alcohol or illicit drugs Vital stable no fever. CBC BMP LFT were unremarkable Chest x-ray showing low lung volume with generalized haziness could be atelectasis versus CHF EKG showing A-fib with rate controlled at [address] of the brain negative for acute process but showing atrophy 04/21 Patient just came recently, he was seen less than 12 hours ago once came through ED for abnormal movements of the both upper extremity suspicious for dyskinesia associated with altered mental status Also patient spiked fever telephone ad taker. Temperature 101.1 Patient this morning looks the same still confused, still has both abnormal movements of the upper extremities similar to yesterday. Despite receiving several doses of Ativan no much improvement No other involuntary movements suspicious for seizure-like activity Blood culture sent. Patient started on antibiotics empirically with ceftriaxone 2 g and IV vancomycin. Also IV acyclovir 800 mg x 1 Repeat chest x-ray ordered showing cardiomegaly with mild pulmonary vascular congestion. Urinalysis showing no evidence of infection. There is no known rash or diarrhea. Labs reviewed showing WBC of 15.7. INR 1.1. Creatinine 0.7. Electrolytes normal. Troponins mildly elevated 0.051. Liver enzymes within the reference range. Also he is on amantadine. Also patient on Sinemet, deferred per neurologist Family at bedside including were updated with the management plan Active Medications Generic Name Dose Route Start Last Admin Trade Name Freq PRN Reason Stop Dose Admin Acetaminophen 120 mg 04/21/25 09:34 Acetaminophen Suppository 120 Mg Supp RECTAL 04/21/25 09:35 ONCE STA Hydrocodone Bitart/Acetaminophen 1 each 04/21/25 08:15 Hydrocodone/Apap 7.5-325mg 1 Each Tab PO BID PRN Pain Albuterol Sulfate 2.5 mg 04/21/25 08:15 Albuterol Nebulized 2.5 Mg/3 Ml INHALATION RT-Q6H PRN Shortness Of Breath Amantadine HCl 100 mg 04/21/25 09:00 04/21/25 09:34 Amantadine Hcl 100 Mg Cap PO Not Given BID DEVI Bisacodyl 5 mg 04/21/25 09:00 04/21/25 09:34 Bisacodyl 5 Mg Tablet. PO Not Given BID DEVI Duloxetine HCl 60 mg 04/21/25 09:00 04/21/25 09:35 Duloxetine Hcl 60 Mg Capsule. PO Not Given BID DEVI Heparin Sodium (Porcine) 5,000 unit 04/21/25 21:00 Heparin Sodium,Porcine 5,000 Unit/Ml 1 Ml Vial SQ Q12HR DEVI Sodium Chloride 1,000 mls @ 75 mls/hr 04/20/25 18:30 04/21/25 06:56 Saline 0.9% IV 75 mls/hr .[id number] DEVI Administration Acetaminophen 1,000 mg/ IV 100 mls @ 400 mls/hr 04/21/25 05:51 04/21/25 06:36 Solution IVPB 04/22/25 00:01 400 mls/hr Q6HR PRN Administration Fever Ceftriaxone Sodium 1 gm/ 50 mls @ 100 mls/hr 04/21/25 09:00 04/21/25 07:41 Sodium Chloride IVPB 100 mls/hr Q12HR DEVI Administration Protocol Acyclovir Sodium 800 mg/ 116 mls @ 100 mls/hr 04/21/25 09:45 Sodium Chloride IVPB 04/21/25 10:54 ONCE ONE Protocol Vancomycin HCl 1,750 mg/ 500 mls @ 167 mls/hr 04/21/25 08:30 Sodium Chloride IVPB 04/21/25 11:29 ONCE ONE Ceftriaxone Sodium 1 gm/ 50 mls @ 100 mls/hr 04/21/25 09:13 Sodium Chloride IVPB 04/21/25 09:42 ONCE STA Protocol Lorazepam 1 mg 04/21/25 04:25 04/21/25 04:33 Lorazepam 1 Mg/0.5 Ml Vial IV 0.5 mg Q3HR PRN Administration Anxiety Miscellaneous Information 1 each 04/21/25 08:11 Vancomycin Iv Per Pharmacy 1 Each Misc MISCELLANE DIRECTED PRN Per Protocol Protocol Naloxone HCl 0.2 mg 04/20/25 16:08 Naloxone 0.4 Mg/Ml 1 Ml Vial IV Q2M PRN Opioid Reversal Ondansetron HCl 4 mg 04/20/25 18:18 Ondansetron 4 Mg/2 Ml Vial IVP Q6HR PRN Nausea And Vomiting Pantoprazole Sodium 40 mg 04/20/25 18:19 04/20/25 19:22 Pantoprazole 40 Mg/10 Ml Vial IVP 40 mg DAILY DEVI Administration Quetiapine Fumarate 100 mg 04/21/25 21:00 Quetiapine 100 Mg Tab PO HS DEVI Tamsulosin HCl 0.4 mg 04/21/25 16:00 Tamsulosin 0.4 Mg Cap.Er.24h PO DAILY@1600 DEVI Objective - Vital Signs Vital signs: Vital Signs Temp 100.8 F H 04/21/25 08:10 Pulse 995 H 04/21/25 08:10 Resp 28 H 04/21/25 08:10 BP 108/86 04/21/25 08:10 Pulse Ox 94 L 04/21/25 08:10 FiO2 Intake & Output 04/20/25 04/21/25 04/21/25 18:59 06:59 18:59 Weight 104.78 kg - Exam -GENERAL: The patient is confused HEENT: Pupils are round and equally reacting to light. EOMI. No scleral icterus. No conjunctival pallor. Normocephalic, atraumatic. No pharyngeal erythema. No thyromegaly. CARDIOVASCULAR: S1 and S2 present. No murmurs, rubs, or gallops. PULMONARY: Chest is clear to auscultation, no wheezing , no crackles. ABDOMEN: Soft, nontender, nondistended, normoactive bowel sounds. No palpable organomegaly. MUSCULOSKELETAL: No joint swelling or deformity. EXTREMITIES: No cyanosis, clubbing, or pedal edema. -NEUROLOGICAL: Gross neurological examination did not reveal any focal deficits. Patient has white drainage rhythmic movements of both upper extremities and to lesser extent of the both lower extremities, patient movement is restricted ezequiel use of these involuntary movements SKIN: No rashes. no petechiae. - Labs CBC & Chem 7: 04/21/25 05:45 04/21/25 05:45 Labs: Abnormal Lab Results - Last 24 Hours (Table) 04/20/25 04/20/25 04/21/25 Range/Units 15:13 15:13 01:50 WBC (4.50-10.00) 10*3/uL Immature Gran # (0.00-0.04) 10*3/uL Neutrophils # 7.97 H (1.80-7.70) 10*3/uL Lymphocytes # (0.90-5.00) 10*3/uL Eosinophils # (0.04-0.35) 10*3/uL BUN 27 H (9-20) mg/dL Glucose 136 H (74-99) mg/dL POC Glucose (mg/dL) (70-110) mg/dL Calcium 10.4 H (8.4-10.2) mg/dL Troponin I (0.000-0.034) ng/mL Urine Protein Trace H (Negative) Urine Ketones 1+ H (Negative) 04/21/25 04/21/25 04/21/25 Range/Units 02:39 02:49 02:49 WBC 14.84 H (4.50-10.00) 10*3/uL Immature Gran # 0.07 H (0.00-0.04) 10*3/uL Neutrophils # 13.47 H (1.80-7.70) 10*3/uL Lymphocytes # 0.77 L (0.90-5.00) 10*3/uL Eosinophils # 0.00 L (0.04-0.35) 10*3/uL BUN 37 H (9-20) mg/dL Glucose 164 H (74-99) mg/dL POC Glucose (mg/dL) 156 H (70-110) mg/dL Calcium 10.3 H (8.4-10.2) mg/dL Troponin I (0.000-0.034) ng/mL Urine Protein (Negative) Urine Ketones (Negative) 04/21/25 04/21/25 04/21/25 Range/Units 05:45 05:45 05:46 WBC 15.75 H (4.50-10.00) 10*3/uL Immature Gran # 0.08 H (0.00-0.04) 10*3/uL Neutrophils # 14.30 H (1.80-7.70) 10*3/uL Lymphocytes # 0.80 L (0.90-5.00) 10*3/uL Eosinophils # 0.00 L (0.04-0.35) 10*3/uL BUN 38 H (9-20) mg/dL Glucose 162 H (74-99) mg/dL POC Glucose (mg/dL) (70-110) mg/dL Calcium (8.4-10.2) mg/dL Troponin I 0.051 H* (0.000-0.034) ng/mL Urine Protein (Negative) Urine Ketones (Negative) 04/21/25 Range/Units 07:41 WBC (4.50-10.00) 10*3/uL Immature Gran # (0.00-0.04) 10*3/uL Neutrophils # (1.80-7.70) 10*3/uL Lymphocytes # (0.90-5.00) 10*3/uL Eosinophils # (0.04-0.35) 10*3/uL BUN (9-20) mg/dL Glucose (74-99) mg/dL POC Glucose (mg/dL) 145 H (70-110) mg/dL Calcium (8.4-10.2) mg/dL Troponin I (0.000-0.034) ng/mL Urine Protein (Negative) Urine Ketones (Negative) Assessment and Plan Assessment: Dyskinesia of both upper extremity, rule out worsening Parkinson disease versus (levodopa-induced dyskinesia) fever unknown source , DDx: meningitis/encephalitis Metabolic encephalopathy secondary to above A-fib with rate controlled, with elevated troponin parkinson disease Hypertension Hyperlipidemia Diabetes mellitus BPH Obesity with BMI of 36.2 Plan: started and continue with IV ceftriaxone, IV vancomycin and follow-up blood culture results Acyclovir x 1 dose till evaluated by ID and neuro team Patient on Sinemet at home, high dose, deferred to neurologist resume amantadine Check echocardiogram Check viral panel with influenza and COVID and RSV Neurology team consult for further recommendation regarding this involuntary movements Patient may benefit from jacinto infectious disease team consult Cardiology team consult Labs and medication were reviewed.. Continue same treatment. Continue with symptomatic treatment. Resume home medication. Monitor labs and vitals. DVT and GI prophylaxis. Further recommendations as per clinical course of the patient DVT prophylaxis: Subcutaneous heparin GI Prophylaxis: Pepcid PT/OT: Pending, deferred Prognosis is guarded Family updated with the plan and all questions answered
[2025-04-21 10:31] LABS: RSV Not Detected (Not Detectd)
[2025-04-21] MEDS: ONDANSETRON 4 MG/2 ML VIAL IVP PRN (10:43)
--- NOTE | 2025-04-21 10:44 | CA ---
Transthoracic Echo Report Name: Noel Ortiz Age: 74 Gender: M : 1950 Exam Date: 04/21/2025 08:47 Exam Location: [place] [facility] Ht (in): 67 Wt (lb): 231 Ordering Physician: Allen Lane MD Attending/Referring Phys: Process Architect Harriet Storey RDCS Procedure CPT: Indications: Chest Pain Cardiac Hx: Technical Quality: Poor, Very technically difficult study Contrast 1: Total Dose (mL): Contrast 2: Total Dose (mL): MEASUREMENTS (Male / Female) Normal Values 2D ECHO LV Diastolic Diameter PLAX 4.9 cm 4.2 - 5.9 / 3.9 - 5.3 cm LV Systolic Diameter PLAX 2.8 cm IVS Diastolic Thickness 1.2 cm 0.6 - 1.0 / 0.6 - 0.9 cm LVPW Diastolic Thickness 0.9 cm 0.6 - 1.0 / 0.6 - 0.9 cm LV Relative Wall Thickness 0.4 RV Internal Dim ED PLAX 3.4 cm LA Systolic Diameter LX 5.2 cm 3.0 - 4.0 / 2.7 - 3.8 cm M-MODE Aortic Root Diameter MM 4.3 cm LA Systolic Diameter MM 5.2 cm LA Ao Ratio MM 1.2 AV Cusp Separation MM 2.4 cm DOPPLER AV Peak Velocity 147.5 cm/s AV Peak Gradient 8.7 mmHg AV Mean Velocity 118.5 cm/s AV Mean Gradient 6.0 mmHg AV Velocity Time Integral 28.4 cm LVOT Peak Velocity 97.7 cm/s LVOT Peak Gradient 3.8 mmHg LVOT Velocity Time Integral 19.6 cm Mitral E Point Velocity 67.2 cm/s Mitral A Point Velocity 66.2 cm/s Mitral E to A Ratio 1.0 MV Deceleration Time 237.4 ms MV E' Velocity 14.7 cm/s Mitral E to MV E' Ratio 4.6 TR Peak Velocity 198.9 cm/s TR Peak Gradient 15.8 mmHg Right Ventricular Systolic Press 20.8 mmHg FINDINGS Left Ventricle Left ventricular ejection fraction is estimated at 55-60 %. Mildly increased septal wall thickness. Normal left ventricular systolic function with no obvious regional wall motion abnormalities. Left ventricular cavity size normal. Right Ventricle Moderate right ventricular dilatation. Right ventricular systolic pressure within normal limits. Right Atrium Mild right atrial dilatation. Left Atrium Moderately increased left atrial diameter. Mitral Valve Structurally normal mitral valve. Trace mitral regurgitation. No mitral stenosis. Aortic Valve Aortic valve not well visualized. No aortic valve stenosis or regurgitation. Tricuspid Valve Tricuspid valve not well visualized. Mild tricuspid regurgitation. No tricuspid stenosis. Pulmonic Valve Pulmonic valve not well visualized. Pericardium Minimal pericardial effusion (normal variant). No pleural effusion. Echo free space anterior to the right ventricle likely represents a fat pad. Aorta Mild aortic dilatation at the level of the sinuses of valsalva (root), 4.3cm. CONCLUSIONS Reason for echo: Chest pain Uncooperative patient, [place] difficult study. Definity contrast used Normal LV size and function RV enlargement thickened pericardium without any significant effusion Previewed by: Dr. Tevin Hernandez MD (Electronically Signed) Final Date: 21 April 2025 10:43
[2025-04-21] MEDS: ACETAMINOPHEN SUPPOSITORY 120 MG SUPP RECTAL ONE (13:13)
[2025-04-21] MEDS: ACYCLOVIR SODIUM 800 MG in SODIUM CHLORIDE 0.9% 100 ML IVPB ONE (13:14)
[2025-04-21] MEDS: clonazePAM 0.5 MG TAB PO SCH (14:36)
[2025-04-21] MEDS: TAMSULOSIN 0.4 MG CAP.ER.24H PO SCH (16:16)
--- NOTE | 2025-04-21 17:20 | P.CNNES ---
History of Present Illness Consult date: 04/21/25 Requesting physician: Lizette Emanuel Reason for Consult: acute tremors, dysarthria, hx parkinsons History of Present Illness: Patient is a 74-year-old male with history of Parkinson's disease, cognitive impairment, possible Lewy body dementia, came to the hospital by ambulance yesterday at 1:43 PM for altered mental status. Patient's and patient's daughter were present, who provided with a history. Patient apparently has been doing quite well, walking without any assistive device. On 04/15/2025, he had a fall while taking shower, hit his left side. His left side has been hurting since then. About 3 days ago, patient has been complaining of feeling hot all the time, started having shaking, yelling. Patient's noticed that about 2 days ago his coordination was off. His wound was out of alignment with his mouth. His balance has got worse in the last 2 days. He has fallen a lot in the past month. His tremors have got worse since he has been to the hospital. Patient's family mentions that in April 2024 after his back surgery, he developed severe encephalopathy, and lost memory and balance. He was in rehab for 3 to 4 weeks before he got better. He improved to the point that he was walking on his own without any assistive device. Since the fall on 04/15/2025, he has regressed as above. She mentions that when he is awake, he is not tremoring. However when he is sleeping, or drowsy, that is when he gets all these myoclonic jerks. He could be having open eyes, but sleeping. He probably has REM behavior disorder. Patient's limb movements have been worse in the last few days. Also has been hallucinating. As per EMS flowsheet patient's vitals at the scene was blood pressure 122/44, pulse rate 97, respiration 14, blood sugar 196. They were called for "nonstop seizure". Patient's on the scene states that he kept flailing his arms and screaming and not making any sense and went he would stop "he would be staring off like he was there, but not there". She states that it started about 10 minutes prior to calling but that he has not been acting right for the past couple of days. noted that a couple of days ago, he fell and he was taken to the hospital and they did x-rays and scans and was everything fine. At this time patient is able to answer most questions, alert and orient x 3-4. states patient has MS. Stroke scale revealed no arm drift but positive for speech abnormalities and no facial droop. mentioned that speech abnormalities comes and goes for the patient. Patient had no seizure-like activity during care by EMS. Vital signs in the hospital with Tmax of 101.1. Blood pressure 132/78. Blood test shows elevated WBC 14.84, hemoglobin 13.7, platelets 199. PT PTT normal, CMP normal. Troponin mildly elevated 0.051. Influenza, RSV and coronavirus PCR negative. UA negative. CT head showed no acute intracranial process. Follow- up MRI can be performed as clinically indicated. Atrophy. EKG showed atrial fibrillation. Chest x-ray showed cardiomegaly and mild pulmonary vascular congestion. Correlate with BNP for congestive heart failure. Patient had a prolonged EEG performed on 07/01/2024, which was abnormal due to background slowing of mild to moderate degree. This is suggestive of generalized cerebral dysfunction as can be seen with encephalopathy due to metabolic, vascular or degenerative causes. No focal, lateralized or epileptiform activity was seen. No electrographic seizure was recorded. Another EEG done on 06/27/2024 reported mild encephalopathy but there were sharply contoured activity more on the left as compared to right central and bilateral temporal which can increase risk of focal cortical irritability. Patient's home medications include pravastatin 40 mg, enalapril, Cymbalta, metformin, Flomax, [place], Razadyne ER 60 mg Sinemet 25/10o, 3 to 2/h by [facility] currently in creatinine level will be exceeding [facility], radiographic renal to go up when [place] contact getting a tablets daily, Seroquel 100 mg at bedtime, B12, amantadine 100 mg twice daily Sinemet 25/100, 2 tablet twice daily prazosin. Review of Systems All pertinent positive and negative review of systems mentioned in the HPI. Past Medical History Past Medical History: Asthma, Diabetes Mellitus, GERD/Reflux, Hyperlipidemia, Hypertension, Neurologic Disorder, Prostate Disorder, Skin Disorder Additional Past Medical History / Comment(s): PSORIASIS,NIDDM,PARKINSONS, BPH, increased confusion recently History of Any Multi-Drug Resistant Organisms: None Reported Past Surgical History: Hernia Repair, Orthopedic Surgery Additional Past Surgical History / Comment(s): LEFT SHOULDER 01/08/23. RIGHT SHOULDER X 2., LT. INGUINAL HERNIA, UMB HERNIA. LEFT KNEE ARTHROSCOPY. LEFT SHOULDER ARTHROPLASTY. ACHILLES TENDON REPAIR X 2, Radio Frequency treatments on back, 04/28/2024 lumbar fusion. Past Anesthesia/Blood Transfusion Reactions: No Reported Reaction Past Psychological History: Anxiety, Depression Smoking Status: Former smoker Past Alcohol Use History: None Reported Past Drug Use History: None Reported Medications and Allergies Home Medications Medication Instructions Recorded Confirmed Type Albuterol Sulfate [Ventolin HFA] 2 puff INHALATION RT-Q6H PRN 09/26/19 04/20/25 History DULoxetine HCL [Cymbalta] 60 mg PO BID 09/26/19 04/20/25 History Enalapril [Vasotec] 10 mg PO BID 09/26/19 04/20/25 History Pravastatin Sodium [Pravachol] 40 mg PO HS 09/26/19 04/20/25 History metFORMIN HCL [Glucophage] 500 mg PO W/LUNCH 09/26/19 04/20/25 History HYDROcodone/APAP 7.5-325MG [[place] 1 tab PO BID 01/03/23 04/20/25 History 7.5-325] Tamsulosin HCl [Flomax] 0.4 mg PO DAILY@1600 01/03/23 04/20/25 History Albuterol Nebulized [Ventolin 2.5 mg INHALATION RT-QID PRN 06/26/24 04/20/25 History Nebulized] diphenhydrAMINE [Benadryl] 25 mg PO BID 06/26/24 04/20/25 History Boost High Protein 1 can PO TID-W/MEALS 02/16/25 04/20/25 History Carbidopa-Levodopa 25-100 mg 2 tab PO BID@0600,1800 02/16/25 04/20/25 History [Sinemet 25-100 mg] Carbidopa-Levodopa 25-100 mg 3 tab PO DAILY@1200 02/16/25 04/20/25 History [Sinemet 25-100] Cholecalciferol [Vitamin D3 (25 25 mcg PO DAILY 02/16/25 04/20/25 History Mcg = 1000 Iu)] Clobetasol Propionate [Temovate 1 applic TOPICAL DIRECTED 02/16/25 04/20/25 History 0.05% Oint] Cyanocobalamin (Vitamin B-12) 1,000 mcg PO SELLERS 02/16/25 04/20/25 History [Vitamin B-12] Fluocinonide 0.05% Topical Solution 1 applic TOPICAL BID PRN 02/16/25 04/20/25 History Galantamine HBr [[place]azady[place] ER] 16 mg PO W/LUNCH 02/16/25 04/20/25 History Hydrocortisone Cream 1 applic TOPICAL BID PRN 02/16/25 04/20/25 History [Hydrocortisone 2.5% Cream] Ketoconazole 2% Cream [Nizoral 2%] 1 applic TOPICAL DAILY PRN 02/16/25 04/20/25 History QUEtiapine [SEROquel] 100 mg PO HS 02/16/25 04/20/25 History Vitamin B Complex 1 cap PO SELLERS 02/16/25 04/20/25 History amantadine HCL [Amantadine] 100 mg PO BID 02/16/25 04/20/25 History Budesonide/Formoterol Fumarate 2 puff INHALATION RT-BID 04/20/25 04/20/25 History [Symbicort 160-4.5 Mcg Inhaler] Diphenox-Atrop 2.5-0.025 mg 2 tab PO QID PRN 04/20/25 04/20/25 History [Lomotil] Liquid Iv 1 packet PO W/LUNCH 04/20/25 04/20/25 History Prazosin [Minipress] 4 mg PO HS 04/20/25 04/20/25 History bisacodyL [Dulcolax] 5 mg PO BID 04/20/25 04/20/25 History Allergies Allergy/AdvReac Type Severity Reaction Status Date / Time No Known Allergies Allergy Verified 04/20/25 16:23 Physical Examination - Vital Signs Vital Signs: Vital Signs Temp Pulse Resp BP Pulse Ox 04/21/25 09:32 100.5 F H 96 28 H 108/73 94 L 04/21/25 08:10 100.8 F H 95 28 H 108/86 94 L 04/21/25 07:53 100.8 F H 92 28 H 133/61 93 L 04/21/25 07:29 101.1 F H 105 H 30 H 104/77 95 04/21/25 05:55 100.8 F H 90 30 H 137/96 95 04/21/25 05:04 98.3 F 98 20 103/89 94 L 04/21/25 01:48 89 19 149/96 95 04/20/25 22:14 98.9 F 89 18 145/75 93 L 04/20/25 21:23 83 18 132/78 04/20/25 13:46 98.3 F 84 18 129/71 98 Patient is an elderly male, who is acutely delirious, restless, having continuous myoclonic jerks of his arms and legs. He is having hallucinations. Patient is severely encephalopathic. Patient is somewhat obtunded. He mumbles, making unintelligible speech. Attention, concentration and fund of knowledge are all severely limited. Sometimes patient has myoclonic jerks, with manage hold bed moves. He then does bicycling of his legs. Then he sometimes brings his arms up in the air. Patient is very flushed with all this activity. No obvious seizure-like activity noted. On cranial nerve examination, pupils are equal, round and reacting to light, visual amado could not be tested. Face is symmetric. Other cranial nerves cannot be tested because of not cooperation and altered mental status. On muscle strength testing, there is no pronator drift and the strength is normal in arms and legs distally and proximally. Deep tendon reflexes are symmetric 1-1+ and plantars downgoing. Sensory to touch cannot be assessed. He does move all 4 extremities. Cerebellar function showed no ataxia for [id number] testing. No dysdiadochokinesia. No ataxia for [id number] testing on either side. Tone is severely increased in the legs, mildly in the arms and bulk of muscles normal. Gait deferred.. On general examination, there is no carotid bruit or murmur, S1-S2 audible. Chest is clear on consultation. Abdomen is soft but protuberant, and nontender. No organomegaly, bowel sounds present. Peripheral pulses are present. No peripheral edema. Results - Laboratory Findings CBC and BMP: 04/21/25 05:45 04/21/25 05:45 Abnormal Lab Findings: Abnormal Labs 04/20/25 04/20/25 04/21/25 15:13 15:13 01:50 WBC Immature Gran # Neutrophils # 7.97 H Lymphocytes # Eosinophils # BUN 27 H Glucose 136 H POC Glucose (mg/dL) Calcium 10.4 H Troponin I Urine Protein Trace H Urine Ketones 1+ H 04/21/25 04/21/25 04/21/25 02:39 02:49 02:49 WBC 14.84 H Immature Gran # 0.07 H Neutrophils # 13.47 H Lymphocytes # 0.77 L Eosinophils # 0.00 L BUN 37 H Glucose 164 H POC Glucose (mg/dL) 156 H Calcium 10.3 H Troponin I Urine Protein Urine Ketones 04/21/25 04/21/25 04/21/25 05:45 05:45 05:46 WBC 15.75 H Immature Gran # 0.08 H Neutrophils # 14.30 H Lymphocytes # 0.80 L Eosinophils # 0.00 L BUN 38 H Glucose 162 H POC Glucose (mg/dL) Calcium Troponin I 0.051 H* Urine Protein Urine Ketones 04/21/25 07:41 WBC Immature Gran # Neutrophils # Lymphocytes # Eosinophils # BUN Glucose POC Glucose (mg/dL) 145 H Calcium Troponin I Urine Protein Urine Ketones Assessment and Plan Assessment: * Altered mental status, likely due to acute delirium. This is likely due to some other medical/metabolic condition. Patient has low-grade fever. Rule out occult infection. Rule out CHF or pneumonia. UA is negative. * Myoclonic jerks, likely due to acute delirium. * New onset atrial fibrillation. * Longstanding history of hallucinations for last 2 year, progressively getting worse, particularly since his recent back surgery. * Parkinson's disease, follows up with Dr. Lawrence. 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 * History of lumbosacral surgery on 04/28/2024. * Low normal vitamin B12 of 364 in March 2024 * History of Vitamin B6 deficiency Plan: * Resume Sinemet. He has not received his Sinemet since yesterday afternoon dose. This is making his parkinsonism worse on top of his myoclonic jerks from delirium. * Resume amantadine. * Requip was considered for PLMS, but can make hallucinations worse. * We will try Klonopin 0.25 mg twice daily for possible REM behavior disorder. Patient also has not slept well for last few days, which can also make delirium worse. * May need NG tube placement, if patient not able to swallow. * Agree with infectious disease consult to evaluate for occult infection. P atient empirically started on ceftriaxone. * Agree with cardiology consultation for possible CHF, elevated cardiac enzymes and atrial fibrillation. * 2D echo revealed LVEF 55 to 60%. Mildly increased septal wall thickness. No obvious regional wall motion abnormalities. Moderate right ventricular di lation. Moderately increased left atrial diameter. No significant valvular abnormalities. Thickened pericardium without any significant effusion. * Discussed with patient's family and nursing staff. * Neurology will follow. Thank you for the consult. Time with Patient: Greater than 30
--- NOTE | 2025-04-21 22:49 | P.CONS ---
History of Present Illness - Reason for Consult Consult date: 04/21/25 Sepsis Requesting physician: Sarthak Wilcox - Chief Complaint Weakness and seizure-like activity x 1 day - History of Present Illness Patient is a 74-year-old male with a past medical history significant for Asthma, Diabetes Mellitus, GERD/Reflux, Hyperlipidemia, Hypertension, Neurologic Disorder, Prostate Disorder, Skin Disorder has been brought into the hospital yesterday afternoon for evaluation of possible seizure-like activity apparently the patient has fallen 6 times in the last 2 weeks the patient was noticed at home to have incomprehensible speech and spastic movements of the extremities which was brought into concern for possible seizure activity on presentation to the hospital the patient was afebrile however the patient started running a fever this morning with a temperature as high as 101.1 F around 7:30 AM patient was tachycardic as well as tachypneic but not hypotensive or hypoxic no need for supplemental oxygen patient did have elevated white count of 15.75 with a left shift creatinine 0.7 electrolyte has been normal her liver isms are normal troponin is elevated influenza RSV COVID testing was negative patient did have a CT of the brain that was negative for any bleed did show some atrophy chest x-ray low lung volume generalized hazy appearance initially with a repeat chest x-ray this morning with mild pulmonary vascular congestion patient has been empirically started on ceftriaxone vancomycin and received a dose of acyclovir infectious disease was consulted this morning for possible sepsis most information has been obtained from review of the chart talking nursing staff as the patient has received sedation and is completely altered no family member at the bedside Review of Systems Positive points has been mentioned in HPI complete review could not be obtained because of his underlying mental status Past Medical History Past Medical History: Asthma, Diabetes Mellitus, GERD/Reflux, Hyperlipidemia, Hypertension, Neurologic Disorder, Prostate Disorder, Skin Disorder Additional Past Medical History / Comment(s): PSORIASIS,NIDDM,PARKINSONS, BPH, increased confusion recently History of Any Multi-Drug Resistant Organisms: None Reported Past Surgical History: Hernia Repair, Orthopedic Surgery Additional Past Surgical History / Comment(s): LEFT SHOULDER 01/08/23. RIGHT SHOULDER X 2., LT. INGUINAL HERNIA, UMB HERNIA. LEFT KNEE ARTHROSCOPY. LEFT S HOULDER ARTHROPLASTY. ACHILLES TENDON REPAIR X 2, Radio Frequency treatments on back, 04/28/2024 lumbar fusion. Past Anesthesia/Blood Transfusion Reactions: No Reported Reaction Past Psychological History: Anxiety, Depression Smoking Status: Former smoker Past Alcohol Use History: None Reported Past Drug Use History: None Reported Medications and Allergies Home Medications Medication Instructions Recorded Confirmed Type Albuterol Sulfate [Ventolin HFA] 2 puff INHALATION RT-Q6H PRN 09/26/19 04/20/25 History DULoxetine HCL [Cymbalta] 60 mg PO BID 09/26/19 04/20/25 History Enalapril [Vasotec] 10 mg PO BID 09/26/19 04/20/25 History Pravastatin Sodium [Pravachol] 40 mg PO HS 09/26/19 04/20/25 History metFORMIN HCL [Glucophage] 500 mg PO W/LUNCH 09/26/19 04/20/25 History HYDROcodone/APAP 7.5-325MG [[place] 1 tab PO BID 01/03/23 04/20/25 History 7.5-325] Tamsulosin HCl [Flomax] 0.4 mg PO DAILY@1600 01/03/23 04/20/25 History Albuterol Nebulized [Ventolin 2.5 mg INHALATION RT-QID PRN 06/26/24 04/20/25 History Nebulized] diphenhydrAMINE [Benadryl] 25 mg PO BID 06/26/24 04/20/25 History Boost High Protein 1 can PO TID-W/MEALS 02/16/25 04/20/25 History Carbidopa-Levodopa 25-100 mg 2 tab PO BID@0600,1800 02/16/25 04/20/25 History [Sinemet 25-100 mg] Carbidopa-Levodopa 25-100 mg 3 tab PO DAILY@1200 02/16/25 04/20/25 History [Sinemet 25-100] Cholecalciferol [Vitamin D3 (25 25 mcg PO DAILY 02/16/25 04/20/25 History Mcg = 1000 Iu)] Clobetasol Propionate [Temovate 1 applic TOPICAL DIRECTED 02/16/25 04/20/25 History 0.05% Oint] Cyanocobalamin (Vitamin B-12) 1,000 mcg PO SELLERS 02/16/25 04/20/25 History [Vitamin B-12] Fluocinonide 0.05% Topical Solution 1 applic TOPICAL BID PRN 02/16/25 04/20/25 History Galantamine HBr [[place]azadyne ER] 16 mg PO W/LUNCH 02/16/25 04/20/25 History Hydrocortisone Cream 1 applic TOPICAL BID PRN 02/16/25 04/20/25 History [Hydrocortisone 2.5% Cream] Ketoconazole 2% Cream [Nizoral 2%] 1 applic TOPICAL DAILY PRN 02/16/25 04/20/25 History QUEtiapine [SEROquel] 100 mg PO HS 02/16/25 04/20/25 History Vitamin B Complex 1 cap PO SELLERS 02/16/25 04/20/25 History amantadine HCL [Amantadine] 100 mg PO BID 02/16/25 04/20/25 History Budesonide/Formoterol Fumarate 2 puff INHALATION RT-BID 04/20/25 04/20/25 History [Symbicort 160-4.5 Mcg Inhaler] Diphenox-Atrop 2.5-0.025 mg 2 tab PO QID PRN 04/20/25 04/20/25 History [Lomotil] Liquid Iv 1 packet PO W/LUNCH 04/20/25 04/20/25 History Prazosin [Minipress] 4 mg PO HS 04/20/25 04/20/25 History bisacodyL [Dulcolax] 5 mg PO BID 04/20/25 04/20/25 History Allergies Allergy/AdvReac Type Severity Reaction Status Date / Time No Known Allergies Allergy Verified 04/20/25 16:23 Physical Exam Vitals: Vital Signs Temp Pulse Resp BP Pulse Ox 04/21/25 09:32 100.5 F H 96 28 H 108/73 94 L 04/21/25 08:10 100.8 F H 95 28 H 108/86 94 L 04/21/25 07:53 100.8 F H 92 28 H 133/61 93 L 04/21/25 07:29 101.1 F H 105 H 30 H 104/77 95 04/21/25 05:55 100.8 F H 90 30 H 137/96 95 04/21/25 05:04 98.3 F 98 20 103/89 94 L 04/21/25 01:48 89 19 149/96 95 04/20/25 22:14 98.9 F 89 18 145/75 93 L 04/20/25 21:23 83 18 132/78 04/20/25 13:46 98.3 F 84 18 129/71 98 GENERAL DESCRIPTION: Elderly male lying in bed, no distress. No tachypnea or accessory muscle of respiration use. HEENT: Shows Pallor , no scleral icterus. Oral mucous membrane is dry. NECK: Trachea central, no thyromegaly. LUNGS: Unlabored breathing. Decreased breath sound at base HEART: S1, S2, regular rate and rhythm. ABDOMEN: Soft, no tenderness , EXTREMITIES: No edema of feet. SKIN: No rash, no masses palpable. NEUROLOGICAL: The patient is unresponsive and did have some neck rigidity Results CBC & Chem 7: 04/22/25 07:01 04/22/25 07:01 Labs: Abnormal Lab Results - Last 24 Hours (Table) 04/20/25 04/20/25 04/21/25 Range/Units 15:13 15:13 01:50 WBC (4.50-10.00) 10*3/uL Immature Gran # (0.00-0.04) 10*3/uL Neutrophils # 7.97 H (1.80-7.70) 10*3/uL Lymphocytes # (0.90-5.00) 10*3/uL Eosinophils # (0.04-0.35) 10*3/uL BUN 27 H (9-20) mg/dL Glucose 136 H (74-99) mg/dL POC Glucose (mg/dL) (70-110) mg/dL Calcium 10.4 H (8.4-10.2) mg/dL Troponin I (0.000-0.034) ng/mL Urine Protein Trace H (Negative) Urine Ketones 1+ H (Negative) 04/21/25 04/21/25 04/21/25 Range/Units 02:39 02:49 02:49 WBC 14.84 H (4.50-10.00) 10*3/uL Immature Gran # 0.07 H (0.00-0.04) 10*3/uL Neutrophils # 13.47 H (1.80-7.70) 10*3/uL Lymphocytes # 0.77 L (0.90-5.00) 10*3/uL Eosinophils # 0.00 L (0.04-0.35) 10*3/uL BUN 37 H (9-20) mg/dL Glucose 164 H (74-99) mg/dL POC Glucose (mg/dL) 156 H (70-110) mg/dL Calcium 10.3 H (8.4-10.2) mg/dL Troponin I (0.000-0.034) ng/mL Urine Protein (Negative) Urine Ketones (Negative) 04/21/25 04/21/25 04/21/25 Range/Units 05:45 05:45 05:46 WBC 15.75 H (4.50-10.00) 10*3/uL Immature Gran # 0.08 H (0.00-0.04) 10*3/uL Neutrophils # 14.30 H (1.80-7.70) 10*3/uL Lymphocytes # 0.80 L (0.90-5.00) 10*3/uL Eosinophils # 0.00 L (0.04-0.35) 10*3/uL BUN 38 H (9-20) mg/dL Glucose 162 H (74-99) mg/dL POC Glucose (mg/dL) (70-110) mg/dL Calcium (8.4-10.2) mg/dL Troponin I 0.051 H* (0.000-0.034) ng/mL Urine Protein (Negative) Urine Ketones (Negative) 04/21/25 Range/Units 07:41 WBC (4.50-10.00) 10*3/uL Immature Gran # (0.00-0.04) 10*3/uL Neutrophils # (1.80-7.70) 10*3/uL Lymphocytes # (0.90-5.00) 10*3/uL Eosinophils # (0.04-0.35) 10*3/uL BUN (9-20) mg/dL Glucose (74-99) mg/dL POC Glucose (mg/dL) 145 H (70-110) mg/dL Calcium (8.4-10.2) mg/dL Troponin I (0.000-0.034) ng/mL Urine Protein (Negative) Urine Ketones (Negative) Assessment and Plan (1) Sepsis Current Visit: Yes Status: Acute Code(s): A41.9 - SEPSIS, UNSPECIFIED ORGANISM SNOMED Code(s): 17291511 Plan: 1patient presented to the hospital with weakness and did have some spastic mov ement of the extremities concerning for possible seizure subsequently the patient started having a fever patient did have tachypnea and tachycardia elevated white count meeting currently for SIRS/sepsis source will be likely [employer] infection in this patient did have a negative UA chest x-ray x 2 has been negative for any pneumonia abdomen is soft and no evidence of any cellulitis or joint swelling 2-patient needs LP for CSF examination and sending the fluid for Gram stain cell count glucose and protein 3-patient has been empirically started on vancomycin and ceftriaxone and has received a dose of acyclovir will be continued until the workup is completed Prognosis guarded We will follow on clinical condition and cultures to further adjust medication if needed Thank you for this consultation we will follow the patient along with you Dictation was produced using [employer] dictation software. please excuse any grammatical, word or spelling errors. Time with Patient: Greater than 30
[2025-04-22] MEDS: HEPARIN SODIUM,PORCINE 5,000 UNIT/ML 1 ML VIAL SQ SCH (00:09)
[2025-04-22] MEDS: VANCOMYCIN 1,500 MG in SODIUM CHLORIDE 0.9% 500 ML 500 ML IVPB SCH (00:10)
[2025-04-22] MEDS: QUEtiapine 100 MG TAB PO SCH (00:10)
[2025-04-22] MEDS: SODIUM CHLORIDE 0.9% IVPB SCH (00:46)
[2025-04-22] MEDS: ACYCLOVIR SODIUM IVPB SCH (00:46)
[2025-04-22 07:32] LABS: Basophils # (A) 0.04 10*3/uL (0.00-0.10); Basophils % (A) 0.3 %; Eosinophils # (A) 0.15 10*3/uL (0.04-0.35); Eosinophils % (A) 1.2 %; HCT 35.3 % (39.6-50.0); HGB 11.5 g/dL (13.0-17.0); Lymphocytes # (A) 1.29 10*3/uL (0.90-5.00); Lymphocytes % (A) 10.6 %; MCH 30.3 pg (27.0-32.0); MCHC 32.6 g/dL (32.0-37.0); MCV 93.1 fL (80.0-97.0); Monocytes # (A) 0.71 10*3/uL (0.20-1.00); Monocytes % (A) 5.9 %; Neutrophils # (A) 9.89 10*3/uL (1.80-7.70); Neutrophils % (A) 81.6 %; Platelet Count 182 10*3/uL (140-440); RBC 3.79 10*6/uL (4.40-5.60); RDW 13.8 % (11.5-14.5); WBC 12.13 10*3/uL (4.50-10.00)
[2025-04-22 08:28] LABS: African American GFR (CKD) >90 (>60 ml/min/1.73 sqM); Anion Gap 9 mmol/L; Blood Urea Nitrogen 41 mg/dL (9-20); Calcium 8.8 mg/dL (8.4-10.2); Carbon Dioxide 28 mmol/L (22-30); Chloride 107 mmol/L (98-107); Glucose 100 mg/dL (74-99); Non-African American GFR(CKD) >90 (>60 ml/min/1.73 sqM); Sodium 144 mmol/L (137-145)
[2025-04-22 08:43] LABS: Potassium 2.7 mmol/L (3.5-5.1)
[2025-04-22] MEDS ORDERED: Potassium Replacement Protocol 1 EACH MISC MISCELLANE PRN ×2 (09:02→09:17)
[2025-04-22] MEDS: POTASSIUM CHLORIDE 10 MEQ in WATER FOR INJECTION 1 100ML.BAG IVPB SCH (10:24)
[2025-04-22] MEDS ORDERED: DIPHENOX-ATROP 2.5-0.025 MG 1 EACH TAB PO PRN (13:07)
--- NOTE | 2025-04-22 13:31 | P.CRDCN ---
History of Present Illness Consult date: 04/22/25 History of present illness: HISTORY OF PRESENTING ILLNESS: 74-year-old with PMH of Parkinson disease, and other memory issues follows up with Dr. Lawrence. He presented because of concerns of increased confusion, worsening jerky movements of upper extremities. Cardiology was consulted for finding of atrial fibrillation on EKG. At this time he is rate controlled. He is not able to provide any cardiac history at this time. Labs shows hemoglobin of 11.5, BUN 41, creatinine 0.7, potassium of 2.7, magnesium of 1.9. NT-proBNP 2330 Echo from this admission is a very technically difficult study as patient was noncompliant and moving. Overall EF appeared preserved with a EF of 55%. No pericardial effusion. RV appeared dilated. ................................... ................................................................................ .................... REVIEW OF SYSTEMS: 14 point review of system is negative except what is mentioned above in HPI. .. ................................................................................ ............................................................ PHYSICAL EXAMINATION: Neck: Brisk carotid upstroke, no jugular venous distention. Lungs: Clear to auscultation. Heart: Irregular rate and rhythm, S1-S2, , no murmur or rub. Abdomen: Soft nontender, positive bowel sounds. Extremities: No edema, intact distal pulses. Neuro: Not oriented to time place and person, confused, jerking movements of upper extremity noticed. Detailed neuroexam was not performed ..................................................... ................................................................................ ......... ASSESSMENT: # Paroxysmal atrial fibrillation, currently in A-fib rate controlled # Jerky upper extremity movements with increased confusion. # Supranuclear Passy with concerns of Parkinson's disease # Memory impairment # Debility and frailty # Gait instability PLAN: Patient is not an appropriate candidate for anticoagulation because of increased gait instability and frequent jerking movements along with confusion and memory impairment. I discussed this with patient's and we had come up with a shared decision making of not doing anticoagulation at this time. She understands the risk of stroke. Start metoprolol succinate 25 mg daily once able to take oral medication. At this time cardiology team will sign off. Please reconsult us in case of any question. Jose Juan Camp MD, FAC, VI Past Medical History Past Medical History: Asthma, Diabetes Mellitus, GERD/Reflux, Hyperlipidemia, Hypertension, Neurologic Disorder, Prostate Disorder, Skin Disorder Additional Past Medical History / Comment(s): PSORIASIS,NIDDM,PARKINSONS, BPH, increased confusion recently with hallucinations History of Any Multi-Drug Resistant Organisms: None Reported Past Surgical History: Hernia Repair, Orthopedic Surgery Additional Past Surgical History / Comment(s): LEFT SHOULDER 01/08/23. RIGHT SHOULDER X 2., LT. INGUINAL HERNIA, UMB HERNIA. LEFT KNEE ARTHROSCOPY. LEFT SHOULDER ARTHROPLASTY. ACHILLES TENDON REPAIR X 2, Radio Frequency treatments on back, 04/28/2024 lumbar fusion. Past Anesthesia/Blood Transfusion Reactions: No Reported Reaction Past Psychological History: Anxiety, Depression Smoking Status: Former smoker Past Alcohol Use History: None Reported Additional Past Alcohol Use History / Comment(s): PIPE IN PAST x 1 yr. Past Drug Use History: None Reported Medications and Allergies Home Medications Medication Instructions Recorded Confirmed Type Albuterol Sulfate [Ventolin HFA] 2 puff INHALATION RT-Q6H PRN 09/26/19 04/20/25 History DULoxetine HCL [Cymbalta] 60 mg PO BID 09/26/19 04/20/25 History Enalapril [Vasotec] 10 mg PO BID 09/26/19 04/20/25 History Pravastatin Sodium [Pravachol] 40 mg PO HS 09/26/19 04/20/25 History metFORMIN HCL [Glucophage] 500 mg PO W/LUNCH 09/26/19 04/20/25 History HYDROcodone/APAP 7.5-325MG [[place] 1 tab PO BID 01/03/23 04/20/25 History 7.5-325] Tamsulosin HCl [Flomax] 0.4 mg PO DAILY@1600 01/03/23 04/20/25 History Albuterol Nebulized [Ventolin 2.5 mg INHALATION RT-QID PRN 06/26/24 04/20/25 History Nebulized] diphenhydrAMINE [Benadryl] 25 mg PO BID 06/26/24 04/20/25 History Boost High Protein 1 can PO TID-W/MEALS 02/16/25 04/20/25 History Carbidopa-Levodopa 25-100 mg 2 tab PO BID@0600,1800 02/16/25 04/20/25 History [Sinemet 25-100 mg] Carbidopa-Levodopa 25-100 mg 3 tab PO DAILY@1200 02/16/25 04/20/25 History [Sinemet 25-100] Cholecalciferol [Vitamin D3 (25 25 mcg PO DAILY 02/16/25 04/20/25 History Mcg = 1000 Iu)] Clobetasol Propionate [Temovate 1 applic TOPICAL DIRECTED 02/16/25 04/20/25 History 0.05% Oint] Cyanocobalamin (Vitamin B-12) 1,000 mcg PO SELLERS 02/16/25 04/20/25 History [Vitamin B-12] Fluocinonide 0.05% Topical Solution 1 applic TOPICAL BID PRN 02/16/25 04/20/25 History Galantamine HBr [Razadyne ER] 16 mg PO W/LUNCH 02/16/25 04/20/25 History Hydrocortisone Cream 1 applic TOPICAL BID PRN 02/16/25 04/20/25 History [Hydrocortisone 2.5% Cream] Ketoconazole 2% Cream [Nizoral 2%] 1 applic TOPICAL DAILY PRN 02/16/25 04/20/25 History QUEtiapine [SEROquel] 100 mg PO HS 02/16/25 04/20/25 History Vitamin B Complex 1 cap PO SELLERS 02/16/25 04/20/25 History amantadine HCL [Amantadine] 100 mg PO BID 02/16/25 04/20/25 History Budesonide/Formoterol Fumarate 2 puff INHALATION RT-BID 04/20/25 04/20/25 History [Symbicort 160-4.5 Mcg Inhaler] Diphenox-Atrop 2.5-0.025 mg 2 tab PO QID PRN 04/20/25 04/20/25 History [Lomotil] Liquid Iv 1 packet PO W/LUNCH 04/20/25 04/20/25 History Prazosin [Minipress] 4 mg PO HS 04/20/25 04/20/25 History bisacodyL [Dulcolax] 5 mg PO BID 04/20/25 04/20/25 History Allergies Allergy/AdvReac Type Severity Reaction Status Date / Time No Known Allergies Allergy Verified 04/20/25 16:23 Physical Exam Vitals: Vital Signs Temp Pulse Pulse Pulse Resp BP BP 04/22/25 11:35 99.2 F 68 20 132/76 04/22/25 08:25 99.4 F 64 20 143/102 04/22/25 04:20 100.5 F H 81 20 132/84 04/22/25 00:55 99.2 F 04/21/25 23:40 100.7 F H 78 18 122/75 04/21/25 23:07 99.2 F 88 22 125/89 04/21/25 18:00 99.4 F 100 32 H 107/88 04/21/25 15:15 99.3 F Pulse Ox 04/22/25 11:35 94 L 04/22/25 08:25 93 L 04/22/25 04:20 94 L 04/22/25 00:55 04/21/25 23:40 94 L 04/21/25 23:07 95 04/21/25 18:00 95 04/21/25 15:15 Intake and Output 04/21/25 04/22/25 04/22/25 22:59 06:59 14:59 Output Total 0 Balance 0 Output: Urine 0 Other: Voiding Method Diaper Diaper # Voids 1 1 # Bowel Movements 1 Weight 104.78 kg Results 04/22/25 07:01 04/22/25 07:01 CBC 04/22/25 Range/Units 07:01 WBC 12.13 H (4.50-10.00) 10*3/uL RBC 3.79 L (4.40-5.60) 10*6/uL Hgb 11.5 L (13.0-17.0) g/dL Hct 35.3 L (39.6-50.0) % Plt Count 182 (140-440) 10*3/uL Comprehensive Metabolic Panel 04/22/25 Range/Units 07:01 Sodium 144 (137-145) mmol/L Potassium 2.7 L* (3.5-5.1) mmol/L Chloride 107 (98-107) mmol/L Carbon Dioxide 28 (22-30) mmol/L BUN 41 H (9-20) mg/dL Creatinine 0.70 (0.66-1.25) mg/dL Glucose 100 H (74-99) mg/dL Calcium 8.8 (8.4-10.2) mg/dL Current Medications Generic Name Dose Route Start Last Admin Trade Name Freq PRN Reason Stop Dose Admin Hydrocodone Bitart/Acetaminophen 1 each 04/21/25 08:15 Hydrocodone/Apap 7.5-325mg 1 Each Tab PO BID PRN Pain Albuterol Sulfate 2.5 mg 04/21/25 08:15 Albuterol Nebulized 2.5 Mg/3 Ml INHALATION RT-Q6H PRN Shortness Of Breath Amantadine HCl 100 mg 04/21/25 09:00 04/22/25 00:09 Amantadine Hcl 100 Mg Cap PO Not Given BID DEVI Bisacodyl 5 mg 04/21/25 09:00 04/22/25 00:09 Bisacodyl 5 Mg Tablet. PO Not Given BID DEVI Budesonide/Formoterol Fumarate 2 puff 04/22/25 20:00 Symbicort 160-4.5 Mcg Inhaler INHALATION RT-BID DEVI Carbidopa/Levodopa 2 each 04/22/25 18:00 Carbidopa-Levodopa 25-100 Mg 1 Each Tab PO BID@0600,1800 DEVI Carbidopa/Levodopa 3 each 04/23/25 12:00 Carbidopa-Levodopa 25-100 Mg 1 Each Tab PO DAILY@1200 DEVI Clonazepam 0.25 mg 04/21/25 12:30 04/22/25 00:09 Clonazepam 0.5 Mg Tab PO Not Given BID DEVI Diazepam 5 mg 04/21/25 15:39 04/21/25 23:24 Diazepam 5 Mg/Ml 2 Ml Inj IVP 5 mg Q6HR PRN Administration Muscle Spasm Diphenoxylate HCl/Atropine 2 each 04/22/25 13:07 Diphenox-Atrop 2.5-0.025 Mg 1 Each Tab PO QID PRN Diarrhea Duloxetine HCl 60 mg 04/21/25 09:00 04/22/25 00:09 Duloxetine Hcl 60 Mg Capsule.Dr PO Not Given BID DEVI Heparin Sodium (Porcine) 5,000 unit 04/21/25 21:00 04/22/25 08:36 Heparin Sodium,Porcine 5,000 Unit/Ml 1 Ml Vial SQ 5,000 unit Q12HR DEVI Administration Sodium Chloride 1,000 mls @ 75 mls/hr 04/20/25 18:30 04/22/25 00:08 Saline 0.9% IV Not Given .[id number] DEVI Vancomycin HCl 1,500 mg/ 500 mls @ 167 mls/hr 04/21/25 21:00 04/22/25 10:17 Sodium Chloride IVPB 167 mls/hr Q12H DEVI Administration Ceftriaxone Sodium 2 gm/ 50 mls @ 100 mls/hr 04/22/25 09:00 04/22/25 08:44 Sodium Chloride IVPB 100 mls/hr Q12HR DEVI Administration Protocol Acyclovir Sodium 600 mg/ 262 mls @ 270 mls/hr 04/22/25 00:00 04/22/25 08:29 Sodium Chloride IVPB 270 mls/hr Q8HR DEVI Administration Protocol Potassium Chloride 10 meq/ IV 100 mls @ 100 mls/hr 04/22/25 10:00 04/22/25 11:36 Solution IVPB 04/22/25 15:59 100 mls/hr Q1HR DEVI Administration Protocol Lorazepam 1 mg 04/21/25 04:25 04/22/25 12:33 Lorazepam 1 Mg/0.5 Ml Vial IV 1 mg Q3HR PRN Administration Anxiety Miscellaneous Information 1 each 04/22/25 09:17 Potassium Replacement [facility] Per Protocol Protocol Miscellaneous Information 0 each 04/24/25 08:00 Vancomycin Trough Due 1 Each Misc MISCELLANE 04/24/25 08:01 DIRECTED ONE Naloxone HCl 0.2 mg 04/20/25 16:08 Naloxone 0.4 Mg/Ml 1 Ml Vial IV Q2M PRN Opioid Reversal Ondansetron HCl 4 mg 04/20/25 18:18 04/21/25 10:43 Ondansetron 4 Mg/2 Ml Vial IVP 4 mg Q6HR PRN Administration Nausea And Vomiting Pantoprazole Sodium 40 mg 04/20/25 18:19 04/22/25 08:44 Pantoprazole 40 Mg/10 Ml Vial IVP 40 mg DAILY DEVI Administration Quetiapine Fumarate 100 mg 04/21/25 21:00 04/22/25 00:10 Quetiapine 100 Mg Tab PO Not Given HS DEVI Tamsulosin HCl 0.4 mg 04/21/25 16:00 04/21/25 16:16 Tamsulosin 0.4 Mg Cap.Er.24h PO Not Given DAILY@1600 DEVI Intake and Output 04/21/25 04/22/25 04/22/25 22:59 06:59 14:59 Output Total 0 Balance 0 Output: Urine 0 Other: Voiding Method Diaper Diaper # Voids 1 1 # Bowel Movements 1 Weight 104.78 kg 04/22/25 07:01 04/22/25 07:01
--- NOTE | 2025-04-22 13:42 | XR ---
EXAMINATION TYPE: XR chest 1V portable DATE OF EXAM: 04/22/2025 1:03 PM COMPARISON: Chest radiographs from 04/21/2025. CLINICAL INDICATION: Male, 74 years old with history of confirm NG tube placement; TECHNIQUE: XR chest 1V portable Frontal view of the chest. FINDINGS: Lungs/Pleura: There is no evidence of pleural effusion, focal consolidation, or pneumothorax. Pulmonary vascularity: Unremarkable. Heart/mediastinum: Cardiomediastinal silhouette is unremarkable. Musculoskeletal: No acute osseous pathology. Left shoulder arthroplasty appears intact. Nasogastric tube projects over the gastric lumen. IMPRESSION: No acute cardiopulmonary disease/process. [facility] Frankie Reeves, , 04/22/2025 1:39 PM
[2025-04-22] MEDS ORDERED: QUEtiapine 25 MG TAB PO PRN (14:05)
[2025-04-22] MEDS: METOPROLOL SUCCINATE (ER) 25 MG TAB.ER.24H PO SCH (14:09)
[2025-04-22] MEDS: CARBIDOPA-LEVODOPA 25-100 MG 1 EACH TAB PO SCH ×2 (14:15→17:43)
--- NOTE | 2025-04-22 14:15 | P.CN ---
Psychiatric Consult - . Consult date: 04/22/25 Consult:: 04/22/25 13:03 IDENTIFYING DATA: This patient is a 74-year-old , he is he lives in a house with his , has 2 kids. He is a disabled REASON FOR REFERRAL: Psychiatry was consulted for agitation HISTORY OF PRESENT ILLNESS: The patient presented to the hospital initially on 04/20 for seizure-like activity having several falls at home. Patient has a history of Parkinson's disease, Agent [place] exposure to his time in [place]. Apparently he was having tremors dysarthria. Patient had a CAT scan as well, neurology has been consulted for altered mental status. Patient's white blood cell count have been declining since admission. Potassium is low at 2.7. Troponin is elevated. Patient was laying in his bed, appeared to be awake having difficulty speaking had a NG tube in place. Patients was at his bedside agreeable to speak to speech writer and get more history. She states that he has had Parkinson's disease for the past 6 years. He follows up at the [facility] and also the neurologist locally. Patient has had several falls at home recently, claims that he may have hit his head, she states that he has been having difficulty speaking for the past few days, he has been also having difficulty with balance and walking. She states that while he sleeps he has several movements like kicking episodes. She states that he also has mild depression at this time, has been taking Cymbalta Seroquel and Klonopin. Sleep has been on and off appetite has been fair. Reference Library Assistant spoke with patient briefly he followed most commands, appeared to have fair attention span. Difficulty speaking. At this time patient denies any suicidal or homical ideations, intent or plan. Patient does admit to mild auditory, visual hallucinations which appear to be chronic and denies any paranoia or delusions. Patients admits to using no recreational drugs or cigarettes PAST PSYCHIATRIC HISTORY: Patient has a a history of Parkinson's disease, depression and anxiety. Patient is currently on Seroquel, Cymbalta and Klonopin. Patient denies any previous psychiatric hospitalizations. Patient denies any psychiatric outpatient follow-up. Patient denies any history of suicide attempts in the past. Past Medical History: Asthma, Diabetes Mellitus, GERD/Reflux, Hyperlipidemia, Hypertension, Neurologic Disorder, Prostate Disorder, Skin Disorder Additional Past Medical History / Comment(s): PSORIASIS,NIDDM,PARKINSONS, BPH, increased confusion recently History of Any Multi-Drug Resistant Organisms: None Reported Past Surgical History: Hernia Repair, Orthopedic Surgery Additional Past Surgical History / Comment(s): LEFT SHOULDER 01/08/23. RIGHT SHOULDER X 2., LT. INGUINAL HERNIA, UMB HERNIA. LEFT KNEE ARTHROSCOPY. LEFT SHOULDER ARTHROPLASTY. ACHILLES TENDON REPAIR X 2, Radio Frequency treatments on back, 04/28/2024 lumbar fusion. Past Anesthesia/Blood Transfusion Reactions: No Reported Reaction Past Psychological History: Anxiety, Depression Smoking Status: Former smoker Past Alcohol Use History: None Reported Past Drug Use History: None Reported ALLERGIES: as per EMR. CHEMICAL DEPENDENCY HISTORY: as per HPI. FAMILY PSYCHIATRIC/SUBSTANCE USE HISTORY: Denies SOCIAL HISTORY: Patient was born and raised in [facility]. Claims that he completed high school, he was a [place] in the [place]. He had [place] exposure. He does not have any legal history . MENTAL STATUS EXAM: General Appearance: Patient appears to be overweight, lying in bed, stated age is alert, pleasant, and cooperative. Patient appears to have fair hygiene and grooming wearing hospital gown with fair eye contact. Behavior: Patient is calmly lying in bed without any agitated behavior. Attempts to cooperate. Speech: Patient's speech is garbled, minimal Mood/Affect: Patient reports their mood is "ok now", affect is congruent and constricted Suicidality/Homicidality: Patient denies having any suicidal or homicidal ideation intent or plan. Perceptions: Patient admits to both visual and auditory hallucinations which are chronic Though content/process: Fairly concrete, poverty of content. Memory and concentration: AOX3, grossly intact for the purposes of this session. Can spell "WORLD" backwards Judgment and insight: fair IMPRESSIONS: Parkinsons disease with hallucinations possible Hx of PTSD history of depression PLAN: -At this time patient DOES NOT meet criteria for inpatient psychiatric admission. -Delirium precautions recommended with patient including - avoiding use of narcotics and BREAKER BOSS sedatives, limit anticholinergic medications when possible, frequent re-orientation, minimize use of restraints, open window shades during the day and close them at night -Would recommend the following medication changes/additions: continue with seroquel 100 mg qhs for mood stabilization/psychosis, will add seroquel 25 mg bid prn for severe anxiety/agitation. Continue with Cymbalta 60 mg twice a day for mood/anxiety. Spoke with neurologist about continuing with Klonopin and possibly titrating up for likely REM sleep disorder given patient's Parkinson's disease -tree worker to provide patient with outpatient mental health/psychiatry resources for appropriate follow up upon discharge -Communicated plan to patient's nurse -Psychiatry will sign off at this time -Please contact with any questions.
[2025-04-22 16:22] LABS: HSV I IgG Interp Positive (Negative); HSV II IgG Interp Negative (Negative)
[2025-04-22] MEDS: SYMBICORT 160-4.5 MCG INHALER INHALATION SCH (21:06)
--- NOTE | 2025-04-22 22:51 | P.PN ---
Subjective Progress Note Date: 04/22/25 Principal diagnosis: Fever possible CAMERA MACHINIST infection Patient is a 74-year-old male with a past medical history significant for Asthma, Diabetes Mellitus, GERD/Reflux, Hyperlipidemia, Hypertension, Neurologic Disorder, Prostate Disorder, Skin Disorder has been brought into the hospital for evaluation of possible seizure activity the patient did have a fever elevated white count concerning for possible CAMERA MACHINIST infection. On today's evaluation that is 04/22/2025 patient did have improvement in his fever pattern with a temperature 100.5 degrees following that at 4 AM patient has been afebrile this morning patient remains stably less responsive though did have open eyes but but did not provide any history, no vomiting or diarrhea has been reported by the nurse staff. 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 blood cultures are pending Objective - Vital Signs Vital signs: Vital Signs Temp 99.4 F 04/22/25 08:25 Pulse 64 04/22/25 08:25 Resp 20 04/22/25 08:25 BP 143/102 04/22/25 08:25 Pulse Ox 93 L 04/22/25 08:25 FiO2 Intake & Output 04/21/25 04/22/25 04/22/25 18:59 06:59 18:59 Output Total 0 Balance 0 Weight 104.78 kg Output: Urine 0 Other: Voiding Method Diaper Diaper # Voids 1 1 # Bowel Movements 1 - Exam GENERAL DESCRIPTION: An elderly male lying in bed in no distress RESPIRATORY SYSTEM: Unlabored breathing , decreased breath sounds at bases HEART: S1 S2 regular rate and rhythm , ABDOMEN: Soft , no tenderness EXTREMITIES: No edema feet - Labs CBC & Chem 7: 04/22/25 07:01 04/22/25 07:01 Labs: Abnormal Lab Results - Last 24 Hours (Table) 04/22/25 04/22/25 Range/Units 07:01 07:01 WBC 12.13 H (4.50-10.00) 10*3/uL RBC 3.79 L (4.40-5.60) 10*6/uL Hgb 11.5 L (13.0-17.0) g/dL Hct 35.3 L (39.6-50.0) % Immature Gran # 0.05 H (0.00-0.04) 10*3/uL Neutrophils # 9.89 H (1.80-7.70) 10*3/uL Potassium 2.7 L* (3.5-5.1) mmol/L BUN 41 H (9-20) mg/dL Glucose 100 H (74-99) mg/dL C-Reactive Protein 5.7 H (<1.0) mg/dL Assessment and Plan (1) Sepsis Current Visit: Yes Status: Acute Code(s): A41.9 - SEPSIS, UNSPECIFIED ORGANISM SNOMED Code(s): 49223217 Plan: 1patient presented to the hospital with weakness and did have some spastic movement of the extremities concerning for possible seizure subsequently the patient started having a fever patient did have tachypnea and tachycardia elevated white count meeting criteria for SIRS/sepsis source will be likely CAMERA MACHINIST infection in this patient did have a negative UA chest x-ray x 2 has been negative for any pneumonia abdomen is soft and no evidence of any cellulitis or joint swelling 2-patient needs LP for CSF examination and sending the fluid for Gram stain cell count glucose and protein, this has been discussed in detail with the neurologist on the case patient currently not on Eliquis or Plavix that will contraindicate lumbar puncture 3-patient currently being treated empirically with vancomycin, ceftriaxone and acyclovir while watching his clinical course closely Dictation was produced using [employer] dictation software. please excuse any grammatical, word or spelling errors.
[2025-04-22] MEDS: ACETAMINOPHEN SUPPOSITORY 650 MG SUPP RECTAL PRN (23:22)
--- NOTE | 2025-04-23 00:42 | XR ---
EXAM: XR Chest, 1 View CLINICAL HISTORY: ITS.REASON XR Reason: NGT placement confirmation TECHNIQUE: Frontal view of the chest. COMPARISON: No relevant prior studies available. FINDINGS: Lungs: Unremarkable. No consolidation. Pleural space: Unremarkable. No pneumothorax. Heart: Unremarkable. No cardiomegaly. Mediastinum: Unremarkable. Bones/joints: Left shoulder reverse arthroplasty. Tubes, lines and devices: Feeding tube terminates in the stomach. IMPRESSION: No acute findings in the chest.
--- NOTE | 2025-04-23 01:18 | P.PN ---
Subjective This is a pleasant 74 years old male with past medical history of multiple medical problems including history of Parkinson disease and he follows with Dr. Lawrence in the outpatient setting presents because been confused when he talks he forgets and he falls asleep a lot through the day also he has worsening jerking movements of both upper extremities. He has more pain on the left side he feels dizzy all the time. Information obtained with the help of family and at bedside He is on Sinemet 25-100 mg 2 tablets, 2 times, +3 tablets in the morning with a total of 7 tablets daily Patient denies smoking alcohol or illicit drugs Vital stable no fever. 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 Temperature 101.1 Patient this morning looks the same still confused, still has both abnormal movements of the upper extremities similar to yesterday. Despite receiving several doses of Ativan no much improvement No other involuntary movements suspicious for seizure-like activity Blood culture sent. Patient started on antibiotics empirically with ceftriaxone 2 g and IV vancomycin. Also IV acyclovir 800 mg x 1 Repeat chest x-ray ordered showing cardiomegaly with mild pulmonary vascular congestion. Urinalysis showing no evidence of infection. There is no known rash or diarrhea. Labs reviewed showing WBC of 15.7. INR 1.1. Creatinine 0.7. Electrolytes normal. Troponins mildly elevated 0.051. Liver enzymes within the reference range. Also he is on amantadine. Also patient on Sinemet, deferred per neurologist Family at bedside including were updated with the management plan 04/22 Patient is more calm today although mildly agitated while he is in bed, he is confused, upper extremity jerking movement significantly decreased in amplitude and frequency. Not completely stopped. Patient is getting Valium and other sedatives which help him to calm him down. 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 Discussed with staff risk of aspiration and to decrease this risk with maneuvers and measures. Patient remains on empiric antibiotics with IV vancomycin and ceftriaxone and acyclovir. Active Medications Generic Name Dose Route Start Last Admin Trade Name Freq PRN Reason Stop Dose Admin Acetaminophen 650 mg 04/22/25 16:38 04/22/25 23:22 Acetaminophen Suppository 650 Mg Supp RECTAL 650 mg Q6HR PRN Administration Fever and/ or Pain Hydrocodone Bitart/Acetaminophen 1 each 04/21/25 08:15 Hydrocodone/Apap 7.5-325mg 1 Each Tab PO BID PRN Pain Albuterol Sulfate 2.5 mg 04/21/25 08:15 Albuterol Nebulized 2.5 Mg/3 Ml INHALATION RT-Q6H PRN Shortness Of Breath Amantadine HCl 100 mg 04/21/25 09:00 04/22/25 21:17 Amantadine Hcl 100 Mg Cap PO 100 mg BID DEVI Administration Bisacodyl 5 mg 04/21/25 09:00 04/22/25 21:19 Bisacodyl 5 Mg Tablet. PO Not Given BID DEVI Budesonide/Formoterol Fumarate 2 puff 04/22/25 20:00 04/22/25 21:06 Symbicort 160-4.5 Mcg Inhaler INHALATION 2 puff RT-BID DEVI Administration Carbidopa/Levodopa 2 each 04/22/25 18:00 04/22/25 17:43 Carbidopa-Levodopa 25-100 Mg 1 Each Tab PO 2 each BID@0600,1800 DEVI Administration Carbidopa/Levodopa 3 each 04/22/25 14:15 04/22/25 14:15 Carbidopa-Levodopa 25-100 Mg 1 Each Tab PO 3 each DAILY@1200 DEVI Administration Clonazepam 0.25 mg 04/21/25 12:30 04/22/25 21:17 Clonazepam 0.5 Mg Tab PO 0.25 mg BID DEVI Administration Diazepam 5 mg 04/21/25 15:39 04/22/25 22:55 Diazepam 5 Mg/Ml 2 Ml Inj IVP 5 mg Q6HR PRN Administration Muscle Spasm Diphenoxylate HCl/Atropine 2 each 04/22/25 13:07 Diphenox-Atrop 2.5-0.025 Mg 1 Each Tab PO QID PRN Diarrhea Duloxetine HCl 60 mg 04/21/25 09:00 04/22/25 21:18 Duloxetine Hcl 60 Mg Capsule. PO 60 mg BID DEVI Administration Heparin Sodium (Porcine) 5,000 unit 04/21/25 21:00 04/22/25 21:17 Heparin Sodium,Porcine 5,000 Unit/Ml 1 Ml Vial SQ 5,000 unit Q12HR DEVI Administration Sodium Chloride 1,000 mls @ 75 mls/hr 04/20/25 18:30 04/23/25 01:03 Saline 0.9% IV Not Given .[id number] DEVI Vancomycin HCl 1,500 mg/ 500 mls @ 167 mls/hr 04/21/25 21:00 04/22/25 22:33 Sodium Chloride IVPB 167 mls/hr Q12H DEVI Administration Ceftriaxone Sodium 2 gm/ 50 mls @ 100 mls/hr 04/22/25 09:00 04/22/25 21:34 Sodium Chloride IVPB 100 mls/hr Q12HR DEVI Administration Protocol Acyclovir Sodium 600 mg/ 262 mls @ 270 mls/hr 04/22/25 00:00 04/22/25 16:43 Sodium Chloride IVPB 270 mls/hr Q8HR DEVI Administration Protocol Lorazepam 1 mg 04/21/25 04:25 04/22/25 15:40 Lorazepam 1 Mg/0.5 Ml Vial IV 1 mg Q3HR PRN Administration Anxiety Metoprolol Succinate 25 mg 04/22/25 13:45 04/22/25 14:09 Metoprolol Succinate (Er) 25 Mg Tab.Er.24h PO 25 mg DAILY DEVI Administration Miscellaneous Information 1 each 04/22/25 09:17 Potassium Replacement Protocol 1 Each Misc MISCELLANE DAILY PRN Per Protocol Protocol Miscellaneous Information 0 each 04/24/25 08:00 Vancomycin Trough Due 1 Each Misc MISCELLANE 04/24/25 08:01 DIRECTED ONE Naloxone HCl 0.2 mg 04/20/25 16:08 Naloxone 0.4 Mg/Ml 1 Ml Vial IV Q2M PRN Opioid Reversal Ondansetron HCl 4 mg 04/20/25 18:18 04/21/25 10:43 Ondansetron 4 Mg/2 Ml Vial IVP 4 mg Q6HR PRN Administration Nausea And Vomiting Pantoprazole Sodium 40 mg 04/20/25 18:19 04/22/25 08:44 Pantoprazole 40 Mg/10 Ml Vial IVP 40 mg DAILY DEVI Administration Quetiapine Fumarate 100 mg 04/21/25 21:00 04/22/25 21:18 Quetiapine 100 Mg Tab PO 100 mg HS DEVI Administration Quetiapine Fumarate 25 mg 04/22/25 14:05 Quetiapine 25 Mg Tab PO BID PRN agitation/severe anxiety Tamsulosin HCl 0.4 mg 04/21/25 16:00 04/22/25 17:43 Tamsulosin 0.4 Mg Cap.Er.24h PO 0.4 mg DAILY@1600 DEVI Administration Objective - Vital Signs Vital signs: Vital Signs Temp 99.2 F 04/22/25 11:35 Pulse 68 04/22/25 11:35 Resp 20 04/22/25 11:35 BP 132/76 04/22/25 11:35 Pulse Ox 94 L 04/22/25 11:35 FiO2 Intake & Output 04/21/25 04/22/25 04/22/25 18:59 06:59 18:59 Output Total 0 Balance 0 Weight 104.78 kg Output: Urine 0 Other: Voiding Method Diaper Diaper # Voids 1 1 # Bowel Movements 1 - Exam -GENERAL: The patient is confused HEENT: Pupils are round and equally reacting to light. EOMI. No scleral icterus. No conjunctival pallor. Normocephalic, atraumatic. No pharyngeal erythema. No thyromegaly. CARDIOVASCULAR: S1 and S2 present. No murmurs, rubs, or gallops. PULMONARY: Chest is clear to auscultation, no wheezing , no crackles. ABDOMEN: Soft, nontender, nondistended, normoactive bowel sounds. No palpable organomegaly. MUSCULOSKELETAL: No joint swelling or deformity. EXTREMITIES: No cyanosis, clubbing, or pedal edema. -NEUROLOGICAL: Gross neurological examination did not reveal any focal deficits. Patient has white drainage rhythmic movements of both upper extremities and to lesser extent of the both lower extremities, patient movement is restricted because of these involuntary movements SKIN: No rashes. no petechiae. - Labs CBC & Chem 7: 04/22/25 07:01 04/22/25 07:01 Labs: Abnormal Lab Results - Last 24 Hours (Table) 04/22/25 04/22/25 Range/Units 07: 07:01 WBC 12.13 H (4.50-10.00) 10*3/uL RBC 3.79 L (4.40-5.60) 10*6/uL Hgb 11.5 L (13.0-17.0) g/dL Hct 35.3 L (39.6-50.0) % Immature Gran # 0.05 H (0.00-0.04) 10*3/uL Neutrophils # 9.89 H (1.80-7.70) 10*3/uL Potassium 2.7 L* (3.5-5.1) mmol/L BUN 41 H (9-20) mg/dL Glucose 100 H (74-99) mg/dL C-Reactive Protein 5.7 H (<1.0) mg/dL Microbiology - Last 24 Hours (Table) 04/21/25 05:46 Blood Culture - Preliminary Blood Assessment and Plan Assessment: Dyskinesia of both upper extremity, rule out worsening Parkinson disease versus (levodopa-induced dyskinesia) fever unknown source , DDx: meningitis/encephalitis Metabolic encephalopathy secondary to above A-fib with rate controlled, with elevated troponin parkinson disease Hypertension Hyperlipidemia Diabetes mellitus BPH Obesity with BMI of 36.2 Plan: started and continue with IV ceftriaxone, IV vancomycin acyclovir and follow-up blood culture results A infectious disease team consult Patient on Sinemet at home, high dose, deferred to neurologist resume amantadine Check echocardiogram Check viral panel with influenza and COVID and RSV Neurology team consult for further recommendation regarding this involuntary movements Patient may benefit from jacinto infectious disease team consult Cardiology team consult Labs and medication were reviewed.. Continue same treatment. Continue with symptomatic treatment. Resume home medication. Monitor labs and vitals. DVT and GI prophylaxis. Further recommendations as per clinical course of the ben ent DVT prophylaxis: Subcutaneous heparin GI Prophylaxis: Pepcid PT/OT: Pending, deferred Prognosis is guarded Family updated with the plan and all questions answered
[2025-04-23 02:15] LABS: Magnesium 2.0 mg/dL (1.6-2.3); Potassium 4.1 mmol/L (3.5-5.1)
[2025-04-23] MEDS ORDERED: Potassium Replacement Protocol 1 EACH MISC MISCELLANE PRN (02:25)
[2025-04-23] MEDS ORDERED: Magnesium Replacement Protocol 1 EACH MISC MISCELLANE PRN (02:26)
[2025-04-23 06:12] LABS: Basophils # (A) 0.03 10*3/uL (0.00-0.10); Basophils % (A) 0.4 %; Eosinophils # (A) 0.17 10*3/uL (0.04-0.35); Eosinophils % (A) 2.0 %; HCT 34.6 % (39.6-50.0); HGB 10.9 g/dL (13.0-17.0); Lymphocytes # (A) 1.25 10*3/uL (0.90-5.00); Lymphocytes % (A) 14.6 %; MCH 29.5 pg (27.0-32.0); MCHC 31.5 g/dL (32.0-37.0); MCV 93.8 fL (80.0-97.0); Monocytes # (A) 0.53 10*3/uL (0.20-1.00); Monocytes % (A) 6.2 %; Neutrophils # (A) 6.53 10*3/uL (1.80-7.70); Neutrophils % (A) 76.4 %; Platelet Count 165 10*3/uL (140-440); RBC 3.69 10*6/uL (4.40-5.60); RDW 13.8 % (11.5-14.5); WBC 8.54 10*3/uL (4.50-10.00)
[2025-04-23 06:31] LABS: Anion Gap 9 mmol/L; Blood Urea Nitrogen 31 mg/dL (9-20); Calcium 8.5 mg/dL (8.4-10.2); Carbon Dioxide 24 mmol/L (22-30); Chloride 111 mmol/L (98-107); Glucose 84 mg/dL (74-99); Magnesium 1.9 mg/dL (1.6-2.3); Potassium 2.9 mmol/L (3.5-5.1); Sodium 144 mmol/L (137-145)
[2025-04-23 06:32] LABS: African American GFR (CKD) >90 (>60 ml/min/1.73 sqM); Non-African American GFR(CKD) >90 (>60 ml/min/1.73 sqM)
--- NOTE | 2025-04-23 08:54 | P.PN ---
Subjective This is a pleasant 74 years old male with past medical history of multiple medical problems including history of Parkinson disease and he follows with Dr. Lawrence in the outpatient setting presents because been confused when he talks he forgets and he falls asleep a lot through the day also he has worsening jerking movements of both upper extremities. He has more pain on the left side he feels dizzy all the time. Information obtained with the help of family and at bedside He is on Sinemet 25-100 mg 2 tablets, 2 times, +3 tablets in the morning with a total of 7 tablets daily Patient denies smoking alcohol or illicit drugs Vital stable no fever. 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 Despite receiving several doses of Ativan no much improvement No other involuntary movements suspicious for seizure-like activity Blood culture sent. Patient started on antibiotics empirically with ceftriaxone 2 g and IV vancomycin. Also IV acyclovir 800 mg x 1 Repeat chest x-ray ordered showing cardiomegaly with mild pulmonary vascular congestion. Urinalysis showing no evidence of infection. There is no known rash or diarrhea. Labs reviewed showing WBC of 15.7. INR 1.1. Creatinine 0.7. Electrolytes normal. Troponins mildly elevated 0.051. Liver enzymes within the reference range. Also he is on amantadine. Also patient on Sinemet, deferred per neurologist Family at bedside including were updated with the management plan 04/22 Patient is more calm today although mildly agitated while he is in bed, he is confused, upper extremity jerking movement significantly decreased in amplitude and frequency. Not completely stopped. Patient is getting Valium and other sedatives which help him to calm him down. However patient will need his Sinemet per recommendation of neurologist, bag sorter recommended NG tube which is ordered. Discussed with staff risk of aspiration and to decrease this risk with maneuvers and measures. Patient remains on empiric antibiotics with IV vancomycin and ceftriaxone and acyclovir. 04/23 Patient remains very sleepy and nonverbal today after receiving several sedating's including IV Valium He had to place NG tube again after he pulled out yesterday. So he can get the Sinemet. No dyskinesia of his upper extremity abnormal movement of both upper extremity today Fever subsiding leukocytosis subsiding while he is on broad-spectrum antibiotics with IV vancomycin ceftriaxone and acyclovir Plan for lumbar puncture today and EEG which is going to this morning. All labs and imaging were reviewed Active Medications Generic Name Dose Route Start Last Admin Trade Name Freq PRN Reason Stop Dose Admin Acetaminophen 650 mg 04/22/25 16:38 04/22/25 23:22 Acetaminophen Suppository 650 Mg Supp RECTAL 650 mg Q6HR PRN Administration Fever and/ or Pain Hydrocodone Bitart/Acetaminophen 1 each 04/21/25 08:15 Hydrocodone/Apap 7.5-325mg 1 Each Tab PO BID PRN Pain Albuterol Sulfate 2.5 mg 04/21/25 08:15 Albuterol Nebulized 2.5 Mg/3 Ml INHALATION RT-Q6H PRN Shortness Of Breath Amantadine HCl 100 mg 04/21/25 09:00 04/22/25 21:17 Amantadine Hcl 100 Mg Cap PO 100 mg BID DEVI Administration Bisacodyl 5 mg 04/21/25 09:00 04/22/25 21:19 Bisacodyl 5 Mg Tablet.Dr PO Not Given BID DEVI Budesonide/Formoterol Fumarate 2 puff 04/22/25 20:00 04/23/25 08:48 Symbicort 160-4.5 Mcg Inhaler INHALATION Not Given RT-BID DEVI Carbidopa/Levodopa 2 each 04/22/25 18:00 04/23/25 05:02 Carbidopa-Levodopa 25-100 Mg 1 Each Tab PO 2 each BID@0600,1800 DEVI Administration Carbidopa/Levodopa 3 each 04/22/25 14:15 04/22/25 14:15 Carbidopa-Levodopa 25-100 Mg 1 Each Tab PO 3 each DAILY@1200 DEVI Administration Clonazepam 0.25 mg 04/21/25 12:30 04/22/25 21:17 Clonazepam 0.5 Mg Tab PO 0.25 mg BID DEVI Administration Diazepam 5 mg 04/21/25 15:39 04/23/25 05:02 Diazepam 5 Mg/Ml 2 Ml Inj IVP 5 mg Q6HR PRN Administration Muscle Spasm Diphenoxylate HCl/Atropine 2 each 04/22/25 13:07 Diphenox-Atrop 2.5-0.025 Mg 1 Each Tab PO QID PRN Diarrhea Duloxetine HCl 60 mg 04/21/25 09:00 04/22/25 21:18 Duloxetine Hcl 60 Mg Capsule.Dr PO 60 mg BID DEVI Administration Heparin Sodium (Porcine) 5,000 unit 04/21/25 21:00 04/22/25 21:17 Heparin Sodium,Porcine 5,000 Unit/Ml 1 Ml Vial SQ 5,000 unit Q12HR DEVI Administration Sodium Chloride 1,000 mls @ 75 mls/hr 04/20/25 18:30 04/23/25 01:03 Saline 0.9% IV Not Given .[id number] DEVI Vancomycin HCl 1,500 mg/ 500 mls @ 167 mls/hr 04/21/25 21:00 04/22/25 22:33 Sodium Chloride IVPB 167 mls/hr Q12H DEVI Administration Ceftriaxone Sodium 2 gm/ 50 mls @ 100 mls/hr 04/22/25 09:00 04/22/25 21:34 Sodium Chloride IVPB 100 mls/hr Q12HR DEVI Administration Protocol Acyclovir Sodium 600 mg/ 262 mls @ 270 mls/hr 04/22/25 00:00 04/23/25 01:31 Sodium Chloride IVPB 270 mls/hr Q8HR DEVI Administration Protocol Magnesium Sulfate/Dextrose 1 100 mls @ 100 mls/hr 04/23/25 07:57 gm/ IV Solution IVPB 04/23/25 08:56 ONCE ONE Lorazepam 1 mg 04/21/25 04:25 04/23/25 01:50 Lorazepam 1 Mg/0.5 Ml Vial IV 1 mg Q3HR PRN Administration Anxiety Metoprolol Succinate 25 mg 04/22/25 13:45 04/22/25 14:09 Metoprolol Succinate (Er) 25 Mg Tab.Er.24h PO 25 mg DAILY DEVI Administration Miscellaneous Information 1 each 04/22/25 09:17 Potassium Replacement Protocol 1 Each Misc MISCELLANE DAILY PRN Per Protocol Protocol Miscellaneous Information 0 each 04/24/25 08:00 Vancomycin Trough Due 1 Each Misc MISCELLANE 04/24/25 08:01 DIRECTED ONE Miscellaneous Information 1 each 04/23/25 02:26 Magnesium Replacement Protocol 1 Each Mis MISCELLANE DAILY PRN Per Protocol Protocol Naloxone HCl 0.2 mg 04/20/25 16:08 Naloxone 0.4 Mg/Ml 1 Ml Vial IV Q2M PRN Opioid Reversal Ondansetron HCl 4 mg 04/20/25 18:18 04/21/25 10:43 Ondansetron 4 Mg/2 Ml Vial IVP 4 mg Q6HR PRN Administration Nausea And Vomiting Pantoprazole Sodium 40 mg 04/20/25 18:19 04/22/25 08:44 Pantoprazole 40 Mg/10 Ml Vial IVP 40 mg DAILY DEVI Administration Quetiapine Fumarate 100 mg 04/21/25 21:00 04/22/25 21:18 Quetiapine 100 Mg Tab PO 100 mg HS DEVI Administration Quetiapine Fumarate 25 mg 04/22/25 14:05 Quetiapine 25 Mg Tab PO BID PRN agitation/severe anxiety Tamsulosin HCl 0.4 mg 04/21/25 16:00 04/22/25 17:43 Tamsulosin 0.4 Mg Cap.Er.24h PO 0.4 mg DAILY@1600 DEVI Administration Objective - Vital Signs Vital signs: Vital Signs Temp 98.9 F 04/23/25 05:25 Pulse 81 04/23/25 05:25 Resp 18 04/23/25 05:25 BP 124/83 04/23/25 05:25 Pulse Ox 95 04/23/25 05:25 FiO2 Intake & Output 04/22/25 04/23/25 04/23/25 18:59 06:59 18:59 Output Total 225 Balance -225 Weight 104.5 kg Output: Urine 225 Other: Voiding Method Diaper Diaper # Voids 1 1 - Exam -GENERAL: The patient is confused HEENT: Pupils are round and equally reacting to light. EOMI. No scleral icterus. No conjunctival pallor. Normocephalic, atraumatic. No pharyngeal erythema. No thyromegaly. CARDIOVASCULAR: S1 and S2 present. No murmurs, rubs, or gallops. PULMONARY: Chest is clear to auscultation, no wheezing , no crackles. ABDOMEN: Soft, nontender, nondistended, normoactive bowel sounds. No palpable organomegaly. MUSCULOSKELETAL: No joint swelling or deformity. EXTREMITIES: No cyanosis, clubbing, or pedal edema. -NEUROLOGICAL: Gross neurological examination did not reveal any focal deficits. Patient has white drainage rhythmic movements of both upper extremities and to lesser extent of the both lower extremities, patient movement is restricted because of these involuntary movements SKIN: No rashes. no petechiae. - Labs CBC & Chem 7: 04/23/25 05:37 04/23/25 05:37 Labs: Abnormal Lab Results - Last 24 Hours (Table) 04/22/25 04/22/25 04/23/25 Range/Units 07:01 07:01 05:37 RBC (4.40-5.60) 10*6/uL Hgb (13.0-17.0) g/dL Hct (39.6-50.0) % MCHC (32.0-37.0) g/dL Potassium 2.9 L (3.5-5.1) mmol/L Chloride 111 H (98-107) mmol/L BUN 31 H (9-20) mg/dL Creatinine 0.61 L (0.66-1.25) mg/dL C-Reactive Protein 5.7 H (<1.0) mg/dL HSV I IgG Interpret Positive A (Negative) 04/23/25 Range/Units 05:37 RBC 3.69 L (4.40-5.60) 10*6/uL Hgb 10.9 L (13.0-17.0) g/dL Hct 34.6 L (39.6-50.0) % MCHC 31.5 L (32.0-37.0) g/dL Potassium (3.5-5.1) mmol/L Chloride (98-107) mmol/L BUN (9-20) mg/dL Creatinine (0.66-1.25) mg/dL C-Reactive Protein (<1.0) mg/dL HSV I IgG Interpret (Negative) Microbiology - Last 24 Hours (Table) 04/21/25 09:47 Nasal Screen MRSA/MSSA - Final Nasal Swab 04/21/25 05:46 Blood Culture - Preliminary Blood Assessment and Plan Assessment: Dyskinesia of both upper extremity, rule out worsening Parkinson disease versus (levodopa-induced dyskinesia) fever unknown source , DDx: meningitis/encephalitis Metabolic encephalopathy secondary to above A-fib with rate controlled, with elevated troponin parkinson disease Hypertension Hyperlipidemia Diabetes mellitus BPH Obesity with BMI of 36.2 Plan: started and continue with IV ceftriaxone, IV vancomycin acyclovir and follow-up blood culture results A infectious disease team consult Patient on Sinemet at home, high dose, deferred to neurologist resume amantadine Check echocardiogram Follow-up EEG and lumbar puncture Neurology team consult Cardiology team consult Labs and medication were reviewed.. Continue same treatment. Continue with symptomatic treatment. Resume home medication. Monitor labs and vitals. DVT and GI prophylaxis. Further recommendations as per clinical course of the patient DVT prophylaxis: Subcutaneous heparin GI Prophylaxis: Pepcid PT/OT: Pending, deferred Prognosis is guarded Family updated with the plan and all questions answered
[2025-04-23] MEDS: MAGNESIUM SULFATE-D5W PMX 1 GM in DEXTROSE/WATER 1 100ML.BAG IVPB ONE (10:14)
--- NOTE | 2025-04-23 10:40 | P.PN ---
Subjective Progress Note Date: 04/22/25 Patient was seen for a follow-up. Patient continues to be obtunded, but is not as jerky anymore. Myoclonic jerks have improved but he is obtunded. Objective - Vital Signs Vital signs: Vital Signs Temp 98.9 F 04/23/25 05:25 Pulse 81 04/23/25 05:25 Resp 18 04/23/25 05:25 BP 124/83 04/23/25 05:25 Pulse Ox 95 04/23/25 05:25 FiO2 Intake & Output 04/22/25 04/23/25 04/23/25 18:59 06:59 18:59 Output Total 225 Balance -225 Weight 104.5 kg Output: Urine 225 Other: Voiding Method Diaper Diaper # Voids 1 1 - Exam Examination as above. - Labs CBC & Chem 7: 04/23/25 05:37 04/23/25 05:37 Labs: Abnormal Lab Results - Last 24 Hours (Table) 04/22/25 04/23/25 04/23/25 Range/Units 07:01 05:37 05:37 RBC 3.69 L (4.40-5.60) 10*6/uL Hgb 10.9 L (13.0-17.0) g/dL Hct 34.6 L (39.6-50.0) % MCHC 31.5 L (32.0-37.0) g/dL Potassium 2.9 L (3.5-5.1) mmol/L Chloride 111 H (98-107) mmol/L BUN 31 H (9-20) mg/dL Creatinine 0.61 L (0.66-1.25) mg/dL HSV I IgG Interpret Positive A (Negative) Microbiology - Last 24 Hours (Table) 04/21/25 09:47 Nasal Screen MRSA/MSSA - Final Nasal Swab 04/21/25 05:46 Blood Culture - Preliminary Blood Assessment and Plan Assessment: * Altered mental status, likely due to acute delirium. This is likely due to some other medical/metabolic condition. Patient has low-grade fever. Rule ou t occult infection. Rule out CHF or pneumonia. UA is negative. * Myoclonic jerks, likely due to acute delirium. * New onset atrial fibrillation. * Longstanding history of hallucinations for last 2 year, progressively getting worse, particularly since his recent back surgery. * Parkinson's disease, follows up with Dr. Lawrence. 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 * History of lumbosacral surgery on 04/28/2024. * Low normal vitamin B12 of 364 in March 2024 * History of Vitamin B6 deficiency Plan: * Resume Sinemet. He has not received his Sinemet since yesterday afternoon dose. This is making his parkinsonism worse on top of his myoclonic jerks from delirium. * Resume amantadine. * Requip was considered for PLMS, but can make hallucinations worse. * Continue Klonopin 0.25 mg twice daily for possible REM behavior disorder. Patient also has not slept well for last few days, which can also make delirium worse. * May need NG tube placement, if patient not able to swallow. * Infectious disease on board. Patient on acyclovir and ceftriaxone 2 g every 12 hours. ID recommending lumbar puncture. LP was considered, but patient has received heparin 5000 units subcu this morning at 8 AM. We will hold heparin subcu tonight and tomorrow morning, and will perform lumbar puncture in the morning. * EEG evaluate for encephalopathy * Cardiology on board for paroxysmal atrial fibrillation. Patient not appropriate candidate for anticoagulation because of increased gait i nstability and frequent jerking movements along with confusion and memory impairment. We will place patient at least on aspirin 81 mg daily. * 2D echo revealed LVEF 55 to 60%. Mildly increased septal wall thickness. No obvious regional wall motion abnormalities. Moderate right ventricular dilation. Moderately increased left atrial diameter. No significant valvular abnormalities. Thickened pericardium without any significant effusion. * Discussed with nursing staff.
--- NOTE | 2025-04-23 10:59 | XR ---
EXAMINATION TYPE: XR chest 1V portable DATE OF EXAM: 04/23/2025 10:30 AM COMPARISON: Chest radiographs from 04/22/2025 CLINICAL INDICATION: Male, 74 years old with history of NG tube placement; [facility] TECHNIQUE: XR chest 1V portable Frontal view of the chest. FINDINGS: Lungs/Pleura: There is no evidence of pleural effusion, focal consolidation, or pneumothorax. Pulmonary vascularity: Unremarkable. Heart/mediastinum: Cardiomediastinal silhouette is unremarkable. Musculoskeletal: No acute osseous pathology. Left shoulder arthroplasty appears intact. Endotracheal tube and the distal esophagus. Advancement of 10 cm recommended for optimal placement. IMPRESSION: Endotracheal tube and the distal esophagus. Advancement of 10 cm recommended for optimal placement. [facility], , 04/23/2025 10:57 AM
[2025-04-23] MEDS ORDERED: CARBIDOPA-LEVODOPA 25-100 MG 1 EACH TAB PO SCH (12:00)
[2025-04-23] MEDS: ASPIRIN 81 MG PO SCH (14:46)
[2025-04-23] MEDS: POTASSIUM BICARBONATE/CIT AC 20 MEQ TABLET.EFF NG-TUBE ONE (14:46)
--- NOTE | 2025-04-23 17:23 | CT ---
EXAMINATION TYPE: CT brain wo con CT DLP: 1288.3 mGycm, Automated exposure control for dose reduction was used. DATE OF EXAM: 04/23/2025 5:11 PM COMPARISON: CT brain 04/20/2025, CT brain C-spine 04/15/2025 CLINICAL INDICATION:Male, 74 years old with history of AMS, bloody tap, r/o epidural hematoma, ams TECHNIQUE: Brain: Multiple axial CT images of the brain were obtained without IV contrast. . Coronal and sagitta l reformats reviewed. FINDINGS: Brain: Extra-axial spaces: No abnormal extra-axial fluid collections. Focus of gas identified within the lef t intrapedicular cistern likely related to recent tap. Ventricular system: Within normal limits Cerebral parenchyma: No acute intraparenchymal hemorrhage or mass effect. The stewart-white junction is well differentiated. Scattered hypoattenuating areas are seen within the periventricular white matte r. Cerebellum: Unremarkable. Mass effect: No evidence of midline shift. Intracranial vasculature: Atherosclerotic calcifications of the intracranial vessels. Soft tissues: Normal. Calvarium/osseous structures: No depressed skull fracture. Paranasal sinuses and mastoid air cells: The mastoid air cells are clear. Right maxillary sinus proba ble 1.1 cm mucous retention cyst. Mild mucosal thickening of the ethmoid sinuses. Nasal septal deviat ion to the right. Visualized orbits: Orbital contents are intact. Other: Partial visualization of NG tube. IMPRESSION: 1. No evidence for intracranial bleed. 2. Nonspecific minimal white matter changes, likely secondary to chronic small vessel ischemic diseas e. [facility], , 04/23/2025 5:21 PM
--- NOTE | 2025-04-23 17:33 | CT ---
EXAMINATION TYPE: CT lumbar spine wo con CT DLP: 2342.6 mGycm, Automated exposure control for dose reduction was used. DATE OF EXAM: 04/23/2025 5:11 PM COMPARISON: Lumbar spine radiograph 04/15/2025, 02/13/2025, CT lumbar spine 12/02/2024. CLINICAL INDICATION:Male, 74 years old with history of Bloody tap, r/o EPidural hematoma; PHH, epidur al hematoma, pain TECHNIQUE: Multiple axial images were obtained from the midportion of T11 through the sacroiliac bradley nts. Soft tissue and bone windows in coronal and sagittal planes were obtained and reviewed. Contrast used: none. Oral contrast used: none. FINDINGS: There are 5 lumbar type vertebral bodies within normal alignment. Acute nondisplaced posterior left 1 1th and 12th rib fractures. Vertebral body heights are maintained. Postsurgical changes with bilatera l pedicular screws and rods and intervertebral disc hardware involving L4-S1 with laminectomy changes . Hardware appears intact with stable alignment. This creates streak artifact which limits evaluation . Foci of gas identified within the posterior back subcutaneous tissues and within the spinal canal fro m recent lumbar puncture. No gross evidence for significant spinal canal or neural foraminal stenosis . No gross evidence for spinal epidural hematoma however there is significant amount of beam Herrera artifact limiting evaluation. Partial visualization of NG tube. IMPRESSION: 1. Acute nondisplaced left posterior 11th and 12th rib fractures. No acute spinal fracture. 2. Postsurgical changes from posterior fusion L4-S1. Hardware appears intact. 3. No definitive evidence for spinal epidural hematoma status post lumbar puncture. However there is significant amount of beam hardening artifact and streak artifact limiting evaluation. [facility], , 04/23/2025 5:30 PM
--- NOTE | 2025-04-23 17:50 | P.PN ---
Subjective Progress Note Date: 04/23/25 Fever possible GEOCHEMICAL LABORATORY TECHNICIAN infection Patient is a 74-year-old male with a past medical history significant for Asthma, Diabetes Mellitus, GERD/Reflux, Hyperlipidemia, Hypertension, Neurologic Disorder, Prostate Disorder, Skin Disorder has been brought into the hospital for evaluation of possible seizure activity the patient did have a fever elevated white count concerning for possible GEOCHEMICAL LABORATORY TECHNICIAN infection. On today's evaluation that is 04/23/2025 patient did have improvement in his fever pattern with a temperature 100.0 degrees at 11 PM, following that patient has been afebrile this morning patient remains stable, more responsiveand opened eyes to answer with yes and no. No vomiting or diarrhea has been reported by the nurse staff. Patient WBC 8.54, creatinine 0.61, blood cultures are pending. Objective - Vital Signs Vital signs: Vital Signs Temp 98.9 F 04/23/25 05:25 Pulse 81 04/23/25 05:25 Resp 18 04/23/25 05:25 BP 124/83 04/23/25 05:25 Pulse Ox 95 04/23/25 05:25 FiO2 Intake & Output 04/22/25 04/23/25 04/23/25 18:59 06:59 18:59 Output Total 225 Balance -225 Weight 104.5 kg Output: Urine 225 Other: Voiding Method Diaper Diaper # Voids 1 1 - Exam GENERAL DESCRIPTION: An elderly male lying in bed in no distress RESPIRATORY SYSTEM: Unlabored breathing , decreased breath sounds at bases HEART: S1 S2 regular rate and rhythm , ABDOMEN: Soft , no tenderness EXTREMITIES: No edema feet - Labs CBC & Chem 7: 04/28/25 06:29 04/28/25 06:29 Labs: Abnormal Lab Results - Last 24 Hours (Table) 04/22/25 04/23/25 04/23/25 Range/Units 07:01 05:37 05:37 RBC 3.69 L (4.40-5.60) 10*6/uL Hgb 10.9 L (13.0-17.0) g/dL Hct 34.6 L (39.6-50.0) % MCHC 31.5 L (32.0-37.0) g/dL Potassium 2.9 L (3.5-5.1) mmol/L Chloride 111 H (98-107) mmol/L BUN 31 H (9-20) mg/dL Creatinine 0.61 L (0.66-1.25) mg/dL HSV I IgG Interpret Positive A (Negative) Microbiology - Last 24 Hours (Table) 04/21/25 09:47 Nasal Screen MRSA/MSSA - Final Nasal Swab 04/21/25 05:46 Blood Culture - Preliminary Blood Assessment and Plan (1) Sepsis Status: Acute Code(s): A41.9 - SEPSIS, UNSPECIFIED ORGANISM SNOMED Code(s): 76071663 (2) Fever Status: Acute Code(s): R50.9 - FEVER, UNSPECIFIED SNOMED Code(s): 879896309 Plan: 1patient presented to the hospital with weakness and did have some spastic movement of the extremities concerning for possible seizure subsequently the patient started having a fever patient did have tachypnea and tachycardia elevated white count meeting criteria for SIRS/sepsis source will be likely GEOCHEMICAL LABORATORY TECHNICIAN infection in this patient did have a negative UA chest x-ray x 2 has been negative for any pneumonia abdomen is soft and no evidence of any cellulitis or joint swelling 2-patient completed LP for CSF examination, awaiting the fluid Gram stain, cell count, glucose and protein. This has been discussed in detail with the neurologist on the case patient currently not on Eliquis or Plavix 3-patient currently being treated empirically with vancomycin, ceftriaxone and acyclovir while watching his clinical course closely. Abdiaziz Solis MD Internal Medicine Resident, PGY2 Infectious disease service Patient was personally seen and examined care discussed in detail with the resident physician documentation reviewed and agree, patient currently being treated empirically with vancomycin Rocephin and acyclovir while waiting for the LP to be completed, prognosis guarded Dictation was produced using [employer] dictation software. please excuse any grammatical, word or spelling errors. Time with Patient: Less than 30
--- NOTE | 2025-04-23 18:12 | P.PN ---
Subjective Progress Note Date: 04/23/25 Patient was seen for a follow-up. Patient's myoclonic jerks have resolved, but he continues to be very obtunded, somewhat lethargic, very encephalopathic. Slightly mumbles, with some unintelligible speech. Objective - Vital Signs Vital signs: Vital Signs Temp 98.7 F 04/23/25 08:00 Pulse 86 04/23/25 14:00 Resp 18 04/23/25 14:00 BP 153/71 04/23/25 12:00 Pulse Ox 95 04/23/25 08:00 FiO2 Intake & Output 04/22/25 04/23/25 04/23/25 18:59 06:59 18:59 Output Total 225 500 Balance -225 -500 Weight 104.5 kg Output: Urine 225 500 Other: Voiding Method Diaper Diaper Diaper # Voids 1 1 1 - Exam Examination as above. - Labs CBC & Chem 7: 04/23/25 05:37 04/23/25 05:37 Labs: Abnormal Lab Results - Last 24 Hours (Table) 04/23/25 04/23/25 Range/Units 05:37 05:37 RBC 3.69 L (4.40-5.60) 10*6/uL Hgb 10.9 L (13.0-17.0) g/dL Hct 34.6 L (39.6-50.0) % MCHC 31.5 L (32.0-37.0) g/dL Potassium 2.9 L (3.5-5.1) mmol/L Chloride 111 H (98-107) mmol/L BUN 31 H (9-20) mg/dL Creatinine 0.61 L (0.66-1.25) mg/dL Microbiology - Last 24 Hours (Table) 04/21/25 05:46 Blood Culture - Preliminary Blood 04/21/25 09:47 Nasal Screen MRSA/MSSA - Final Nasal Swab Assessment and Plan Assessment: * Altered mental status, likely due to acute delirium. This is likely due to some other medical/metabolic condition. Patient has low-grade fever. Rule out occult infection. Rule out CHF or pneumonia. UA is negative. Rule out meningitis encephalitis. * Myoclonic jerks, likely due to acute delirium, improved. * New onset atrial fibrillation. * Longstanding history of hallucinations for last 2 year, progressively getting worse, particularly since his recent back surgery. * Parkinson's disease, follows up with Dr. Lawrence. 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 * History of lumbosacral surgery on 04/28/2024. * Low normal vitamin B12 of 364 in March 2024 * History of Vitamin B6 deficiency Plan: * Resume Sinemet. He has not received his Sinemet since yesterday afternoon dose. This is making his parkinsonism worse on top of his myoclonic jerks from delirium. * Resume amantadine. * Requip was considered for PLMS, but can make hallucinations worse. * Continue Klonopin 0.25 mg twice daily for possible REM behavior disorder. Patient also has not slept well for last few days, which can also make delirium worse. * May need NG tube placement, if patient not able to swallow. * Infectious disease on board. Patient on acyclovir, ceftriaxone 2 g every 12 hours and vancomycin. ID recommending lumbar puncture. LP will be performed, as per recommendation from ID. * EEG evaluate for encephalopathy * Cardiology on board for paroxysmal atrial fibrillation. Patient not appropriate candidate for anticoagulation because of increased gait instability and frequent jerking movements along with confusion and memory impairment. We will place patient at least on aspirin 81 mg daily. * 2D echo revealed LVEF 55 to 60%. Mildly increased septal wall thickness. No obvious regional wall motion abnormalities. Moderate right ventricular dilation. Moderately increased left atrial diameter. No significant valvular abnormalities. Thickened pericardium without any significant effusion. * Discussed with nursing staff and patient's nurse.
--- NOTE | 2025-04-23 18:18 | P.PCN ---
Date of Procedure: 04/23/25 Preoperative Diagnosis: Altered mental status, rule out meningitis encephalitis Postoperative Diagnosis: Rule out meningitis, encephalitis Procedure(s) Performed: Attempted lumbar puncture Anesthesia: local Surgeon: Corbin Guardado Mail Carrier And Clerk #1: Matilda Casiano Condition: stable Disposition: floor Description of Procedure: Informed consent was obtained from the patient's . Risks and benefits were discussed. Patient was placed on the right lateral position with the complete assistance of 2 nurses. Patient appears to be very stiff, not able to flex his knees or the hips. Procedure performed under strict aseptic condition. Low back region was sterilized with ChloraPrep. 1% lidocaine was injected at L4 lumbar space. Patient apparently was still feeling some pain, therefore extra lidocaine was injected. A 3.5 inch, 20-gauge spinal needle inserted at L4 lumbar space. After second attempt, I was able to obtain some fluid, but it was very bloody. It did clear up slightly, but remained very bloody. About 4 cc of the fluid was collected in 2 separate tubes. Unfortunately the specimen clotted soon. Stylette were reintroduced, and this spinal needle was withdrawn. Band-Aid was applied. Patient tolerated the procedure well. He was placed in a supine position. Unfortunately only cultures could be sent off the fluid. I called the lab and they will check with the [facility], if comprehensive viral panel could be run off from that specimen. We will consult pain management/anesthesia to perform lumbar puncture, as because of his history of previous back surgery, may need anesthesia to perform it.
--- NOTE | 2025-04-23 21:15 | EEG ---
DATE OF SERVICE: 04/23/2025 ELECTROENCEPHALOGRAM REPORT PREAMBLE: This is a 74-year-old male with altered mental status. EEG FINDINGS: This is a 21-channel digital EEG recorded with video component, utilizing 10/20 international system with referential and bipolar montages. Background consists of poorly developed and regulated mixed frequencies of low amplitude mixed 4-6 hertz theta, with 2-3 hertz, some delta activity in bihemispheric region. Background does not seem to be reactive to eye opening or closing. Different stages of sleep were not seen. No focal or generalized epileptiform activity was seen. Some electrode artifact was noted in the T6 during later part of the study. IMPRESSION: This is an abnormal EEG due to background slowing of [id number] degree. This is suggestive of generalized cerebral dysfunction as can be seen with toxic metabolic encephalopathy or related to diffuse structural brain abnormality. Clinical correlation is recommended. No epileptiform activity was seen. MMABDOULAYE / IJN: [id number] / MTDD
[2025-04-23] MEDS: POTASSIUM BICARBONATE/CIT AC 20 MEQ TABLET.EFF NG-TUBE SCH (21:52)
[2025-04-24] MEDS: ALBUTEROL NEBULIZED 2.5 MG/3 ML INHALATION PRN (04:18)
--- NOTE | 2025-04-24 06:11 | XR ---
EXAMINATION TYPE: XR chest 1V portable DATE OF EXAM: 04/24/2025 CLINICAL INDICATION: Male, 74 years old with history of Shortness of breath, progress study. TECHNIQUE: Single AP portable upright view of the chest is obtained. COMPARISON: Chest x-ray from one day earlier FINDINGS: Interval advancement of nasogastric tube. Persistent elevated right hemidiaphragm. Lungs r emain clear. Cardiac silhouette size is stable and upper limits of normal. Surgical changes left shou lder is partially imaged. IMPRESSION: Interval successful advancement of nasogastric tube. No acute pulmonary process. [facility], Workstation: [facility], 04/24/2025 6:08 AM
--- NOTE | 2025-04-24 09:03 | P.PN ---
Subjective This is a pleasant 74 years old male with past medical history of multiple medical problems including history of Parkinson disease and he follows with Dr. Lawrence in the outpatient setting presents because been confused when he talks he forgets and he falls asleep a lot through the day also he has worsening jerking movements of both upper extremities. He has more pain on the left side he feels dizzy all the time. Information obtained with the help of family and at bedside He is on Sinemet 25-100 mg 2 tablets, 2 times, +3 tablets in the morning with a total of 7 tablets daily Patient denies smoking alcohol or illicit drugs Vital stable no fever. 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 Temperature 101.1 Patient this morning looks the same still confused, still has both abnormal movements of the upper extremities similar to yesterday. Despite receiving several doses of Ativan no much improvement No other involuntary movements suspicious for seizure-like activity Blood culture sent. Patient started on antibiotics empirically with ceftriaxone 2 g and IV vancomycin. Also IV acyclovir 800 mg x 1 Repeat chest x-ray ordered showing cardiomegaly with mild pulmonary vascular congestion. Urinalysis showing no evidence of infection. There is no known rash or diarrhea. Labs reviewed showing WBC of 15.7. INR 1.1. Creatinine 0.7. Electrolytes normal. Troponins mildly elevated 0.051. Liver enzymes within the reference range. Also he is on amantadine. Also patient on Sinemet, deferred per neurologist Family at bedside including were updated with the management plan 04/22 Patient is more calm today although mildly agitated while he is in bed, he is confused, upper extremity jerking movement significantly decreased in amplitude and frequency. Not completely stopped. Patient is getting Valium and other sedatives which help him to calm him down. However patient will need his Sinemet per recommendation of neurologist, research greenhouse supervisor recommended NG tube which is ordered. Discussed with staff risk of aspiration and to decrease this risk with maneuvers and measures. Patient remains on empiric antibiotics with IV vancomycin and ceftriaxone and acyclovir. 04/23 Patient remains very sleepy and nonverbal today after receiving several sedating's including IV Valium He had to place NG tube again after he pulled out yesterday. So he can get the Sinemet. No dyskinesia of his upper extremity abnormal movement of both upper extremity today Fever subsiding leukocytosis subsiding while he is on broad-spectrum antibiotics with IV vancomycin ceftriaxone and acyclovir Plan for lumbar puncture today and EEG which is going to this morning. All labs and imaging were reviewed 04/24 Patient still obtunded, he has little tachypnea, NG tube in place confirmed with chest x-ray. Chest x-ray showing no acute consolidation. Fever subsiding. Yesterday lumbar puncture was tried was unsuccessful only culture was sent. Remains on broad-spectrum antibiotic with IV vancomycin and ceftriaxone and acyclovir Labs reviewed showing improved leukocytosis. Consult anesthesia/pain management or IR for lumbar puncture. Active Medications Generic Name Dose Route Start Last Admin Trade Name Freq PRN Reason Stop Dose Admin Acetaminophen 650 mg 04/22/25 16:38 04/23/25 23:48 Acetaminophen Suppository 650 Mg Supp RECTAL 650 mg Q6HR PRN Administration Fever and/ or Pain Hydrocodone Bitart/Acetaminophen 1 each 04/21/25 08:15 Hydrocodone/Apap 7.5-325mg 1 Each Tab PO BID PRN Pain Albuterol Sulfate 2.5 mg 04/21/25 08:15 04/24/25 04:18 Albuterol Nebulized 2.5 Mg/3 Ml INHALATION 2.5 mg RT-Q6H PRN Administration Shortness Of Breath Amantadine HCl 100 mg 04/21/25 09:00 04/23/25 20:42 Amantadine Hcl 100 Mg Cap PO Not Given BID DEVI Aspirin 81 mg 04/23/25 10:45 04/23/25 14:46 Aspirin 81 Mg PO 81 mg DAILY DEVI Administration Bisacodyl 5 mg 04/21/25 09:00 04/23/25 20:28 Bisacodyl 5 Mg Tablet.Dr PO 5 mg BID DEVI Administration Budesonide/Formoterol Fumarate 2 puff 04/22/25 20:00 04/23/25 21:02 Symbicort 160-4.5 Mcg Inhaler INHALATION 2 puff RT-BID DEVI Administration Carbidopa/Levodopa 2 each 04/22/25 18:00 04/24/25 06:41 Carbidopa-Levodopa 25-100 Mg 1 Each Tab PO 2 each BID@0600,1800 DEVI Administration Carbidopa/Levodopa 3 each 04/22/25 14:15 04/23/25 14:44 Carbidopa-Levodopa 25-100 Mg 1 Each Tab PO 3 each DAILY@1200 DEVI Administration Clonazepam 0.25 mg 04/21/25 12:30 04/23/25 20:27 Clonazepam 0.5 Mg Tab PO 0.25 mg BID DEVI Administration Diazepam 5 mg 04/21/25 15:39 04/24/25 08:39 Diazepam 5 Mg/Ml 2 Ml Inj IVP 5 mg Q6HR PRN Administration Muscle Spasm Diphenoxylate HCl/Atropine 2 each 04/22/25 13:07 Diphenox-Atrop 2.5-0.025 Mg 1 Each Tab PO QID PRN Diarrhea Duloxetine HCl 60 mg 04/21/25 09:00 04/23/25 20:28 Duloxetine Hcl 60 Mg Capsule.Dr PO 60 mg BID DEVI Administration Heparin Sodium (Porcine) 5,000 unit 04/24/25 16:00 Heparin Sodium,Porcine 5,000 Unit/Ml 1 Ml Vial SQ Q8HR DEVI Sodium Chloride 1,000 mls @ 75 mls/hr 04/20/25 18:30 04/23/25 20:35 Saline 0.9% IV 75 mls/hr .[id number] DEVI Administration Vancomycin HCl 1,500 mg/ 500 mls @ 167 mls/hr 04/21/25 21:00 04/23/25 20:30 Sodium Chloride IVPB 167 mls/hr Q12H DEVI Administration Acyclovir Sodium 600 mg/ 262 mls @ 270 mls/hr 04/22/25 00:00 04/24/25 01:17 Sodium Chloride IVPB 270 mls/hr Q8HR DEVI Administration Protocol Ceftriaxone Sodium 2 gm/ 50 mls @ 100 mls/hr 04/23/25 12:00 04/24/25 01:00 Sodium Chloride IVPB 100 mls/hr Q12HR@0000,1200 DEVI Administration Protocol Lorazepam 1 mg 04/21/25 04:25 04/24/25 04:38 Lorazepam 1 Mg/0.5 Ml Vial IV 1 mg Q3HR PRN Administration Anxiety Metoprolol Succinate 25 mg 04/22/25 13:45 04/23/25 14:44 Metoprolol Succinate (Er) 25 Mg Tab.Er.24h PO 25 mg DAILY DEVI Administration Miscellaneous Information 1 each 04/22/25 09:17 Potassium Replacement Protocol 1 Each [facility] [place] DAILY PRN Per Protocol Protocol Miscellaneous Information 1 each 04/23/25 02:26 Magnesium Replacement Protocol 1 Each [facility] [place] DAILY PRN Per Protocol Protocol Naloxone HCl 0.2 mg 04/20/25 16:08 Naloxone 0.4 Mg/Ml 1 Ml Vial IV Q2M PRN Opioid Reversal Ondansetron HCl 4 mg 04/20/25 18:18 04/21/25 10:43 Ondansetron 4 Mg/2 Ml Vial IVP 4 mg Q6HR PRN Administration Nausea And Vomiting Pantoprazole Sodium 40 mg 04/20/25 18:19 04/23/25 10:14 Pantoprazole 40 Mg/10 Ml Vial IVP 40 mg DAILY DEVI Administration Quetiapine Fumarate 100 mg 04/21/25 21:00 04/23/25 20:29 Quetiapine 100 Mg Tab PO 100 mg HS DEVI Administration Quetiapine Fumarate 25 mg 04/22/25 14:05 Quetiapine 25 Mg Tab PO BID PRN agitation/severe anxiety Tamsulosin HCl 0.4 mg 04/21/25 16:00 04/23/25 17:59 Tamsulosin 0.4 Mg Cap.Er.24h PO 0.4 mg DAILY@1600 DEVI Administration Objective - Vital Signs Vital signs: Vital Signs Temp 99.3 F 04/24/25 01:15 Pulse 75 04/24/25 04:25 Resp 20 04/24/25 04:25 BP 133/72 04/24/25 03:58 Pulse Ox 97 04/24/25 03:58 FiO2 Intake & Output 04/23/25 04/24/25 04/24/25 18:59 06:59 18:59 Output Total 500 400 Balance -500 -400 Weight 104 kg Output: Urine 500 400 Other: Voiding Method Diaper Diaper External Catheter # Voids 1 - Exam -GENERAL: The patient is confused HEENT: Pupils are round and equally reacting to light. EOMI. No scleral icterus. No conjunctival pallor. Normocephalic, atraumatic. No pharyngeal erythema. No thyromegaly. CARDIOVASCULAR: S1 and S2 present. No murmurs, rubs, or gallops. PULMONARY: Chest is clear to auscultation, no wheezing , no crackles. ABDOMEN: Soft, nontender, nondistended, normoactive bowel sounds. No palpable organomegaly. MUSCULOSKELETAL: No joint swelling or deformity. EXTREMITIES: No cyanosis, clubbing, or pedal edema. -NEUROLOGICAL: Gross neurological examination did not reveal any focal deficits. Patient has white drainage rhythmic movements of both upper extremities and to lesser extent of the both lower extremities, patient movement is restricted because of these involuntary movements SKIN: No rashes. no petechiae. - Labs CBC & Chem 7: 04/23/25 05:37 04/23/25 18:44 Labs: Abnormal Lab Results - Last 24 Hours (Table) 04/23/25 Range/Units 18:44 Potassium 3.0 L (3.5-5.1) mmol/L Microbiology - Last 24 Hours (Table) 04/23/25 16:45 CSF Gram Stain - Preliminary Cerebral Spinal Fluid 04/21/25 05:46 Blood Culture - Preliminary Blood Assessment and Plan Assessment: Dyskinesia of both upper extremity, rule out worsening Parkinson disease versus (levodopa-induced dyskinesia), improved fever unknown source , DDx: meningitis/encephalitis Metabolic encephalopathy secondary to above A-fib with rate controlled, with elevated troponin parkinson disease Hypertension Hyperlipidemia Diabetes mellitus BPH Obesity with BMI of 36.2 Plan: started and continue with IV ceftriaxone, IV vancomycin acyclovir and follow-up blood culture results A infectious disease team consult Patient on Sinemet at home, high dose, deferred to neurologist resume amantadine Check echocardiogram Follow-up EEG and lumbar puncture Neurology team consult Cardiology team consult Labs and medication were reviewed.. Continue same treatment. Continue with symptomatic treatment. Resume home medication. Monitor labs and vitals. DVT and GI prophylaxis. Further recommendations as per clinical course of the patient DVT prophylaxis: Subcutaneous heparin GI Prophylaxis: Pepcid PT/OT: Pending, deferred Prognosis is guarded Family updated with the plan and all questions answered
--- NOTE | 2025-04-24 09:38 | P.PCN ---
Description of Procedure: Preprocedure diagnosis. Mental status change. Postprocedure diagnosis. As above. Procedure done. Lumbar puncture and collection of cerebrospinal fluid. Anesthesia. Local infiltration with anesthetics. Continuous pulse ox, EKG, blood pressure and verbal communication was maintained with the patient. Blood loss. None. Indication. Discussed the procedure, alternatives, complications which may include infection, nerve damage, paralysis, aggravation of the symptoms especially bleeding in the spine and post dural puncture headache with the patient's family. The patient family understands and all questions were answered. Procedure note. After getting concentration in the procedure room in sitting position. Back prepped with chlorhexidine and draped in sterile fashion. After injecting 3 mL of 1% lidocaine subcutaneously, a 22-gauge spinal needle was introduced at L3-4 interspace. Positive CSF, negative blood, negative paresthesia. CSF color was pinkish in color (blood tinged probably from yesterday's attempt of lumbar puncture). CSF pressure was not measured. CSF was collected in 4 supplied sterile conta iners in sequence. Spinal needle was taken out and bandage was applied. Disposition. Patient tolerated the procedure well. No complication. Advised patient to lay flat one-hour postprocedure. The rest of the day today try to lay flat as much as possible. Next 3 days drink lots of fluid especially caffeinated beverages, and avoid constipation cough and doing strenuous physical work. Discharged home in stable condition.
[2025-04-24] MEDS: VANCOMYCIN TROUGH DUE 1 EACH MISC MISCELLANE ONE (09:53)
[2025-04-24 10:11] LABS: Basophils # (A) 0.04 10*3/uL (0.00-0.10); Basophils % (A) 0.4 %; Eosinophils # (A) 0.14 10*3/uL (0.04-0.35); Eosinophils % (A) 1.5 %; HCT 36.0 % (39.6-50.0); HGB 11.5 g/dL (13.0-17.0); Lymphocytes # (A) 1.02 10*3/uL (0.90-5.00); Lymphocytes % (A) 10.6 %; MCH 30.2 pg (27.0-32.0); MCHC 31.9 g/dL (32.0-37.0); MCV 94.5 fL (80.0-97.0); Monocytes # (A) 0.65 10*3/uL (0.20-1.00); Monocytes % (A) 6.8 %; Neutrophils # (A) 7.74 10*3/uL (1.80-7.70); Neutrophils % (A) 80.4 %; Platelet Count 177 10*3/uL (140-440); RBC 3.81 10*6/uL (4.40-5.60); RDW 13.6 % (11.5-14.5); WBC 9.62 10*3/uL (4.50-10.00)
[2025-04-24 10:28] LABS: ALT <6 U/L (4-49); AST 23 U/L (17-59); African American GFR (CKD) >90 (>60 ml/min/1.73 sqM); Albumin 3.1 g/dL (3.5-5.0); Alkaline Phosphatase 69 U/L (38-126); Anion Gap 12 mmol/L; Bilirubin, Delta 0.4 mg/dL (0.0-0.2); Bilirubin,Unconjugated 0.3 mg/dL (0.0-1.1); Blood Urea Nitrogen 25 mg/dL (9-20); Calcium 8.9 mg/dL (8.4-10.2); Carbon Dioxide 22 mmol/L (22-30); Chloride 110 mmol/L (98-107); Glucose 94 mg/dL (74-99); Magnesium 2.1 mg/dL (1.6-2.3); Non-African American GFR(CKD) >90 (>60 ml/min/1.73 sqM); Potassium 3.0 mmol/L (3.5-5.1); Sodium 144 mmol/L (137-145); Total Protein 5.3 g/dL (6.3-8.2)
[2025-04-24] MEDS ORDERED: DEXTROSE 50% SYRINGE 50 ML IVP PRN ×2 (11:21)
[2025-04-24 11:41] LABS: Glucose,Whole Blood 103 mg/dL (70-110)
[2025-04-24 12:02] LABS: Glucose,CSF 57 mg/dL (40-70)
[2025-04-24] MEDS: INSULIN LISPRO (HumaLOG) 100 UNIT/ML 10 mL VL SQ SCH (12:16)
[2025-04-24 13:33] LABS: CSF Tube Volume 3.5; Red Blood Cell,CSF 722 u/L (0-10)
[2025-04-24 13:34] LABS: Nucleated Cells, CSF 24 u/L (0-5)
[2025-04-24 13:38] LABS: Diff, Total Cells Cnt, CSF 100; Mononuclear WBC,CSF 6 %; Polynuclear WBC,CSF 93 %
[2025-04-24 13:39] LABS: Red Blood Cell, CSF Crenated 2 %; Red Blood Cell, CSF Fresh 98 %
[2025-04-24] MEDS: POTASSIUM BICARBONATE/CIT AC 20 MEQ TABLET.EFF NG-TUBE SCH (13:41)
[2025-04-24] MEDS: HEPARIN SODIUM,PORCINE 5,000 UNIT/ML 1 ML VIAL SQ SCH (14:26)
--- NOTE | 2025-04-24 15:43 | P.PN ---
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 On today's evaluation that is 04/24/2025, the patient did have improvement in his fever pattern afebrile this morning last temperature 100.5 last evening patient seem to be slightly more awake and he was getting some ice chips from his no chest pain coughing vomiting or diarrhea has been reported. Patient did have white count 9.62, creatinine 0.44 CSF examination shows a bloody tap glucose was normal at 57 protein is only 101 with 722 RBC and 24 nucleated cells. Objective - Vital Signs Vital signs: Vital Signs Temp 98.8 F 04/24/25 08:00 Pulse 79 04/24/25 11:20 Resp 20 04/24/25 08:00 BP 145/78 04/24/25 11:20 Pulse Ox 92 L 04/24/25 11:20 FiO2 Intake & Output 04/23/25 04/24/25 04/24/25 18:59 06:59 18:59 Output Total 500 400 Balance -500 -400 Weight 104 kg Output: Urine 500 400 Other: Voiding Method Diaper Diaper Diaper External Catheter External Catheter # Voids 1 - Exam GENERAL DESCRIPTION: An elderly male lying in bed in no distress RESPIRATORY SYSTEM: Unlabored breathing , decreased breath sounds at bases HEART: S1 S2 regular rate and rhythm , ABDOMEN: Soft , no tenderness EXTREMITIES: No edema feet - Labs CBC & Chem 7: 04/24/25 08:22 04/24/25 08:22 Labs: Abnormal Lab Results - Last 24 Hours (Table) 04/23/25 04/24/25 04/24/25 Range/Units 18:44 08:22 08:22 RBC 3.81 L (4.40-5.60) 10*6/uL Hgb 11.5 L (13.0-17.0) g/dL Hct 36.0 L (39.6-50.0) % MCHC 31.9 L (32.0-37.0) g/dL Neutrophils # 7.74 H (1.80-7.70) 10*3/uL Potassium 3.0 L 3.0 L (3.5-5.1) mmol/L Chloride 110 H (98-107) mmol/L BUN 25 H (9-20) mg/dL Creatinine 0.44 L (0.66-1.25) mg/dL Delta Bilirubin 0.4 H (0.0-0.2) mg/dL Total Protein 5.3 L (6.3-8.2) g/dL Albumin 3.1 L (3.5-5.0) g/dL Microbiology - Last 24 Hours (Table) 04/23/25 16:45 CSF Gram Stain - Preliminary Cerebral Spinal Fluid 04/21/25 05:46 Blood Culture - Preliminary Blood Assessment and Plan (1) Sepsis Current Visit: Yes Status: Acute Code(s): A41.9 - SEPSIS, UNSPECIFIED ORGANISM SNOMED Code(s): 26562358 (2) Encephalitis Current Visit: Yes Status: Acute Code(s): G04.90 - ENCEPHALITIS AND ENCEPHALOMYELITIS, UNSPECIFIED SNOMED Code(s): 68945385 Plan: 1patient presented to the hospital with weakness and did have some spastic movement of the extremities concerning for possible seizure subsequently the patient started having a fever patient did have tachypnea and tachycardia elevated white count meeting criteria for SIRS/sepsis source will be likely 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 please excuse any grammatical, word or spelling errors. Time with Patient: Less than 30
[2025-04-24 16:28] LABS: Glucose,Whole Blood 83 mg/dL (70-110)
[2025-04-24 19:53] LABS: Glucose,Whole Blood 96 mg/dL (70-110)
[2025-04-24] MEDS: VANCOMYCIN 1,750 MG in SODIUM CHLORIDE 0.9% 500 ML 500 ML IVPB SCH (20:30)
[2025-04-24] MEDS: HYDROcodone/APAP 7.5-325MG 1 EACH TAB PO PRN (23:16)
[2025-04-25 05:56] LABS: Glucose,Whole Blood 95 mg/dL (70-110)
[2025-04-25 07:29] LABS: Basophils # (A) 0.04 10*3/uL (0.00-0.10); Basophils % (A) 0.4 %; Eosinophils # (A) 0.19 10*3/uL (0.04-0.35); Eosinophils % (A) 2.0 %; HCT 35.2 % (39.6-50.0); HGB 11.4 g/dL (13.0-17.0); Lymphocytes # (A) 1.06 10*3/uL (0.90-5.00); Lymphocytes % (A) 11.3 %; MCH 30.2 pg (27.0-32.0); MCHC 32.4 g/dL (32.0-37.0); MCV 93.4 fL (80.0-97.0); Monocytes # (A) 0.77 10*3/uL (0.20-1.00); Monocytes % (A) 8.2 %; Neutrophils # (A) 7.31 10*3/uL (1.80-7.70); Neutrophils % (A) 77.7 %; Platelet Count 180 10*3/uL (140-440); RBC 3.77 10*6/uL (4.40-5.60); RDW 13.6 % (11.5-14.5); WBC 9.41 10*3/uL (4.50-10.00)
[2025-04-25 08:02] LABS: ALT 6 U/L (4-49); AST 17 U/L (17-59); African American GFR (CKD) >90 (>60 ml/min/1.73 sqM); Albumin 3.0 g/dL (3.5-5.0); Alkaline Phosphatase 70 U/L (38-126); Anion Gap 11 mmol/L; Bilirubin, Delta 0.4 mg/dL (0.0-0.2); Bilirubin,Unconjugated 0.3 mg/dL (0.0-1.1); Blood Urea Nitrogen 21 mg/dL (9-20); Calcium 8.4 mg/dL (8.4-10.2); Carbon Dioxide 23 mmol/L (22-30); Chloride 112 mmol/L (98-107); Glucose 93 mg/dL (74-99); Magnesium 2.0 mg/dL (1.6-2.3); Non-African American GFR(CKD) >90 (>60 ml/min/1.73 sqM); Potassium 3.0 mmol/L (3.5-5.1); Sodium 146 mmol/L (137-145); Total Protein 5.1 g/dL (6.3-8.2)
[2025-04-25 11:22] LABS: Glucose,Whole Blood 88 mg/dL (70-110)
[2025-04-25] MEDS: POTASSIUM BICARBONATE/CIT AC 20 MEQ TABLET.EFF PO SCH (14:36)
--- NOTE | 2025-04-25 15:54 | P.PN ---
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 On today's evaluation that is 04/25/2024, patient did have a low-grade fever 100.1 degrees following loss of the patient is afebrile this morning patient seem to be breathing slightly comfortably however per he did have some coarse breath sound this morning and concern for possible aspiration no vomiting or diarrhea has been reported. Patient white count is 9.4, creatinine 0.53, CSF HSV as well as VZV DNA by PCR is negative enterovirus not detected Objective - Vital Signs Vital signs: Vital Signs Temp 97.6 F 04/25/25 13:00 Pulse 79 04/25/25 13:00 Resp 18 04/25/25 13:00 BP 152/87 04/25/25 13:00 Pulse Ox 98 04/25/25 13:00 FiO2 Intake & Output 04/24/25 04/25/25 04/25/25 18:59 06:59 18:59 Intake Total 1550 10 Output Total 350 Balance -350 1550 10 Weight 103.5 kg Intake: IV 10 Invasive Line 4 10 Intake, IV Titration 1550 Amount Acyclovir Sodium 600 mg 250 In Sodium Chloride 0.9% 250 ml @ 270 mls/hr IVPB Q8HR [facility] Rx#:[id number] Sodium Chloride 0.9% 1, 750 000 ml @ 75 mls/hr IV . [id number] [facility] Rx#:[id number] Vancomycin 1,750 mg In 500 Sodium Chloride 0.9% 500 ml 500 ml @ 167 mls/hr IVPB Q12H [facility] Rx#: [id number] cefTRIAXone 2 gm In 50 Sodium Chloride 0.9% 50 ml @ 100 mls/hr IVPB Q12HR@0000,1200 [facility] Rx#: [id number] Output: Urine 350 Other: Voiding Method Diaper Diaper Diaper External Catheter External Catheter # Voids 2 2 # Bowel Movements 1 - Exam GENERAL DESCRIPTION: An elderly male lying in bed in no distress RESPIRATORY SYSTEM: Unlabored breathing , decreased breath sounds at bases HEART: S1 S2 regular rate and rhythm , ABDOMEN: Soft , no tenderness EXTREMITIES: No edema feet - Labs CBC & Chem 7: 04/25/25 06:17 07 06:17 Labs: Abnormal Lab Results - Last 24 Hours (Table) 04/25/25 04/25/25 Range/Units 06:17 06:17 RBC 3.77 L (4.40-5.60) 10*6/uL Hgb 11.4 L (13.0-17.0) g/dL Hct 35.2 L (39.6-50.0) % Sodium 146 H (137-145) mmol/L Potassium 3.0 L (3.5-5.1) mmol/L Chloride 112 H (98-107) mmol/L BUN 21 H (9-20) mg/dL Creatinine 0.53 L (0.66-1.25) mg/dL Delta Bilirubin 0.4 H (0.0-0.2) mg/dL Total Protein 5.1 L (6.3-8.2) g/dL Albumin 3.0 L (3.5-5.0) g/dL Microbiology - Last 24 Hours (Table) 04/23/25 16:45 CSF Gram Stain - Preliminary Cerebral Spinal Fluid CSF Culture - Preliminary 04/24/25 09:10 CSF Gram Stain - Preliminary Cerebral Spinal Fluid CSF Culture - Preliminary 04/21/25 05:46 Blood Culture - Preliminary Blood Assessment and Plan (1) Sepsis Current Visit: Yes Status: Acute Code(s): A41.9 - SEPSIS, UNSPECIFIED ORGANISM SNOMED Code(s): 45642812 (2) Encephalitis Current Visit: Yes Status: Acute Code(s): G04.90 - ENCEPHALITIS AND E NCEPHALOMYELITIS, UNSPECIFIED SNOMED Code(s): 21279292 Plan: 1patient presented to the hospital with weakness and did have some spastic movement of the extremities concerning for possible seizure subsequently the patient started having a fever patient did have tachypnea and tachycardia elevated white count meeting criteria for SIRS/sepsis source will be likely HE[employer]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 in this patient did have a negative UA chest x-ray x 2 has been negative for any pneumonia abdomen is soft and no evidence of any cellulitis or joint swelling 2-patient did have a LP/CSF by anesthesia which is a bloody tap with elevated white cell of 24 protein is only 101 glucose normal question of possible viral encephalitis, CSF HSV WELL VZV DNA by PCR has been negative 3-patient did have resolution of his fever white count normalized possible encephalitis continue with acyclovir review of clinical improvement however discontinue vancomycin and Rocephin will add Zosyn concern for possible aspiration pneumonitis Dictation was produced using [employer] dictation software. please excuse any grammatical, word or spelling errors. Time with Patient: Less than 30
[2025-04-25 16:27] LABS: Glucose,Whole Blood 106 mg/dL (70-110)
[2025-04-25 16:30] LABS: Glucose,Whole Blood 88 mg/dL (70-110)
--- NOTE | 2025-04-25 16:43 | P.PN ---
Subjective This is a pleasant 74 years old male with past medical history of multiple medical problems including history of Parkinson disease and he follows with Dr. Lawrence in the outpatient setting presents because been confused when he talks he forgets and he falls asleep a lot through the day also he has worsening jerking movements of both upper extremities. He has more pain on the left side he feels dizzy all the time. Information obtained with the help of family and at bedside He is on Sinemet 25-100 mg 2 tablets, 2 times, +3 tablets in the morning with a total of 7 tablets daily Patient denies smoking alcohol or illicit drugs Vital stable no fever. CBC BMP LFT were unremarkable Chest x-ray showing low lung volume with generalized haziness could be atelectasis versus CHF EKG showing A-fib with rate controlled at [address] of the brain negative for acute process but showing atrophy 04/21 Patient just came recently, he was seen less than 12 hours ago once came through ED for abnormal movements of the both upper extremity suspicious for dyskinesia associated with altered mental status Also patient spiked fever public health specialist. Temperature 101.1 Patient this morning looks the same still confused, still has both abnormal movements of the upper extremities similar to yesterday. Despite receiving several doses of Ativan no much improvement No other involuntary movements suspicious for seizure-like activity Blood culture sent. Patient started on antibiotics empirically with ceftriaxone 2 g and IV vancomycin. Also IV acyclovir 800 mg x 1 Repeat chest x-ray ordered showing cardiomegaly with mild pulmonary vascular congestion. Urinalysis showing no evidence of infection. There is no known rash or diarrhea. Labs reviewed showing WBC of 15.7. INR 1.1. Creatinine 0.7. Electrolytes normal. Troponins mildly elevated 0.051. Liver enzymes within the reference range. Also he is on amantadine. Also patient on Sinemet, deferred per neurologist Family at bedside including were updated with the management plan 04/22 Patient is more calm today although mildly agitated while he is in bed, he is confused, upper extremity jerking movement significantly decreased in amplitude and frequency. Not completely stopped. Patient is getting Valium and other sedatives which help him to calm him down. However patient will need his Sinemet per recommendation of neurologist, infection prevention specialist recommended NG tube which is ordered. Discussed with staff risk of aspiration and to decrease this risk with maneuvers and measures. Patient remains on empiric antibiotics with IV vancomycin and ceftriaxone and acyclovir. 04/23 Patient remains very sleepy and nonverbal today after receiving several sedating's including IV Valium He had to place NG tube again after he pulled out yesterday. So he can get the Sinemet. No dyskinesia of his upper extremity abnormal movement of both upper extremity today Fever subsiding leukocytosis subsiding while he is on broad-spectrum antibiotics with IV vancomycin ceftriaxone and acyclovir Plan for lumbar puncture today and EEG which is going to this morning. All labs and imaging were reviewed 04/24 Patient still obtunded, he has little tachypnea, NG tube in place confirmed with chest x-ray. Chest x-ray showing no acute consolidation. Fever subsiding. Yesterday lumbar puncture was tried was unsuccessful only culture was sent. Remains on broad-spectrum antibiotic with IV vancomycin and ceftriaxone and acyclovir Labs reviewed showing improved leukocytosis. Consult anesthesia/pain management or IR for lumbar puncture. 04/25 Patient today sleeping, hard to wake up. He is receiving Valium 5 mg last night and Klonopin more short acting benzodiazepine this morning He had another spinal tap yesterday when his anesthesia team. Showing elevated nucleated cells at 24. Also RBCs elevated. However glucose normal. Viral encephalitis is suspected per ID team. IV vancomycin and ceftriaxone were discontinued Zosyn was started for likelihood of aspiration pneumonitis. Neurology team also following closely. Hypokalemia been replaced at bedside and all questions answered. Active Medications Generic Name Dose Route Start Last Admin Trade Name Freq PRN Reason Stop Dose Admin Acetaminophen 650 mg 04/22/25 16:38 04/23/25 23:48 Acetaminophen Suppository 650 Mg Supp RECTAL 650 mg Q6HR PRN Administration Fever and/ or Pain Hydrocodone Bitart/Acetaminophen 1 each 04/21/25 08:15 04/24/25 23:16 Hydrocodone/Apap 7.5-325mg 1 Each Tab PO 1 each BID PRN Administration Pain Albuterol Sulfate 2.5 mg 04/21/25 08:15 04/24/25 04:18 Albuterol Nebulized 2.5 Mg/3 Ml INHALATION 2.5 mg RT-Q6H PRN Administration Shortness Of Breath Amantadine HCl 100 mg 04/21/25 09:00 04/25/25 09:13 Amantadine Hcl 100 Mg Cap PO Not Given BID [facility] Aspirin 81 mg 04/23/25 10:45 04/25/25 09:11 Aspirin 81 Mg PO 81 mg DAILY [facility] Administration Bisacodyl 5 mg 04/21/25 09:00 04/25/25 09:12 Bisacodyl 5 Mg Tablet. PO Not Given BID [facility] Budesonide/Formoterol Fumarate 2 puff 04/22/25 20:00 04/25/25 10:02 Symbicort 160-4.5 Mcg Inhaler INHALATION 2 puff RT-BID [facility] Administration Carbidopa/Levodopa 2 each 04/22/25 18:00 04/25/25 06:13 Carbidopa-Levodopa 25-100 Mg 1 Each Tab PO 2 each BID@0600,1800 [facility] Administration Carbidopa/Levodopa 3 each 04/22/25 14:15 04/25/25 13:06 Carbidopa-Levodopa 25-100 Mg 1 Each Tab PO 3 each DAILY@1200 [facility] Administration Clonazepam 0.25 mg 04/21/25 12:30 04/25/25 09:12 Clonazepam 0.5 Mg Tab PO 0.25 mg BID [facility] Administration Dextrose/Water 25 ml 04/24/25 11:21 Dextrose 50% Syringe 50 Ml IVP PER PROTOCOL PRN Hypoglycemia Protocol Dextrose/Water 50 ml 04/24/25 11:21 Dextrose 50% Syringe 50 Ml IVP PER PROTOCOL PRN Hypoglycemia Protocol Diazepam 2.5 mg 04/25/25 16:37 Diazepam 5 Mg/Ml 2 Ml Inj IVP Q6HR PRN Muscle Spasm Diphenoxylate HCl/Atropine 2 each 04/22/25 13:07 Diphenox-Atrop 2.5-0.025 Mg 1 Each Tab PO QID PRN Diarrhea Duloxetine HCl 60 mg 04/21/25 09:00 04/25/25 09:11 Duloxetine Hcl 60 Mg Capsule. PO 60 mg BID [facility] Administration Heparin Sodium (Porcine) 5,000 unit 04/24/25 16:00 04/25/25 09:11 Heparin Sodium,Porcine 5,000 Unit/Ml 1 Ml Vial SQ 5,000 unit Q8HR [facility] Administration Sodium Chloride 1,000 mls @ 75 mls/hr 04/20/25 18:30 04/25/25 06:12 Saline 0.9% IV 75 mls/hr .[id number] [facility] Administration Acyclovir Sodium 600 mg/ 262 mls @ 270 mls/hr 04/25/25 21:00 Sodium Chloride IVPB Q8H [facility] Protocol Piperacillin Sod/Tazobactam 100 mls @ 25 mls/hr 04/25/25 16:00 Sod 3.375 gm/ Sodium Chloride IVPB Q8HR [facility] Protocol Insulin Human Lispro 0 unit 04/24/25 12:30 04/25/25 13:07 Insulin Lispro (Humalog) 100 Unit/Ml 10 Ml Vl SQ Not Given ACHS [facility] Protocol Lorazepam 1 mg 04/21/25 04:25 04/24/25 23:17 Lorazepam 1 Mg/0.5 Ml Vial IV 1 mg Q3HR PRN Administration Anxiety Metoprolol Succinate 25 mg 04/22/25 13:45 04/25/25 09:11 Metoprolol Succinate (Er) 25 Mg Tab.Er.24h PO 25 mg DAILY [facility] Administration Miscellaneous Information 1 each 04/22/25 09:17 Potassium Replacement Protocol 1 Each Misc MISCELLANE DAILY PRN Per Protocol Protocol Miscellaneous Information 1 each 04/23/25 02:26 Magnesium Replacement Protocol 1 Each Misc MISCELLANE DAILY PRN Per Protocol Protocol Naloxone HCl 0.2 mg 04/20/25 16:08 Naloxone 0.4 Mg/Ml 1 Ml Vial IV Q2M PRN Opioid Reversal Ondansetron HCl 4 mg 04/20/25 18:18 04/21/25 10:43 Ondansetron 4 Mg/2 Ml Vial IVP 4 mg Q6HR PRN Administration Nausea And Vomiting Pantoprazole Sodium 40 mg 04/20/25 18:19 04/25/25 09:13 Pantoprazole 40 Mg/10 Ml Vial IVP 40 mg DAILY [facility] Administration Potassium Chloride 10 meq 04/25/25 21:00 Potassium Chloride Er 10 Meq Tab.Er.Prt PO 04/28/25 20:59 BID [facility] Quetiapine Fumarate 100 mg 04/21/25 21:00 04/24/25 20:31 Quetiapine 100 Mg Tab PO 100 mg HS [facility] Administration Quetiapine Fumarate 25 mg 04/22/25 14:05 Quetiapine 25 Mg Tab PO BID PRN agitation/severe anxiety Tamsulosin HCl 0.4 mg 04/21/25 16:00 04/24/25 15:54 Tamsulosin 0.4 Mg Cap.Er.24h PO 0.4 mg DAILY@1600 [facility] Administration Objective - Vital Signs Vital signs: Vital Signs Temp 97.5 F L 04/25/25 08:47 Pulse 86 04/25/25 08:47 Resp 24 04/25/25 08:47 BP 162/90 04/25/25 08:47 Pulse Ox 97 04/25/25 08:47 FiO2 Intake & Output 04/24/25 04/25/25 04/25/25 18:59 06:59 18:59 Intake Total 1550 10 Output Total 350 Balance -350 1550 10 Weight 103.5 kg Intake: IV 10 Invasive Line 4 10 Intake, IV Titration 1550 Amount Acyclovir Sodium 600 mg 250 In Sodium Chloride 0.9% 250 ml @ 270 mls/hr IVPB Q8HR [facility] Rx#:[id number] Sodium Chloride 0.9% 1, 750 000 ml @ 75 mls/hr IV . [id number] [facility] Rx#:[id number] Vancomycin 1,750 mg In 500 Sodium Chloride 0.9% 500 ml 500 ml @ 167 mls/hr IVPB Q12H [facility] Rx#: [id number] cefTRIAXone 2 gm In 50 Sodium Chloride 0.9% 50 ml @ 100 mls/hr IVPB Q12HR@0000,1200 [facility] Rx#: [id number] Output: Urine 350 Other: Voiding Method Diaper Diaper Diaper External Catheter # Voids 2 2 # Bowel Movements 1 - Exam -GENERAL: The patient is confused HEENT: Pupils are round and equally reacting to light. EOMI. No scleral icterus. No conjunctival pallor. Normocephalic, atraumatic. No pharyngeal erythema. No thyromegaly. CARDIOVASCULAR: S1 and S2 present. No murmurs, rubs, or gallops. PULMONARY: Chest is clear to auscultation, no wheezing , no crackles. ABDOMEN: Soft, nontender, nondistended, normoactive bowel sounds. No palpable organomegaly. MUSCULOSKELETAL: No joint swelling or deformity. EXTREMITIES: No cyanosis, clubbing, or pedal edema. -NEUROLOGICAL: Gross neurological examination did not reveal any focal deficits. Patient has white drainage rhythmic movements of both upper extremities and to lesser extent of the both lower extremities, patient movement is restricted because of these involuntary movements SKIN: No rashes. no petechiae. - Labs CBC & Chem 7: 04/25/25 06:17 04/25/25 06:17 Labs: Abnormal Lab Results - Last 24 Hours (Table) 04/24/25 04/25/25 04/25/25 Range/Units 09:10 06:17 06:17 RBC 3.77 L (4.40-5.60) 10*6/uL Hgb 11.4 L (13.0-17.0) g/dL Hct 35.2 L (39.6-50.0) % Sodium 146 H (137-145) mmol/L Potassium 3.0 L (3.5-5.1) mmol/L Chloride 112 H (98-107) mmol/L BUN 21 H (9-20) mg/dL Creatinine 0.53 L (0.66-1.25) mg/dL Delta Bilirubin 0.4 H (0.0-0.2) mg/dL Total Protein 5.1 L (6.3-8.2) g/dL Albumin 3.0 L (3.5-5.0) g/dL CSF RBC 722 H (0-10) u/L CSF Tot Nucleated Cells 24 H* (0-5) u/L CSF Total Protein 101 H (12-60) mg/dL Microbiology - Last 24 Hours (Table) 04/23/25 16:45 CSF Gram Stain - Preliminary Cerebral Spinal Fluid CSF Culture - Preliminary 04/24/25 09:10 CSF Gram Stain - Preliminary Cerebral Spinal Fluid CSF Culture - Preliminary 04/21/25 05:46 Blood Culture - Preliminary Blood Assessment and Plan Assessment: Viral encephalitis is suspected as per ID team Aspiration pneumonitis Dyskinesia of both upper extremity, rule out worsening Parkinson disease versus (levodopa-induced dyskinesia), improved fever unknown source , DDx: meningitis/encephalitis Metabolic encephalopathy secondary to above A-fib with rate controlled, with elevated troponin parkinson disease Hypertension Hyperlipidemia Diabetes mellitus BPH Obesity with BMI of 36.2 Plan: Continue with antibiotic as per ID team Continue with acyclovir. Discontinue ceftriaxone and IV vancomycin Continue started on Zosyn for possible aspiration pneumonia Continue with sentiment A infectious disease team consult Patient on Sinemet at home, high dose, deferred to neurologist resume amantadine Check echocardiogram Follow-up EEG and lumbar puncture Neurology team consult Cardiology team consult Labs and medication were reviewed.. Continue same treatment. Continue with symptomatic treatment. Resume home medication. Monitor labs and vitals. DVT and GI prophylaxis. Further recommendations as per clinical course of the patient DVT prophylaxis: Subcutaneous heparin GI Prophylaxis: Pepcid PT/OT: Pending, deferred Prognosis is guarded Family updated with the plan and all questions answered
--- NOTE | 2025-04-25 16:56 | P.PN ---
Subjective Progress Note Date: 04/24/25 Patient was seen for a follow-up. Patient's was present by the bedside. Patient continues to be very encephalopathic. No myoclonic twitching is noted. No seizure-like activity. Objective - Vital Signs Vital signs: Vital Signs Temp 98.8 F 04/24/25 08:00 Pulse 79 04/24/25 11:20 Resp 20 04/24/25 08:00 BP 145/78 04/24/25 11:20 Pulse Ox 92 L 04/24/25 11:20 FiO2 Intake & Output 04/23/25 04/24/25 04/24/25 18:59 06:59 18:59 Output Total 500 400 150 Balance -500 -400 -150 Weight 104 kg Output: Urine 500 400 150 Other: Voiding Method Diaper Diaper Diaper External Catheter External Catheter # Voids 1 - Exam Examination as above. - Labs CBC & Chem 7: 04/25/25 06:17 04/25/25 06:17 Labs: Abnormal Lab Results - Last 24 Hours (Table) 04/23/25 04/24/25 04/24/25 Range/Units 18:44 08:22 08:22 RBC 3.81 L (4.40-5.60) 10*6/uL Hgb 11.5 L (13.0-17.0) g/dL Hct 36.0 L (39.6-50.0) % MCHC 31.9 L (32.0-37.0) g/dL Neutrophils # 7.74 H (1.80-7.70) 10*3/uL Potassium 3.0 L 3.0 L (3.5-5.1) mmol/L Chloride 110 H (98-107) mmol/L BUN 25 H (9-20) mg/dL Creatinine 0.44 L (0.66-1.25) mg/dL Delta Bilirubin 0.4 H (0.0-0.2) mg/dL Total Protein 5.3 L (6.3-8.2) g/dL Albumin 3.1 L (3.5-5.0) g/dL CSF Total Protein (12-60) mg/dL 04/24/25 Range/Units 09:10 RBC (4.40-5.60) 10*6/uL Hgb (13.0-17.0) g/dL Hct (39.6-50.0) % MCHC (32.0-37.0) g/dL Neutrophils # (1.80-7.70) 10*3/uL Potassium (3.5-5.1) mmol/L Chloride (98-107) mmol/L BUN (9-20) mg/dL Creatinine (0.66-1.25) mg/dL Delta Bilirubin (0.0-0.2) mg/dL Total Protein (6.3-8.2) g/dL Albumin (3.5-5.0) g/dL CSF Total Protein 101 H (12-60) mg/dL Microbiology - Last 24 Hours (Table) 04/21/25 05:46 Blood Culture - Preliminary Blood 04/23/25 16:45 CSF Gram Stain - Preliminary Cerebral Spinal Fluid Assessment and Plan Assessment: * Altered mental status, likely due to acute delirium. This is likely due to some other medical/metabolic condition. Patient has low-grade fever. Rule out occult infection. Rule out CHF or pneumonia. UA is negative. Rule out meningitis encephalitis. * Myoclonic jerks, likely due to acute delirium, improved. * New onset paroxysmal atrial fibrillation. * Longstanding history of hallucinations for last 2 year, progressively getting worse, particularly since his recent back surgery. * Parkinson's disease, follows up with Dr. Lawrence. 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 * History of lumbosacral surgery on 04/28/2024. * Low normal vitamin B12 of 364 in March 2024 * History of Vitamin B6 deficiency Plan: * Patient is back on Sinemet 25/100, 2 tablets twice daily and 3 tablets at noon. * Patient not able to take amantadine because it is a capsule, cannot be crushed or opened. * Requip was considered for PLMS, but can make hallucinations worse. * Continue Klonopin 0.25 mg twice daily for possible REM behavior disorder. Patient also has not slept well for last few days, which can also make delirium worse. * Infectious disease on board. Patient on acyclovir, ceftriaxone 2 g every 12 hours and vancomycin. ID recommending lumbar puncture. LP was successfully performed by anesthesia today. Awaiting results. * EEG was abnormal due to background slowing of moderate to severe degree. This is suggestive of generalized cerebral dysfunction as can be seen with toxic metabolic encephalopathy or related to diffuse structural brain abnormality. Clinical correlation is recommended. No epileptiform activity was seen. * Cardiology on board for paroxysmal atrial fibrillation. Patient not appropriate candidate for anticoagulation because of increased gait instability and frequent jerking movements along with confusion and memory impairment. We will place patient at least on aspirin 81 mg daily. * 2D echo revealed LVEF 55 to 60%. Mildly increased septal wall thickness. No obvious regional wall motion abnormalities. Moderate right ventricular dilation. Moderately increased left atrial diameter. No significant valvular abnormalities. Thickened pericardium without any significant effusion. * Discussed with nursing staff and patient's nurse.
[2025-04-25] MEDS: PIPERACILLIN-TAZOBACTAM 3.375 GM in SODIUM CHLORIDE 0.9% 100 ML IVPB SCH (17:18)
--- NOTE | 2025-04-25 18:38 | US ---
EXAMINATION TYPE: US venous doppler duplex UE RT DATE OF EXAM: 04/25/2025 COMPARISON: NONE CLINICAL INDICATION: Male, 74 years old with history of swelling and bruise; swelling in right arm. P t is altered mental status with restraints on hands TECHNIQUE: Grayscale, color Doppler and spectral Doppler imaging of the upper extremity. SIDE PERFORMED: Right VESSELS IMAGED: IJV Subclavian Vein Axilla Vein Brachial Vein(s) Radial Paired Veins Ulnar Paired Veins Cephalic Vein* Basilic Vein* (*superficial vessels) FINDINGS: Right Arm: No evidence for DVT in vessels seen. Pt unable to move arm to see basilic V and has restra ins on his hands/wrists so unable to visualize radial and ulnar v. Grayscale, color doppler, spectral doppler imaging performed of the deep veins of the right upper ext remity. IMPRESSION: No visualized deep venous thrombosis of the right extremity however unable to evaluate the basilic, r adial and ulnar veins due to patient restraints. [facility], , 04/25/2025 6:36 PM
[2025-04-25 20:03] LABS: Glucose,Whole Blood 73 mg/dL (70-110)
[2025-04-25] MEDS: POTASSIUM CHLORIDE ER 10 MEQ TAB.ER.PRT PO SCH (20:05)
[2025-04-25] MEDS: SODIUM CHLORIDE 0.9% IVPB SCH (20:20)
[2025-04-25] MEDS: ACYCLOVIR SODIUM IVPB SCH (20:20)
[2025-04-26 03:12] LABS: Glucose,Whole Blood 87 mg/dL (70-110)
[2025-04-26 06:27] LABS: Glucose,Whole Blood 87 mg/dL (70-110)
[2025-04-26] MEDS ORDERED: VANCOMYCIN TROUGH DUE 1 EACH MISC MISCELLANE ONE (08:00)
[2025-04-26 12:06] LABS: Glucose,Whole Blood 87 mg/dL (70-110)
[2025-04-26 13:13] LABS: Basophils # (A) 0.03 10*3/uL (0.00-0.10); Basophils % (A) 0.4 %; Eosinophils # (A) 0.23 10*3/uL (0.04-0.35); Eosinophils % (A) 2.9 %; HCT 34.6 % (39.6-50.0); HGB 11.3 g/dL (13.0-17.0); Lymphocytes # (A) 1.04 10*3/uL (0.90-5.00); Lymphocytes % (A) 13.3 %; MCH 30.5 pg (27.0-32.0); MCHC 32.7 g/dL (32.0-37.0); MCV 93.5 fL (80.0-97.0); Monocytes # (A) 0.54 10*3/uL (0.20-1.00); Monocytes % (A) 6.9 %; Neutrophils # (A) 5.96 10*3/uL (1.80-7.70); Neutrophils % (A) 76.1 %; Platelet Count 184 10*3/uL (140-440); RBC 3.70 10*6/uL (4.40-5.60); RDW 13.6 % (11.5-14.5); WBC 7.83 10*3/uL (4.50-10.00)
--- NOTE | 2025-04-26 13:14 | P.PN ---
Subjective Progress Note Date: 04/25/25 Patient was seen for a follow-up. Patient's relative was present by the bedside but not his . Patient continues to be very encephalopathic. No myoclonic twitching is noted. No seizure-like activity. Objective - Vital Signs Vital signs: Vital Signs Temp 97.6 F 04/25/25 13:00 Pulse 79 04/25/25 13:00 Resp 18 04/25/25 13:00 BP 152/87 04/25/25 13:00 Pulse Ox 98 04/25/25 13:00 FiO2 Intake & Output 04/24/25 04/25/25 04/25/25 18:59 06:59 18:59 Intake Total 1550 10 Output Total 350 Balance -350 1550 10 Weight 103.5 kg Intake: IV 10 Invasive Line 4 10 Intake, IV Titration 1550 Amount Acyclovir Sodium 600 mg 250 In Sodium Chloride 0.9% 250 ml @ 270 mls/hr IVPB Q8HR [facility] Rx#:[id number] Sodium Chloride 0.9% 1, 750 000 ml @ 75 mls/hr IV . [id number] [facility] Rx#:[id number] Vancomycin 1,750 mg In 500 Sodium Chloride 0.9% 500 ml 500 ml @ 167 mls/hr IVPB Q12H [facility] Rx#: [id number] cefTRIAXone 2 gm In 50 Sodium Chloride 0.9% 50 ml @ 100 mls/hr IVPB Q12HR@0000,1200 [facility] Rx#: [id number] Output: Urine 350 Other: Voiding Method Diaper Diaper Diaper External Catheter External Catheter # Voids 2 2 # Bowel Movements 1 - Exam Patient severely encephalopathic. He is slightly mumbles, does not make any intelligible speech. Patient does not follow commands. Encephalopathy seems to have slightly worsened. - Labs CBC & Chem 7: 04/25/25 06:17 04/25/25 06:17 Labs: Abnormal Lab Results - Last 24 Hours (Table) 04/25/25 04/25/25 Range/Units 06:17 06:17 RBC 3.77 L (4.40-5.60) 10*6/uL Hgb 11.4 L (13.0-17.0) g/dL Hct 35.2 L (39.6-50.0) % Sodium 146 H (137-145) mmol/L Potassium 3.0 L (3.5-5.1) mmol/L Chloride 112 H (98-107) mmol/L BUN 21 H (9-20) mg/dL Creatinine 0.53 L (0.66-1.25) mg/dL Delta Bilirubin 0.4 H (0.0-0.2) mg/dL Total Protein 5.1 L (6.3-8.2) g/dL Albumin 3.0 L (3.5-5.0) g/dL Microbiology - Last 24 Hours (Table) 04/23/25 16:45 CSF Gram Stain - Preliminary Cerebral Spinal Fluid CSF Culture - Preliminary 04/24/25 09:10 CSF Gram Stain - Preliminary Cerebral Spinal Fluid CSF Culture - Preliminary 04/21/25 05:46 Blood Culture - Preliminary Blood Assessment and Plan Assessment: * Altered mental status, possible meningoencephalitis. * Myoclonic jerks, likely due to acute delirium, improved. However patient continues to be encephalopathic. * New onset paroxysmal atrial fibrillation. * Longstanding history of hallucinations for last 2 year, progressively getting worse, particularly since his recent back surgery. * Parkinson's disease, follows up with Dr. Lawrence. 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 * History of lumbosacral surgery on 04/28/2024. * Low normal vitamin B12 of 364 in March 2024 * History of Vitamin B6 deficiency Plan: * Patient is back on Sinemet 25/100, 2 tablets twice daily and 3 tablets at noon. * Patient not able to take amantadine because it is a capsule, cannot be crushed or opened. * Requip was considered for PLMS, but can make hallucinations worse. * Continue Klonopin 0.25 mg twice daily for possible REM behavior disorder. Patient also has not slept well for last few days, which can also make delirium worse. * Cerebrospinal fluid showed WBC count 24 out of which 93% are polynuclear and 6% mononuclear and 1% eosinophils. Total protein is 101/60 and glucose is 98 which is normal. ID suspecting viral encephalitis. Patient to be continued on acyclovir. Ceftriaxone and vancomycin has been discontinued and patient started on Zosyn for possible aspiration pneumonia. Choice of antibiotics as per ID. * EEG was abnormal due to background slowing of moderate to severe degree. This is suggestive of generalized cerebral dysfunction as can be seen with toxic metabolic encephalopathy or related to diffuse structural brain abnormality. Clinical correlation is recommended. No epileptiform activity was seen. * Cardiology on board for paroxysmal atrial fibrillation. Patient not appropriate candidate for anticoagulation because of increased gait instability and frequent jerking movements along with confusion and memory impairment. We will place patient at least on aspirin 81 mg daily. * 2D echo revealed LVEF 55 to 60%. Mildly increased septal wall thickness. No obvious regional wall motion abnormalities. Moderate right ventricular dilation. Moderately increased left atrial diameter. No significant valvular abnormalities. Thickened pericardium without any significant effusion. * Prognosis appears very guarded.
[2025-04-26] MEDS: FUROSEMIDE 10 MG/ML 2 ML VIAL IV SCH (13:22)
[2025-04-26 13:29] LABS: ALT <6 U/L (4-49); AST 17 U/L (17-59); African American GFR (CKD) >90 (>60 ml/min/1.73 sqM); Albumin 2.8 g/dL (3.5-5.0); Alkaline Phosphatase 64 U/L (38-126); Anion Gap 11 mmol/L; Blood Urea Nitrogen 19 mg/dL (9-20); Calcium 8.9 mg/dL (8.4-10.2); Carbon Dioxide 24 mmol/L (22-30); Chloride 110 mmol/L (98-107); Glucose 92 mg/dL (74-99); Magnesium 2.0 mg/dL (1.6-2.3); Non-African American GFR(CKD) >90 (>60 ml/min/1.73 sqM); Potassium 3.7 mmol/L (3.5-5.1); Sodium 145 mmol/L (137-145); Total Protein 4.9 g/dL (6.3-8.2)
[2025-04-26] MEDS ORDERED: VANCOMYCIN IV PER PHARMACY 1 EACH MISC MISCELLANE PRN (15:09)
--- NOTE | 2025-04-26 15:16 | P.PN ---
Subjective Progress Note Date: 04/26/25 Principal diagnosis: Fever possible [employer]IVE infection Patient is a 74-year-old male with a past medical history significant for Asthma, Diabetes Mellitus, GERD/Reflux, Hyperlipidemia, Hypertension, Neurologic Disorder, Prostate Disorder, Skin Disorder has been brought into the hospital for evaluation of possible seizure activity the patient did have a fever elevated white count concerning for possible [employer]IVE infection. On today's evaluation that is 04/26/2025, Patient is afebrile patient is currently on 2 L nasal oxygen and is breathing comfortably patient remains to be lethargic unresponsive did have NG for feeding normally diarrhea any other changes reported by the at the bedside. Patient white count 7.83, creatinine 0.42 Objective - Vital Signs Vital signs: Vital Signs Temp 98.6 F 04/26/25 11:31 Pulse 75 04/26/25 11:31 Resp 20 04/26/25 11:31 BP 144/84 04/26/25 11:31 Pulse Ox 99 04/26/25 11:31 FiO2 Intake & Output 04/25/25 04/26/25 04/26/25 18:59 06:59 18:59 Intake Total 10 250 10 Output Total 250 550 250 Balance -240 -300 -240 Weight 104.104 kg Intake: IV 10 10 Invasive Line 4 10 10 Intake, IV Titration 250 Amount Acyclovir Sodium 600 mg 250 In Sodium Chloride 0.9% 250 ml @ 270 mls/hr IVPB Q8H [facility] Rx#:[id number] Oral 0 Output: Urine 250 550 250 Other: Voiding Method Diaper Diaper Diaper External Catheter External Catheter External Catheter # Voids 2 - Exam GENERAL DESCRIPTION: An elderly male lying in bed in no distress RESPIRATORY SYSTEM: Unlabored breathing , decreased breath sounds at bases HEART: S1 S2 regular rate and rhythm , ABDOMEN: Soft , no tenderness EXTREMITIES: No edema feet - Labs CBC & Chem 7: 04/26/25 12:56 04/26/25 12:56 Labs: Microbiology - Last 24 Hours (Table) 04/24/25 09:10 CSF Gram Stain - Preliminary Cerebral Spinal Fluid CSF Culture - Preliminary 04/23/25 16:45 CSF Gram Stain - Preliminary Cerebral Spinal Fluid CSF Culture - Preliminary Assessment and Plan (1) Sepsis Current Visit: Yes Status: Acute Code(s): A41.9 - SEPSIS, UNSPECIFIED ORGANISM SNOMED Code(s): 62049320 (2) Encephalitis Current Visit: Yes Status: Acute Code(s): G04.90 - ENCEPHALITIS AND ENCEPHALOMYELITIS, UNSPECIFIED SNOMED Code(s): 18302613 Plan: 1patient presented to the hospital with weakness and did have some spastic movement of the extremities concerning for possible seizure subsequently the patient started having a fever patient did have tachypnea and tachycardia elevated white count meeting criteria for SIRS/sepsis source will be likely [employer] infection in this patient did have a negative UA chest x-ray x 2 has been negative for any pneumonia abdomen is soft and no evidence of any cellulitis or joint swelling 2-patient did have a LP/CSF by anesthesia which is a bloody tap with elevated white cell of 24 protein is only 101 glucose normal question of possible viral encephalitis, CSF HSV WELL VZV DNA by PCR has been negative 3-patient did have resolution of his fever white count normalized etiology remains to be unclear question of possible West Nile versus Listeria meningeal encephalitis to be the only consideration at this point I have detailed discussion with the as well as with the neurologist on the case patient apparently was doing well 2 weeks ago and has progressive gone down after he did have a fall and apparently fall close to a metal garbage can patient will be restarted on Rocephin and vancomycin will discontinue yesterday ampicillin will be added discontinue acyclovir with negative HSV DNA by PCR will benefit from an MRI which will be ordered by neurology Dictation was produced using [employer] software. please excuse any grammatical, word or spelling errors. Time with Patient: Greater than 30
[2025-04-26 16:49] LABS: Glucose,Whole Blood 88 mg/dL (70-110)
[2025-04-26] MEDS: AMPICILLIN 2,000 MG in SODIUM CHLORIDE 0.9% 100 ML IVPB SCH (17:21)
[2025-04-26] MEDS: POTASSIUM BICARBONATE/CIT AC 20 MEQ TABLET.EFF PO SCH (17:22)
[2025-04-26] MEDS: VANCOMYCIN 1,750 MG in SODIUM CHLORIDE 0.9% 500 ML 500 ML IVPB SCH (17:22)
--- NOTE | 2025-04-26 18:55 | XR ---
EXAMINATION TYPE: XR chest 1V portable DATE OF EXAM: 04/26/2025 6:38 PM COMPARISON: Chest radiographs from 04/24/2025. CLINICAL INDICATION: Male, 74 years old with history of confirm placement of NG tube; [facility] TECHNIQUE: XR chest 1V portable Frontal view of the chest. FINDINGS: Lungs/Pleura: Low lung volumes are present. There is no evidence of pleural effusion, focal consolida tion, or pneumothorax. Pulmonary vascularity: Unremarkable. Heart/mediastinum: Cardiomediastinal silhouette is enlarged. Musculoskeletal: No acute osseous pathology. Other findings: None nasogastric tube terminating over the gastric lumen in the upper abdomen. IMPRESSION: Nasogastric tube in satisfactory position. Low lung volumes with cardiomegaly correlate for congestive air with serum BNP. [facility], , 04/26/2025 6:52 PM
[2025-04-26 20:28] LABS: Glucose,Whole Blood 87 mg/dL (70-110)
--- NOTE | 2025-04-27 01:01 | P.PN ---
Subjective Progress Note Date: 04/26/25 Patient was seen for a follow-up. Patient's relative was present by the bedside but not his . Patient continues to be very encephalopathic, but slightly better than yesterday, speaking some intelligible speech as mentioned below. Patient denies headache by nodding "no". Patient's relative mentions that he was awake for half an hour, mumbling, could not make what he is saying. They're changing NG tube today, as it is leaking. Patient saying some syllables like "I don't know", "I don't want it". No myoclonic twitching is noted. No seizure- like activity. Objective - Vital Signs Vital signs: Vital Signs Temp 98.6 F 04/26/25 11:31 Pulse 75 04/26/25 11:31 Resp 20 04/26/25 11:31 BP 144/84 04/26/25 11:31 Pulse Ox 99 04/26/25 11:31 FiO2 Intake & Output 04/25/25 04/26/25 04/26/25 18:59 06:59 18:59 Intake Total 10 250 10 Output Total 250 550 250 Balance -240 -300 -240 Weight 104.104 kg Intake: IV 10 10 Invasive Line 4 10 10 Intake, IV Titration 250 Amount Acyclovir Sodium 600 mg 250 In Sodium Chloride 0.9% 250 ml @ 270 mls/hr IVPB Q8H [facility] Rx#:[id number] Oral 0 Output: Urine 250 550 250 Other: Voiding Method Diaper Diaper Diaper External Catheter External Catheter External Catheter # Voids 2 - Exam Patient is at least moderately to severely encephalopathic. He is slightly mumbles, does make some intelligible speech as mentioned above. Patient did not cooperate with the examination. - Labs CBC & Chem 7: 04/26/25 12:56 04/26/25 12:56 Labs: Abnormal Lab Results - Last 24 Hours (Table) 04/26/25 04/26/25 Range/Units 12:56 12:56 RBC 3.70 L (4.40-5.60) 10*6/uL Hgb 11.3 L (13.0-17.0) g/dL Hct 34.6 L (39.6-50.0) % Chloride 110 H (98-107) mmol/L Creatinine 0.42 L (0.66-1.25) mg/dL C-Reactive Protein 16.4 H (<1.0) mg/dL Total Protein 4.9 L (6.3-8.2) g/dL Albumin 2.8 L (3.5-5.0) g/dL Microbiology - Last 24 Hours (Table) 04/21/25 05:46 Blood Culture - Final Blood 04/24/25 09:10 CSF Gram Stain - Preliminary Cerebral Spinal Fluid CSF Culture - Preliminary 04/23/25 16:45 CSF Gram Stain - Preliminary Cerebral Spinal Fluid CSF Culture - Preliminary Assessment and Plan Assessment: * Altered mental status, possible meningoencephalitis. Rule out West Nile virus. * Myoclonic jerks, likely due to acute delirium, improved. However patient continues to be encephalopathic. * New onset paroxysmal atrial fibrillation. * Longstanding history of hallucinations for last 2 year, progressively getting worse, particularly since his recent back surgery. * Parkinson's disease, follows up with Dr. Lawrence. 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 * History of lumbosacral surgery on 04/28/2024. * Low normal vitamin B12 of 364 in March 2024 * History of Vitamin B6 deficiency Plan: * Patient is back on Sinemet 25/100, 2 tablets twice daily and 3 tablets at noon. * Patient not able to take amantadine because it is a capsule, cannot be crushed or opened. * Requip was considered for PLMS, but can make hallucinations worse. * Continue Klonopin 0.25 mg twice daily for possible REM behavior disorder. Patient also has not slept well for last few days, which can also make delirium worse. * Cerebrospinal fluid showed WBC count 24 out of which 93% are polynuclear and 6% mononuclear and 1% eosinophils. Differential is concerning for bacterial meningitis. Total protein is 101/60 and glucose is 98 which is normal. Comprehensive viral panel all negative. ID has resumed Ceftriaxone and vancomycin, and has also added ampicillin to cover listeria. We will await West Nile virus testing. I called the lab to make sure they have received and submitted the sample for West Nile virus. They had not received the order, which was initiated. * MRI of the brain with and without contrast. Discussed with ID detail. * EEG was abnormal due to background slowing of moderate to severe degree. This is suggestive of generalized cerebral dysfunction as can be seen with toxic metabolic encephalopathy or related to diffuse structural brain abnormality. Clinical correlation is recommended. No epileptiform activity was seen. * Cardiology on board for paroxysmal atrial fibrillation. Patient not appropriate candidate for anticoagulation because of increased gait instability and frequent jerking movements along with confusion and memory impairment. We will place patient at least on aspirin 81 mg daily. * 2D echo revealed LVEF 55 to 60%. Mildly increased septal wall thickness. No obvious regional wall motion abnormalities. Moderate right ventricular dilation. Moderately increased left atrial diameter. No significant valvular abnormalities. Thickened pericardium without any significant effusion. * Prognosis appears very guarded. * Dr. Geronimo Diaz to resume neurology service in the morning.
--- NOTE | 2025-04-27 02:32 | P.PN ---
Subjective Hospital course This is a pleasant 74 years old male with past medical history of multiple medical problems including history of Parkinson disease and he follows with Dr. Lawrence in the outpatient setting presents because been confused when he talks he forgets and he falls asleep a lot through the day also he has worsening jerking movements of both upper extremities. He has more pain on the left side he feels dizzy all the time. Information obtained with the help of family and at bedside He is on Sinemet 25-100 mg 2 tablets, 2 times, +3 tablets in the morning with a total of 7 tablets daily Patient denies smoking alcohol or illicit drugs Vital stable no fever. 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 Temperature 101.1 Patient this morning looks the same still confused, still has both abnormal movements of the upper extremities similar to yesterday. Despite receiving several doses of Ativan no much improvement No other involuntary movements suspicious for seizure-like activity Blood culture sent. Patient started on antibiotics empirically with ceftriaxone 2 g and IV vancomycin. Also IV acyclovir 800 mg x 1 Repeat chest x-ray ordered showing cardiomegaly with mild pulmonary vascular congestion. Urinalysis showing no evidence of infection. There is no known rash or diarrhea. Labs reviewed showing WBC of 15.7. INR 1.1. Creatinine 0.7. Electrolytes normal. Troponins mildly elevated 0.051. Liver enzymes within the reference range. Also he is on amantadine. Also patient on Sinemet, deferred per neurologist Family at bedside including were updated with the management plan 04/22 Patient is more calm today although mildly agitated while he is in bed, he is confused, upper extremity jerking movement significantly decreased in amplitude and frequency. Not completely stopped. Patient is getting Valium and other sedatives which help him to calm him down. 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 Discussed with staff risk of aspiration and to decrease this risk with maneuvers and measures. Patient remains on empiric antibiotics with IV vancomycin and ceftriaxone and acyclovir. 04/23 Patient remains very sleepy and nonverbal today after receiving several sedating's including IV Valium He had to place NG tube again after he pulled out yesterday. So he can get the Sinemet. No dyskinesia of his upper extremity abnormal movement of both upper extremity today Fever subsiding leukocytosis subsiding while he is on broad-spectrum antibiotics with IV vancomycin ceftriaxone and acyclovir Plan for lumbar puncture today and EEG which is going to this morning. All labs and imaging were reviewed 04/24 Patient still obtunded, he has little tachypnea, NG tube in place confirmed with chest x-ray. Chest x-ray showing no acute consolidation. Fever subsiding. Yesterday lumbar puncture was tried was unsuccessful only culture was sent. Remains on broad-spectrum antibiotic with IV vancomycin and ceftriaxone and acyclovir Labs reviewed showing improved leukocytosis. Consult anesthesia/pain management or IR for lumbar puncture. 04/25 Patient today sleeping, hard to wake up. He is receiving Valium 5 mg last night and Klonopin more short acting benzodiazepine this morning He had another spinal tap yesterday when his anesthesia team. Showing elevated nucleated cells at 24. Also RBCs elevated. However glucose normal. Viral encephalitis is suspected per ID team. IV vancomycin and ceftriaxone were discontinued Zosyn was started for likelihood of aspiration pneumonitis. Neurology team also following closely. Hypokalemia been replaced at bedside and all questions answered. 04/26 Patient seen and examined by me at bedside. also was at bedside When I saw the patient was still severely encephalopathic obtained and nonverbal. However states that there is some mild improvement as he woke up 3 time last time each 1 was about 10 minutes when he could recognize his and some other stuff surrounding him but then he goes back to sleep right away. The patient is not getting Valium only Klonopin 0.25 mg. Medical encephalitis is suspected and neurology service following closely, MRI of the brain is ordered as well as EEG. Patient also on broad-spectrum antibiotics with IV vancomycin and ceftriaxone ampicillin per Infectious disease team and acyclovir was dc by id team too Active Medications Generic Name Dose Route Start Last Admin Trade Name Freq PRN Reason Stop Dose Admin Acetaminophen 650 mg 04/22/25 16:38 04/23/25 23:48 Acetaminophen Suppository 650 Mg Supp RECTAL 650 mg Q6HR PRN Administration Fever and/ or Pain Hydrocodone Bitart/Acetaminophen 1 each 04/21/25 08:15 04/26/25 15:39 Hydrocodone/Apap 7.5-325mg 1 Each Tab PO 1 each BID PRN Administration Pain Albuterol Sulfate 2.5 mg 04/21/25 08:15 04/24/25 04:18 Albuterol Nebulized 2.5 Mg/3 Ml INHALATION 2.5 mg RT-Q6H PRN Administration Shortness Of Breath Amantadine HCl 100 mg 04/21/25 09:00 04/26/25 21:39 Amantadine Hcl 100 Mg Cap PO Not Given BID DEVI Aspirin 81 mg 04/23/25 10:45 04/26/25 09:22 Aspirin 81 Mg PO 81 mg DAILY DEVI Administration Bisacodyl 5 mg 04/21/25 09:00 04/26/25 21:04 Bisacodyl 5 Mg Tablet.Dr PO 5 mg BID DEVI Administration Budesonide/Formoterol Fumarate 2 puff 04/22/25 20:00 04/26/25 20:38 Symbicort 160-4.5 Mcg Inhaler INHALATION 2 puff RT-BID DEVI Administration Carbidopa/Levodopa 2 each 04/22/25 18:00 04/26/25 17:23 Carbidopa-Levodopa 25-100 Mg 1 Each Tab PO 2 each BID@0600,1800 DEVI Administration Carbidopa/Levodopa 3 each 04/22/25 14:15 04/26/25 11:32 Carbidopa-Levodopa 25-100 Mg 1 Each Tab PO 3 each DAILY@1200 DEVI Administration Clonazepam 0.25 mg 04/21/25 12:30 04/26/25 21:04 Clonazepam 0.5 Mg Tab PO 0.25 mg BID DEVI Administration Dextrose/Water 25 ml 04/24/25 11:21 Dextrose 50% Syringe 50 Ml IVP PER PROTOCOL PRN Hypoglycemia Protocol Dextrose/Water 50 ml 04/24/25 11:21 Dextrose 50% Syringe 50 Ml IVP PER PROTOCOL PRN Hypoglycemia Protocol Diazepam 2.5 mg 04/25/25 16:37 Diazepam 5 Mg/Ml 2 Ml Inj IVP Q6HR PRN Muscle Spasm Diphenoxylate HCl/Atropine 2 each 04/22/25 13:07 Diphenox-Atrop 2.5-0.025 Mg 1 Each Tab PO QID PRN Diarrhea Duloxetine HCl 60 mg 04/21/25 09:00 04/26/25 21:04 Duloxetine Hcl 60 Mg Capsule.Dr PO 60 mg BID DEVI Administration Furosemide 20 mg 04/26/25 12:30 04/26/25 13:22 Furosemide 10 Mg/Ml 2 Ml Vial IV 20 mg DAILY DEVI Administration Heparin Sodium (Porcine) 5,000 unit 04/24/25 16:00 04/26/25 23:10 Heparin Sodium,Porcine 5,000 Unit/Ml 1 Ml Vial SQ 5,000 unit Q8HR DEVI Administration Sodium Chloride 1,000 mls @ 75 mls/hr 04/20/25 18:30 04/26/25 23:01 Saline 0.9% IV 75 mls/hr .[id number] DEVI Administration Ampicillin Sodium 2,000 mg/ 100 mls @ 200 mls/hr 04/26/25 16:00 04/26/25 23:10 Sodium Chloride IVPB 200 mls/hr Q4HR DEVI Administration Protocol Ceftriaxone Sodium 2 gm/ 50 mls @ 100 mls/hr 04/26/25 15:00 04/26/25 15:40 Sodium Chloride IVPB 100 mls/hr Q12H DEVI Administration Protocol Vancomycin HCl 1,750 mg/ 500 mls @ 167 mls/hr 04/26/25 16:00 04/26/25 17:22 Sodium Chloride IVPB 167 mls/hr Q12H DEVI Administration Insulin Human Lispro 0 unit 04/24/25 12:30 04/26/25 21:39 Insulin Lispro (Humalog) 100 Unit/Ml 10 Ml Vl SQ Not Given ACHS DEVI Protocol Lorazepam 1 mg 04/21/25 04:25 04/26/25 17:22 Lorazepam 1 Mg/0.5 Ml Vial IV 1 mg Q3HR PRN Administration Anxiety Metoprolol Succinate 25 mg 04/22/25 13:45 04/26/25 09:22 Metoprolol Succinate (Er) 25 Mg Tab.Er.24h PO 25 mg DAILY DEVI Administration Miscellaneous Information 1 each 04/22/25 09:17 Potassium Replacement Protocol 1 Each Misc MISCELLANE DAILY PRN Per Protocol Protocol Miscellaneous Information 1 each 04/23/25 02:26 Magnesium Replacement Protocol 1 Each Misc MISCELLANE DAILY PRN Per Protocol Protocol Naloxone HCl 0.2 mg 04/20/25 16:08 Naloxone 0.4 Mg/Ml 1 Ml Vial IV Q2M PRN Opioid Reversal Ondansetron HCl 4 mg 04/20/25 18:18 04/21/25 10:43 Ondansetron 4 Mg/2 Ml Vial IVP 4 mg Q6HR PRN Administration Nausea And Vomiting Pantoprazole Sodium 40 mg 04/20/25 18:19 04/26/25 09:22 Pantoprazole 40 Mg/10 Ml Vial IVP 40 mg DAILY DEVI Administration Potassium Chloride 10 meq 04/25/25 21:00 04/26/25 21:04 Potassium Chloride Er 10 Meq Tab.Er.Prt PO 04/28/25 20:59 10 meq BID DEVI Administration Quetiapine Fumarate 100 mg 04/21/25 21:00 04/26/25 21:04 Quetiapine 100 Mg Tab PO 100 mg HS DEVI Administration Quetiapine Fumarate 25 mg 04/22/25 14:05 Quetiapine 25 Mg Tab PO BID PRN agitation/severe anxiety Tamsulosin HCl 0.4 mg 04/21/25 16:00 04/26/25 15:40 Tamsulosin 0.4 Mg Cap.Er.24h PO 0.4 mg DAILY@1600 DEVI Administration Objective - Vital Signs Vital signs: Vital Signs Temp 99.3 F 04/26/25 23:37 Pulse 79 04/26/25 23:37 Resp 20 04/26/25 23:37 BP 136/79 04/26/25 23:37 Pulse Ox 95 04/26/25 23:37 FiO2 Intake & Output 04/26/25 04/26/25 04/27/25 06:59 18:59 06:59 Intake Total 250 10 10 Output Total 550 1050 Balance -300 -1040 10 Weight 104.104 kg 68.5 kg Intake: IV 10 10 Invasive Line 4 10 Invasive Line 5 10 Intake, IV Titration 250 Amount Acyclovir Sodium 600 mg 250 In Sodium Chloride 0.9% 250 ml @ 270 mls/hr IVPB Q8H REPLACED BY [facility] Rx#:[id number] Oral 0 Output: Urine 550 1050 Other: Voiding Method Diaper Diaper Diaper External Catheter External Catheter External Catheter - Exam -GENERAL: The patient is confused HEENT: Pupils are round and equally reacting to light. EOMI. No scleral icterus. No conjunctival pallor. Normocephalic, atraumatic. No pharyngeal erythema. No thyromegaly. CARDIOVASCULAR: S1 and S2 present. No murmurs, rubs, or gallops. PULMONARY: Chest is clear to auscultation, no wheezing , no crackles. ABDOMEN: Soft, nontender, nondistended, normoactive bowel sounds. No palpable organomegaly. MUSCULOSKELETAL: No joint swelling or deformity. EXTREMITIES: No cyanosis, clubbing, or pedal edema. -NEUROLOGICAL: Gross neurological examination did not reveal any focal deficits. Patient has white drainage rhythmic movements of both upper extremities and to lesser extent of the both lower extremities, patient movement is restricted because of these involuntary movements SKIN: No rashes. no petechiae. - Labs CBC & Chem 7: 04/26/25 12:56 04/26/25 12:56 Labs: Abnormal Lab Results - Last 24 Hours (Table) 04/26/25 04/26/25 Range/Units 12:56 12:56 RBC 3.70 L (4.40-5.60) 10*6/uL Hgb 11.3 L (13.0-17.0) g/dL Hct 34.6 L (39.6-50.0) % Chloride 110 H (98-107) mmol/L Creatinine 0.42 L (0.66-1.25) mg/dL C-Reactive Protein 16.4 H (<1.0) mg/dL Total Protein 4.9 L (6.3-8.2) g/dL Albumin 2.8 L (3.5-5.0) g/dL Microbiology - Last 24 Hours (Table) 04/24/25 09:10 CSF Gram Stain - Preliminary Cerebral Spinal Fluid CSF Culture - Preliminary 04/23/25 16:45 CSF Gram Stain - Preliminary Cerebral Spinal Fluid CSF Culture - Preliminary 04/21/25 05:46 Blood Culture - Final Blood Assessment and Plan Assessment: Meningoencephalitis Severe encephalopathy secondary to above, present on admission Aspiration pneumonitis Dyskinesia of both upper extremity, rule out worsening Parkinson disease versus (levodopa-induced dyskinesia), improved fever unknown source , DDx: meningitis/encephalitis Metabolic encephalopathy secondary to above A-fib with rate controlled, with elevated troponin parkinson disease Hypertension Hyperlipidemia Diabetes mellitus BPH Obesity with BMI of 36.2 Plan: Continue with antibiotic as per ID team Continue with IV vancomycin and ceftriaxone ampicillin. Discontinue acyclovir. As per ID team Continue started on Zosyn for possible aspiration pneumonia Continue with senimet A infectious disease team consult resume amantadine Neurology team consult Cardiology team consult Labs and medication were reviewed.. Continue same treatment. Continue with symptomatic treatment. Resume home medication. Monitor labs and vitals. DVT and GI prophylaxis. Further recommendations as per clinical course of the patient DVT prophylaxis: Subcutaneous heparin GI Prophylaxis: Pepcid PT/OT: Pending, deferred Prognosis is guarded Family updated with the plan and all questions answered
[2025-04-27 05:56] LABS: Glucose,Whole Blood 78 mg/dL (70-110)
[2025-04-27 07:13] LABS: African American GFR (CKD) >90 (>60 ml/min/1.73 sqM); Non-African American GFR(CKD) >90 (>60 ml/min/1.73 sqM)
--- NOTE | 2025-04-27 10:26 | MR ---
EXAMINATION TYPE: MR brain wo/w con DATE OF EXAM: 04/27/2025 10:20 AM COMPARISON: 01/30/2024. CLINICAL INDICATION: Male, 74 years old with history of AMS< r/o encephalitis/West Nile; PHH, AMS, hx Parkinsons, tremors. TECHNIQUE: Multi planar, multi sequence imaging was performed through the brain including: T1, T2, In version recovery, susceptibility weighted imaging and gradient echo imaging and Diffusion weighted im aging. The patient was then given intravenous contrast and multi planar, T1 fat-saturation images wer e obtained. IV Contrast: 10 mL Gadobutrol FINDINGS: Mild cerebral atrophy with proportional dilation of ventricular system. Diffusion-weighted imaging s hows no evidence of restricted diffusion to suggest acute/subacute infarct. Intracranial arterial adelso w voids are maintained. Midline structures show no abnormality. The susceptibility weighted images do not reveal any evidence for micro-hemorrhage. After administration of gadolinium, no abnormal enhanc ement is seen. The bone marrow signal is within normal limits. Paranasal sinuses and mastoid air cells: No significant paranasal sinus disease. Visualized orbits: Orbital contents are intact. IMPRESSION: No evidence of intracranial mass, acute/subacute infarct, or abnormal enhancement. [facility], , 04/27/2025 10:24 AM
[2025-04-27 11:45] LABS: Glucose,Whole Blood 75 mg/dL (70-110)
[2025-04-27] MEDS: AMPICILLIN 2,000 MG in SODIUM CHLORIDE 0.9% 100 ML IVPB SCH (13:46)
[2025-04-27 14:49] VITALS: BMI 23.6
[2025-04-27 16:49] LABS: Glucose,Whole Blood 94 mg/dL (70-110)
--- NOTE | 2025-04-27 16:51 | P.PN ---
Subjective Progress Note Date: 04/27/25 I am seeing the patient for the first time during this hospital admission. Please refer to Dr. Guardado's notes for further details. It seems there is concern for viral encephalitis. Per the , the patient is having cough and sounds somewhat hoarse. He continues to be confused. Objective - Vital Signs Vital signs: Vital Signs Temp 98.8 F 04/27/25 16:16 Pulse 70 04/27/25 16:16 Resp 22 04/27/25 16:16 BP 166/75 04/27/25 16:16 Pulse Ox 98 04/27/25 16:16 FiO2 Intake & Output 04/26/25 04/27/25 04/27/25 18:59 06:59 18:59 Intake Total 10 10 10 Output Total 1050 250 575 Balance -1040 240 -565 Weight 68.5 kg 68.5 kg Intake: IV 10 10 10 Invasive Line 4 10 Invasive Line 5 10 10 Output: Urine 1050 250 575 Other: Voiding Method Diaper Diaper Diaper External Catheter External Catheter External Catheter # Bowel Movements 1 - Exam General: Laying in bed and does not appear in acute distress. Appears lethar gic. HENT: Has NG tube. Lung: Is coughing and sound coarse throughout even without auscultation. Neuro: Limited. The patient is severely drowsy and is minimally awakeable to voice. Is oriented to self only. Is not following commands. Rest is limited - Labs CBC & Chem 7: 04/26/25 12:56 04/27/25 06:30 Labs: Abnormal Lab Results - Last 24 Hours (Table) 04/27/25 Range/Units 06:30 Creatinine 0.46 L (0.66-1.25) mg/dL Microbiology - Last 24 Hours (Table) 04/24/25 09:10 CSF Gram Stain - Preliminary Cerebral Spinal Fluid CSF Culture - Preliminary 04/23/25 16:45 CSF Gram Stain - Preliminary Cerebral Spinal Fluid CSF Culture - Preliminary 04/21/25 05:46 Blood Culture - Final Blood Assessment and Plan Assessment: * Altered mental status, possible viral encephalitis Rule out West Nile virus. CSF nucleated clls is 24 and is slightly blood but with correction still has elevated nucleated cells concerning for viral than bacterial * Myoclonic jerks, likely due to acute delirium, improved. However patient continues to be encephalopathic. * New onset paroxysmal atrial fibrillation. * Longstanding history of hallucinations for last 2 year, progressively getting worse, particularly since his recent back surgery. * Parkinson's disease, follows up with Dr. Lawrence. 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 * History of lumbosacral surgery on 04/28/2024. * Low normal vitamin B12 of 364 in March 2024 * History of Vitamin B6 deficiency Plan: * Patient is back on Sinemet 25/100, 2 tablets twice daily and 3 tablets at noon. * Patient not able to take amantadine because it is a capsule, cannot be crushed or opened. * Requip was considered for PLMS, but can make hallucinations worse. * Continue Klonopin 0.25 mg twice daily for possible REM behavior disorder. Patient also has not slept well for last few days, which can also make delirium worse. * Cerebrospinal fluid showed WBC count 24 out of which 93% are polynuclear and 6% mononuclear and 1% eosinophils. Total protein is 101/60 and glucose is 98 which is normal. Comprehensive viral panel all negative. ID has resumed Ceftriaxone and vancomycin, and has also added ampicillin to cover listeria. We will await West Nile virus testing. * MRI of the brain with and without contrast. Discussed with ID detail. * EEG was abnormal due to background slowing of moderate to severe degree. This is suggestive of generalized cerebral dysfunction as can be seen with toxic metabolic encephalopathy or related to diffuse structural brain abnormality. Clinical correlation is recommended. No epileptiform activity was seen. * Cardiology on board for paroxysmal atrial fibrillation. Patient not appropriate candidate for anticoagulation because of increased gait instability and frequent jerking movements along with confusion and memory impairment. We will place patient at least on aspirin 81 mg daily. * 2D echo revealed LVEF 55 to 60%. Mildly increased septal wall thickness. No obvious regional wall motion abnormalities. Moderate right ventricular dilation. Moderately increased left atrial diameter. No significant valvular abnormalities. Thickened pericardium without any significant effusion. * Prognosis appears very guarded. Time with Patient: Less than 30
--- NOTE | 2025-04-27 17:05 | US ---
EXAMINATION TYPE: US venous doppler duplex LE RT DATE OF EXAM: 04/27/2025 4:47 PM Exam done portable COMPARISON: NONE CLINICAL INDICATION: Male, 74 years old with history of RLE swelling; TECHNIQUE: The lower extremity deep venous system is examined utilizing real time linear array sonog scottie with graded compression, color doppler sonography, and spectral doppler. SIDE PERFORMED: Right FINDINGS: VESSELS IMAGED: Common Femoral Vein Deep Femoral Vein Greater Saphenous Vein * Femoral Vein Popliteal Vein Small Saphenous Vein * Proximal Calf Veins (* superficial vessels) Right Leg: Visualized portions appear negative for DVT, compression images of EIV, GSV, CFV, DFV and femoral vein not done due to patient unable to tolerate probe pressure IMPRESSION: No ultrasound evidence for deep venous thrombosis. [facility], , 04/27/2025 5:02 PM
[2025-04-27 19:53] LABS: Glucose,Whole Blood 78 mg/dL (70-110)
[2025-04-28 06:02] LABS: Glucose,Whole Blood 83 mg/dL (70-110)
[2025-04-28 07:02] LABS: Basophils # (A) 0.04 10*3/uL (0.00-0.10); Basophils % (A) 0.6 %; Eosinophils # (A) 0.20 10*3/uL (0.04-0.35); Eosinophils % (A) 3.1 %; HCT 34.6 % (39.6-50.0); HGB 10.9 g/dL (13.0-17.0); Lymphocytes # (A) 1.27 10*3/uL (0.90-5.00); Lymphocytes % (A) 19.7 %; MCH 29.9 pg (27.0-32.0); MCHC 31.5 g/dL (32.0-37.0); MCV 95.1 fL (80.0-97.0); Monocytes # (A) 0.46 10*3/uL (0.20-1.00); Monocytes % (A) 7.1 %; Neutrophils # (A) 4.44 10*3/uL (1.80-7.70); Neutrophils % (A) 68.9 %; Platelet Count 202 10*3/uL (140-440); RBC 3.64 10*6/uL (4.40-5.60); RDW 13.4 % (11.5-14.5); WBC 6.45 10*3/uL (4.50-10.00)
[2025-04-28 07:24] LABS: ALT <6 U/L (4-49); AST 22 U/L (17-59); African American GFR (CKD) >90 (>60 ml/min/1.73 sqM); Albumin 2.8 g/dL (3.5-5.0); Alkaline Phosphatase 56 U/L (38-126); Anion Gap 8 mmol/L; Blood Urea Nitrogen 15 mg/dL (9-20); Calcium 8.8 mg/dL (8.4-10.2); Carbon Dioxide 24 mmol/L (22-30); Chloride 111 mmol/L (98-107); Glucose 78 mg/dL (74-99); Non-African American GFR(CKD) >90 (>60 ml/min/1.73 sqM); Potassium 3.6 mmol/L (3.5-5.1); Sodium 143 mmol/L (137-145); Total Protein 4.9 g/dL (6.3-8.2)
--- NOTE | 2025-04-28 07:26 | P.PN ---
Subjective Progress Note Date: 04/27/25 This is a 74 year old male who is evaluated today on the cardiac unit. Patient has history of parkinsons, dementia. Came in for complaints of dizziness and jerking movements. He has had extensive neurological work up including lumbar puncture x 2. He is currently pending cultures from the second lumbar puncture as part of work up for encephalitis. Brain MRI reveals no acute/subacute infarct. mass effect or abnormal enhancement. He remains on IV antibiotics with ID following closely. Mentation has been waxing and waning with reporting he has alert this morning and is now more lethargic afternoon. He has NG tube in place for medications and will be started on feeds through the NG tube as well. His cultures so far are negative. Patient with right upper and lower extremity swelling with noted erythema. venous doppler has been taken of both the UE and LE and no evidence of DVT. Patient has been started on IV lasix daily for the swelling and will discontinue the IV fluids and monitor closely. Review of Systems Unable to complete as patient is Lethargic All inpatient medications were reviewed and appropriate changes in these medications as dictated in the interval history and assessment and plan. PHYSICAL EXAMINATION: GENERAL: The patient is alert and oriented x0, obtunded, lethargic, unresponsive. not in any acute distress. Well developed, well nourished. HEENT: Pupils are round and equally reacting to light. EOMI. No scleral icterus. No conjunctival pallor. Normocephalic, atraumatic. No pharyngeal erythema. No thyromegaly. CARDIOVASCULAR: S1 and S2 present. No murmurs, rubs, or gallops. PULMONARY: Chest is clear to auscultation, no wheezing or crackles. ABDOMEN: Soft, nontender, nondistended, normoactive bowel sounds. No palpable organomegaly. NG tube in place MUSCULOSKELETAL: No joint swelling or deformity. EXTREMITIES: No cyanosis, clubbing, or pedal edema. Mild peripheral edema NEUROLOGICAL: Gross neurological examination did not reveal any focal deficits. Diffuse weakness with evidence of myoclonus SKIN: No rashes. Assessment Meningoencephalitis Severe encephalopathy secondary to above, present on admission Aspiration pneumonitis Dyskinesia of both upper extremity, rule out worsening Parkinson disease versus (levodopa-induced dyskinesia), improved fever unknown source , DDx: meningitis/encephalitis Metabolic encephalopathy secondary to above A-fib with rate controlled, with elevated troponin parkinson disease Hypertension Hyperlipidemia Diabetes mellitus BPH Obesity with BMI of 36.2 GI prophylaxis DVT prophylaxis Full Code Plan Continue with antibiotic as per ID team Continue with IV vancomycin and ampicilllin Discontinue acyclovir. As per ID team Speech therapy consultion NG tube in place for medications Patient to be started on enteral feedings through the NG tube Continue with sinemet Venous doppler RLE ordered, no evidence of DVT right upper extremity Recommend to hold the IV fluids and patient has been started on IV lasix for the peripheral edema Repeat BMP/CBC tomorrow Patient is being followed by multiple consultations including ID, neurology, cardiology, The impression and plan of care has been dictated by Britt Mckeon, Nurse Practitioner as directed. Dr. Shamar MD I have performed a history and physical examination and medical decision making of this patient, discussed the same with the dictator, and agree with the dictators assessment and plan as written, documented as a scribe. Based on total visit time, I have performed more than 50% of this visit. Objective - Vital Signs Vital signs: Vital Signs Temp 98.9 F 04/27/25 21:30 Pulse 92 04/27/25 21:30 Resp 18 04/27/25 21:30 BP 163/81 04/27/25 21:30 Pulse Ox 95 04/27/25 21:30 FiO2 Intake & Output 04/27/25 04/27/25 04/28/25 06:59 18:59 06:59 Intake Total 10 10 10 Output Total 250 700 Balance -240 -690 10 Weight 68.5 kg 68.5 kg Intake: IV 10 10 10 Invasive Line 5 10 10 10 Output: Urine 250 700 Other: Voiding Method Diaper Diaper Diaper External Catheter External Catheter External Catheter # Bowel Movements 1 - Labs CBC & Chem 7: 04/28/25 06:29 04/27/25 06:30 Labs: Abnormal Lab Results - Last 24 Hours (Table) 04/27/25 Range/Units 06:30 Creatinine 0.46 L (0.66-1.25) mg/dL Microbiology - Last 24 Hours (Table) 04/24/25 09:10 CSF Gram Stain - Final Cerebral Spinal Fluid CSF Culture - Final 04/23/25 16:45 CSF Gram Stain - Final Cerebral Spinal Fluid CSF Culture - Final Assessment and Plan Time with Patient: Greater than 30
[2025-04-28 10:30] VITALS: BP 131/81; PULSE 64; RESP 20; TEMP 98.7
[2025-04-28 11:33] LABS: Glucose,Whole Blood 87 mg/dL (70-110)
[2025-04-28] MEDS: HYDROmorphone 1 MG/ML 1 ML SYRINGE IVP PRN (12:39)
--- NOTE | 2025-04-28 16:29 | P.PN ---
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 On today's evaluation that is 04/27/2025, patient has been afebrile this morning he did have a low-grade fever 100 degrees following last evening, patient is breathing comfortably and is currently on 2 L nasal cannula oxygen mention did have some improvement duration this morning as he was able to state his words no vomiting or diarrhea has been reported . Patient did have creatinine 0.46 no CBC was done today Objective - Vital Signs Vital signs: Vital Signs Temp 97.6 F 04/27/25 09:16 Pulse 92 04/27/25 09:16 Resp 18 04/27/25 09:16 BP 161/80 04/27/25 09:16 Pulse Ox 98 04/27/25 09:16 FiO2 Intake & Output 04/26/25 04/27/25 04/27/25 18:59 06:59 18:59 Intake Total 10 10 Output Total 1050 250 Balance -1040 -240 Weight 68.5 kg Intake: IV 10 10 Invasive Line 4 10 Invasive Line 5 10 Output: Urine 1050 250 Other: Voiding Method Diaper Diaper Diaper External Catheter External Catheter External Catheter # Bowel Movements 1 - Exam GENERAL DESCRIPTION: An elderly male lying in bed in no distress RESPIRATORY SYSTEM: Unlabored breathing , decreased breath sounds at bases HEART: S1 S2 regular rate and rhythm , ABDOMEN: Soft , no tenderness EXTREMITIES: No edema feet - Labs CBC & Chem 7: 04/28/25 06:29 04/28/25 06:29 Labs: Abnormal Lab Results - Last 24 Hours (Table) 04/26/25 04/26/25 04/27/25 Range/Units 12:56 12:56 06:30 RBC 3.70 L (4.40-5.60) 10*6/uL Hgb 11.3 L (13.0-17.0) g/dL Hct 34.6 L (39.6-50.0) % Chloride 110 H (98-107) mmol/L Creatinine 0.42 L 0.46 L (0.66-1.25) mg/dL C-Reactive Protein 16.4 H (<1.0) mg/dL Total Protein 4.9 L (6.3-8.2) g/dL Albumin 2.8 L (3.5-5.0) g/dL Microbiology - Last 24 Hours (Table) 04/24/25 09:10 CSF Gram Stain - Preliminary Cerebral Spinal Fluid CSF Culture - Preliminary 04/23/25 16:45 CSF Gram Stain - Preliminary Cerebral Spinal Fluid CSF Culture - Preliminary 04/21/25 05:46 Blood Culture - Final Blood Assessment and Plan (1) Sepsis Status: Acute Code(s): A41.9 - SEPSIS, UNSPECIFIED ORGANISM SNOMED Code(s): 58781752 (2) Encephalitis Status: Acute Code(s): G04.90 - ENCEPHALITIS AND ENCEPHALOMYELITIS, UNSPECIFIED SNOMED Code(s): 18272757 Plan: 1patient presented to the hospital with weakness and did have some spastic movement of the extremities concerning for possible seizure subsequently the patient started having a fever patient did have tachypnea and tachycardia elevated white count meeting criteria for SIRS/sepsis source will be likely [employer]CH[employer]IC infection in this patient did have a negative UA chest x-ray x 2 has been negative for any pneumonia abdomen is soft and no evidence of any cellulitis or joint swelling 2-patient did have a LP/CSF by anesthesia which is a bloody tap with elevated white cell of 24 protein is only 101 glucose normal question of possible viral encephalitis, CSF HSV WELL VZV DNA by PCR has been negative 3-patient did have resolution of his fever white count normalized etiology remains to be unclear question of possible West Nile versus Listeria meningeal encephalitis to be the only consideration at this point I have detailed discussion with the as well as with the neurologist on the case patient apparently was doing well 2 weeks ago and has progressive gone down after he did have a fall and apparently fall close to a metal garbage MRI of the brain was negative for any acute abnormality currently being treated with the ampicillin Rocephin and vancomycin and monitor clinical course closely Dictation was produced using Is[employer] software. please excuse any grammatical, word or spelling errors. Time with Patient: Less than 30
--- NOTE | 2025-04-28 16:30 | P.PN ---
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 On today's evaluation that is 04/28/2025, Patient is afebrile this morning patient remains to be lethargic less responsive and is currently on 2 L nasal oxygen no vomiting diarrhea or liver changes reported by the at the bedside. The patient did have a white count of 6.45, creatinine 0.47 CSF culture has been negative Objective - Vital Signs Vital signs: Vital Signs Temp 98.7 F 04/28/25 09:20 Pulse 64 04/28/25 09:20 Resp 20 04/28/25 09:20 BP 131/81 04/28/25 09:20 Pulse Ox 97 04/28/25 09:20 FiO2 Intake & Output 04/27/25 04/28/25 04/28/25 18:59 06:59 18:59 Intake Total 10 20 10 Output Total 700 Balance -690 20 10 Weight 68.5 kg 101 kg Intake: IV 10 20 10 Invasive Line 5 10 20 10 Output: Urine 700 Other: Voiding Method Diaper Diaper Diaper External Catheter External Catheter External Catheter # Voids 1 - Exam GENERAL DESCRIPTION: An elderly male lying in bed in no distress RESPIRATORY SYSTEM: Unlabored breathing , decreased breath sounds at bases HEART: S1 S2 regular rate and rhythm , ABDOMEN: Soft , no tenderness EXTREMITIES: No edema feet - Labs CBC & Chem 7: 04/28/25 06:29 04/28/25 06:29 Labs: Abnormal Lab Results - Last 24 Hours (Table) 04/28/25 04/28/25 Range/Units 06:29 06:29 RBC 3.64 L (4.40-5.60) 10*6/uL Hgb 10.9 L (13.0-17.0) g/dL Hct 34.6 L (39.6-50.0) % MCHC 31.5 L (32.0-37.0) g/dL Chloride 111 H (98-107) mmol/L Creatinine 0.47 L (0.66-1.25) mg/dL C-Reactive Protein 8.8 H (<1.0) mg/dL Total Protein 4.9 L (6.3-8.2) g/dL Albumin 2.8 L (3.5-5.0) g/dL Microbiology - Last 24 Hours (Table) 04/24/25 09:10 CSF Gram Stain - Final Cerebral Spinal Fluid CSF Culture - Final 04/23/25 16:45 CSF Gram Stain - Final Cerebral Spinal Fluid CSF Culture - Final Assessment and Plan (1) Sepsis Status: Acute Code(s): A41.9 - SEPSIS, UNSPECIFIED ORGANISM SNOMED Code(s): 70374260 (2) Encephalitis Status: Acute Code(s): G04.90 - ENCEPHALITIS AND ENCEPHALOMYELITIS, UNSPECIFIED SNOMED Code(s): 41257470 Plan: 1patient presented to the hospital with weakness and did have some spastic movement of the extremities concerning for possible seizure subsequently the patient started having a fever patient did have tachypnea and tachycardia elevated white count meeting criteria for SIRS/sepsis source will be likely PUBLICATION DESIGNER infection in this patient did have a negative UA chest x-ray x 2 has been negative for any pneumonia abdomen is soft and no evidence of any cellulitis or joint swelling 2-patient did have a LP/CSF by anesthesia which is a bloody tap with elevated white cell of 24 protein is only 101 glucose normal question of possible viral encephalitis, CSF HSV WELL VZV DNA by PCR has been negative 3-patient did have resolution of his fever white count normalized etiology remains to be unclear question of possible West Nile versus Listeria meningeal encephalitis to be the only consideration at this point I have detailed discussion with the as well as with the neurologist on the case patient apparently was doing well 2 weeks ago and has progressive gone down after he did have a fall and apparently fall close to a metal garbage MRI of the brain was negative for any acute abnormality is leaning towards hospice oriented care detailed discussion with the in this case antibiotics can be safe disco ntinued multiple questions asked and answered Dictation was produced using [employer] software. please excuse any grammatical, word or spelling errors. Time with Patient: Less than 30
[2025-04-28] MEDS ORDERED: VANCOMYCIN 1,750 MG in SODIUM CHLORIDE 0.9% 500 ML 500 ML IVPB SCH (18:00)
--- NOTE | 2025-04-28 20:58 | P.DS ---
Providers Date of admission: 04/21/25 07:41 Attending physician: Allen Lane MD Consults: 04/20/25 16:08 Consult Physician Urgent Consulting Provider: Corbin Guardado Consult Reason/Comments: acute tremors, dysarthria, hx parkinsons Do you want consulting provider notified?: Yes 04/21/25 05:53 Consult Physician Stat Consulting Provider: Ariana Izquierdo Consult Reason/Comments: sepsis Do you want consulting provider notified?: Yes 04/21/25 16:49 Consult Physician Urgent Consulting Provider: Psychiatry - [facility] Psychiatry Consult Reason/Comments: agitated, on psych medication Do you want consulting provider notified?: Yes Primary care physician: Kwame Johnson Hospital Course: Final Diagnosis Meningoencephalitis Severe encephalopathy secondary to above, present on admission Aspiration pneumonitis Dyskinesia of both upper extremity, rule out worsening Parkinson disease versus (levodopa-induced dyskinesia), improved fever unknown source , DDx: meningitis/encephalitis Metabolic encephalopathy secondary to above A-fib with rate controlled, with elevated troponin parkinson disease Hypertension Hyperlipidemia Diabetes mellitus BPH Obesity with BMI of 36.2 GI prophylaxis DVT prophylaxis Full Code Discharge Disposition Patient to be transitioned to inpatient hospice Hospital Course This is a 74 year old male, Patient has history of parkinsons, dementia, asthma, diabetes mellitus, GERD, hypertension, hyperlipidemia, BPH, anxiety/depression, former smoker. Came in for complaints of dizziness and jerking movements. He has had extensive neurological work up including lumbar puncture x 2. He is currently pending cultures from the second lumbar puncture as part of work up for encephalitis. [place] pending. Brain MRI reveals no acute/subacute infarct. mass effect or abnormal enhancement. He remains on IV antibiotics with ID following closely. Mentation has been waxing and waning with reporting he has alert this morning and is now more lethargic afternoon. He had NG tube in place for medications and will be started on feeds through the NG tube as well. His cultures so far are negative. Patient with right upper and lower extremity swelling with noted erythema. venous doppler has been taken of both the UE and LE and no evidence of DVT. Patient has been started on IV lasix daily for the swelling and will discontinue the IV fluids and monitor closely. He removed his NG tube overnight and multiple staff unable to reinsert. He is not responsive he has been mumbling calling out and moaning. He has been agitated. Discussed hospice with at the bedside. She would like him to be comfortable. States at home prior to admission he has been having trouble eating, frequent falls and when he was speaking made comments about not wanting to live that way. [facility] hospice is consulted and patient will be opened with inpatient hospice. Please see medication reconciliation for a list of current medications. Thank you for allowing us to participate in the care of this patient. The impression and plan of care has been dictated by Britt Mckeon, Nurse Practitioner as directed. Dr. hSamar MD I have performed a history and physical examination and medical decision making of this patient, discussed the same with the dictator, and agree with the dictators assessment and plan as written, documented as a scribe. Based on total visit time, I have performed more than 50% of this visit. Plan - Discharge Summary New Discharge Prescriptions: No Action Albuterol Sulfate [Ventolin HFA] 2 puff INHALATION RT-Q6H PRN PRN Reason: Shortness Of Breath Pravastatin Sodium [Pravachol] 40 mg PO HS Enalapril [Vasotec] 10 mg PO BID DULoxetine HCL [Cymbalta] 60 mg PO BID metFORMIN HCL [Glucophage] 500 mg PO W/LUNCH diphenhydrAMINE [Benadryl] 25 mg PO BID Albuterol Nebulized [Ventolin Nebulized] 2.5 mg INHALATION RT-QID PRN PRN Reason: Shortness Of Breath Boost High Protein 1 can PO TID-W/MEALS Ketoconazole 2% Cream [Nizoral 2%] 1 applic TOPICAL DAILY PRN PRN Reason: toenails Hydrocortisone Cream [Hydrocortisone 2.5% Cream] 1 applic TOPICAL BID PRN PRN Reason: Psoriasis on face/ears Galantamine HBr [Razadyne ER] 16 mg PO W/LUNCH Fluocinonide 0.05% Topical Solution 1 applic TOPICAL BID PRN PRN Reason: psoriasis of scalp Cholecalciferol [Vitamin D3 (25 Mcg = 1000 Iu)] 25 mcg PO DAILY Carbidopa-Levodopa 25-100 mg [Sinemet 25-100] 3 tab PO DAILY@1200 Vitamin B Complex 1 cap PO SELLERS Prazosin [Minipress] 4 mg PO HS Liquid Iv 1 packet PO W/LUNCH Tamsulosin HCl [Flomax] 0.4 mg PO DAILY@1600 HYDROcodone/APAP 7.5-325MG [[place] 7.5-325] 1 tab PO BID QUEtiapine [SEROquel] 100 mg PO HS Cyanocobalamin (Vitamin B-12) [Vitamin B-12] 1,000 mcg PO SELLERS Carbidopa-Levodopa 25-100 mg [Sinemet 25-100 mg] 2 tab PO BID@0600,1800 amantadine HCL [Amantadine] 100 mg PO BID Clobetasol Propionate [Temovate 0.05% Oint] 1 applic TOPICAL DIRECTED Diphenox-Atrop 2.5-0.025 mg [Lomotil] 2 tab PO QID PRN PRN Reason: Diarrhea bisacodyL [Dulcolax] 5 mg PO BID Budesonide/Formoterol Fumarate [Symbicort 160-4.5 Mcg Inhaler] 2 puff INHALATION RT-BID Discharge Medication List Albuterol Sulfate [Ventolin HFA] 2 puff INHALATION RT-Q6H PRN 09/26/19 [History] DULoxetine HCL [Cymbalta] 60 mg PO BID 09/26/19 [History] Enalapril [Vasotec] 10 mg PO BID 09/26/19 [History] Pravastatin Sodium [Pravachol] 40 mg PO HS 09/26/19 [History] metFORMIN HCL [Glucophage] 500 mg PO W/LUNCH 09/26/19 [History] HYDROcodone/APAP 7.5-325MG [[place] 7.5-325] 1 tab PO BID 01/03/23 [History] Tamsulosin HCl [Flomax] 0.4 mg PO DAILY@1600 01/03/23 [History] Albuterol Nebulized [Ventolin Nebulized] 2.5 mg INHALATION RT-QID PRN 06/26/24 [History] diphenhydrAMINE [Benadryl] 25 mg PO BID 06/26/24 [History] Boost High Protein 1 can PO TID-W/MEALS 02/16/25 [History] Carbidopa-Levodopa 25-100 mg [Sinemet 25-100 mg] 2 tab PO BID@0600,1800 02/16/25 [History] Carbidopa-Levodopa 25-100 mg [Sinemet 25-100] 3 tab PO DAILY@1200 02/16/25 [History] Cholecalciferol [Vitamin D3 (25 Mcg = 1000 Iu)] 25 mcg PO DAILY 02/16/25 [History] Clobetasol Propionate [Temovate 0.05% Oint] 1 applic TOPICAL DIRECTED 02/16/25 [History] Cyanocobalamin (Vitamin B-12) [Vitamin B-12] 1,000 mcg PO SELLERS 02/16/25 [History] Fluocinonide 0.05% Topical Solution 1 applic TOPICAL BID PRN 02/16/25 [History] Galantamine HBr [Razadyne ER] 16 mg PO W/LUNCH 02/16/25 [History] Hydrocortisone Cream [Hydrocortisone 2.5% Cream] 1 applic TOPICAL BID PRN 02/16/25 [History] Ketoconazole 2% Cream [Nizoral 2%] 1 applic TOPICAL DAILY PRN 02/16/25 [History] QUEtiapine [SEROquel] 100 mg PO HS 02/16/25 [History] Vitamin B Complex 1 cap PO SELLERS 02/16/25 [History] amantadine HCL [Amantadine] 100 mg PO BID 02/16/25 [History] Budesonide/Formoterol Fumarate [Symbicort 160-4.5 Mcg Inhaler] 2 puff INHALATION RT-BID 04/20/25 [History] Diphenox-Atrop 2.5-0.025 mg [Lomotil] 2 tab PO QID PRN 04/20/25 [History] Liquid Iv 1 packet PO W/LUNCH 04/20/25 [History] Prazosin [Minipress] 4 mg PO HS 04/20/25 [History] bisacodyL [Dulcolax] 5 mg PO BID 04/20/25 [History] Follow up Appointment(s)/Referral(s): Kwame Johnson MD [Primary Care Provider] - 1-2 days [facility] [NON-STAFF] - 1 Week Activity/Diet/Wound Care/Special Instructions: Patient requires a Bala lift because he/she requires at least two people to get out of bed to complete their ADLs or otherwise the patient would be bed bound. R/T inability to ambulate encephalitis, Tremors. Discharge/Stand Alone Forms: [facility] Instructions, Help In The Home Discharge Disposition: HOME WITH HOSPICE Care Plan Goals (MU): [facility] phone [phone]. will call to set up home care any questions please call agency.
[2025-04-29] MEDS ORDERED: VANCOMYCIN TROUGH DUE 1 EACH MISC MISCELLANE ONE (05:00)
--- NOTE | 2025-04-30 19:15 | CDI ---
Documentation Clarification Form Date: From: Thuan Palumbo Phone: Admit Date: 04/21/2025 07:41:00 AM Patient Name: Noel Ortiz Visit Number: [id number] Discharge Date: 04/28/2025 12:50:00 PM ATTENTION: The Clinical Documentation Specialists (CDI) and [facility] Coding Staff appreciate your assistance in clarifying documentation. Please respond to the clarification below the line at the bottom and electronically sign. The CDI & [facility] Coding staff will review the response and follow-up if needed. Please note: Queries are made part of the Legal Health Record. If you have any questions, please contact the author of this message via ITS. Doctor/Provider: Allen E Sheet Sepsis is documented 7-8 progress notes to discharge summary which may lack sufficient clinical evidence/support in the medical record. Additional clarification is requested. History/Risk Factors: Clinical Indicators: WBC 15.7 Fever 100.5 tachypnea metabolic encephalopathy encephalitis white count 9.62, creatinine 0.44 CSF Treatment: vancomycin, ceftriaxone and acyclovir . Patient received LP to work up for encephalitis 2 L nasal oxygen Please clarify if Sepsis is a valid diagnosis? [ ] No, Sepsis is ruled out [ x ] Yes, Sepsis is present as evidence by (additional clinical support): ___fever, high wbc count [ ] Other (please specify diagnosis) [ ] Unable to determine MTDD
== END 2025-04-28 12:50 | disposition hospice, inpatient (51) | DRG 871 ==
LOC: EC 13:43 → 6NMEDSUR 16:08 → OBSVTOIN 04-21 07:41 → 3SCARD 04-21 08:38
PROVIDERS: ADMIT Internal Medicine; ATTEND Internal Medicine
PROC: B01B1ZZ Fluoroscopy of Spinal Cord using Low Osmolar Contrast (ICD-10-PCS; 2025-04-24)
PROC: 009U3ZX Drainage of Spinal Canal, Percutaneous Approach, Diagnostic (ICD-10-PCS; principal; 2025-04-24 14:45)
DX: A41.9 Sepsis, unspecified organism (principal); G04.90 Encephalitis and encephalomyelitis, unspecified; G93.41 Metabolic encephalopathy; J69.0 Pneumonitis due to inhalation of food and vomit; F05 Delirium due to known physiological condition; G25.3 Myoclonus; I48.0 Paroxysmal atrial fibrillation; E11.649 Type 2 diabetes mellitus with hypoglycemia without coma; E66.9 Obesity, unspecified; F32.A Depression, unspecified; I10 Essential (primary) hypertension; J45.909 Unspecified asthma, uncomplicated; E11.9 Type 2 diabetes mellitus without complications; T42.8X5A Adverse effect of antiparkinsonism drugs and other central muscle-tone depressants, initial encounter; G47.52 REM sleep behavior disorder; E78.5 Hyperlipidemia, unspecified; F41.9 Anxiety disorder, unspecified; N40.0 Benign prostatic hyperplasia without lower urinary tract symptoms; Z68.38 Body mass index [BMI] 38.0-38.9, adult; Z87.891 Personal history of nicotine dependence; E87.6 Hypokalemia; X58.XXXA Exposure to other specified factors, initial encounter; F43.10 Post-traumatic stress disorder, unspecified; R29.6 Repeated falls; Z68.36 Body mass index [BMI] 36.0-36.9, adult; Z79.84 Long term (current) use of oral hypoglycemic drugs; Z79.51 Long term (current) use of inhaled steroids; Z79.899 Other long term (current) drug therapy; Z96.612 Presence of left artificial shoulder joint; R47.1 Dysarthria and anarthria
CPT/HCPCS: 36410; 36415; 62270; 70450; 70553; 71045; 71046; 72131; 76937; 80048; 80053; 80076; 80202; 81003; 82550; 82565; 82945; 83036; 83605; 83735; 83880; 84132; 84145; 84157; 84484; 85025; 85610; 85652; 85730; 86140; 86695; 86696; 87040; 87070; 87205; 87496; 87498; 87529; 87636; 87798; 89050; 93005; 93306; 94640; 94760; 95816; 96365; 96366; 96367; 96368; 96375; 96376; 99211; 99285

== ENCOUNTER 2025-04-28 12:43 | Inpatient (IN) | payer MEDICAID ==
[2025-04-28] MEDS ORDERED: ACETAMINOPHEN SUPPOSITORY 650 MG SUPP RECTAL PRN (12:44)
[2025-04-28] MEDS ORDERED: DRY MOUTH SPRAY 59 SPRAY/59 ML SPRAY MUCOUS MEM PRN (12:44)
[2025-04-28] MEDS ORDERED: HALOPERIDOL LACTATE 5 MG/ML 1 ML VIAL IM PRN (12:44)
[2025-04-28] MEDS: MORPHINE SULFATE 4 MG/ML SYRINGE IV PRN (14:12)
[2025-04-28] MEDS: SCOPOLAMINE 1 MG/72 HR PATCH TRANSDERM SCH (14:17)
[2025-04-28] MEDS: MORPHINE SULFATE 100 MG in SODIUM CHLORIDE 0.9% 90 ML IV SCH (18:40)
[2025-04-29] MEDS: GLYCOPYRROLATE 0.2 MG/ML 2 ML VIAL IVP PRN (02:13)
[2025-04-29] MEDS: ATROPINE OPHTH SOLN 1% 5ML BTL SUBLINGUAL PRN (04:52)
[2025-04-29] MEDS: LORazepam 1 MG/0.5 ML VIAL IV PRN (05:41)
--- NOTE | 2025-04-29 09:41 | P.HPIM ---
History of Present Illness H&P Date: 04/29/25 This is a 74 year old male, Patient has history of parkinsons, dementia, asthma, diabetes mellitus, GERD, hypertension, hyperlipidemia, BPH, anxiety/depression, former smoker. Came in for complaints of dizziness and jerking movements. He has had extensive neurological work up including lumbar puncture x 2. He is currently pending cultures from the second lumbar puncture as part of work up for encephalitis. [place] pending. Brain MRI reveals no acute/subacute infarct. mass effect or abnormal enhancement. He remains on IV antibiotics with ID following closely. Mentation has been waxing and waning with reporting he has alert this morning and is now more lethargic afternoon. He had NG tube in place for medications and will be started on feeds through the NG tube as well. His cultures so far are negative. Patient with right upper and lower extremity swelling with noted erythema. venous doppler has been taken of both the UE and LE and no evidence of DVT. Patient has been started on IV lasix daily for the swelling and will discontinue the IV fluids and monitor closely. He removed his NG tube overnight and multiple staff unable to reinsert. He is not responsive he has been mumbling calling out and moaning. He has been agitated. Discussed hospice with at the bedside. She would like him to be comfortable. States at home prior to admission he has been having trouble eating, frequent falls and when he was speaking made comments about not wanting to live that way. [facility] hospice is consulted and patient will be opened with inpatient hospice. Review of Systems Unable to be completed as patient is sedated on the morphine GTT All inpatient medications were reviewed and appropriate changes in these medications as dictated in the interval history and assessment and plan. PHYSICAL EXAMINATION: GENERAL: The patient is alert and oriented x0, not in any acute distress. Well developed, well nourished. HEENT: Pupils are round and equally reacting to light. EOMI. No scleral icterus. No conjunctival pallor. Normocephalic, atraumatic. No pharyngeal erythema. No thyromegaly. CARDIOVASCULAR: S1 and S2 present. No murmurs, rubs, or gallops. PULMONARY: Chest is clear to auscultation, no wheezing or crackles. ABDOMEN: Soft, nontender, nondistended, normoactive bowel sounds. No palpable organomegaly. MUSCULOSKELETAL: No joint swelling or deformity. EXTREMITIES: No cyanosis, clubbing, or pedal edema. NEUROLOGICAL: Gross neurological examination did not reveal any focal deficits. SKIN: No rashes. Assessment Hospice and end of life care Meningoencephalitis Severe encephalopathy secondary to above, present on admission Aspiration pneumonitis Dyskinesia of both upper extremity, rule out worsening Parkinson disease versus (levodopa-induced dyskinesia) fever unknown source , DDx: meningitis/encephalitis Metabolic encephalopathy secondary to above A-fib with rate controlled, with elevated troponin parkinson disease and parkinson's dementia Hypertension Hyperlipidemia Diabetes mellitus BPH Obesity with BMI of 36.2 DNR Plan Patient has been opened with inpatient hospice services. He is currently resting comfortably and continues on morphine infusion running at 8 mls/hr. Patient is receiving PRN ativan and PRN morphine for breakthrough discomfort. Patient has scopolamine patch placed to aid with secretions as well as atriopine gtss and IV robinul. Family is at the bedside. The impression and plan of care has been dictated by Britt Mckeon Nurse Practitioner as directed. Dr. Shamar MD I have performed a history and physical examination and medical decision making of this patient, discussed the same with the dictator, and agree with the dictators assessment and plan as written, documented as a scribe. Based on total visit time, I have performed more than 50% of this visit. Past Medical History Past Medical History: Asthma, Diabetes Mellitus, GERD/Reflux, Hyperlipidemia, Hypertension, Neurologic Disorder, Prostate Disorder, Skin Disorder Additional Past Medical History / Comment(s): PSORIASIS,NIDDM,PARKINSONS, BPH, increased confusion recently History of Any Multi-Drug Resistant Organisms: None Reported Past Surgical History: Hernia Repair, Orthopedic Surgery Additional Past Surgical History / Comment(s): LEFT SHOULDER 01/08/23. RIGHT SHOULDER X 2., LT. INGUINAL HERNIA, UMB HERNIA. LEFT KNEE ARTHROSCOPY. LEFT SHOULDER ARTHROPLASTY. ACHILLES TENDON REPAIR X 2, Radio Frequency treatments on back, 04/28/2024 lumbar fusion. Past Anesthesia/Blood Transfusion Reactions: No Reported Reaction Past Psychological History: Anxiety, Depression Smoking Status: Former smoker Past Alcohol Use History: None Reported Past Drug Use History: None Reported Medications and Allergies Home Medications Medication Instructions Recorded Confirmed Type Albuterol Sulfate [Ventolin HFA] 2 puff INHALATION RT-Q6H PRN 09/26/19 04/28/25 History DULoxetine HCL [Cymbalta] 60 mg PO BID 09/26/19 04/28/25 History Enalapril [Vasotec] 10 mg PO BID 09/26/19 04/28/25 History Pravastatin Sodium [Pravachol] 40 mg PO HS 09/26/19 04/28/25 History metFORMIN HCL [Glucophage] 500 mg PO W/LUNCH 09/26/19 04/28/25 History HYDROcodone/APAP 7.5-325MG [[place] 1 tab PO BID 01/03/23 04/28/25 History 7.5-325] Tamsulosin HCl [Flomax] 0.4 mg PO DAILY@1600 01/03/23 04/28/25 History Albuterol Nebulized [Ventolin 2.5 mg INHALATION RT-QID PRN 06/26/24 04/28/25 History Nebulized] diphenhydrAMINE [Benadryl] 25 mg PO BID 06/26/24 04/28/25 History Boost High Protein 1 can PO TID-W/MEALS 02/16/25 04/28/25 History Carbidopa-Levodopa 25-100 mg 2 tab PO BID@0600,1800 02/16/25 04/28/25 History [Sinemet 25-100 mg] Carbidopa-Levodopa 25-100 mg 3 tab PO DAILY@1200 02/16/25 04/28/25 History [Sinemet 25-100] Cholecalciferol [Vitamin D3 (25 25 mcg PO DAILY 02/16/25 04/28/25 History Mcg = 1000 Iu)] Clobetasol Propionate [Temovate 1 applic TOPICAL DIRECTED 02/16/25 04/28/25 History 0.05% Oint] Cyanocobalamin (Vitamin B-12) 1,000 mcg PO SELLERS 02/16/25 04/28/25 History [Vitamin B-12] Fluocinonide 0.05% Topical Solution 1 applic TOPICAL BID PRN 02/16/25 04/28/25 History Galantamine HBr [Razadyne ER] 16 mg PO W/LUNCH 02/16/25 04/28/25 History Hydrocortisone Cream 1 applic TOPICAL BID PRN 02/16/25 04/28/25 History [Hydrocortisone 2.5% Cream] Ketoconazole 2% Cream [Nizoral 2%] 1 applic TOPICAL DAILY PRN 02/16/25 04/28/25 History QUEtiapine [SEROquel] 100 mg PO HS 02/16/25 04/28/25 History Vitamin B Complex 1 cap PO SELLERS 02/16/25 04/28/25 History amantadine HCL [Amantadine] 100 mg PO BID 02/16/25 04/28/25 History Budesonide/Formoterol Fumarate 2 puff INHALATION RT-BID 04/20/25 04/28/25 History [Symbicort 160-4.5 Mcg Inhaler] Diphenox-Atrop 2.5-0.025 mg 2 tab PO QID PRN 04/20/25 04/28/25 History [Lomotil] Liquid Iv 1 packet PO W/LUNCH 04/20/25 04/28/25 History Prazosin [Minipress] 4 mg PO HS 04/20/25 04/28/25 History bisacodyL [Dulcolax] 5 mg PO BID 04/20/25 04/28/25 History Allergies Allergy/AdvReac Type Severity Reaction Status Date / Time No Known Allergies Allergy Verified 04/20/25 16:23 Physical Exam Vitals: Vital Signs Pulse Resp Pulse Ox 04/29/25 04:00 77 20 04/29/25 01:03 57 L 20 04/28/25 23:59 57 L 20 04/28/25 23:56 70 19 04/28/25 20:00 70 19 90 L 04/28/25 16:00 20 Intake and Output 04/28/25 04/29/25 04/29/25 22:59 06:59 14:59 Intake Total 35.883 18.9 Output Total 150 50 125 Balance -150 -14.117 -106.1 Intake: Intake, IV Titration 35.883 18.9 Amount Morphine Sulfate 100 mg 35.883 18.9 In Sodium Chloride 0.9% 90 ml @ 2 MG/HR 2 mls/hr IV .Q24H REPLACED BY [facility] Rx#: [id number] Oral 0 Output: Urine 150 50 125 Other: Voiding Method Indwelling Catheter Indwelling Catheter Assessment and Plan Time with Patient: Less than 30
[2025-04-29] MEDS: GLYCOPYRROLATE 0.2 MG/ML 2 ML VIAL IVP SCH (12:30)
[2025-04-29 13:12] VITALS: PULSE 77
--- NOTE | 2025-04-30 14:42 | P.PN ---
Subjective Progress Note Date: 04/30/25 This is a 74 year old male, Patient has history of parkinsons, dementia, asthma, diabetes mellitus, GERD, hypertension, hyperlipidemia, BPH, anxiety/depression, former smoker. Came in for complaints of dizziness and jerking movements. He has had extensive neurological work up including lumbar puncture x 2. He is currently pending cultures from the second lumbar puncture as part of work up for encephalitis. [place] pending. Brain MRI reveals no acute/subacute infarct. mass effect or abnormal enhancement. He remains on IV antibiotics with ID following closely. Mentation has been waxing and waning with reporting he has alert this morning and is now more lethargic afternoon. He had NG tube in place for medications and will be started on feeds through the NG tube as well. His cultures so far are negative. Patient with right upper and lower extremity swelling with noted erythema. venous doppler has been taken of both the UE and LE and no evidence of DVT. Patient has been started on IV lasix daily for the swelling and will discontinue the IV fluids and monitor closely. He removed his NG tube overnight and multiple staff unable to reinsert. He is not responsive he has been mumbling calling out and moaning. He has been agitated. Discussed hospice with at the bedside. She would like him to be comfortable. States at home prior to admission he has been having trouble eating, frequent falls and when he was speaking made comments about not wanting to live that way. [facility] hospice is consulted and patient will be opened with inpatient hospice. 04/30/2025 Patient evaluated in follow-up. He continues on IV morphine infusion and respiration rates now 04. has been at the bedside. He has rested comfortably no needs identified by family. Review of Systems Unable to be completed as patient is sedated on the morphine GTT All inpatient medications were reviewed and appropriate changes in these medications as dictated in the interval history and assessment and plan. PHYSICAL EXAMINATION: GENERAL: The patient is alert and oriented x0, not in any acute distress. Well d eveloped, well nourished. HEENT: Pupils are round and equally reacting to light. EOMI. No scleral icterus. No conjunctival pallor. Normocephalic, atraumatic. No pharyngeal erythema. No thyromegaly. CARDIOVASCULAR: S1 and S2 present. No murmurs, rubs, or gallops. PULMONARY: Chest is clear to auscultation, no wheezing or crackles. ABDOMEN: Soft, nontender, nondistended, normoactive bowel sounds. No palpable organomegaly. MUSCULOSKELETAL: No joint swelling or deformity. EXTREMITIES: No cyanosis, clubbing, or pedal edema. NEUROLOGICAL: Gross neurological examination did not reveal any focal deficits. SKIN: No rashes. Assessment Hospice and end of life care Meningoencephalitis Severe encephalopathy secondary to above, present on admission Aspiration pneumonitis Dyskinesia of both upper extremity, rule out worsening Parkinson disease versus (levodopa-induced dyskinesia) fever unknown source , DDx: meningitis/encephalitis Metabolic encephalopathy secondary to above A-fib with rate controlled, with elevated troponin parkinson disease and parkinson's dementia Hypertension Hyperlipidemia Diabetes mellitus BPH Obesity with BMI of 36.2 DNR Plan Patient has been opened with inpatient hospice services. He is currently resting comfortably and continues on morphine infusion running at 10 mls/hr. Patient is receiving PRN ativan and PRN morphine for breakthrough discomfort. Patient has scopolamine patch placed to aid with secretions as well as atriopine gtss and IV robinul. Family is at the bedside. The impression and plan of care has been dictated by Nurse Elizabeth Morejon as directed. Dr. Shamar MD I have performed a history and physical examination and medical decision making of this patient, discussed the same with the dictator, and agree with the dict ators assessment and plan as written, documented as a scribe. Based on total visit time, I have performed more than 50% of this visit. Objective - Vital Signs Vital signs: Vital Signs Temp Pulse 77 04/29/25 04:00 Resp 4 L 04/30/25 08:46 BP Pulse Ox 90 L 04/28/25 20:00 FiO2 Intake & Output 04/29/25 04/30/25 04/30/25 18:59 06:59 18:59 Intake Total 73.333 81.933 180 Output Total 325 100 Balance -251.667 -18.067 180 Intake: IV 80 Morphine Sulfate 100 mg 80 In Sodium Chloride 0.9% 90 ml @ 2 MG/HR 2 mls/hr IV .Q24H [facility] Rx#: [id number] Intake, IV Titration 73.333 81.933 100 Amount Morphine Sulfate 100 mg 73.333 81.933 100 In Sodium Chloride 0.9% 90 ml @ 2 MG/HR 2 mls/hr IV .Q24H [facility] Rx#: [id number] Oral 0 Output: Urine 325 100 Assessment and Plan Time with Patient: Less than 30
--- NOTE | 2025-05-02 10:19 | P.PN ---
Subjective Progress Note Date: 05/01/25 This is a 74 year old male, Patient has history of parkinsons, dementia, asthma, diabetes mellitus, GERD, hypertension, hyperlipidemia, BPH, anxiety/depression, former smoker. Came in for complaints of dizziness and jerking movements. He has had extensive neurological work up including lumbar puncture x 2. He is currently pending cultures from the second lumbar puncture as part of work up for encephalitis. [place] pending. Brain MRI reveals no acute/subacute infarct. mass effect or abnormal enhancement. He remains on IV antibiotics with ID following closely. Mentation has been waxing and waning with reporting he has alert this morning and is now more lethargic afternoon. He had NG tube in place for medications and will be started on feeds through the NG tube as well. His cultures so far are negative. Patient with right upper and lower extremity swelling with noted erythema. venous doppler has been taken of both the UE and LE and no evidence of DVT. Patient has been started on IV lasix daily for the swelling and will discontinue the IV fluids and monitor closely. He removed his NG tube overnight and multiple staff unable to reinsert. He is not responsive he has been mumbling calling out and moaning. He has been agitated. Discussed hospice with at the bedside. She would like him to be comfortable. States at home prior to admission he has been having trouble eating, frequent falls and when he was speaking made comments about not wanting to live that way. [facility] hospice is consulted and patient will be opened with inpatient hospice. 04/30/2025 Patient evaluated in follow-up. He continues on IV morphine infusion and respiration rates now 04. has been at the bedside. He has rested comfortably no needs identified by family. 05/01/2025 Patient is seen in follow-up today remains on morphine drip currently at 10 mL/h with comfort measures only and [facility] hospice following. Patient appears comfortable and does have significant upper bronchial congestion and secretions and is maintained on scopolamine patch along with atropine as needed. [facility] hospice working with being able to increase morphine drip. Review of Systems Unable to be completed as patient is sedated on the morphine GTT All inpatient medications were reviewed and appropriate changes in these medications as dictated in the interval history and assessment and plan. PHYSICAL EXAMINATION: GENERAL: The patient is alert and oriented x0, not in any acute distress. Well developed, elderly appearing, ill-appearing HEENT: Pupils are round and equally reacting to light. EOMI. No scleral icterus. No conjunctival pallor. Normocephalic, atraumatic. No pharyngeal erythema. No thyromegaly. CARDIOVASCULAR: S1 and S2 present. No murmurs, rubs, or gallops. PULMONARY: Occasional increased respirations with overall bronchial congestion and rhonchi noted, no wheezing, crackles noted at the bases as well. ABDOMEN: Soft, nontender, nondistended, normoactive bowel sounds. No palpable organomegaly. MUSCULOSKELETAL: No joint swelling or deformity. EXTREMITIES: No cyanosis, clubbing, or pedal edema. NEUROLOGICAL: Gross neurological examination did not reveal any focal deficits. Obtunded and unresponsive SKIN: No rashes. Assessment: Hospice and end of life care Meningoencephalitis Severe encephalopathy secondary to above, present on admission Aspiration pneumonitis Dyskinesia of both upper extremity, rule out worsening Parkinson disease versus (levodopa-induced dyskinesia) fever unknown source likely meningitis/encephalitis Metabolic encephalopathy secondary to above A-fib with rate controlled, with elevated troponin parkinson disease and parkinson's dementia Hypertension Hyperlipidemia Diabetes mellitus BPH Obesity with BMI of 36.2 DNR Plan: Patient has been opened with inpatient hospice services. He is currently resting comfortably and continues on morphine infusion running at 10 mls/hr. Patient is receiving PRN ativan and PRN morphine for breakthrough discomfort. Patient has scopolamine patch placed to aid with secretions as well as atriopine gtss and IV robinul. Family is at the bedside. [facility] also at bedside The impression and plan of care has been dictated by hCantal Madera, Nurse Practitioner as directed. Dr. Shamar MD I have performed a history and physical examination and medical decision making of this patient, discussed the same with the dictator, and agree with the dictators assessment and plan as written, documented as a scribe. Based on total visit time, I have performed more than 50% of this visit. Objective - Vital Signs Vital signs: Vital Signs Temp Pulse 77 04/29/25 04:00 Resp 4 L 04/30/25 08:46 BP Pulse Ox 90 L 04/28/25 20:00 FiO2 Intake & Output 04/30/25 05/01/25 05/01/25 18:59 06:59 18:59 Intake Total 180 100 100 Output Total 800 Balance 180 -700 100 Intake: IV 80 Morphine Sulfate 100 mg 80 In Sodium Chloride 0.9% 90 ml @ 2 MG/HR 2 mls/hr IV .Q24H [facility] Rx#: [id number] Intake, IV Titration 100 100 100 Amount Morphine Sulfate 100 mg 100 100 100 In Sodium Chloride 0.9% 90 ml @ 2 MG/HR 2 mls/hr IV .Q24H [facility] Rx#: [id number] Output: Urine 800 Other: # Voids 1
--- NOTE | 2025-05-02 13:28 | P.PN ---
Subjective Progress Note Date: 05/02/25 This is a 74 year old male, Patient has history of parkinsons, dementia, asthma, diabetes mellitus, GERD, hypertension, hyperlipidemia, BPH, anxiety/depression, former smoker. Came in for complaints of dizziness and jerking movements. He has had extensive neurological work up including lumbar puncture x 2. He is currently pending cultures from the second lumbar puncture as part of work up for encephalitis. [place] pending. Brain MRI reveals no acute/subacute infarct. mass effect or abnormal enhancement. He remains on IV antibiotics with ID following closely. Mentation has been waxing and waning with reporting he has alert this morning and is now more lethargic afternoon. He had NG tube in place for medications and will be started on feeds through the NG tube as well. His cultures so far are negative. Patient with right upper and lower extremity swelling with noted erythema. venous doppler has been taken of both the UE and LE and no evidence of DVT. Patient has been started on IV lasix daily for the swelling and will discontinue the IV fluids and monitor closely. He removed his NG tube overnight and multiple staff unable to reinsert. He is not responsive he has been mumbling calling out and moaning. He has been agitated. Discussed hospice with at the bedside. She would like him to be comfortable. States at home prior to admission he has been having trouble eating, frequent falls and when he was speaking made comments about not wanting to live that way. [facility] hospice is consulted and patient will be opened with inpatient hospice. 04/30/2025 Patient evaluated in follow-up. He continues on IV morphine infusion and respiration rates now 04. has been at the bedside. He has rested comfortably no needs identified by family. 05/01/2025 Patient is seen in follow-up today remains on morphine drip currently at 10 mL/h with comfort measures only and [facility] hospice following. Patient appears comfortable and does have significant upper bronchial congestion and secretions and is maintained on scopolamine patch along with atropine as needed. [facility] hospice working with being able to increase morphine drip. 05/02/2025 Patient is seen in follow-up today was maintained on 10 mL/h of morphine with breakthrough and is increasing per nursing staff and hospice nursing. Patient with position changes in bed bath did experience increased respirations. Patient does have scopolamine patch and recommend as needed atropine as well. Patient sounds quite rhonchorous with crackles and bronchial crackles noted. Patient is obtunded and unresponsive. Family at bedside with questions and concerns that were answered. We will continue to follow with [facility] Review of Systems Unable to be completed as patient is sedated on the morphine GTT All inpatient medications were reviewed and appropriate changes in these medications as dictated in the interval history and assessment and plan. PHYSICAL EXAMINATION: GENERAL: The patient is alert and oriented x0, not in any acute distress. Well developed, elderly appearing, ill-appearing HEENT: Pupils are round and equally reacting to light. EOMI. No scleral icterus. No conjunctival pallor. Normocephalic, atraumatic. No pharyngeal erythema. No thyromegaly. CARDIOVASCULAR: S1 and S2 present. No murmurs, rubs, or gallops. PULMONARY: Occasional increased respirations with overall bronchial congestion and rhonchi noted, no wheezing, crackles noted at the bases as well as upper airways. ABDOMEN: Soft, nontender, nondistended, normoactive bowel sounds. No palpable organomegaly. MUSCULOSKELETAL: No joint swelling or deformity. EXTREMITIES: No cyanosis, clubbing, or pedal edema. NEUROLOGICAL: Gross neurological examination did not reveal any focal deficits. Obtunded and unresponsive SKIN: No rashes. Assessment: Hospice and end of life care Meningoencephalitis Severe encephalopathy secondary to above, present on admission Aspiration pneumonitis Dyskinesia of both upper extremity, rule out worsening Parkinson disease versus (levodopa-induced dyskinesia) fever unknown source likely meningitis/encephalitis Metabolic encephalopathy secondary to above A-fib with rate controlled, with elevated troponin parkinson disease and parkinson's dementia Hypertension Hyperlipidemia Diabetes mellitus BPH Obesity with BMI of 36.2 DNR Plan: Patient continues on comfort measures GIP services with [facility] following. Patient is maintained on morphine drip is being increased to 13 mL /h. Recommend to continue with supportive care and comfort measures including scopolamine and atropine as needed along with breakthrough morphine Continue supportive care with family as well. We will continue to follow with [facility] and comfort measures only. The impression and plan of care has been dictated by Chantal Madera, Nurse Practitioner as directed. Dr. Shakira MD I have performed a history and physical examination and medical decision making of this patient, discussed the same with the dictator, and agree with the dictators assessment and plan as written, documented as a scribe. Based on total visit time, I have performed more than 50% of this visit. Objective - Vital Signs Vital signs: Vital Signs Temp Pulse 77 04/29/25 04:00 Resp 10 L 05/02/25 09:46 BP Pulse Ox 90 L 04/28/25 20:00 FiO2 Intake & Output 05/01/25 05/02/25 05/02/25 18:59 06:59 18:59 Intake Total 280.000 100.000 Output Total 825 Balance 280.000 -725.000 Intake: IV 80 Morphine Sulfate 100 mg 80 In Sodium Chloride 0.9% 90 ml @ 2 MG/HR 2 mls/hr IV .Q24H [facility] Rx#: [id number] Intake, IV Titration 200.000 100.000 Amount Morphine Sulfate 100 mg 200.000 100.000 In Sodium Chloride 0.9% 90 ml @ 2 MG/HR 2 mls/hr IV .Q24H [facility] Rx#: [id number] Output: Urine 825 Other: # Voids 1
[2025-05-02 15:41] VITALS: RESP 9
== END 2025-05-03 04:09 | disposition expired | DRG 951 ==
LOC: 3SCARD 12:51
PROVIDERS: ADMIT Internal Medicine; ATTEND Internal Medicine
DX: Z51.5 Encounter for palliative care (principal); G04.90 Encephalitis and encephalomyelitis, unspecified; G93.41 Metabolic encephalopathy; J69.0 Pneumonitis due to inhalation of food and vomit; F02.83 Dementia in other diseases classified elsewhere, unspecified severity, with mood disturbance; G20.B1 Parkinson's disease with dyskinesia, without mention of fluctuations; Z66 Do not resuscitate; E11.9 Type 2 diabetes mellitus without complications; F32.A Depression, unspecified; I10 Essential (primary) hypertension; E66.9 Obesity, unspecified; J45.909 Unspecified asthma, uncomplicated; F02.84 Dementia in other diseases classified elsewhere, unspecified severity, with anxiety; I48.91 Unspecified atrial fibrillation; R79.89 Other specified abnormal findings of blood chemistry; J98.09 Other diseases of bronchus, not elsewhere classified; R29.6 Repeated falls; E78.5 Hyperlipidemia, unspecified; N40.0 Benign prostatic hyperplasia without lower urinary tract symptoms; Z98.1 Arthrodesis status; Z79.84 Long term (current) use of oral hypoglycemic drugs; Z79.891 Long term (current) use of opiate analgesic; Z79.51 Long term (current) use of inhaled steroids; Z68.36 Body mass index [BMI] 36.0-36.9, adult; Z91.81 History of falling; Z87.891 Personal history of nicotine dependence; Z79.899 Other long term (current) drug therapy; Z96.612 Presence of left artificial shoulder joint